=== PATIENT | female | born 1950 | race African-American/Black ===

== ENCOUNTER 2017-06-15 10:09 | Outpatient (CLI) | payer MEDICARE, OTHER ==
[2017-06-15] MEDS ORDERED: LIDOCAINE 2%/EPI 1:100,000 20 ML VIAL. (10:33)
[2017-06-15 11:15] LABS: HEMATOCRIT 38.6 % (36.0-47.0); HEMOGLOBIN 12.5 g/dL (12.0-15.5); MEAN CORPUSCULAR HEMOGLOBIN 31 pg (25-35); MEAN CORPUSCULAR HGB CONC 32 g/dL (31-37); MEAN CORPUSCULAR VOLUME 96 fL (79-100); PLATELET COUNT 261 x10^3/uL (140-400); RED BLOOD COUNT 4.01 x10^6/uL (3.50-5.40); RED CELL DISTRIBUTION WIDTH 13.7 % (11.5-14.5)
[2017-06-15 11:24] LABS: INR 1.1 (0.8-1.1); PROTHROMBIN TIME PATIENT 13.3 SEC (11.7-14.0)
[2017-06-15] MEDS ORDERED: BACITRACIN 50,000 UNIT in IV NORMAL SALINE 250ML 250 ML IRR (11:30)
[2017-06-15] MEDS ORDERED: fentaNYL PF VIAL 100 MCG/2 ML VIAL (11:35)
[2017-06-15] MEDS ORDERED: MIDAZOLAM HCL/PF 2 MG/2 ML VIAL. (11:35)
[2017-06-15 11:50] LABS: ANION GAP 12 (6-14); BLOOD UREA NITROGEN 26 mg/dL (7-20); CALCIUM 9.1 mg/dL (8.5-10.1); CARBON DIOXIDE 24 mmol/L (21-32); CHLORIDE 106 mmol/L (98-107); CREATININE 1.3 mg/dL (0.6-1.0); GFR 49.7; GLUCOSE 109 mg/dL (70-99); POTASSIUM 4.7 mmol/L (3.5-5.1); SODIUM 142 mmol/L (136-145)
[2017-06-15] MEDS: LIDOCAINE 2% 20 ML VIAL. IJ (12:35)
[2017-06-15] MEDS: MIDAZOLAM HCL/PF 2 MG/2 ML VIAL. IV (12:36)
[2017-06-15] MEDS: fentaNYL PF VIAL 100 MCG/2 ML VIAL IV (12:36)
[2017-06-15] MEDS ORDERED: DIGOXIN IV 500 MCG/2 ML AMPUL. (13:02)
[2017-06-15] MEDS ORDERED: NO ANTICOAGULANT THERAPY. MC (13:15)
[2017-06-15] MEDS: DIGOXIN IV 500 MCG/2 ML AMPUL. IV (13:17)
[2017-06-16] MEDS ORDERED: DIGOXIN 125 MCG TABLET. PO (09:00)
== END 2017-06-15 15:15 | disposition home or self-care (01) ==
LOC: CCL 10:09
DX: T82.191A Other mechanical complication of cardiac pulse generator (battery), initial encounter (principal); Y84.8 Other medical procedures as the cause of abnormal reaction of the patient, or of later complication, without mention of misadventure at the time of the procedure; Y92.89 Other specified places as the place of occurrence of the external cause; E78.00 Pure hypercholesterolemia, unspecified; I48.91 Unspecified atrial fibrillation; I11.0 Hypertensive heart disease with heart failure; I50.20 Unspecified systolic (congestive) heart failure; Z79.01 Long term (current) use of anticoagulants
CPT/HCPCS: 33264; 36415; 80048; 85027; 85610; 93005; 99151; 99153; C1721; J0690; J1160; J1644; J2250; J3010

== ENCOUNTER 2017-07-23 10:11 | Day surgery (SDC) | payer MEDICARE ==
[~2017-07-23 10:11] MED LIST: 0.9 % SODIUM CHLORIDE 10 ML DISP.SYRIN. IV; HYDROmorphone 2 MG/ML VIAL IV; LIDOCAINE 1% PF 2 ML VIAL. ID; MORPHINE SULFATE 2 MG/ML DISP.SYRIN. IV; ONDANSETRON PF 4 MG/2 ML VIAL. IV; PROCHLORPERAZINE 10 MG/2 ML VIAL. IV; fentaNYL PF VIAL 100 MCG/2 ML VIAL IV
[2017-07-23 11:26] LABS: ANION GAP 11 (6-14); BLOOD UREA NITROGEN 27 mg/dL (7-20); CALCIUM 9.8 mg/dL (8.5-10.1); CARBON DIOXIDE 25 mmol/L (21-32); CHLORIDE 102 mmol/L (98-107); CREATININE 1.9 mg/dL (0.6-1.0); GFR 32.1; GLUCOSE 108 mg/dL (70-99); POTASSIUM 4.2 mmol/L (3.5-5.1); SODIUM 138 mmol/L (136-145)
[2017-07-23] MEDS: IV RINGERS,LACTATED 1000ML 1,000 ML IV ×2 (11:47)
[2017-07-23] MEDS ORDERED: PROPOFOL 20 ML IV ×2 (11:53)
== END 2017-07-23 13:02 | disposition home or self-care (01) ==
LOC: SURG 10:11
DX: I48.91 Unspecified atrial fibrillation (principal); I48.92 Unspecified atrial flutter; E66.9 Obesity, unspecified; I13.0 Hypertensive heart and chronic kidney disease with heart failure and stage 1 through stage 4 chronic kidney disease, or unspecified chronic kidney disease; N18.9 Chronic kidney disease, unspecified; I50.9 Heart failure, unspecified
CPT/HCPCS: 36415; 80048; 83735; 92960; 93005; J2704

== ENCOUNTER → 2017-11-18 | Outpatient (CLI) | payer MEDICARE | END | disposition home or self-care (01) | LOC: ECHO 12:38 | DX: I13.0 Hypertensive heart and chronic kidney disease with heart failure and stage 1 through stage 4 chronic kidney disease, or unspecified chronic kidney disease (principal); I50.22 Chronic systolic (congestive) heart failure; N18.9 Chronic kidney disease, unspecified; I08.8 Other rheumatic multiple valve diseases; I27.20 Pulmonary hypertension, unspecified; Z95.0 Presence of cardiac pacemaker | CPT/HCPCS: 93306 ==

== ENCOUNTER → 2018-06-02 | Outpatient (CLI) | payer MEDICARE ==
[2017-07-23 12:24] VITALS: BP 107/58
[~2018-06-02] MED LIST changes: -0.9 % SODIUM CHLORIDE 10 ML DISP.SYRIN. IV; +AMIO200T4 PO; +APIX5TAB PO; +DOCU100T11 PO; +FURO40TA4 PO; -HYDROmorphone 2 MG/ML VIAL IV; -LIDOCAINE 1% PF 2 ML VIAL. ID; +LISI-130 PO; +METO50TA6 PO; -MORPHINE SULFATE 2 MG/ML DISP.SYRIN. IV; -ONDANSETRON PF 4 MG/2 ML VIAL. IV; +PRAV40TA2 PO; -PROCHLORPERAZINE 10 MG/2 ML VIAL. IV; +REGADENOSON 0.4 MG/5 ML DISP.SYRIN. IV ONE; +[UNRECOGNIZED DRUG - CODE] PO; -fentaNYL PF VIAL 100 MCG/2 ML VIAL IV; +potassium
--- NOTE | 2018-06-02 13:24 | RAD ---
MR#: [id number] Date of Study: 06/02/2018 Ordering Physician: PRINCE REYNOSO, Referring Physician: APTTI SANTACRUZ Tech: BRIAN Braga APPROVED REPORT Test Type: Pharmacological Stress Nurse/Tech: Sejal Benitez RN Test Indications: CAD Cardiac History: Hypertension, CKD, open heart surgery x 2 for valve repair, ICD, arrythmia, dyspne a Medications: See Electronic Medical Record Medical History: See Electronic Medical Record Resting ECG: SR w/ PAC, PVC; Resting Heart Rate: 74 bpm Resting Blood Pressure: 138/63mmHg Pretest Chest Pain: No chest pain Nurse/Tech Notes S1S2, Clear LS, c/o SOB prior to test Consent: The procedure was explained to the patient in lay terms. Informed consent was witnessed. Aly eout was entered into [employer]. History and Stress Test performed by Sejal Benitez RN Pharm. Details Pharmacologic stress testing was performed using 0.4mg per 5ml of regadenoson given intravenously ove r 7-10 seconds. Stress Symptoms Dyspnea (getting worse than prior to test), ZAMORA (3/10), Nausea POST EXERCISE Reason for Termination: Infusion complete Max HR: 99 bpm Max Blood Pressure: 134/61mmHg Chest Pain: No. ST Change: No. INTERPRETATION Stress EKG Conclusion: No evidence of stress induced EKG changes. Imaging Protocol IMAGE PROTOCOL: Rest Tc-99m/stress Tc-99m 1 day Rest: Stress: Viability: Radiopharm.Tc99m [id number] Sestamibi Dose12.3mCi 32mCi Duration 15min. 13min. Img Date 06/02/2018 06/02/2018 Inj-Img [id number]. 60min. Rest Admin Site:IV - Right AntecubitalAdministrator:BRIAN Braga Stress Admin Site: IV - Right AntecubitalAdministrator: PATTI BishopTCB, ARRT (R)(N) STRESS DATA End Diast. Vol.83.0mlLVEDV index BSA46.0ml End Syst. Vol.35.0mlLVESV index BSA19.0ml Myocardial Jarl418.0gEject. Cldthsyu78.0% Stress Scores Regional WT0.00Summed WT5.00 Regional WM0.00Summed WM14.00 LV Perfusion There is a small sized, severe in intensity FIXED mid to distal septal defect suggestive of prior inf arct without ischemia. Wall Motion Normal wall motion. LV Perf. Quant 17 Seg. SSS7.00 17 Seg. SRS7.00 17 Seg. SDS1.00 Stress Defect Extent (% LAD)12.50Rest Defect Extent (% LAD)22.50Rev. Defect Extent (% LAD)0.00 Stress Defect Extent (% LCX) 12.50Rest Defect Extent (% LCX)21.30Rev. Defect Extent (% LCX)0.00 Stress Defect Extent (% RCA)0.00Rest Defect Extent (% RCA)0.00Rev. Defect Extent (% RCA)0.00 Stress Defect Extent (% NEGRITO)7.80Rest Defect Extent (% NEGRITO)13.00Rev. Defect Extent (% NEGRITO)0.00 Other Information Quality:Average Risk Assessment: Low Risk Conclusion 1. No evidence of stress induced EKG changes 2. Fixed septal defect. No ischemia 3. Normal LV function. EF 58% 4. Low risk study Signed by : Delmar Zhang, Electronically Approved : 06/02/2018 13:22:28
== END | disposition home or self-care (01) ==
LOC: NM 09:07
PROVIDERS: ATTEND Internal Medicine Cardiovascular Disease
DX: I25.10 Atherosclerotic heart disease of native coronary artery without angina pectoris (principal); I13.0 Hypertensive heart and chronic kidney disease with heart failure and stage 1 through stage 4 chronic kidney disease, or unspecified chronic kidney disease; I50.20 Unspecified systolic (congestive) heart failure; N18.9 Chronic kidney disease, unspecified
CPT/HCPCS: 78452; 93017; 96374; A9500; J2785

== ENCOUNTER 2018-08-11 09:36 | Inpatient (IN) | payer MEDICARE ==
[~2018-08-11] VITALS: Ht 157.5 cm; Wt 83.1 kg
[~2018-08-11 09:36] MED LIST changes: +ASPI-630 PO; +LEVO50TA5 PO; +LOSA100T14 PO; -REGADENOSON 0.4 MG/5 ML DISP.SYRIN. IV ONE; +WARF-78 PO
[2018-08-11] MEDS ORDERED: IPRATRPIUM/ALBUTEROL 0.5/2.5MG 3 ML NEBU. NEB ONE (09:45)
--- NOTE | 2018-08-11 10:02 | RAD ---
EXAM: Chest, single view. HISTORY: Short of breath. COMPARISON: 07/01/2018 FINDINGS: A frontal view of the chest obtained. There is stable mild increased left lung central interstitial opacity. There is no consolidation, pleural effusion or pneumothorax. There is stable cardiomegaly. There is evidence of median sternotomy and cardiac valve surgery. There is a left cardiac pacemaker defibrillator unchanged in position. IMPRESSION: 1. Stable mild increased left lung central interstitial opacity possibly due to atelectasis or interstitial infiltrate. 2. Stable cardiomegaly and postoperative changes. Electronically signed by: Latoya Arteaga MD (08/11/2018 9:59 AM) [place] [id number]
--- NOTE | 2018-08-11 10:24 | EKG ---
[facility] [address] [place] [address] Test Date: 2018-08-11 Test Time: 10:12:51 Pat Name: CRISTIAN EVANS Department: Room: Gender: F Repatcher: : 1950 Requested By: MINNIE CROCKER Order Number: [id number] Reading MD: Delmar Zhang MD Measurements Intervals [place] Rate: 113 P: 137 MS: 164 QRS: 19 QRSD: 82 T: -114 QT: 348 QTc: 483 Interpretive Statements INTERMITTENT V-PACING PROBABLE SVT Electronically Signed On 08-16-2018 7:53:12 .NET DEVELOPER by Delmar Zhang MD
[2018-08-11 11:16] LABS: BASO # 0.1 x10^3/uL (0.0-0.2); BASO % 1 % (0-3); EOS # 0.4 x10^3/uL (0.0-0.7); EOS % 3 % (0-3); HEMATOCRIT 38.5 % (36.0-47.0); HEMOGLOBIN 12.9 g/dL (12.0-15.5); LYMPH # 4.2 x10^3/uL (1.0-4.8); LYMPH % 38 % (24-48); MEAN CORPUSCULAR HEMOGLOBIN 33 pg (25-35); MEAN CORPUSCULAR HGB CONC 34 g/dL (31-37); MEAN CORPUSCULAR VOLUME 97 fL (79-100); MONO # 0.8 x10^3/uL (0.0-1.1); MONO % 7 % (0-9); NEUT # 5.5 x10^3uL (1.8-7.7); NEUT % 50 % (31-73); PLATELET COUNT 351 x10^3/uL (140-400); RED BLOOD COUNT 3.98 x10^6/uL (3.50-5.40); RED CELL DISTRIBUTION WIDTH 14.2 % (11.5-14.5); WHITE BLOOD COUNT 10.9 x10^3/uL (4.0-11.0)
[2018-08-11 11:37] LABS: CALCIUM 9.9 mg/dL (8.5-10.1); CREATININE 1.9 mg/dL (0.6-1.0); POTASSIUM 3.5 mmol/L (3.5-5.1)
[2018-08-11 11:41] LABS: ALBUMIN 3.8 g/dL (3.4-5.0); DIRECT BILIRUBIN 0.3 mg/dL (0.0-0.2); TOTAL BILIRUBIN 1.1 mg/dL (0.2-1.0); TOTAL PROTEIN 8.8 g/dL (6.4-8.2)
[2018-08-11] MEDS ORDERED: IV NORMAL SALINE 500ML BAG 500 ML IV ONE ×2 (11:45→12:45)
[2018-08-11] MEDS ORDERED: cefTRIAXone IV Push 1 GM VIAL. IVP ONE (12:15)
[2018-08-11] MEDS ORDERED: ONDANSETRON PF 4 MG/2 ML VIAL. IV PRN (12:15)
[2018-08-11] MEDS ORDERED: AZITHRMYCN 500MG IVPB FOR OMNI 250 ML IV ONE (12:15)
[2018-08-11 12:42] LABS: PROTHROMBIN TIME PATIENT 18.3 SEC (11.7-14.0)
[2018-08-11] MEDS ORDERED: WARF2TAB96 PO (12:42)
[2018-08-11] MEDS ORDERED: LOSA-73 PO (12:42)
--- NOTE | 2018-08-11 12:46 | PHYS DOC ---
Past Medical History Past Medical History: A-Fib, CHF, High Cholesterol, Hypertension, Hypothyroid, Other Additional Past Medical Histor: PACE MAKER/DEFIB Past Surgical History: Pacemaker, Other Additional Past Surgical Histo: MITRAL VALVE REPAIR X2 Alcohol Use: None Drug Use: None Adult General Chief Complaint Chief Complaint: SHORTNESS OF BREATH HPI HPI 67 year old female presenting to the emergency department today with worsening cough and shortness of breath with increasing sputum production. She has had a cough since March but over the last 2 weeks it has been worse. She feels lightheaded and dizzy at home. About a month ago they changed her blood pressure medications. She denies any pain but her lightheadedness is worse when she stands up. Review of systems is negative for chest pain abdominal pain fevers chills or neck stiffness. All other review of systems is negative unless otherwise noted in history of present illness. ED course: 67 yo female presenting with a cough and shortness of breath. On arrival she is tachycardic and mildly hypotensive in the 90s. She has a history of CHF and was given 500 mL of fluid initially. Chest x-ray shows probable infiltrate. White blood cell count within normal limits. His lipase is mildly elevated likely secondary to vomiting. Posttussis vomiting most likely. ProBNP is mildly elevated. Patient does not appear volume overloaded clinically this time. Troponin is within normal limits. I spoke with Dr. Goldman who accepts the patient for admission. Antibiotics were initiated. Basic bridge orders placed. EKG reviewed by myself shows an intermittently paced rhythm with an irregular rhythm. Heart rate is about 110. ST segments show repolarization on the paced leads. Otherwise ST segments are congruent. Not suggestive of ACS. Patient does not have any chest pain and is not currently short of breath. Review of Systems Review of Systems SEE ABOVE. Current Medications Current Medications Current Medications Medications (Trade) Dose Ordered Sig/Kimber Start Time Stop Time Status Last Admin Dose Admin Albuterol/ Ipratropium (Duoneb) 3 ml 1X ONCE 08/11/18 09:45 08/11/18 09:46 DC 08/11/18 10:22 3 ML Azithromycin 250 ml @ 250 mls/hr 1X ONCE 08/11/18 12:15 08/11/18 13:14 Ceftriaxone Sodium (Rocephin) 1 gm 1X ONCE 08/11/18 12:15 08/11/18 12:16 DC Ondansetron HCl (Zofran) 4 mg PRN Q8HRS PRN 08/11/18 12:15 08/12/18 12:14 Sodium Chloride 500 ml @ 500 mls/hr 1X ONCE 08/11/18 11:45 08/11/18 12:44 08/11/18 11:44 500 MLS/HR Allergies Allergies Allergies Coded Allergies Type Severity Reaction Last Updated Verified No Known Drug Allergies 07/21/17 No Physical Exam Physical Exam SEE ABOVE Constitutional: Well developed, well nourished, no acute distress, non-toxic appearance. HENT: Normocephalic, atraumatic, bilateral external ears normal, oropharynx moist, no oral exudates, nose normal. [] Eyes: PERRLA, EOMI, conjunctiva normal, no discharge. Neck: Normal range of motion, no tenderness, supple, no stridor. [] Cardiovascular:Heart rate regular rhythm, no murmur Lungs & Thorax: Bilateral breath sounds clear to auscultation [] no wheezing or crackles. Abdomen: Bowel sounds normal, soft, no tenderness, no masses, no pulsatile masses. Skin: Warm, dry, no erythema, no rash. [] Back: No tenderness, no CVA tenderness. [] Extremities: No tenderness, no cyanosis, no clubbing, ROM intact, no edema. Neurologic: Alert and oriented X 3, normal motor function, normal sensory function, no focal deficits noted. [] Psychologic: Affect normal, judgement normal, mood normal. [] Current Patient Data Vital Signs Vital Signs Date Time Temp Pulse Resp B/P (MAP) Pulse Ox O2 Delivery O2 Flow Rate FiO2 08/11/18 10:23 96 Room Air 08/11/18 09:50 98.7 118 20 93/67 (76) 98.7 Lab Values Laboratory Tests Test 08/11/18 11:08 White Blood Count 10.9 x10^3/uL (4.0-11.0) Red Blood Count 3.98 x10^6/uL (3.50-5.40) Hemoglobin 12.9 g/dL (12.0-15.5) Hematocrit 38.5 % (36.0-47.0) Mean Corpuscular Volume 97 fL (79-100) Mean Corpuscular Hemoglobin 33 pg (25-35) Mean Corpuscular Hemoglobin Concent 34 g/dL (31-37) Red Cell Distribution Width 14.2 % (11.5-14.5) Platelet Count 351 x10^3/uL (140-400) Neutrophils (%) (Auto) 50 % (31-73) Lymphocytes (%) (Auto) 38 % (24-48) Monocytes (%) (Auto) 7 % (0-9) Eosinophils (%) (Auto) 3 % (0-3) Basophils (%) (Auto) 1 % (0-3) Neutrophils # (Auto) 5.5 x10^3uL (1.8-7.7) Lymphocytes # (Auto) 4.2 x10^3/uL (1.0-4.8) Monocytes # (Auto) 0.8 x10^3/uL (0.0-1.1) Eosinophils # (Auto) 0.4 x10^3/uL (0.0-0.7) Basophils # (Auto) 0.1 x10^3/uL (0.0-0.2) Sodium Level 143 mmol/L (136-145) Potassium Level 3.5 mmol/L (3.5-5.1) Chloride Level 101 mmol/L (98-107) Carbon Dioxide Level 30 mmol/L (21-32) Anion Gap 12 (6-14) Blood Urea Nitrogen 18 mg/dL (7-20) Creatinine 1.9 mg/dL (0.6-1.0) H Estimated GFR (Cockcroft-Gault) 32.0 Glucose Level 111 mg/dL (70-99) H Calcium Level 9.9 mg/dL (8.5-10.1) Total Bilirubin 1.1 mg/dL (0.2-1.0) H Direct Bilirubin 0.3 mg/dL (0.0-0.2) H Aspartate Amino Transferase (AST) 17 U/L (15-37) Alanine Aminotransferase (ALT) 16 U/L (14-59) Alkaline Phosphatase 108 U/L (46-116) Troponin I Quantitative < 0.017 ng/mL (0.000-0.055) GF-Qmt-V-Type Natriuretic Peptide 1418 pg/mL (0-124) H Total Protein 8.8 g/dL (6.4-8.2) H Albumin 3.8 g/dL (3.4-5.0) Lipase 1062 U/L (73-393) H Laboratory Tests 08/11/18 11:08 Laboratory Tests 08/11/18 11:08 EKG EKG [] Radiology/Procedures Radiology/Procedures [] Course & Med Decision Making Course & Med Decision Making Pertinent Labs and Imaging studies reviewed. (See chart for details) [] Dragon Disclaimer Dragon Disclaimer This electronic medical record was generated, in whole or in part, using a voice recognition dictation system. Departure Departure Impression: Primary Impression: Pneumonia Additional Impression: A-fib Disposition: ADMITTED INPATIENT Admitting Physician: Lola Goldman Condition: STABLE Referrals: LOLA GOLDMAN MD (PCP) Problem Qualifiers MINNIE CROCKER MD Aug 11, 2018 12:46
[2018-08-11 15:39] VITALS: BP 102/66
--- NOTE | 2018-08-11 15:54 | PDOC2 ---
CORTES BETANCOURT ONCOLOGY PHYSICIAN ASSISTANT 08/11/18 1554: CARDIAC CONSULT DATE OF CONSULT Date of Consult DATE: 08/11/18 TIME: 15:26 REASON FOR CONSULT Reason for Consult: Cardiac arrhythmia, possible VT REFERRING PHYSICIAN Referring Physician: Susi SOURCE Source: Chart review, Patient HISTORY OF PRESENT ILLNESS HISTORY OF PRESENT ILLNESS This is a pleasant 67 yo female admitted for complains of nausea, vomiting and MONACDA. Denies any chest pain and denies any palpitations. In the last 2 weeks she has been having coughing but only clear secretions comes out. No fever or chills. Reports that sometimes she coughs significantly that she vomits. When she eats solids she eventually start gagging and vomits. No significant abdominal pain. When she drinks fluids sometimes it goes to her trachea. Denies any heartburn. In the last week she has stopped eating solids and just clears liquids because her nausea,vomiting and coughing became worse. Also she has noted that her BP has gotten low but no frequent dizziness or passing out. She also has kept on taking lasix daily. Currently she is not in distress and no complains of pain. PAST MEDICAL HISTORY Cardiovascular: AFIB (post CVN 07/2017), CAD, HTN, Hyperlipidemia, Valve insufficiency, Other (ICM) Heme/Onc: Anemia NOS, Other (chronic anticoagulation) Musculoskeletal: Osteoarthritis Rheumatologic: Rheumatoid arthritis Endocrine: Hypothyroidism PAST SURGICAL HISTORY Past Surgical History: Pacemaker (AICD), Other (MV open repair) FAMILY HISTORY Family History: Heart Disease (mother) SOCIAL HISTORY Smoke: Quit ALCOHOL: none Drugs: None Lives: with Family CURRENT MEDICATIONS CURRENT MEDICATIONS Current Medications Medications (Trade) Dose Ordered Sig/Kimber Route PRN Reason Start Time Stop Time Status Last Admin Dose Admin Albuterol/ Ipratropium (Duoneb) 3 ml 1X ONCE NEB 08/11/18 09:45 08/11/18 09:46 DC 08/11/18 10:22 Sodium Chloride 500 ml @ 500 mls/hr 1X ONCE IV 08/11/18 11:45 08/11/18 12:44 DC 08/11/18 11:44 Azithromycin 250 ml @ 250 mls/hr 1X ONCE IV 08/11/18 12:15 08/11/18 13:14 DC 08/11/18 13:03 Ceftriaxone Sodium (Rocephin) 1 gm 1X ONCE IVP 08/11/18 12:15 08/11/18 12:16 DC 08/11/18 13:03 Sodium Chloride 500 ml @ 500 mls/hr 1X ONCE IV 08/11/18 12:45 08/11/18 13:44 DC 08/11/18 12:45 ALLERGIES ALLERGIES: Coded Allergies: No Known Drug Allergies (Unverified , 07/21/17) ROS Review of System 14 point ROS evaluated with pertinent positives noted per HPI PHYSICAL EXAM General: Alert, Oriented X3, Cooperative, No acute distress HEENT: Atraumatic, Mucous membr. moist/pink Lungs: Clear to auscultation, Normal air movement Heart: Regular rate (atrial tach), Normal S1, Normal S2, Other (2/6 systolic murmur to LLS border) Abdomen: Soft, No tenderness Extremities: No cyanosis, No edema Skin: No breakdown, No significant lesion Neuro: Normal speech, Sensation intact Psych/Mental Status: Mental status NL, Mood NL MUSCULOSKELETAL: Osteoarthritic changes both hands VITALS VITALS Vital Signs Date Time Temp Pulse Resp B/P (MAP) Pulse Ox O2 Delivery O2 Flow Rate FiO2 08/11/18 13:50 112 15 97/67 (77) 97 Room Air 08/11/18 09:50 98.7 98.7 LABS Lab: Laboratory Tests Test 08/11/18 11:08 08/11/18 13:30 White Blood Count 10.9 x10^3/uL (4.0-11.0) Red Blood Count 3.98 x10^6/uL (3.50-5.40) Hemoglobin 12.9 g/dL (12.0-15.5) Hematocrit 38.5 % (36.0-47.0) Mean Corpuscular Volume 97 fL (79-100) Mean Corpuscular Hemoglobin 33 pg (25-35) Mean Corpuscular Hemoglobin Concent 34 g/dL (31-37) Red Cell Distribution Width 14.2 % (11.5-14.5) Platelet Count 351 x10^3/uL (140-400) Neutrophils (%) (Auto) 50 % (31-73) Lymphocytes (%) (Auto) 38 % (24-48) Monocytes (%) (Auto) 7 % (0-9) Eosinophils (%) (Auto) 3 % (0-3) Basophils (%) (Auto) 1 % (0-3) Neutrophils # (Auto) 5.5 x10^3uL (1.8-7.7) Lymphocytes # (Auto) 4.2 x10^3/uL (1.0-4.8) Monocytes # (Auto) 0.8 x10^3/uL (0.0-1.1) Eosinophils # (Auto) 0.4 x10^3/uL (0.0-0.7) Basophils # (Auto) 0.1 x10^3/uL (0.0-0.2) Prothrombin Time 18.3 SEC (11.7-14.0) Prothromb Time International Ratio 1.6 (0.8-1.1) Sodium Level 143 mmol/L (136-145) Potassium Level 3.5 mmol/L (3.5-5.1) Chloride Level 101 mmol/L (98-107) Carbon Dioxide Level 30 mmol/L (21-32) Anion Gap 12 (6-14) Blood Urea Nitrogen 18 mg/dL (7-20) Creatinine 1.9 mg/dL (0.6-1.0) Estimated GFR (Cockcroft-Gault) 32.0 Glucose Level 111 mg/dL (70-99) Calcium Level 9.9 mg/dL (8.5-10.1) Total Bilirubin 1.1 mg/dL (0.2-1.0) Direct Bilirubin 0.3 mg/dL (0.0-0.2) Aspartate Amino Transf (AST/SGOT) 17 U/L (15-37) Alanine Aminotransferase (ALT/SGPT) 16 U/L (14-59) Alkaline Phosphatase 108 U/L (46-116) Troponin I Quantitative < 0.017 ng/mL (0.000-0.055) ML-Ois-R-Type Natriuretic Peptide 1418 pg/mL (0-124) Total Protein 8.8 g/dL (6.4-8.2) Albumin 3.8 g/dL (3.4-5.0) Lipase 1062 U/L (73-393) Lactic Acid Level 1.2 mmol/L (0.4-2.0) ECHOCARDIOGRAM ECHOCARDIOGRAM <Conclusion> The left ventricular systolic function is normal and the ejection fraction is low normal. EF 50% Septal motion consistent with conduction abnormality, otherwise, there is normal wall motion. There is a pacemaker/ICD lead in the right ventricle. Doppler and Color Flow revealed mild tricuspid regurgitation. There is moderate pulmonary hypertension. PASP is 54mmHg. Doppler and Color Flow revealed mild pulmonic valvular regurgitation. There is mild pulmonary artery dilatation. DATE: 11/18/17 1439 STRESS TEST STRESS TEST Conclusion 1. No evidence of stress induced EKG changes 2. Fixed septal defect. No ischemia 3. Normal LV function. EF 58% 4. Low risk study DATE: 06/02/18 1322 ASSESSMENT/PLAN ASSESSMENT/PLAN 1. Possible pneumonia and aspiration: per PCP 2. Persistent AFIB/flutter with RVR: likely induced by GI and metabolic issues. 3. AICD in situ: (Biotronik) device review noted 11.9% AFIB burden with frequent atrial tach in the last 2 weeks suggesting flutter and fib with intermittent pacing and no VT. 4. CAD: recent MPI as noted above. stable. 5. ICM: noted last EF at 50%. Impedances are within baseline not suggesting overload. 6. Hx of open MV repair 7. Hypothyroidism: recent 06/2018 TSH at 12.7, on replacement per PCP 8. HTN: marginal, received IVF in ED. 9. Elevated lipase: per PCP 10. Esophageal motility disorder/dysphagia? 11. MARILEE due to volume depletion due to vomiting, lasix use and low PO intake. Recommendations 1. Recheck TSH. TTE, Mg. May need CT abd, will defer to PCP 2. INR 1.6. Consider GI consult. May need to hold coumadin if endoscopy is a possibility otherwise restart coumadin for stroke prevention. 3. Hold BB and ARB with BP at marginal range Potentially resume tomorrow. Will consider digoxin x1 4. Will hold amiodarone for now with elevated lipase and possible esophageal motility issue. Will discuss with primary top frame maker PRINCE REYNOSO MD 08/12/18 0712: CARDIAC CONSULT ASSESSMENT/PLAN ASSESSMENT/PLAN Patient seen and examined 08/11/18. Agree with WHEEL GRINDER's assessment and plan. Consider gastroenterology team consultation for patient's abdominal pain/nausea/ vomiting CAD status clinically stable. Recent 2-D echo showed LVEF 50%, clinically well compensated. Patient continues to have arrhythmias including atrial fibrillation/atrial tachycardia in spite of being on amiodarone Agree with holding amiodarone for now and use digoxin for rate control We will consider outpatient EP referral for ablation therapy Resume Coumadin for stroke prophylaxis once GI workup is completed Thank you for your consultation CORTES BETANCOURT APRN Aug 11, 2018 15:54 PRINCE REYNOSO MD Aug 12, 2018 07:12
[2018-08-11] MEDS ORDERED: AMIODARONE HCL 200 MG TABLET. PO SCH (16:30)
[2018-08-11] MEDS ORDERED: DIGOXIN IV 500 MCG/2 ML AMPUL. IV ONE (16:45)
--- NOTE | 2018-08-11 17:03 | PDOC ---
PROGRESS NOTES Subjective Subjective Patient denies CP or palpitations. Denies SOA. Objective Objective Vital Signs Date Time Temp Pulse Resp B/P (MAP) Pulse Ox O2 Delivery O2 Flow Rate FiO2 08/11/18 15:39 98.4 116 20 102/66 (78) 98 Nasal Cannula 98.4 Physical Exam Abdomen: Normal bowel sounds, Soft, No tenderness Heart: Other (irregularly irregular, tachy) Extremities: No edema General: Alert, Oriented X3, No acute distress Lungs: Other (BS mildly decreased throughout, no wheezes or crackles, no cough during exam) Assessment Assessment Problems Medical Problems: (1) A-fib Status: Acute (2) Pneumonia Status: Acute Plan Plan of Care 1. Chronic afib with RVR - patient mildly tachy. INR low, increased Coumadin tonight. Cardiology adjusting medications. B Riccardo on hold due to hypotension. 2. cough - patient reports this has gone on for weeks and is worsening. Cough only associated with eating. Some post-tussive emesis which is also worsening. CXR shows a mild L lung opacity which was seen last month and has not really worsened. Patient has long smoking history but has not smoked for years. CT chest ordered for further evaluation. If unremarkable will need to consider GI evaluation although patient denies dysphagia. 3. hypotension - patient has hx of HTN but is too tightly controlled at present. Hold meds and resume as indicated. 4. hypothyroidism - recently diagnosed and started on replacement. 5. CKD - Creatinine staying elevated. Lasix presently on hold, follow lab. Comment Review of Relevant I have reviewed the following items cinthia (where applicable) has been applied. Labs Laboratory Tests Test 08/11/18 11:08 08/11/18 13:30 White Blood Count 10.9 x10^3/uL (4.0-11.0) Red Blood Count 3.98 x10^6/uL (3.50-5.40) Hemoglobin 12.9 g/dL (12.0-15.5) Hematocrit 38.5 % (36.0-47.0) Mean Corpuscular Volume 97 fL (79-100) Mean Corpuscular Hemoglobin 33 pg (25-35) Mean Corpuscular Hemoglobin Concent 34 g/dL (31-37) Red Cell Distribution Width 14.2 % (11.5-14.5) Platelet Count 351 x10^3/uL (140-400) Neutrophils (%) (Auto) 50 % (31-73) Lymphocytes (%) (Auto) 38 % (24-48) Monocytes (%) (Auto) 7 % (0-9) Eosinophils (%) (Auto) 3 % (0-3) Basophils (%) (Auto) 1 % (0-3) Neutrophils # (Auto) 5.5 x10^3uL (1.8-7.7) Lymphocytes # (Auto) 4.2 x10^3/uL (1.0-4.8) Monocytes # (Auto) 0.8 x10^3/uL (0.0-1.1) Eosinophils # (Auto) 0.4 x10^3/uL (0.0-0.7) Basophils # (Auto) 0.1 x10^3/uL (0.0-0.2) Prothrombin Time 18.3 SEC (11.7-14.0) Prothromb Time International Ratio 1.6 (0.8-1.1) Sodium Level 143 mmol/L (136-145) Potassium Level 3.5 mmol/L (3.5-5.1) Chloride Level 101 mmol/L (98-107) Carbon Dioxide Level 30 mmol/L (21-32) Anion Gap 12 (6-14) Blood Urea Nitrogen 18 mg/dL (7-20) Creatinine 1.9 mg/dL (0.6-1.0) Estimated GFR (Cockcroft-Gault) 32.0 Glucose Level 111 mg/dL (70-99) Calcium Level 9.9 mg/dL (8.5-10.1) Magnesium Level 2.2 mg/dL (1.8-2.4) Total Bilirubin 1.1 mg/dL (0.2-1.0) Direct Bilirubin 0.3 mg/dL (0.0-0.2) Aspartate Amino Transf (AST/SGOT) 17 U/L (15-37) Alanine Aminotransferase (ALT/SGPT) 16 U/L (14-59) Alkaline Phosphatase 108 U/L (46-116) Troponin I Quantitative < 0.017 ng/mL (0.000-0.055) XY-Lbk-N-Type Natriuretic Peptide 1418 pg/mL (0-124) Total Protein 8.8 g/dL (6.4-8.2) Albumin 3.8 g/dL (3.4-5.0) Lipase 1062 U/L (73-393) Lactic Acid Level 1.2 mmol/L (0.4-2.0) Laboratory Tests Test 08/11/18 11:08 08/11/18 13:30 White Blood Count 10.9 x10^3/uL (4.0-11.0) Red Blood Count 3.98 x10^6/uL (3.50-5.40) Hemoglobin 12.9 g/dL (12.0-15.5) Hematocrit 38.5 % (36.0-47.0) Mean Corpuscular Volume 97 fL (79-100) Mean Corpuscular Hemoglobin 33 pg (25-35) Mean Corpuscular Hemoglobin Concent 34 g/dL (31-37) Red Cell Distribution Width 14.2 % (11.5-14.5) Platelet Count 351 x10^3/uL (140-400) Neutrophils (%) (Auto) 50 % (31-73) Lymphocytes (%) (Auto) 38 % (24-48) Monocytes (%) (Auto) 7 % (0-9) Eosinophils (%) (Auto) 3 % (0-3) Basophils (%) (Auto) 1 % (0-3) Neutrophils # (Auto) 5.5 x10^3uL (1.8-7.7) Lymphocytes # (Auto) 4.2 x10^3/uL (1.0-4.8) Monocytes # (Auto) 0.8 x10^3/uL (0.0-1.1) Eosinophils # (Auto) 0.4 x10^3/uL (0.0-0.7) Basophils # (Auto) 0.1 x10^3/uL (0.0-0.2) Prothrombin Time 18.3 SEC (11.7-14.0) Prothromb Time International Ratio 1.6 (0.8-1.1) Sodium Level 143 mmol/L (136-145) Potassium Level 3.5 mmol/L (3.5-5.1) Chloride Level 101 mmol/L (98-107) Carbon Dioxide Level 30 mmol/L (21-32) Anion Gap 12 (6-14) Blood Urea Nitrogen 18 mg/dL (7-20) Creatinine 1.9 mg/dL (0.6-1.0) Estimated GFR (Cockcroft-Gault) 32.0 Glucose Level 111 mg/dL (70-99) Calcium Level 9.9 mg/dL (8.5-10.1) Magnesium Level 2.2 mg/dL (1.8-2.4) Total Bilirubin 1.1 mg/dL (0.2-1.0) Direct Bilirubin 0.3 mg/dL (0.0-0.2) Aspartate Amino Transf (AST/SGOT) 17 U/L (15-37) Alanine Aminotransferase (ALT/SGPT) 16 U/L (14-59) Alkaline Phosphatase 108 U/L (46-116) Troponin I Quantitative < 0.017 ng/mL (0.000-0.055) JE-Sko-K-Type Natriuretic Peptide 1418 pg/mL (0-124) Total Protein 8.8 g/dL (6.4-8.2) Albumin 3.8 g/dL (3.4-5.0) Lipase 1062 U/L (73-393) Lactic Acid Level 1.2 mmol/L (0.4-2.0) Medications Current Medications Albuterol/ Ipratropium (Duoneb) 3 ml 1X ONCE NEB Last administered on at 10:22; Start 08/11/18 at 09:45; Stop 08/11/18 at 09:46; Status DC Sodium Chloride 500 ml @ 500 mls/hr 1X ONCE IV Last administered on at 11:44; Start 08/11/18 at 11:45; Stop 08/11/18 at 12:44; Status DC Azithromycin 250 ml @ 250 mls/hr 1X ONCE IV Last administered on 08/11/18at 13 :03; Start 08/11/18 at 12:15; Stop 08/11/18 at 13:14; Status DC Ceftriaxone Sodium (Rocephin) 1 gm 1X ONCE IVP Last administered on 08/11/18at 13:03; Start 08/11/18 at 12:15; Stop 08/11/18 at 12:16; Status DC Ondansetron HCl (Zofran) 4 mg PRN Q8HRS PRN IV NAUSEA/VOMITING; Start 08/11/18 at 12:15; Stop 08/12/18 at 12:14 Sodium Chloride 500 ml @ 500 mls/hr 1X ONCE IV Last administered on at 12:45; Start 08/11/18 at 12:45; Stop 08/11/18 at 13:44; Status DC Amiodarone HCl (Cordarone) 200 mg DAILY PO ; Start 08/11/18 at 16:30; Stop 08/11 at 16:49; Status DC Non-Formulary Medication (Warfarin Sodium ) 2 mg DAILY PO ; Start 08/12/18 at 09: 00; Status UNV Warfarin Sodium (Coumadin) 5 mg 1X WARF ONCE PO ; Start 08/12/18 at 16:30; Stop 08/12/18 at 16:31; Status Cancel Warfarin Sodium (Coumadin Per Pharmacy) 1 each PRN DAILY PRN [facility] SEE COMMENTS; Start 08/11/18 at 16:15 Digoxin (Lanoxin) 250 mcg 1X ONCE IV ; Start 08/11/18 at 16:45; Stop 08/11/18 at 16:46; Status DC Docusate Sodium (Colace) 100 mg PRN BID PRN PO CONSTIPATION; Start 08/11/18 at 21:00 Levothyroxine Sodium (Synthroid) 50 mcg DAILY06 PO ; Start 08/12/18 at 06:00 Atorvastatin Calcium (Lipitor) 10 mg QHS PO ; Start 08/11/18 at 21:00 Active Scripts Active Amiodarone Hcl 200 Mg Tablet 200 Mg PO DAILY 30 Days Coumadin (Warfarin Sodium) 5 Mg Tablet 5 Mg PO DAILY16 30 Days Reported Warfarin Sodium 2 Mg Tablet 2 Mg PO DAILY Losartan Potassium 50 Mg Tablet 50 Mg PO DAILY Levothyroxine Sodium 50 Mcg Tablet 1 Tab PO DAILY Furosemide 40 Mg Tablet 1 Tab PO PRN DAILY PRN Pravastatin Sodium 40 Mg Tablet 1 Tab PO QHS Stool Softener (Docusate Sodium) 100 Mg Tablet 100 Mg PO PRN PRN Metoprolol Tartrate 50 Mg Tablet 50 Mg PO BID Vitals/I & O Vital Sign - Last 24 Hours 08/11/18 08/11/18 08/11/18 08/11/18 09:50 10:23 10:50 11:50 Temp 98.7 98.7 Pulse 118 110 116 Resp 20 18 17 B/P (MAP) 93/67 (76) 114/59 (77) 104/64 (77) Pulse Ox 98 96 100 96 O2 Delivery Room Air Room Air Room Air Room Air 08/11/18 08/11/18 08/11/18 12:50 13:50 15:39 Temp 98.4 98.4 Pulse 116 112 116 Resp 16 15 20 B/P (MAP) 103/67 (79) 97/67 (77) 102/66 (78) Pulse Ox 99 97 98 O2 Delivery Room Air Room Air Nasal Cannula JOSH CANAS MD Aug 11, 2018 17:03
--- NOTE | 2018-08-11 17:37 | HP ---
ADMIT DATE: 08/11/2018 CHIEF COMPLAINT: Cough. HISTORY OF PRESENT ILLNESS: The patient is a 67-year-old female who presented to the Emergency Room with the above complaint. She reports a history of a cough that has been present for several months and has gradually worsened in intensity. The cough is dry and not productive of sputum. The cough only occurs in association with eating and she has recently had the onset of posttussive emesis. She does not feel short of breath except when she is actually coughing. She came to the Emergency Room because her symptoms continued to worsen and she felt more short of breath. PAST MEDICAL HISTORY: Chronic atrial fibrillation, hyperlipidemia, coronary artery disease, hypothyroidism, hypertension. PAST SURGICAL HISTORY: Mitral valve repair, AICD placement. ALLERGIES: The patient has no known drug allergies. HOME MEDICATIONS: Pravastatin 40 mg daily, furosemide 40 mg daily p.r.n., metoprolol tartrate 50 mg b.i.d., Pepcid 20 mg b.i.d. p.r.n., losartan 100 mg daily, levothyroxine 50 mcg daily, Coumadin 2 mg daily, amiodarone 200 mg daily. FAMILY HISTORY: Noncontributory. SOCIAL HISTORY: The patient is and lives at home with her . She has a long smoking history, but quit smoking cigarettes about 9 years ago. She does not drink alcohol to excess. REVIEW OF SYSTEMS: The patient denies fever or chills. She denies feeling ill with her cough. She denies chest pain or palpitations. She does have some intermittent lightheadedness, which may have worsened recently. She denies dyspnea on exertion. She denies wheezing. She denies abdominal pain, nausea or problems with her bowels. She denies emesis other than that which is associated with her coughing. She denies lower extremity edema. The patient denies any feelings of dysphagia. PHYSICAL EXAMINATION: GENERAL: The patient is alert and oriented x 3, sitting up comfortably in bed, in no acute distress. HEENT: PERRL, EOMI, sclerae clear. Oropharynx: Mucous membranes moist. NECK: Supple, without lymphadenopathy. CHEST: Breath sounds mildly decreased throughout, but otherwise clear to auscultation. No wheezes heard. No cough during exam. CARDIOVASCULAR: Irregularly irregular, mildly tachycardic. ABDOMEN: Soft, nontender, normoactive bowel sounds are present. EXTREMITIES: Without edema. ASSESSMENT AND PLAN: 1. Chronic atrial fibrillation with rapid ventricular response. The patient was hospitalized because her heart rate was over 110 in the Emergency Room. She has been seen by Cardiology and they are adjusting her medications. Her blood pressure is somewhat low and therefore her beta sammy is on hold. INR is subtherapeutic at 1.6, so she will receive an increased dose of Coumadin tonight. 2. Cough. Chest x-ray at admission showed some mild left lung opacity, which was seen last month and has not really worsened. She has a long smoking history, but has not smoked for years. The presentation is not typical for community-acquired pneumonia. She is not hypoxic on room air. CT of the chest has been ordered for further evaluation. If this is unremarkable, we will consider a GI evaluation as the cough is clearly associated with eating, although she denies other symptoms of dysphagia. We will start with a bedside swallowing evaluation. She did receive one dose of Rocephin in the Emergency Room. 3. Hypotension. The patient's blood pressure is staying low at about 100 systolic. Therefore, her antihypertensive medications are on hold and will need to be resumed at lower doses as indicated. 4. Hypothyroidism. This was just recently diagnosed and she has been started on levothyroxine. This dose will be adjusted as an outpatient. 5. Chronic kidney disease. The patient appears to have chronic kidney disease stage 3 with a consistently elevated creatinine. Her Lasix is presently on hold. We will follow her lab. JOSH CANAS MD DR: ALFONSO/hector JOB#: [id number] / [id number] DILCIA
[2018-08-11 19:10] VITALS: BP 99/61
[2018-08-11] MEDS ORDERED: DOCUSATE SODIUM 100 MG CAPSULE. PO PRN (21:00)
[2018-08-11] MEDS: ATORVASTATIN CALCIUM 10 MG TABLET. PO SCH (21:28)
[2018-08-11 23:10] VITALS: BP 102/65
[2018-08-11] MEDS ORDERED: FAMOTIDINE 20 MG TABLET. PO PRN (23:45)
[2018-08-12 03:10] VITALS: BP 106/67
[2018-08-12 05:35] LABS: BASO # 0.1 x10^3/uL (0.0-0.2); BASO % 1 % (0-3); EOS # 0.5 x10^3/uL (0.0-0.7); EOS % 6 % (0-3); HEMATOCRIT 33.7 % (36.0-47.0); HEMOGLOBIN 11.3 g/dL (12.0-15.5); LYMPH # 2.5 x10^3/uL (1.0-4.8); LYMPH % 30 % (24-48); MEAN CORPUSCULAR HEMOGLOBIN 32 pg (25-35); MEAN CORPUSCULAR HGB CONC 34 g/dL (31-37); MEAN CORPUSCULAR VOLUME 96 fL (79-100); MONO # 0.7 x10^3/uL (0.0-1.1); MONO % 9 % (0-9); NEUT # 4.5 x10^3uL (1.8-7.7); NEUT % 55 % (31-73); PLATELET COUNT 296 x10^3/uL (140-400); RED CELL DISTRIBUTION WIDTH 14.1 % (11.5-14.5); WHITE BLOOD COUNT 8.2 x10^3/uL (4.0-11.0)
[2018-08-12 05:49] LABS: CALCIUM 8.8 mg/dL (8.5-10.1); CREATININE 1.5 mg/dL (0.6-1.0); POTASSIUM 3.3 mmol/L (3.5-5.1)
[2018-08-12 06:01] LABS: PROTHROMBIN TIME PATIENT 18.1 SEC (11.7-14.0)
[2018-08-12] MEDS: LEVOTHYROXINE 50 MCG TABLET PO SCH (06:21)
[2018-08-12 07:15] VITALS: BP 114/77
--- NOTE | 2018-08-12 08:24 | NUR ---
SW following for discharge planning. Chart reviewed. Pt is from home with spouse. No discharge needs noted at this time. SW will continue to evaluate dc needs.
[2018-08-12] MEDS ORDERED: WARFARIN SODIUM 2 MG PO SCH (09:00)
--- NOTE | 2018-08-12 09:20 | PDOC ---
PROGRESS NOTES Subjective Subjective Patient denies significant cough with breakfast today. No emesis. Denies chest pain or palpitations. Objective Objective Vital Signs Date Time Temp Pulse Resp B/P (MAP) Pulse Ox O2 Delivery O2 Flow Rate FiO2 08/12/18 07:15 98.7 118 18 114/77 (89) 99 Room Air 98.7 Intake and Output 08/12/18 06:59 Intake Total 1000 ml Balance 1000 ml Intake Oral 500 ml IV Total 500 ml # Voids 2 Physical Exam Abdomen: Normal bowel sounds, Soft, No tenderness Heart: Other (irregularly irregular, tachy) Extremities: No edema General: Alert, Oriented X3, No acute distress Lungs: Clear to auscultation Assessment Assessment Problems Medical Problems: (1) A-fib Status: Acute (2) Pneumonia Status: Acute Plan Plan of Care 1. Chronic afib with RVR - rate continues elevated. BP mildly better. INR still low. Continue Coumadin. Cardiology following. 2. Cough - patient had CT chest this AM, report pending. Bedside swallow ordered and pending. No abx presently, will start if CT shows acute infiltrate. 3. hypokalemia - replace po and follow. 4. HTN - home medications on hold due to hypotension. 5. hypothyroidism - continue replacement. Comment Review of Relevant I have reviewed the following items cinthia (where applicable) has been applied. Labs Laboratory Tests Test 08/11/18 11:08 08/11/18 13:30 08/12/18 04:55 White Blood Count 10.9 x10^3/uL (4.0-11.0) 8.2 x10^3/uL (4.0-11.0) Red Blood Count 3.98 x10^6/uL (3.50-5.40) 3.50 x10^6/uL (3.50-5.40) Hemoglobin 12.9 g/dL (12.0-15.5) 11.3 g/dL (12.0-15.5) Hematocrit 38.5 % (36.0-47.0) 33.7 % (36.0-47.0) Mean Corpuscular Volume 97 fL (79-100) 96 fL (79-100) Mean Corpuscular Hemoglobin 33 pg (25-35) 32 pg (25-35) Mean Corpuscular Hemoglobin Concent 34 g/dL (31-37) 34 g/dL (31-37) Red Cell Distribution Width 14.2 % (11.5-14.5) 14.1 % (11.5-14.5) Platelet Count 351 x10^3/uL (140-400) 296 x10^3/uL (140-400) Neutrophils (%) (Auto) 50 % (31-73) 55 % (31-73) Lymphocytes (%) (Auto) 38 % (24-48) 30 % (24-48) Monocytes (%) (Auto) 7 % (0-9) 9 % (0-9) Eosinophils (%) (Auto) 3 % (0-3) 6 % (0-3) Basophils (%) (Auto) 1 % (0-3) 1 % (0-3) Neutrophils # (Auto) 5.5 x10^3uL (1.8-7.7) 4.5 x10^3uL (1.8-7.7) Lymphocytes # (Auto) 4.2 x10^3/uL (1.0-4.8) 2.5 x10^3/uL (1.0-4.8) Monocytes # (Auto) 0.8 x10^3/uL (0.0-1.1) 0.7 x10^3/uL (0.0-1.1) Eosinophils # (Auto) 0.4 x10^3/uL (0.0-0.7) 0.5 x10^3/uL (0.0-0.7) Basophils # (Auto) 0.1 x10^3/uL (0.0-0.2) 0.1 x10^3/uL (0.0-0.2) Prothrombin Time 18.3 SEC (11.7-14.0) 18.1 SEC (11.7-14.0) Prothromb Time International Ratio 1.6 (0.8-1.1) 1.5 (0.8-1.1) Sodium Level 143 mmol/L (136-145) 141 mmol/L (136-145) Potassium Level 3.5 mmol/L (3.5-5.1) 3.3 mmol/L (3.5-5.1) Chloride Level 101 mmol/L (98-107) 103 mmol/L (98-107) Carbon Dioxide Level 30 mmol/L (21-32) 27 mmol/L (21-32) Anion Gap 12 (6-14) 11 (6-14) Blood Urea Nitrogen 18 mg/dL (7-20) 14 mg/dL (7-20) Creatinine 1.9 mg/dL (0.6-1.0) 1.5 mg/dL (0.6-1.0) Estimated GFR (Cockcroft-Gault) 32.0 42.0 Glucose Level 111 mg/dL (70-99) 110 mg/dL (70-99) Calcium Level 9.9 mg/dL (8.5-10.1) 8.8 mg/dL (8.5-10.1) Magnesium Level 2.2 mg/dL (1.8-2.4) Total Bilirubin 1.1 mg/dL (0.2-1.0) Direct Bilirubin 0.3 mg/dL (0.0-0.2) Aspartate Amino Transf (AST/SGOT) 17 U/L (15-37) Alanine Aminotransferase (ALT/SGPT) 16 U/L (14-59) Alkaline Phosphatase 108 U/L (46-116) Troponin I Quantitative < 0.017 ng/mL (0.000-0.055) AG-Ymr-[id number]-Type Natriuretic Peptide 1418 pg/mL (0-124) Total Protein 8.8 g/dL (6.4-8.2) Albumin 3.8 g/dL (3.4-5.0) Lipase 1062 U/L (73-393) Lactic Acid Level 1.2 mmol/L (0.4-2.0) Laboratory Tests Test 08/11/18 11:08 08/11/18 13:30 08/12/18 04:55 White Blood Count 10.9 x10^3/uL (4.0-11.0) 8.2 x10^3/uL (4.0-11.0) Red Blood Count 3.98 x10^6/uL (3.50-5.40) 3.50 x10^6/uL (3.50-5.40) Hemoglobin 12.9 g/dL (12.0-15.5) 11.3 g/dL (12.0-15.5) Hematocrit 38.5 % (36.0-47.0) 33.7 % (36.0-47.0) Mean Corpuscular Volume 97 fL (79-100) 96 fL (79-100) Mean Corpuscular Hemoglobin 33 pg (25-35) 32 pg (25-35) Mean Corpuscular Hemoglobin Concent 34 g/dL (31-37) 34 g/dL (31-37) Red Cell Distribution Width 14.2 % (11.5-14.5) 14.1 % (11.5-14.5) Platelet Count 351 x10^3/uL (140-400) 296 x10^3/uL (140-400) Neutrophils (%) (Auto) 50 % (31-73) 55 % (31-73) Lymphocytes (%) (Auto) 38 % (24-48) 30 % (24-48) Monocytes (%) (Auto) 7 % (0-9) 9 % (0-9) Eosinophils (%) (Auto) 3 % (0-3) 6 % (0-3) Basophils (%) (Auto) 1 % (0-3) 1 % (0-3) Neutrophils # (Auto) 5.5 x10^3uL (1.8-7.7) 4.5 x10^3uL (1.8-7.7) Lymphocytes # (Auto) 4.2 x10^3/uL (1.0-4.8) 2.5 x10^3/uL (1.0-4.8) Monocytes # (Auto) 0.8 x10^3/uL (0.0-1.1) 0.7 x10^3/uL (0.0-1.1) Eosinophils # (Auto) 0.4 x10^3/uL (0.0-0.7) 0.5 x10^3/uL (0.0-0.7) Basophils # (Auto) 0.1 x10^3/uL (0.0-0.2) 0.1 x10^3/uL (0.0-0.2) Prothrombin Time 18.3 SEC (11.7-14.0) 18.1 SEC (11.7-14.0) Prothromb Time International Ratio 1.6 (0.8-1.1) 1.5 (0.8-1.1) Sodium Level 143 mmol/L (136-145) 141 mmol/L (136-145) Potassium Level 3.5 mmol/L (3.5-5.1) 3.3 mmol/L (3.5-5.1) Chloride Level 101 mmol/L (98-107) 103 mmol/L (98-107) Carbon Dioxide Level 30 mmol/L (21-32) 27 mmol/L (21-32) Anion Gap 12 (6-14) 11 (6-14) Blood Urea Nitrogen 18 mg/dL (7-20) 14 mg/dL (7-20) Creatinine 1.9 mg/dL (0.6-1.0) 1.5 mg/dL (0.6-1.0) Estimated GFR (Cockcroft-Gault) 32.0 42.0 Glucose Level 111 mg/dL (70-99) 110 mg/dL (70-99) Calcium Level 9.9 mg/dL (8.5-10.1) 8.8 mg/dL (8.5-10.1) Magnesium Level 2.2 mg/dL (1.8-2.4) Total Bilirubin 1.1 mg/dL (0.2-1.0) Direct Bilirubin 0.3 mg/dL (0.0-0.2) Aspartate Amino Transf (AST/SGOT) 17 U/L (15-37) Alanine Aminotransferase (ALT/SGPT) 16 U/L (14-59) Alkaline Phosphatase 108 U/L (46-116) Troponin I Quantitative < 0.017 ng/mL (0.000-0.055) KY-Fvg-L-Type Natriuretic Peptide 1418 pg/mL (0-124) Total Protein 8.8 g/dL (6.4-8.2) Albumin 3.8 g/dL (3.4-5.0) Lipase 1062 U/L (73-393) Lactic Acid Level 1.2 mmol/L (0.4-2.0) Medications Current Medications Albuterol/ Ipratropium (Duoneb) 3 ml 1X ONCE NEB Last administered on at 10:22; Start 08/11/18 at 09:45; Stop 08/11/18 at 09:46; Status DC Sodium Chloride 500 ml @ 500 mls/hr 1X ONCE IV Last administered on at 11:44; Start 08/11/18 at 11:45; Stop 08/11/18 at 12:44; Status DC Azithromycin 250 ml @ 250 mls/hr 1X ONCE IV Last administered on 08/11/18at 13 :03; Start 08/11/18 at 12:15; Stop 08/11/18 at 13:14; Status DC Ceftriaxone Sodium (Rocephin) 1 gm 1X ONCE IVP Last administered on 08/11/18at 13:03; Start 08/11/18 at 12:15; Stop 08/11/18 at 12:16; Status DC Ondansetron HCl (Zofran) 4 mg PRN Q8HRS PRN IV NAUSEA/VOMITING; Start 08/11/18 at 12:15; Stop 08/12/18 at 12:14 Sodium Chloride 500 ml @ 500 mls/hr 1X ONCE IV Last administered on at 12:45; Start 08/11/18 at 12:45; Stop 08/11/18 at 13:44; Status DC Amiodarone HCl (Cordarone) 200 mg DAILY PO ; Start 08/11/18 at 16:30; Stop 08/11 at 16:49; Status DC Non-Formulary Medication (Warfarin Sodium ) 2 mg DAILY PO ; Start 08/12/18 at 09: 00; Status UNV Warfarin Sodium (Coumadin) 5 mg 1X WARF ONCE PO ; Start 08/12/18 at 16:30; Stop 08/12/18 at 16:31; Status Cancel Warfarin Sodium (Coumadin Per Pharmacy) 1 each PRN DAILY PRN [facility] SEE COMMENTS; Start 08/11/18 at 16:15 Digoxin (Lanoxin) 250 mcg 1X ONCE IV Last administered on 08/11/18at 17:56; Start 08/11/18 at 16:45; Stop 08/11/18 at 16:46; Status DC Docusate Sodium (Colace) 100 mg PRN BID PRN PO CONSTIPATION; Start 08/11/18 at 21:00 Levothyroxine Sodium (Synthroid) 50 mcg DAILY06 PO Last administered on at 06:21; Start 08/12/18 at 06:00 Atorvastatin Calcium (Lipitor) 10 mg QHS PO Last administered on 08/11/18at 21: 28; Start 08/11/18 at 21:00 Famotidine (Pepcid) 20 mg PRN DAILY PRN PO HEARTBURN / GAS; Start 08/11/18 at 23:45 Active Scripts Active Amiodarone Hcl 200 Mg Tablet 200 Mg PO DAILY 30 Days Coumadin (Warfarin Sodium) 5 Mg Tablet 5 Mg PO DAILY16 30 Days Reported Warfarin Sodium 2 Mg Tablet 2 Mg PO DAILY Losartan Potassium 50 Mg Tablet 50 Mg PO DAILY Levothyroxine Sodium 50 Mcg Tablet 1 Tab PO DAILY Furosemide 40 Mg Tablet 1 Tab PO PRN DAILY PRN Pravastatin Sodium 40 Mg Tablet 1 Tab PO QHS Stool Softener (Docusate Sodium) 100 Mg Tablet 100 Mg PO PRN PRN Metoprolol Tartrate 50 Mg Tablet 50 Mg PO BID Vitals/I & O Vital Sign - Last 24 Hours 08/11/18 08/11/18 08/11/18 08/11/18 09:50 10:23 10:50 11:50 Temp 98.7 98.7 Pulse 118 110 116 Resp 20 18 17 B/P (MAP) 93/67 (76) 114/59 (77) 104/64 (77) Pulse Ox 98 96 100 96 O2 Delivery Room Air Room Air Room Air Room Air 08/11/18 08/11/18 08/11/18 08/11/18 12:50 13:50 14:17 15:39 Temp 98.4 98.4 Pulse 116 112 116 Resp 16 15 20 B/P (MAP) 103/67 (79) 97/67 (77) 102/66 (78) Pulse Ox 99 97 98 O2 Delivery Room Air Room Air Room Air Nasal Cannula 08/11/18 08/11/18 08/11/18 08/11/18 17:56 19:10 20:11 23:10 Temp 98.7 98.6 98.7 98.6 Pulse 116 118 117 Resp 16 16 B/P (MAP) 102/66 99/61 (74) 102/65 (77) Pulse Ox 98 100 O2 Delivery Room Air Room Air Room Air 08/12/18 08/12/18 03:10 07:15 Temp 97.7 98.7 97.7 98.7 Pulse 119 118 Resp 16 18 B/P (MAP) 106/67 (80) 114/77 (89) Pulse Ox 99 99 O2 Delivery Room Air Room Air Intake and Output 08/11/18 08/11/18 08/12/18 14:59 22:59 06:59 Intake Total 500 ml 50 ml 450 ml Balance 500 ml 50 ml 450 ml JOSH CANAS MD Aug 12, 2018 09:20
--- NOTE | 2018-08-12 10:30 | NUR ---
Pt HR between 130-160 consistently. Pt was just sitting on edge of bed. Notified TUBE BUILDING MACHINE OPERATOR, Lee, and received orders transfer patient to second floor and give PRN medications. Notified Lulu, nursing supervisor winter. Notified Dr. Matias who is agreeable with this plan.
--- NOTE | 2018-08-12 10:42 | CARD ---
MR#: [id number] Date of Study: 08/12/2018 Ordering Physician: CORTES BETANCOURT, Referring Physician: JOSH CANAS Tech: Gema Foster RDCS APPROVED REPORT EXAM: Two-dimensional and M-mode echocardiogram with Doppler and color Doppler. Other Information Quality : GoodHR: 120bpm Rhythm : Tachycardia INDICATION Arrhythmia Surgery/Intervention Mitral valve repair 2009 2D DIMENSIONS RVDd2.6 (2.9-3.5cm)Left Atrium(2D)4.0 (1.6-4.0cm) IVSd1.0 (0.7-1.1cm)Aortic Root(2D)2.5 (2.0-3.7cm) LVDd4.7 (3.9-5.9cm)LVOT Diameter1.7 (1.8-2.4cm) PWd0.9 (0.7-1.1cm)LVDs4.0 (2.5-4.0cm) FS (%) 15.2 %SV32.7 ml LVEF(%)32.1 (>50%) M-Mode DIMENSIONS Left Atrium(MM)4.13 (2.5-4.0cm)Aortic Root3.16 (2.2-3.7cm) Aortic Valve AoV Peak Oliver.160.6cm/sAoV VTI18.3cm AO Peak GR.10.3mmHgLVOT Peak Oliver.107.9cm/s AO Mean GR.5mmHgAVA (VMAX)1.56cm2 KAVITA (VTI)1.60cm2 Mitral Valve MV E Khilbovf475.2cm/sMV E Peak Gr.26mmHg MV DECEL PDOO737tcZE A Qgfvyglr554.9cm/s MV E Mean Gr.15mmHgE/A Ratio1.7 MV A Pyqdjtge29ps Pulmonary Valve PV Peak Fomgtlme91.6cm/s Tricuspid Valve TR P. Odfcpfji250sj/sRAP AOZEMHND8ubUw TR Peak Gr.94fqRqEEOU09hpFj Pulmonary Vein S1 Jvgnncmi83.4cm/sD2 Hfvhmjeh31.5cm/s LEFT VENTRICLE The left ventricle is normal size. There is normal left ventricular wall thickness. The left ventricu lar systolic function is moderately impaired. The Ejection Fraction is 30% There is global hypokinesi s of the left ventricle. Abnormal septal motion probably from conduction abnormality. Tissue Doppler imaging reveals moderate left ventricular diastolic dysfunction. RIGHT VENTRICLE The right ventricle is normal size. There is normal right ventricular wall thickness. Systolic functi on is mildly reduced. Pacer lead noted in RV/RA. ATRIA The left atrium is mildly dilated. The right atrium size is normal. The interatrial septum is intact with no evidence for an atrial septal defect or patent foramen ovale as noted on 2-D or Doppler imagi ng. AORTIC VALVE The aortic valve is normal in structure and function. The aortic valve is trileaflet. Doppler and Col or Flow revealed no significant aortic regurgitation. There is no significant aortic valvular stenosi s. There is no aortic valvular vegetation. MITRAL VALVE History of MV repair. There is no evidence of mitral valve prolapse. Calculated mitral valve area is 1.0 cm2 with maximum pressure gradient of 28 mmHg and mean pressure gradient of 15 mmHg. Doppler and Color-flow revealed mild mitral regurgitation. TRICUSPID VALVE The tricuspid valve is normal in structure and function. Doppler and Color Flow revealed mild tricusp id regurgitation. There is moderate pulmonary hypertension. The PA pressure was estimated at 46 mmHg. There is no tricuspid valve prolapse or vegetation. There is no tricuspid valve stenosis. PULMONIC VALVE The pulmonary valve is normal in structure and function. Doppler and Color Flow revealed mild pulmoni c valvular regurgitation. There is no pulmonic valvular stenosis. GREAT VESSELS The aortic root is normal in size. The ascending aorta is normal in size. The IVC is normal in size a nd collapses >50% with inspiration. PERICARDIAL EFFUSION There is no evidence of significant pericardial effusion. Critical Notification Critical Value: No <Conclusion> The left ventricular systolic function is moderately impaired. The Ejection Fraction is 30% Pacer lead noted in RV/RA. The left atrium is mildly dilated. s/p mitral valve ring annuloplasty with moderate to severe mitral stenosis, calculated MVA 1.0 cm2 wi th maximum pressure gradient of 28 mmHg and mean pressure gradient of 15 mmHg. Mild mitral regurgitation. Mild tricuspid regurgitation. There is moderate pulmonary hypertension. The PA pressure was estimated at 46 mmHg. There is no evidence of significant pericardial effusion. Signed by : Guilherme Pasnoori, Electronically Approved : 08/12/2018 10:42:04
[2018-08-12] MEDS ORDERED: METOPROLOL TARTRATE 5 MG/5 ML VIAL. IVP ONE ×2 (10:45→11:00)
[2018-08-12 11:00] VITALS: BP_SYST 104; BP_SYST 146; BP_DIAS 69; BP_DIAS 77
[2018-08-12] MEDS ORDERED: DIGOXIN IV 500 MCG/2 ML AMPUL. IV ONE (11:00)
[2018-08-12] MEDS: IV NORMAL SALINE 1000ML BAG 1,000 ML IV SCH (11:00)
[2018-08-12] MEDS: POTASSIUM CHLORIDE 20 MEQ TABLET.ER. PO SCH (11:01)
--- NOTE | 2018-08-12 11:30 | RAD ---
Chest CT without contrast Clinical indications: Cough. Abnormal chest x-ray. TECHNIQUE: Noncontrast helical CT scanning of the chest was performed. Without contrast, the sensitivity to detect organ pathology is decreased. PQRS compliance Statement One or more of the following individualized dose reduction techniques were utilized for this study: 1. Automated exposure control 2. Adjustment of the mA and/or kV according to patient size 3. Use of iterative reconstruction technique COMPARISON: April 18, [address] FINDINGS: No focal aneurysmal dilatation of the thoracic aorta is seen. The heart size is at the upper limits of normal. No pericardial effusion is seen. Calcified atheromatous disease of the coronary arteries is seen. Sternotomy is evident. Small mediastinal lymph nodes are seen which are unchanged from the prior study. No enlarged axillary lymphadenopathy is evident. Evaluation for hilar mass or hilar lymphadenopathy is difficult without contrast. There is left hilar fullness measuring around 3.8 cm. This may represent a left hilar mass but difficult to determine without contrast. However, there is narrowing of the left upper lobe and left lower lobe bronchi more typical of a mass. There is additional contiguous consolidative infiltrate within the left lower lobe. There is linear atelectasis within the left upper lobe. There are small subcentimeter lung nodules within the superior segment of the lingula. There are peripheral small nodular lung infiltrates within the right lower lobe. There is a small subcentimeter subpleural lung nodule within the anterior aspect of the medial segment of the right middle lobe. No pleural effusion or pneumothorax is seen. No adrenal mass is seen. No lytic process is evident. IMPRESSION: Findings are suspicious for a left hilar mass or bronchogenic malignancy with narrowing of the left upper lobe and lower lobe bronchi. There is a consolidative infiltrate within the left lower lobe contiguous with the left hilar mass. Additional lung nodules are seen within the left upper lobe and right lower lobe and right middle lobe. Electronically signed by: Brandan Carreon MD (08/12/2018 11:27 AM) [facility]
[2018-08-12] MEDS: METOPROLOL TART IMMED RELEASE 25 MG TABLET. PO SCH ×2 (12:58→18:00)
[2018-08-12] MEDS ORDERED: HEPARIN for IV BOLUS 10,000 UNIT/10 ML VIAL. IV PRN (13:00)
--- NOTE | 2018-08-12 13:00 | NUR ---
Pt transferred to ICU room 108. Gave report to АЛЕКСАНДР Yo. Pt transported via wheelchair. All belongings with patient at time of transfer.
--- NOTE | 2018-08-12 13:03 | PDOC ---
CORTES BETANCOURT OPERATIONS SUPERINTENDENT 08/12/18 1303: CARDIO Progress Notes Date and Time Date of Service 08/12/2018 Time of Evaluation 1130 Subjective Subjective: No Chest Pain, No shortness of breath, No Palpitations Vitals Vitals Vital Signs Date Time Temp Pulse Resp B/P (MAP) Pulse Ox O2 Delivery O2 Flow Rate FiO2 08/12/18 11:03 130 113/74 08/12/18 11:00 98.1 20 100 Room Air 98.1 Weight Weight [ ] Input and Output Intake and Output Intake and Output 08/12/18 07:00 Intake Total 1000 ml Balance 1000 ml Intake Oral 500 ml IV Total 500 ml # Voids 2 Laboratory Labs Laboratory Tests Test 08/11/18 13:30 08/12/18 04:55 Lactic Acid Level 1.2 mmol/L (0.4-2.0) White Blood Count 8.2 x10^3/uL (4.0-11.0) Red Blood Count 3.50 x10^6/uL (3.50-5.40) Hemoglobin 11.3 g/dL (12.0-15.5) Hematocrit 33.7 % (36.0-47.0) Mean Corpuscular Volume 96 fL (79-100) Mean Corpuscular Hemoglobin 32 pg (25-35) Mean Corpuscular Hemoglobin Concent 34 g/dL (31-37) Red Cell Distribution Width 14.1 % (11.5-14.5) Platelet Count 296 x10^3/uL (140-400) Neutrophils (%) (Auto) 55 % (31-73) Lymphocytes (%) (Auto) 30 % (24-48) Monocytes (%) (Auto) 9 % (0-9) Eosinophils (%) (Auto) 6 % (0-3) Basophils (%) (Auto) 1 % (0-3) Neutrophils # (Auto) 4.5 x10^3uL (1.8-7.7) Lymphocytes # (Auto) 2.5 x10^3/uL (1.0-4.8) Monocytes # (Auto) 0.7 x10^3/uL (0.0-1.1) Eosinophils # (Auto) 0.5 x10^3/uL (0.0-0.7) Basophils # (Auto) 0.1 x10^3/uL (0.0-0.2) Prothrombin Time 18.1 SEC (11.7-14.0) Prothromb Time International Ratio 1.5 (0.8-1.1) Sodium Level 141 mmol/L (136-145) Potassium Level 3.3 mmol/L (3.5-5.1) Chloride Level 103 mmol/L (98-107) Carbon Dioxide Level 27 mmol/L (21-32) Anion Gap 11 (6-14) Blood Urea Nitrogen 14 mg/dL (7-20) Creatinine 1.5 mg/dL (0.6-1.0) Estimated GFR (Cockcroft-Gault) 42.0 Glucose Level 110 mg/dL (70-99) Calcium Level 8.8 mg/dL (8.5-10.1) Physical Exam HEENT: Neck Supple W Full Motion Chest: Symmetric LUNGS: Clear to Auscultation Heart: irregularly irregular (AFIB RVR) Abdomen: Soft N/T Extremities: No Edema, No Calf Tenderness Neurology: alert, oriented, follow commands Assessment Assessment 1. Possible pneumonia/aspiration: CT revealed also possible bronchogenic mass 2. Persistent AFIB/flutter with RVR: refractory induced by metabolic issues from vomiting and #1. 3. AICD in situ: (Biotronik) device review noted 11.9% AFIB burden with frequent atrial tach in the last 2 weeks suggesting flutter and fib with intermittent pacing and no VT. 4. CAD: recent MPI with fixed septal defect but no reversible ischemia 5. ICM: 58% from MPI in 05/2018 now EF at 30% via TTE. Compensated. Potentially afib/tachy induced 6. Hx of open MV repair 7. Hypothyroidism: recent 06/2018 TSH at 12.7, on replacement per PCP 8. HTN: marginal 9. Elevated lipase: per PCP 10. Esophageal motility disorder/dysphagia? 11. MARILEE due to volume depletion due to vomiting, lasix use and low PO intake. Recommendations 1. Recheck TSH. TTE, Mg. May need CT abd, will defer to PCP 2. INR 1.5. With recent CT finding, will hold coumadin for now in anticipation for any Bx or any endoscopy. Start on heparin infusion, no bolus 3. Dig x1, short term IVF, IV lopressor and start on PO BB. Will hold amiodarone for now with elevated lipase and possible esophageal motility issue. 4. Transfer to CVC. Pulmonary consult per PCP 5. May refer to EP as an outpt pending pulmonary and GI workup. PRINCE REYNOSO MD 08/12/182050: CARDIO Progress Notes Assessment Assessment Patient seen and examined. Agree with SPINDLE SETTER's assessment and plan. Agree with dig for AF rate control CAD status stable 2D echo showed EF 30% with mod to sev MS Will consider outpatient SUSI for further evaluation of MS and also consider EP referral for ablation CORTES BETANCOURT APRN Aug 12, 2018 13:03 PRINCE REYNOSO MD Aug 12, 2018 20:51
[2018-08-12] MEDS ORDERED: PIP/TAZO PER PHARMACY MC PRN (13:15)
[2018-08-12] MEDS: methylPREDNISolone SOD SUCC PF 40 MG/ML VIAL. IV SCH ×2 (14:12→21:51)
[2018-08-12] MEDS: PIPERACILLIN/TAZOBACTAM 2.25 GM in IV NORMAL SALINE 50ML 50 ML IV SCH ×2 (14:13→18:01)
--- NOTE | 2018-08-12 14:22 | PDOC ---
PULMONARY PROGRESS NOTES Vitals Vital Signs Date Time Temp Pulse Resp B/P (MAP) Pulse Ox O2 Delivery O2 Flow Rate FiO2 08/12/18 12:58 114 115/72 08/12/18 11:00 98.1 20 100 Room Air 98.1 Lungs: Clear Labs Laboratory Tests Test 08/11/18 11:08 08/11/18 13:30 08/12/18 04:55 08/12/18 13:25 White Blood Count 10.9 x10^3/uL (4.0-11.0) 8.2 x10^3/uL (4.0-11.0) Red Blood Count 3.98 x10^6/uL (3.50-5.40) 3.50 x10^6/uL (3.50-5.40) Hemoglobin 12.9 g/dL (12.0-15.5) 11.3 g/dL (12.0-15.5) Hematocrit 38.5 % (36.0-47.0) 33.7 % (36.0-47.0) Mean Corpuscular Volume 97 fL (79-100) 96 fL (79-100) Mean Corpuscular Hemoglobin 33 pg (25-35) 32 pg (25-35) Mean Corpuscular Hemoglobin Concent 34 g/dL (31-37) 34 g/dL (31-37) Red Cell Distribution Width 14.2 % (11.5-14.5) 14.1 % (11.5-14.5) Platelet Count 351 x10^3/uL (140-400) 296 x10^3/uL (140-400) Neutrophils (%) (Auto) 50 % (31-73) 55 % (31-73) Lymphocytes (%) (Auto) 38 % (24-48) 30 % (24-48) Monocytes (%) (Auto) 7 % (0-9) 9 % (0-9) Eosinophils (%) (Auto) 3 % (0-3) 6 % (0-3) Basophils (%) (Auto) 1 % (0-3) 1 % (0-3) Neutrophils # (Auto) 5.5 x10^3uL (1.8-7.7) 4.5 x10^3uL (1.8-7.7) Lymphocytes # (Auto) 4.2 x10^3/uL (1.0-4.8) 2.5 x10^3/uL (1.0-4.8) Monocytes # (Auto) 0.8 x10^3/uL (0.0-1.1) 0.7 x10^3/uL (0.0-1.1) Eosinophils # (Auto) 0.4 x10^3/uL (0.0-0.7) 0.5 x10^3/uL (0.0-0.7) Basophils # (Auto) 0.1 x10^3/uL (0.0-0.2) 0.1 x10^3/uL (0.0-0.2) Prothrombin Time 18.3 SEC (11.7-14.0) 18.1 SEC (11.7-14.0) Prothromb Time International Ratio 1.6 (0.8-1.1) 1.5 (0.8-1.1) Sodium Level 143 mmol/L (136-145) 141 mmol/L (136-145) Potassium Level 3.5 mmol/L (3.5-5.1) 3.3 mmol/L (3.5-5.1) Chloride Level 101 mmol/L (98-107) 103 mmol/L (98-107) Carbon Dioxide Level 30 mmol/L (21-32) 27 mmol/L (21-32) Anion Gap 12 (6-14) 11 (6-14) Blood Urea Nitrogen 18 mg/dL (7-20) 14 mg/dL (7-20) Creatinine 1.9 mg/dL (0.6-1.0) 1.5 mg/dL (0.6-1.0) Estimated GFR (Cockcroft-Gault) 32.0 42.0 Glucose Level 111 mg/dL (70-99) 110 mg/dL (70-99) Calcium Level 9.9 mg/dL (8.5-10.1) 8.8 mg/dL (8.5-10.1) Magnesium Level 2.2 mg/dL (1.8-2.4) Total Bilirubin 1.1 mg/dL (0.2-1.0) Direct Bilirubin 0.3 mg/dL (0.0-0.2) Aspartate Amino Transf (AST/SGOT) 17 U/L (15-37) Alanine Aminotransferase (ALT/SGPT) 16 U/L (14-59) Alkaline Phosphatase 108 U/L (46-116) Troponin I Quantitative < 0.017 ng/mL (0.000-0.055) UQ-Gdg-H-Type Natriuretic Peptide 1418 pg/mL (0-124) Total Protein 8.8 g/dL (6.4-8.2) Albumin 3.8 g/dL (3.4-5.0) Lipase 1062 U/L (73-393) 883 U/L (73-393) Lactic Acid Level 1.2 mmol/L (0.4-2.0) Thyroid Stimulating Hormone (TSH) 5.731 uIU/mL (0.358-3.74) Activated Partial Thromboplast Time 34 SEC (24-38) Laboratory Tests Test 08/12/18 04:55 08/12/18 13:25 White Blood Count 8.2 x10^3/uL (4.0-11.0) Red Blood Count 3.50 x10^6/uL (3.50-5.40) Hemoglobin 11.3 g/dL (12.0-15.5) Hematocrit 33.7 % (36.0-47.0) Mean Corpuscular Volume 96 fL (79-100) Mean Corpuscular Hemoglobin 32 pg (25-35) Mean Corpuscular Hemoglobin Concent 34 g/dL (31-37) Red Cell Distribution Width 14.1 % (11.5-14.5) Platelet Count 296 x10^3/uL (140-400) Neutrophils (%) (Auto) 55 % (31-73) Lymphocytes (%) (Auto) 30 % (24-48) Monocytes (%) (Auto) 9 % (0-9) Eosinophils (%) (Auto) 6 % (0-3) Basophils (%) (Auto) 1 % (0-3) Neutrophils # (Auto) 4.5 x10^3uL (1.8-7.7) Lymphocytes # (Auto) 2.5 x10^3/uL (1.0-4.8) Monocytes # (Auto) 0.7 x10^3/uL (0.0-1.1) Eosinophils # (Auto) 0.5 x10^3/uL (0.0-0.7) Basophils # (Auto) 0.1 x10^3/uL (0.0-0.2) Prothrombin Time 18.1 SEC (11.7-14.0) Prothromb Time International Ratio 1.5 (0.8-1.1) Sodium Level 141 mmol/L (136-145) Potassium Level 3.3 mmol/L (3.5-5.1) Chloride Level 103 mmol/L (98-107) Carbon Dioxide Level 27 mmol/L (21-32) Anion Gap 11 (6-14) Blood Urea Nitrogen 14 mg/dL (7-20) Creatinine 1.5 mg/dL (0.6-1.0) Estimated GFR (Cockcroft-Gault) 42.0 Glucose Level 110 mg/dL (70-99) Calcium Level 8.8 mg/dL (8.5-10.1) Lipase 883 U/L (73-393) Thyroid Stimulating Hormone (TSH) 5.731 uIU/mL (0.358-3.74) Activated Partial Thromboplast Time 34 SEC (24-38) Medications Active Scripts Medications Dose Route/Sig Max Daily Dose Days Date Category Warfarin Sodium 2 Mg Tablet 2 Mg PO DAILY 08/11/18 Reported Losartan Potassium 50 Mg Tablet 50 Mg PO DAILY 08/11/18 Reported Amiodarone Hcl 200 Mg Tablet 200 Mg PO DAILY 30 07/02/18 Rx Coumadin (Warfarin Sodium) 5 Mg Tablet 5 Mg PO DAILY16 30 07/02/18 Rx Levothyroxine Sodium 50 Mcg Tablet 1 Tab PO DAILY 06/30/18 Reported Furosemide 40 Mg Tablet 1 Tab PO PRN DAILY PRN 06/30/18 Reported Pravastatin Sodium 40 Mg Tablet 1 Tab PO QHS 06/30/18 Reported Stool Softener (Docusate Sodium) 100 Mg Tablet 100 Mg PO PRN PRN 07/21/17 Reported Metoprolol Tartrate 50 Mg Tablet 50 Mg PO BID 06/15/17 Reported Impression . NOTE DICTATED SUSPECT LUNG CA WITH POST OB PNEUMONIA HOLD COUMADIN FOR BRONCH SEE ORDERS THANKS SANJIV SOSA MD Aug 12, 2018 14:22
[2018-08-12] MEDS: HEPARIN 25,000UTS/500ML PREMIX 500 ML IV PRN (14:33)
[2018-08-12 15:00] VITALS: BP 113/66
[2018-08-12] MEDS: IV 1/2 NORMAL SALINE 1,000 ML IV SCH ×2 (15:01→23:15)
[2018-08-12] MEDS ORDERED: WARFARIN 5 MG TABLET. PO ONE (16:30)
[2018-08-12 19:00] VITALS: BP 113/66
[2018-08-12] MEDS: ATORVASTATIN CALCIUM 10 MG TABLET. PO SCH (21:12)
[2018-08-12 23:00] VITALS: BP 98/57
[2018-08-13] MEDS: METOPROLOL TART IMMED RELEASE 25 MG TABLET. PO SCH
[2018-08-13] MEDS: PIPERACILLIN/TAZOBACTAM 2.25 GM in IV NORMAL SALINE 50ML 50 ML IV SCH ×5 (00:12→23:34)
[2018-08-13] MEDS: IV NORMAL SALINE 1000ML BAG 1,000 ML IV SCH (00:13)
[2018-08-13 03:00] VITALS: BP 108/74
--- NOTE | 2018-08-13 03:15 | CONS ---
DATE OF CONSULTATION: 08/12/2018 ATTENDING PHYSICIAN: Dr. Lola Goldman. REASON FOR CONSULTATION: The patient seen in pulmonary consultation at the request of Dr. Goldman for increasing shortness of air, abnormal x-ray. HISTORY OF PRESENT ILLNESS: The patient is a 67-year-old that presented to the Emergency Room with increasing shortness of breath and cough. Cough mostly nonproductive. Actually, she presented with cough more than shortness of air, cough nonproductive, at times productive of white sputum. No hemoptysis. The patient has lost 20 pounds over the last several months. She has had paroxysmal coughing spells resulting in emesis. She was admitted initially and treated for acute bronchitis. She has a history of tobacco use, quit 9 years ago. Prior to that smoked for [address] chest was obtained. I reviewed the CT, which revealed several findings including the possibility of an endobronchial lesion in the left upper lobe and left lower lobe bronchi. There is also a left hilar mass consolidation. I was asked to see her in consultation. PAST MEDICAL HISTORY: Cardiomyopathy, ejection fraction 30%, status post AICD placement. She also has had some mitral valve replacement or repair, chronic AFib, hyperlipidemia, coronary artery disease, hypothyroidism, hypertension, tobacco dependence, in remission, COPD, unknown FEV1. PAST SURGICAL HISTORY: Status post mitral valve repair, AICD placement. ALLERGIES: No known drug allergies. HOME MEDICATION: List was reviewed. She was on no bronchodilators in the past. She has tried Symbicort. FAMILY HISTORY: No family history of early lung disorder. SOCIAL HISTORY: She is , lives at home with her . Quit tobacco 9 years ago. Prior to that smoked for 30 years. REVIEW OF SYSTEMS: CONSTITUTIONAL: No fever or chills. EYES: No change in visual acuity. HEENT: No nasal congestion or sore throat. PULMONARY: As indicated above. CARDIOVASCULAR: As indicated above. GASTROINTESTINAL: Some emesis related to paroxysmal coughing spells. GENITOURINARY: No dysuria or frequency. MUSCULOSKELETAL: No localized muscle aches or joint pain. She has had some generalized weakness and weight loss. NEUROLOGIC: No headaches, diplopia or blurred vision. SKIN: No new skin lesions. MEDICATIONS: List was reviewed. PHYSICAL EXAMINATION: VITAL SIGNS: Stable. She was transferred to the Intensive Care Unit for tachycardia, increasing shortness of air. She is on room air saturation 96%. HEENT: Eyes, the sclerae were nonicteric. NECK: Jugular venous distention was not elevated. No lymphadenopathy. CHEST: Full expansion. LUNGS: Adequate airway flow with coarse breath sounds bilaterally. No wheezes. CARDIOVASCULAR: Regular rate and rhythm with S1, S2, no S3. ABDOMEN: Soft, nontender, nondistended. EXTREMITIES: No clubbing, cyanosis or edema. NEUROLOGIC: The patient was awake, alert, following commands. A detailed neuro exam was not performed. LABORATORY DATA: Reviewed. White count was normal. Electrolytes were noted. BUN and creatinine was noted. INR was 1.5. CT reviewed as indicated above. IMPRESSION: 1. Abnormal CT chest revealing left hilar mass and endobronchial lesions. Suspect primary lung cancer. 2. Weight loss secondary to above. 3. Cough secondary to above and acute bronchitis with postobstructive pneumonia. 4. Hypotension related to underlying cardiomyopathy and volume depletion. 5. Hypothyroidism. 6. Chronic kidney disease. 7. Chronic atrial fibrillation with rapid ventricular response. 8. Cardiomyopathy, ejection fraction of 30%, status post AICD placement. 9. Tobacco dependence, in remission. 10. Chronic obstructive pulmonary disease, unknown FEV1. PLAN: 1. We will initiate antibiotics. 2. Hold Coumadin and initiate heparin. The patient to undergo bronchoscopy. 3. Continue home meds. 4. IV fluids. 5. Follow clinical course and make further recommendations. I discussed the above findings with the patient and the at the bedside. I did inform her that we may be dealing with primary lung cancer. With that being said, we need to arrive at a definitive diagnosis. Dr. Goldman, I do appreciate the privilege in sharing this patient's care. SANJIV SOSA MD DR: ALISA/hector JOB#: [id number] / [id number]
[2018-08-13] MEDS: LEVOTHYROXINE 50 MCG TABLET PO SCH (06:14)
[2018-08-13] MEDS: methylPREDNISolone SOD SUCC PF 40 MG/ML VIAL. IV SCH ×3 (06:16→21:21)
[2018-08-13 07:00] VITALS: BP 121/61
[2018-08-13 07:11] LABS: PROTHROMBIN TIME PATIENT 19.3 SEC (11.7-14.0)
[2018-08-13 07:20] LABS: CALCIUM 9.6 mg/dL (8.5-10.1); CREATININE 1.5 mg/dL (0.6-1.0); POTASSIUM 3.6 mmol/L (3.5-5.1)
[2018-08-13] MEDS: ANTI-COAG MONITOR BY PHARMACY. MC PRN (08:21)
--- NOTE | 2018-08-13 08:33 | PDOC ---
SUBJECTIVE Subjective Pt says that she is doing well. Still having some issues with nausea and vomiting; states that she believes it is related to phlegm and cough. Will be getting bronchoscopy on Wednesday OBJECTIVE Vital Signs Vital Signs Date Time Temp Pulse Resp B/P (MAP) Pulse Ox O2 Delivery O2 Flow Rate FiO2 08/13/18 08:00 Room Air 08/13/18 07:00 98.2 93 25 121/61 (81) 97 Room Air 98.2 08/13/18 03:00 89 16 108/74 (85) 100 Room Air 08/12/18 23:00 90 23 98/57 (71) 100 Room Air 08/12/18 20:00 Room Air 08/12/18 19:00 98.3 84 22 113/66 (82) 100 Room Air 98.3 08/12/18 15:00 98.1 80 19 113/66 (82) 99 Room Air 98.1 08/12/18 13:30 Room Air 08/12/18 12:58 114 115/72 08/12/18 11:03 130 113/74 08/12/18 11:02 125 113/74 08/12/18 11:00 98.1 125 20 104/69 (81) 100 Room Air 98.1 I & O Intake and Output 08/13/18 06:59 Intake Total 2517.99 ml Balance 2517.99 ml Intake Oral 660 ml IV Total 1857.99 ml # Voids 6 PHYSICAL EXAM Physical Exam GEN: NAD, AOx3 HEENT: MMM, EOMI, no scleral icterus/injection Cardiac: irregularly irregular, no M/R/G Lungs: CTAB, regular breathing rate and effort Ext: no erythema/edema LE bilaterally Nuero: CN2-12 GI ASSESSMENT/PLAN Assessment/Plan Pt is a 67yo AAF admitted with afib and cough 1. Chronic afib with RVR - Cardiology following. Amiodarone has been stopped, Digoxin is supposed to be started. Metoprolol resumed. Coumadin stopped and heparin gtt started. 2. Abnormal CT chest - concern for lung cancer. Pulmonary following, planning on bronchoscopy on Wednesday 3. Postobstructive Pneumonia- pt currently on Zosyn. 4. hypokalemia - resolved 5. HTN - home medications on hold due to hypotension. 6. hypothyroidism - TSH mildly elevated, continue replacement and consider increase on discharge 7. CKD- Cr stable 8. Anemia- mild 9. Pancreatitis COMMENT Lab Laboratory Tests Test 08/12/18 13:25 08/12/18 20:23 08/13/18 06:34 Activated Partial Thromboplast Time 34 SEC (24-38) Heparin Anti-Xa Act, Unfractionated 0.34 IU/mL (0.30-0.70) 0.78 IU/mL (0.30-0.70) Prothrombin Time 19.3 SEC (11.7-14.0) Prothromb Time International Ratio 1.7 (0.8-1.1) Sodium Level 140 mmol/L (136-145) Potassium Level 3.6 mmol/L (3.5-5.1) Chloride Level 104 mmol/L (98-107) Carbon Dioxide Level 24 mmol/L (21-32) Anion Gap 12 (6-14) Blood Urea Nitrogen 11 mg/dL (7-20) Creatinine 1.5 mg/dL (0.6-1.0) Estimated GFR (Cockcroft-Gault) 42.0 Glucose Level 161 mg/dL (70-99) Calcium Level 9.6 mg/dL (8.5-10.1) HERIBERTO GARCIA MD Aug 13, 2018 08:33
[2018-08-13] MEDS: METOPROLOL TART IMMED RELEASE 50 MG TABLET. PO SCH ×2 (09:00→21:20)
[2018-08-13] MEDS: POTASSIUM CHLORIDE 20 MEQ TABLET.ER. PO SCH (09:00)
[2018-08-13 11:00] VITALS: BP 136/72
--- NOTE | 2018-08-13 14:40 | PDOC ---
PULMONARY PROGRESS NOTES Subjective PT NOT MORE SOA Vitals Vital Signs Date Time Temp Pulse Resp B/P (MAP) Pulse Ox O2 Delivery O2 Flow Rate FiO2 08/13/18 11:20 Room Air 08/13/18 11:00 97.8 93 18 136/72 (93) 98 97.8 ROS: No Nausea, No Chest Pain, No Abdominal Pain, No Increase Cough General: Alert Lungs: Clear, Crackles Cardiovascular: S1 Abdomen: Soft, Non-tender Neuro Exam: Alert Extremities: No Edema Skin: Warm Labs Laboratory Tests Test 08/12/18 04:55 08/12/18 13:25 08/12/18 20:23 08/13/18 06:34 White Blood Count 8.2 x10^3/uL (4.0-11.0) Red Blood Count 3.50 x10^6/uL (3.50-5.40) Hemoglobin 11.3 g/dL (12.0-15.5) Hematocrit 33.7 % (36.0-47.0) Mean Corpuscular Volume 96 fL (79-100) Mean Corpuscular Hemoglobin 32 pg (25-35) Mean Corpuscular Hemoglobin Concent 34 g/dL (31-37) Red Cell Distribution Width 14.1 % (11.5-14.5) Platelet Count 296 x10^3/uL (140-400) Neutrophils (%) (Auto) 55 % (31-73) Lymphocytes (%) (Auto) 30 % (24-48) Monocytes (%) (Auto) 9 % (0-9) Eosinophils (%) (Auto) 6 % (0-3) Basophils (%) (Auto) 1 % (0-3) Neutrophils # (Auto) 4.5 x10^3uL (1.8-7.7) Lymphocytes # (Auto) 2.5 x10^3/uL (1.0-4.8) Monocytes # (Auto) 0.7 x10^3/uL (0.0-1.1) Eosinophils # (Auto) 0.5 x10^3/uL (0.0-0.7) Basophils # (Auto) 0.1 x10^3/uL (0.0-0.2) Prothrombin Time 18.1 SEC (11.7-14.0) 19.3 SEC (11.7-14.0) Prothromb Time International Ratio 1.5 (0.8-1.1) 1.7 (0.8-1.1) Sodium Level 141 mmol/L (136-145) 140 mmol/L (136-145) Potassium Level 3.3 mmol/L (3.5-5.1) 3.6 mmol/L (3.5-5.1) Chloride Level 103 mmol/L (98-107) 104 mmol/L (98-107) Carbon Dioxide Level 27 mmol/L (21-32) 24 mmol/L (21-32) Anion Gap 11 (6-14) 12 (6-14) Blood Urea Nitrogen 14 mg/dL (7-20) 11 mg/dL (7-20) Creatinine 1.5 mg/dL (0.6-1.0) 1.5 mg/dL (0.6-1.0) Estimated GFR (Cockcroft-Gault) 42.0 42.0 Glucose Level 110 mg/dL (70-99) 161 mg/dL (70-99) Calcium Level 8.8 mg/dL (8.5-10.1) 9.6 mg/dL (8.5-10.1) Lipase 883 U/L (73-393) Thyroid Stimulating Hormone (TSH) 5.731 uIU/mL (0.358-3.74) Activated Partial Thromboplast Time 34 SEC (24-38) Heparin Anti-Xa Act, Unfractionated 0.34 IU/mL (0.30-0.70) 0.78 IU/mL (0.30-0.70) Laboratory Tests Test 08/12/18 20:23 08/13/18 06:34 Heparin Anti-Xa Act, Unfractionated 0.34 IU/mL (0.30-0.70) 0.78 IU/mL (0.30-0.70) Prothrombin Time 19.3 SEC (11.7-14.0) Prothromb Time International Ratio 1.7 (0.8-1.1) Sodium Level 140 mmol/L (136-145) Potassium Level 3.6 mmol/L (3.5-5.1) Chloride Level 104 mmol/L (98-107) Carbon Dioxide Level 24 mmol/L (21-32) Anion Gap 12 (6-14) Blood Urea Nitrogen 11 mg/dL (7-20) Creatinine 1.5 mg/dL (0.6-1.0) Estimated GFR (Cockcroft-Gault) 42.0 Glucose Level 161 mg/dL (70-99) Calcium Level 9.6 mg/dL (8.5-10.1) Medications Active Scripts Medications Dose Route/Sig Max Daily Dose Days Date Category Warfarin Sodium 2 Mg Tablet 2 Mg PO DAILY 08/11/18 Reported Losartan Potassium 50 Mg Tablet 50 Mg PO DAILY 08/11/18 Reported Amiodarone Hcl 200 Mg Tablet 200 Mg PO DAILY 30 07/02/18 Rx Coumadin (Warfarin Sodium) 5 Mg Tablet 5 Mg PO DAILY16 30 07/02/18 Rx Levothyroxine Sodium 50 Mcg Tablet 1 Tab PO DAILY 06/30/18 Reported Furosemide 40 Mg Tablet 1 Tab PO PRN DAILY PRN 06/30/18 Reported Pravastatin Sodium 40 Mg Tablet 1 Tab PO QHS 06/30/18 Reported Stool Softener (Docusate Sodium) 100 Mg Tablet 100 Mg PO PRN PRN 07/21/17 Reported Metoprolol Tartrate 50 Mg Tablet 50 Mg PO BID 06/15/17 Reported Impression . IMPRESSION: 1. Abnormal CT chest revealing left hilar mass and endobronchial lesions. Suspect primary lung cancer. 2. Weight loss secondary to above. 3. Cough secondary to above and acute bronchitis with postobstructive pneumonia. 4. Hypotension related to underlying cardiomyopathy and volume depletion. 5. Hypothyroidism. 6. Chronic kidney disease. 7. Chronic atrial fibrillation with rapid ventricular response. 8. Cardiomyopathy, ejection fraction of 30%, status post AICD placement. 9. Tobacco dependence, in remission. 10. Chronic obstructive pulmonary disease, unknown FEV1. Plan . BRONCH ON WEDNESDAY WITH BIOPSY POSSIBLE 1. We will initiate antibiotics. 2. Hold Coumadin and initiate heparin. The patient to undergo bronchoscopy. 3. Continue home meds. 4. IV fluids. 5. Follow clinical course and make further recommendations. SANJIV SOSA MD Aug 13, 2018 14:40
[2018-08-13 15:00] VITALS: BP 156/76
[2018-08-13 19:18] VITALS: BP 150/84
[2018-08-13] MEDS: LACTOBACILLUS RHAMNOSUS GG 1 CAPSULE. PO SCH (21:20)
[2018-08-13] MEDS: ATORVASTATIN CALCIUM 10 MG TABLET. PO SCH (21:23)
[2018-08-13 23:31] VITALS: BP 153/86
[2018-08-14] MEDS: ACETAMINOPHEN 325 MG TABLET. PO PRN ×4 (00:12→23:20)
[2018-08-14 02:08] LABS: HEMOGLOBIN A1C 5.7 % (4.8-5.6)
[2018-08-14 03:33] VITALS: BP 129/71
[2018-08-14] MEDS: LEVOTHYROXINE 50 MCG TABLET PO SCH (06:13)
[2018-08-14] MEDS: methylPREDNISolone SOD SUCC PF 40 MG/ML VIAL. IV SCH ×3 (06:14→23:20)
[2018-08-14] MEDS: PIPERACILLIN/TAZOBACTAM 2.25 GM in IV NORMAL SALINE 50ML 50 ML IV SCH ×4 (06:14→23:21)
[2018-08-14 06:44] LABS: PROTHROMBIN TIME PATIENT 20.1 SEC (11.7-14.0)
[2018-08-14 06:45] LABS: UNFRACTIONATED HEPARIN TESTING 0.35 IU/mL (0.30-0.70)
[2018-08-14 07:00] VITALS: BP 142/75
[2018-08-14] MEDS: POTASSIUM CHLORIDE 20 MEQ TABLET.ER. PO SCH (08:49)
[2018-08-14] MEDS: LACTOBACILLUS RHAMNOSUS GG 1 CAPSULE. PO SCH ×2 (08:49→20:12)
[2018-08-14] MEDS: METOPROLOL TART IMMED RELEASE 50 MG TABLET. PO SCH ×2 (08:50→20:12)
[2018-08-14] MEDS: ANTI-COAG MONITOR BY PHARMACY. MC PRN (09:24)
--- NOTE | 2018-08-14 10:41 | PDOC ---
SUBJECTIVE Subjective Pt states that she is not feeling quite right; almost feels like she is kind of drugged, getting too much medicine. Had nausea last night but this has improved. Right shoulder pain that is improved with tylenol and heating pad OBJECTIVE Vital Signs Vital Signs Date Time Temp Pulse Resp B/P (MAP) Pulse Ox O2 Delivery O2 Flow Rate FiO2 08/14/18 08:50 95 08/14/18 08:05 Room Air 08/14/18 07:00 98.0 86 16 142/75 (97) 95 Room Air 98.0 08/14/18 03:33 98.5 84 16 129/71 (90) 95 Room Air 98.5 08/13/18 23:31 98.4 95 16 153/86 (108) 95 Room Air 98.4 08/13/18 21:20 102 150/84 08/13/18 19:26 Room Air 08/13/18 19:18 98.5 102 18 150/84 (106) 96 Room Air 98.5 08/13/18 15:00 97.8 93 18 156/76 (102) 99 Room Air 97.8 08/13/18 11:20 Room Air 08/13/18 11:00 97.8 93 18 136/72 (93) 98 Room Air 97.8 I & O Intake and Output 08/14/18 07:00 Intake Total 1540 ml Output Total 250 ml Balance 1290 ml Intake Oral 1190 ml IV Total 350 ml Output Urine Total 250 ml # Voids 2 PHYSICAL EXAM Physical Exam GEN: NAD, AOx3 HEENT: MMM, EOMI, no scleral icterus/injection Cardiac: regular rate and rhythm, tachycardic, no M/R/G Lungs: regular breathing rate and effort, end expiratory wheezing JUSTICE and LLL Ext: no erythema/edema LE bilaterally Nuero: CN2-12 GI ASSESSMENT/PLAN Assessment/Plan Pt is a 67yo AAF admitted with afib and cough 1. Chronic afib with RVR - Cardiology following. Amiodarone has been stopped, pt received 1x dose of Digoxin. Receiving Metoprolol. Coumadin stopped and heparin gtt started. 2. Abnormal CT chest - concern for lung cancer. Pulmonary following, planning on bronchoscopy on Wednesday 3. Postobstructive Pneumonia- pt currently on Zosyn. 4. hypokalemia - resolved 5. HTN - will resume pt's Losartan 50mg. Lasix currently being held 6. hypothyroidism - TSH mildly elevated, continue replacement and consider increase on discharge 7. CKD- Cr stable 8. Anemia- mild 9. Pancreatitis- improving, will get repeat Lipase COMMENT Lab Laboratory Tests Test 08/13/18 13:50 08/13/18 20:40 08/14/18 05:35 Heparin Anti-Xa Act, Unfractionated 0.51 IU/mL (0.30-0.70) 0.50 IU/mL (0.30-0.70) 0.35 IU/mL (0.30-0.70) Prothrombin Time 20.1 SEC (11.7-14.0) Prothromb Time International Ratio 1.8 (0.8-1.1) HERIBERTO GARCIA MD Aug 14, 2018 10:41
[2018-08-14 11:00] VITALS: BP 134/77
[2018-08-14] MEDS: LOSARTAN POTASSIUM 50 MG TABLET. PO SCH (12:37)
--- NOTE | 2018-08-14 14:50 | PDOC ---
PULMONARY PROGRESS NOTES Subjective PT NOT MORE SOA Vitals Vital Signs Date Time Temp Pulse Resp B/P (MAP) Pulse Ox O2 Delivery O2 Flow Rate FiO2 08/14/18 12:37 88 08/14/18 11:00 98.0 16 134/77 (96) 96 Room Air 98.0 ROS: No Nausea, No Chest Pain, No Abdominal Pain, No Increase Cough General: Alert Lungs: Clear, Crackles Cardiovascular: S1 Abdomen: Soft, Non-tender Neuro Exam: Alert Extremities: No Edema Skin: Warm Labs Laboratory Tests Test 08/12/18 20:23 08/13/18 04:55 08/13/18 06:34 08/13/18 07:39 Heparin Anti-Xa Act, Unfractionated 0.34 IU/mL (0.30-0.70) 0.78 IU/mL (0.30-0.70) Hemoglobin A1c 5.7 % (4.8-5.6) Prothrombin Time 19.3 SEC (11.7-14.0) Prothromb Time International Ratio 1.7 (0.8-1.1) Sodium Level 140 mmol/L (136-145) Potassium Level 3.6 mmol/L (3.5-5.1) Chloride Level 104 mmol/L (98-107) Carbon Dioxide Level 24 mmol/L (21-32) Anion Gap 12 (6-14) Blood Urea Nitrogen 11 mg/dL (7-20) Creatinine 1.5 mg/dL (0.6-1.0) Estimated GFR (Cockcroft-Gault) 42.0 Glucose Level 161 mg/dL (70-99) Calcium Level 9.6 mg/dL (8.5-10.1) Magnesium Level 2.2 mg/dL (1.8-2.4) Nasal Screen MRSA (PCR) Negative (Negative) Test 08/13/18 13:50 08/13/18 20:40 08/14/18 05:35 Heparin Anti-Xa Act, Unfractionated 0.51 IU/mL (0.30-0.70) 0.50 IU/mL (0.30-0.70) 0.35 IU/mL (0.30-0.70) Prothrombin Time 20.1 SEC (11.7-14.0) Prothromb Time International Ratio 1.8 (0.8-1.1) Lipase 344 U/L (73-393) Laboratory Tests Test 08/13/18 20:40 08/14/18 05:35 Heparin Anti-Xa Act, Unfractionated 0.50 IU/mL (0.30-0.70) 0.35 IU/mL (0.30-0.70) Prothrombin Time 20.1 SEC (11.7-14.0) Prothromb Time International Ratio 1.8 (0.8-1.1) Lipase 344 U/L (73-393) Medications Active Scripts Medications Dose Route/Sig Max Daily Dose Days Date Category Warfarin Sodium 2 Mg Tablet 2 Mg PO DAILY 08/11/18 Reported Losartan Potassium 50 Mg Tablet 50 Mg PO DAILY 08/11/18 Reported Amiodarone Hcl 200 Mg Tablet 200 Mg PO DAILY 30 07/02/18 Rx Coumadin (Warfarin Sodium) 5 Mg Tablet 5 Mg PO DAILY16 30 07/02/18 Rx Levothyroxine Sodium 50 Mcg Tablet 1 Tab PO DAILY 06/30/18 Reported Furosemide 40 Mg Tablet 1 Tab PO PRN DAILY PRN 06/30/18 Reported Pravastatin Sodium 40 Mg Tablet 1 Tab PO QHS 06/30/18 Reported Stool Softener (Docusate Sodium) 100 Mg Tablet 100 Mg PO PRN PRN 07/21/17 Reported Metoprolol Tartrate 50 Mg Tablet 50 Mg PO BID 06/15/17 Reported Impression . IMPRESSION: 1. Abnormal CT chest revealing left hilar mass and endobronchial lesions. Suspect primary lung cancer. 2. Weight loss secondary to above. 3. Cough secondary to above and acute bronchitis with postobstructive pneumonia. 4. Hypotension related to underlying cardiomyopathy and volume depletion. 5. Hypothyroidism. 6. Chronic kidney disease. 7. Chronic atrial fibrillation with rapid ventricular response. 8. Cardiomyopathy, ejection fraction of 30%, status post AICD placement. 9. Tobacco dependence, in remission. 10. Chronic obstructive pulmonary disease, unknown FEV1. Plan . BRONCH ON TOMORROW WITH BIOPSY POSSIBLE REVIEWED THE R/B/A PT ACCEPTED ANTIBX HOLD HEPARIN VIT SANJIV WILDE MD Aug 14, 2018 14:50
[2018-08-14 15:00] VITALS: BP 151/89
[2018-08-14] MEDS ORDERED: PHYTONADIONE 10 MG/ML AMPUL. SQ ONE (15:30)
[2018-08-14 19:23] VITALS: BP 142/83
[2018-08-14] MEDS: ATORVASTATIN CALCIUM 10 MG TABLET. PO SCH (20:11)
[2018-08-14 23:00] VITALS: BP 151/91
[2018-08-15] VITALS (13 sets, daily range): BP systolic 133–160; BP diastolic 84–95
[2018-08-15 04:40] LABS: PROTHROMBIN TIME PATIENT 17.2 SEC (11.7-14.0)
[2018-08-15 04:42] LABS: UNFRACTIONATED HEPARIN TESTING 0.4 IU/mL (0.30-0.70)
[2018-08-15 04:58] LABS: CALCIUM 8.8 mg/dL (8.5-10.1); CREATININE 1.6 mg/dL (0.6-1.0); POTASSIUM 3.5 mmol/L (3.5-5.1)
[2018-08-15] MEDS: PIPERACILLIN/TAZOBACTAM 2.25 GM in IV NORMAL SALINE 50ML 50 ML IV SCH ×4 (06:05→23:30)
[2018-08-15] MEDS: methylPREDNISolone SOD SUCC PF 40 MG/ML VIAL. IV SCH ×3 (06:06→22:00)
--- NOTE | 2018-08-15 07:45 | PDOC ---
PROGRESS NOTES Subjective Subjective Patient without complaint. No CP or SOA. Objective Objective Vital Signs Date Time Temp Pulse Resp B/P (MAP) Pulse Ox O2 Delivery O2 Flow Rate FiO2 08/15/18 03:30 98.8 91 16 146/92 (110) 93 Room Air 98.8 Intake and Output 08/15/18 06:59 Intake Total 600 ml Balance 600 ml Intake Oral 600 ml # Voids 1 Physical Exam Abdomen: Normal bowel sounds, Soft, No tenderness Heart: Regular rate Extremities: No edema General: Alert, Oriented X3, No acute distress Lungs: Clear to auscultation Assessment Assessment Problems Medical Problems: (1) A-fib Status: Acute (2) Pneumonia Status: Acute Plan Plan of Care 1. Lung mass with pneumonia - stable, no hypoxia. Continue Zosyn and Solumedrol. Patient to have bronchoscopy today. 2. chronic afib with RVR - HR improved on present medications. Heparin gtt on hold for bronch, will need to resume this and Coumadin afterwards. 3. HTN - controlled, continue present medications. 4. Cardiomyopathy - stable, continue tx per Cardiology. 5. pancreatitis - due to Amiodarone? Lipase back to normal now. Comment Review of Relevant I have reviewed the following items cinthia (where applicable) has been applied. Labs Laboratory Tests Test 08/13/18 13:50 08/13/18 20:40 08/14/18 05:35 08/15/18 03:20 Heparin Anti-Xa Act, Unfractionated 0.51 IU/mL (0.30-0.70) 0.50 IU/mL (0.30-0.70) 0.35 IU/mL (0.30-0.70) 0.40 IU/mL (0.30-0.70) Prothrombin Time 20.1 SEC (11.7-14.0) 17.2 SEC (11.7-14.0) Prothromb Time International Ratio 1.8 (0.8-1.1) 1.4 (0.8-1.1) Lipase 344 U/L (73-393) Sodium Level 139 mmol/L (136-145) Potassium Level 3.5 mmol/L (3.5-5.1) Chloride Level 104 mmol/L (98-107) Carbon Dioxide Level 23 mmol/L (21-32) Anion Gap 12 (6-14) Blood Urea Nitrogen 18 mg/dL (7-20) Creatinine 1.6 mg/dL (0.6-1.0) Estimated GFR (Cockcroft-Gault) 39.0 Glucose Level 140 mg/dL (70-99) Calcium Level 8.8 mg/dL (8.5-10.1) Laboratory Tests Test 08/15/18 03:20 Prothrombin Time 17.2 SEC (11.7-14.0) Prothromb Time International Ratio 1.4 (0.8-1.1) Heparin Anti-Xa Act, Unfractionated 0.40 IU/mL (0.30-0.70) Sodium Level 139 mmol/L (136-145) Potassium Level 3.5 mmol/L (3.5-5.1) Chloride Level 104 mmol/L (98-107) Carbon Dioxide Level 23 mmol/L (21-32) Anion Gap 12 (6-14) Blood Urea Nitrogen 18 mg/dL (7-20) Creatinine 1.6 mg/dL (0.6-1.0) Estimated GFR (Cockcroft-Gault) 39.0 Glucose Level 140 mg/dL (70-99) Calcium Level 8.8 mg/dL (8.5-10.1) Medications Current Medications Albuterol/ Ipratropium (Duoneb) 3 ml 1X ONCE NEB Last administered on at 10:22; Start 08/11/18 at 09:45; Stop 08/11/18 at 09:46; Status DC Sodium Chloride 500 ml @ 500 mls/hr 1X ONCE IV Last administered on at 11:44; Start 08/11/18 at 11:45; Stop 08/11/18 at 12:44; Status DC Azithromycin 250 ml @ 250 mls/hr 1X ONCE IV Last administered on 08/11/18at 13 :03; Start 08/11/18 at 12:15; Stop 08/11/18 at 13:14; Status DC Ceftriaxone Sodium (Rocephin) 1 gm 1X ONCE IVP Last administered on 08/11/18at 13:03; Start 08/11/18 at 12:15; Stop 08/11/18 at 12:16; Status DC Ondansetron HCl (Zofran) 4 mg PRN Q8HRS PRN IV NAUSEA/VOMITING; Start 08/11/18 at 12:15; Stop 08/12/18 at 12:14; Status DC Sodium Chloride 500 ml @ 500 mls/hr 1X ONCE IV Last administered on at 12:45; Start 08/11/18 at 12:45; Stop 08/11/18 at 13:44; Status DC Amiodarone HCl (Cordarone) 200 mg DAILY PO ; Start 08/11/18 at 16:30; Stop 08/11 at 16:49; Status DC Non-Formulary Medication (Warfarin Sodium ) 2 mg DAILY PO ; Start 08/12/18 at 09: 00; Status UNV Warfarin Sodium (Coumadin) 5 mg 1X WARF ONCE PO ; Start 08/12/18 at 16:30; Stop 08/12/18 at 16:31; Status Cancel Warfarin Sodium (Coumadin Per Pharmacy) 1 each PRN DAILY PRN MC SEE COMMENTS; Start 08/11/18 at 16:15; Stop 08/12/18 at 13:05; Status DC Digoxin (Lanoxin) 250 mcg 1X ONCE IV Last administered on 08/11/18at 17:56; Start 08/11/18 at 16:45; Stop 08/11/18 at 16:46; Status DC Docusate Sodium (Colace) 100 mg PRN BID PRN PO CONSTIPATION; Start 08/11/18 at 21:00 Levothyroxine Sodium (Synthroid) 50 mcg DAILY06 PO Last administered on at 06:13; Start 08/12/18 at 06:00 Atorvastatin Calcium (Lipitor) 10 mg QHS PO Last administered on 08/14/18at 20:11 ; Start 08/11/18 at 21:00 Famotidine (Pepcid) 20 mg PRN DAILY PRN PO HEARTBURN / GAS; Start 08/11/18 at 23:45 Potassium Chloride (Klor-Con) 20 meq DAILYWBKFT PO Last administered on at 08:49; Start 08/12/18 at 09:30 Digoxin (Lanoxin) 250 mcg 1X ONCE IV Last administered on 08/12/18at 11:02; Start 08/12/18 at 11:00; Stop 08/12/18 at 11:01; Status DC Metoprolol Tartrate (Lopressor Vial) 5 mg 1X ONCE IVP ; Start 08/12/18 at 10:45 ; Stop 08/12/18 at 10:56; Status DC Metoprolol Tartrate (Lopressor) 25 mg Q6HRS PO Last administered on 08/12/18at 12 :58; Start 08/12/18 at 12:00; Stop 08/13/18 at 08:26; Status DC Metoprolol Tartrate (Lopressor Vial) 2.5 mg 1X ONCE IVP Last administered on at 11:03; Start 08/12/18 at 11:00; Stop 08/12/18 at 11:01; Status DC Sodium Chloride 1,000 ml @ 75 mls/hr [id number] IV Last administered on 08/13/18at 00:13; Start 08/12/18 at 11:00; Stop 08/13/18 at 08:26; Status DC Heparin Sodium/ Dextrose 500 ml @ 0 mls/hr CONT PRN IV SEE I/O RECORD Last administered on 08/12/18at 14:33; Start 08/12/18 at 13:00 Heparin Sodium (Porcine) (Heparin Sodium) 1,950 unit PRN Q6HRS PRN IV FOR UFH LEVEL LESS THAN 0.2; Start 08/12/18 at 13:00 Piperacillin Sod/ Tazobactam Sod (Zosyn Per Pharmacy) 1 each PRN DAILY PRN MC SEE COMMENTS; Start 08/12/18 at 13:15 Methylprednisolone Sodium Succinate (SOLU-Medrol 40MG VIAL) 80 mg Q8HRS IV Last administered on 08/15/18at 06:06; Start 08/12/18 at 14:00 Sodium Chloride 1,000 ml @ 100 mls/hr Q10H IV Last administered on 08/12/18at 15 :01; Start 08/12/18 at 13:15; Stop 08/13/18 at 08:26; Status DC Piperacillin Sod/ Tazobactam Sod 2.25 gm/Sodium Chloride 50 ml @ 100 mls/hr Q6HRS IV Last administered on 08/15/18at 06:05; Start 08/12/18 at 13:30 Info (Anti-Coagulation Monitoring By Pharmacy) 1 each PRN DAILY PRN MC SEE COMMENTS Last administered on 08/14/18at 09:24; Start 08/13/18 at 08:30 Metoprolol Tartrate (Lopressor) 50 mg BID PO Last administered on 08/14/18 20: 12; Start 08/13/18 at 09:00 Lactobacillus Rhamnosus (Culturelle) 1 cap BID PO Last administered on 20:12; Start 08/13/18 at 21:00 Acetaminophen (Tylenol) 650 mg PRN Q6HRS PRN PO MILD PAIN Last administered on 08/14/18 23:20; Start 08/14/18 at 00:00 Losartan Potassium (Cozaar) 50 mg DAILY PO Last administered on 08/14/18 12:37 ; Start 08/14/18 at 11:30 Phytonadione (Vitamin K Ampule) 2 mg 1X ONCE SQ Last administered on 08/14/18 16:10; Start 08/14/18 at 15:30; Stop 08/14/18 at 15:31; Status DC Active Scripts Active Amiodarone Hcl 200 Mg Tablet 200 Mg PO DAILY 30 Days Coumadin (Warfarin Sodium) 5 Mg Tablet 5 Mg PO DAILY16 30 Days Reported Warfarin Sodium 2 Mg Tablet 2 Mg PO DAILY Losartan Potassium 50 Mg Tablet 50 Mg PO DAILY Levothyroxine Sodium 50 Mcg Tablet 1 Tab PO DAILY Furosemide 40 Mg Tablet 1 Tab PO PRN DAILY PRN Pravastatin Sodium 40 Mg Tablet 1 Tab PO QHS Stool Softener (Docusate Sodium) 100 Mg Tablet 100 Mg PO PRN PRN Metoprolol Tartrate 50 Mg Tablet 50 Mg PO BID Vitals/I & O Vital Sign - Last 24 Hours 08/14/18 08/14/18 08/14/18 08/14/18 08:05 08:50 11:00 12:37 Temp 98.0 98.0 Pulse 95 86 88 Resp 16 B/P (MAP) 134/77 (96) Pulse Ox 96 O2 Delivery Room Air Room Air 08/14/18 08/14/18 08/14/18 08/14/18 15:00 19:23 19:39 20:12 Temp 98.2 98.0 98.2 98.0 Pulse 92 89 89 Resp 16 16 B/P (MAP) 151/89 (109) 142/83 (102) 142/83 Pulse Ox 94 95 O2 Delivery Room Air Room Air Room Air 08/14/18 08/15/18 23:00 03:30 Temp 98.0 98.8 98.0 98.8 Pulse 90 91 Resp 16 16 B/P (MAP) 151/91 (111) 146/92 (110) Pulse Ox 96 93 O2 Delivery Room Air Room Air Intake and Output 08/14/18 08/14/18 08/15/18 14:59 22:59 06:59 Intake Total 0 ml 600 ml Balance 0 ml 600 ml JOSH CANAS MD Aug 15, 2018 07:45
[2018-08-15] MEDS ORDERED: ALBUTEROL SULFATE 2.5 MG/3 ML NEBU. NEB PRN (08:30)
[2018-08-15] MEDS ORDERED: LIDOCAINE 4% TOPICAL 50 ML SOLUTION. MM PRN (08:30)
[2018-08-15] MEDS ORDERED: EPINEPHrine 1 MG/ML VIAL INJ PRN (08:30)
[2018-08-15] MEDS ORDERED: LIDOCAINE 1% Multi-Dose 20 ML VIAL. INJ PRN (08:30)
[2018-08-15] MEDS ORDERED: LIDOCAINE 2% VISCOUS 100 ML BOTTLE. MM PRN (08:30)
[2018-08-15] MEDS: LOSARTAN POTASSIUM 50 MG TABLET. PO SCH (08:38)
[2018-08-15] MEDS: METOPROLOL TART IMMED RELEASE 50 MG TABLET. PO SCH ×2 (08:39→21:07)
[2018-08-15] MEDS: LEVOTHYROXINE 50 MCG TABLET PO SCH (08:39)
[2018-08-15] MEDS ORDERED: IV RINGERS,LACTATED 1000ML 1,000 ML IV SCH (08:50)
[2018-08-15] MEDS ORDERED: HYDROmorphone 2 MG/ML VIAL IV PRN (09:00)
[2018-08-15] MEDS ORDERED: ONDANSETRON PF 4 MG/2 ML VIAL. IV PRN (09:00)
[2018-08-15] MEDS ORDERED: fentaNYL PF VIAL 100 MCG/2 ML VIAL IV PRN ×4 (09:00→11:45)
[2018-08-15] MEDS ORDERED: PROCHLORPERAZINE 10 MG/2 ML VIAL. IV PRN (09:00)
[2018-08-15] MEDS ORDERED: MORPHINE SULFATE 4 MG/ML VIAL. IV PRN (09:00)
[2018-08-15] MEDS ORDERED: LIDOCAINE 1% PF 2 ML VIAL. ID PRN ×2 (09:00→11:45)
--- NOTE | 2018-08-15 09:56 | PDOC ---
PULMONARY PROGRESS NOTES Subjective PT NOT MORE SOA Vitals Vital Signs Date Time Temp Pulse Resp B/P (MAP) Pulse Ox O2 Delivery O2 Flow Rate FiO2 08/15/18 08:39 91 160/92 08/15/18 07:00 97.8 20 96 Room Air 97.8 ROS: No Nausea, No Chest Pain, No Abdominal Pain, No Increase Cough General: Alert Lungs: Clear, Crackles Cardiovascular: S1 Abdomen: Soft, Non-tender Neuro Exam: Alert Extremities: No Edema Skin: Warm Labs Laboratory Tests Test 08/13/18 13:50 08/13/18 20:40 08/14/18 05:35 08/15/18 03:20 Heparin Anti-Xa Act, Unfractionated 0.51 IU/mL (0.30-0.70) 0.50 IU/mL (0.30-0.70) 0.35 IU/mL (0.30-0.70) 0.40 IU/mL (0.30-0.70) Prothrombin Time 20.1 SEC (11.7-14.0) 17.2 SEC (11.7-14.0) Prothromb Time International Ratio 1.8 (0.8-1.1) 1.4 (0.8-1.1) Lipase 344 U/L (73-393) Sodium Level 139 mmol/L (136-145) Potassium Level 3.5 mmol/L (3.5-5.1) Chloride Level 104 mmol/L (98-107) Carbon Dioxide Level 23 mmol/L (21-32) Anion Gap 12 (6-14) Blood Urea Nitrogen 18 mg/dL (7-20) Creatinine 1.6 mg/dL (0.6-1.0) Estimated GFR (Cockcroft-Gault) 39.0 Glucose Level 140 mg/dL (70-99) Calcium Level 8.8 mg/dL (8.5-10.1) Laboratory Tests Test 08/15/18 03:20 Prothrombin Time 17.2 SEC (11.7-14.0) Prothromb Time International Ratio 1.4 (0.8-1.1) Heparin Anti-Xa Act, Unfractionated 0.40 IU/mL (0.30-0.70) Sodium Level 139 mmol/L (136-145) Potassium Level 3.5 mmol/L (3.5-5.1) Chloride Level 104 mmol/L (98-107) Carbon Dioxide Level 23 mmol/L (21-32) Anion Gap 12 (6-14) Blood Urea Nitrogen 18 mg/dL (7-20) Creatinine 1.6 mg/dL (0.6-1.0) Estimated GFR (Cockcroft-Gault) 39.0 Glucose Level 140 mg/dL (70-99) Calcium Level 8.8 mg/dL (8.5-10.1) Medications Active Scripts Medications Dose Route/Sig Max Daily Dose Days Date Category Warfarin Sodium 2 Mg Tablet 2 Mg PO DAILY 08/11/18 Reported Losartan Potassium 50 Mg Tablet 50 Mg PO DAILY 08/11/18 Reported Amiodarone Hcl 200 Mg Tablet 200 Mg PO DAILY 30 07/02/18 Rx Coumadin (Warfarin Sodium) 5 Mg Tablet 5 Mg PO DAILY16 30 07/02/18 Rx Levothyroxine Sodium 50 Mcg Tablet 1 Tab PO DAILY 06/30/18 Reported Furosemide 40 Mg Tablet 1 Tab PO PRN DAILY PRN 06/30/18 Reported Pravastatin Sodium 40 Mg Tablet 1 Tab PO QHS 06/30/18 Reported Stool Softener (Docusate Sodium) 100 Mg Tablet 100 Mg PO PRN PRN 07/21/17 Reported Metoprolol Tartrate 50 Mg Tablet 50 Mg PO BID 06/15/17 Reported Impression . IMPRESSION: 1. Abnormal CT chest revealing left hilar mass and endobronchial lesions. Suspect primary lung cancer. 2. Weight loss secondary to above. 3. Cough secondary to above and acute bronchitis with postobstructive pneumonia. 4. Hypotension related to underlying cardiomyopathy and volume depletion. 5. Hypothyroidism. 6. Chronic kidney disease. 7. Chronic atrial fibrillation with rapid ventricular response. 8. Cardiomyopathy, ejection fraction of 30%, status post AICD placement. 9. Tobacco dependence, in remission. 10. Chronic obstructive pulmonary disease, unknown FEV1. Plan . BRONCH TODAY WITH BIOPSY POSSIBLE REVIEWED THE R/B/A PT ACCEPTED ANTIBX HOLD HEPARIN VIT K INR 1.4 SANJIV SOSA MD Aug 15, 2018 09:56
[2018-08-15] MEDS ORDERED: LIDOCAINE 1% Multi-Dose 20 ML VIAL. ONE (11:04)
[2018-08-15] MEDS ORDERED: EPINEPHrine 1 MG/ML VIAL ONE (11:04)
[2018-08-15] MEDS ORDERED: LIDOCAINE 2% VISCOUS 100 ML BOTTLE. ONE (11:04)
[2018-08-15] MEDS ORDERED: LIDOCAINE 4% TOPICAL 50 ML SOLUTION. ONE (11:04)
[2018-08-15] MEDS ORDERED: IV NORMAL SALINE 1000ML BAG 1,000 ML IV SCH (11:40)
[2018-08-15] MEDS ORDERED: MIDAZOLAM HCL/PF 2 MG/2 ML VIAL. IV PRN (11:45)
--- NOTE | 2018-08-15 12:11 | NUR ---
SS following for discharge planning. SS reviewed pt chart. Pt is from home with spouse and is currently on room air. No discharge needs noted at this time. SS will continue to follow for pending discharge needs.
[2018-08-15] MEDS ORDERED: PROPOFOL 20 ML IV ONE (12:38)
--- NOTE | 2018-08-15 13:32 | PDOC4 ---
PROCEDURE Procedure MUCOSAL ABNORMALITY OF JUSTICE AND LLL CYTOLOGY BRUSHING PERFORMED WILL AWAIT RESULT D/W SANJIV GARCIA MD Aug 15, 2018 13:32
[2018-08-15] MEDS: LACTOBACILLUS RHAMNOSUS GG 1 CAPSULE. PO SCH ×2 (14:48→21:06)
[2018-08-15] MEDS: POTASSIUM CHLORIDE 20 MEQ TABLET.ER. PO SCH (14:49)
--- NOTE | 2018-08-15 14:52 | RESP ---
DATE OF SERVICE: 08/15/2018 ATTENDING PHYSICIAN: Lola Goldman MD PROCEDURE: Bronchoscopy, brush biopsy, BAL performed. INDICATIONS: The patient presented with hemoptysis along with an abnormal CT of the chest revealing left hilar mass with narrowing of the left upper lobe and left lower lobe bronchi. She is undergoing diagnostic bronchoscopy. Risks, benefits, and alternatives reviewed with the patient. The patient had been on anticoagulation, which was placed on hold. She was given some vitamin K yesterday. Her INR today was 1.4. DESCRIPTION OF PROCEDURE: A timeout was performed prior to procedure. Vital signs and O2 saturations were maintained within normal limits throughout the procedure. The bronchoscope was passed through the right naris. The vocal cords were identified moving bilaterally without any dysfunction. The vocal cords were anesthetized with a total of 5 mL of 4% lidocaine. Bronchoscope was then passed through the vocal cords into the proximal trachea, which was normal. The distal trachea was likewise normal except for some tracheomalacia. The right and left segments and subsegments were visualized. There was evidence of bronchomalacia on both sides. Upon inspecting the left side, there was mucosal abnormality leading up to the left upper lobe and left lower lobe. With scope trauma, the patient started to have a minimal amount of hemorrhage. I was unable to fully visualize everything, but I did not see an endobronchial lesion. I know what I did see was mostly extrinsic compression with abnormal mucosa that was very friable. A cytology brush was performed along with a lavage of the area. The patient tolerated the procedure well with no immediate complications. FINDINGS: 1. Normal vocal cords. 2. Tracheal bronchomalacia. 3. Mucosal abnormality leading up to the left upper lobe and left lower lobe. Cytology brushing was performed. Lavage of the area was likewise performed. 4. Slight oozing of blood secondary to scope trauma. PLAN: We will await the BAL results and cytology brushing results. SANJIV SOSA MD DR: ALISA/hector JOB#: [id number] / [id number]
[2018-08-15] MEDS: HEPARIN 25,000UTS/500ML PREMIX 500 ML IV PRN (15:11)
[2018-08-15] MEDS: ANTI-COAG MONITOR BY PHARMACY. MC PRN (15:50)
[2018-08-15] MEDS: ACETAMINOPHEN 325 MG TABLET. PO PRN (18:08)
[2018-08-15] MEDS: ATORVASTATIN CALCIUM 10 MG TABLET. PO SCH (21:06)
[2018-08-16 02:59] VITALS: BP 149/95
[2018-08-16 03:31] LABS: BASO % 0 % (0-3); EOS % 0 % (0-3); HEMATOCRIT 32.3 % (36.0-47.0); HEMOGLOBIN 10.6 g/dL (12.0-15.5); LYMPH # 1.5 x10^3/uL (1.0-4.8); LYMPH % 12 % (24-48); MEAN CORPUSCULAR HEMOGLOBIN 32 pg (25-35); MEAN CORPUSCULAR HGB CONC 33 g/dL (31-37); MEAN CORPUSCULAR VOLUME 96 fL (79-100); MONO # 0.5 x10^3/uL (0.0-1.1); MONO % 4 % (0-9); NEUT # 10.8 x10^3uL (1.8-7.7); NEUT % 84 % (31-73); PLATELET COUNT 306 x10^3/uL (140-400); RED BLOOD COUNT 3.35 x10^6/uL (3.50-5.40); WHITE BLOOD COUNT 12.8 x10^3/uL (4.0-11.0)
[2018-08-16 03:44] LABS: PROTHROMBIN TIME PATIENT 15.4 SEC (11.7-14.0)
[2018-08-16 03:45] LABS: UNFRACTIONATED HEPARIN TESTING 0.32 IU/mL (0.30-0.70)
[2018-08-16] MEDS: PIPERACILLIN/TAZOBACTAM 2.25 GM in IV NORMAL SALINE 50ML 50 ML IV SCH ×4 (05:24→23:31)
[2018-08-16] MEDS: LEVOTHYROXINE 50 MCG TABLET PO SCH (06:05)
[2018-08-16] MEDS: methylPREDNISolone SOD SUCC PF 40 MG/ML VIAL. IV SCH ×3 (06:05→21:39)
[2018-08-16 07:00] VITALS: BP 163/88
--- NOTE | 2018-08-16 08:36 | PDOC ---
PROGRESS NOTES Subjective Subjective Patient without complaint. Objective Objective Vital Signs Date Time Temp Pulse Resp B/P (MAP) Pulse Ox O2 Delivery O2 Flow Rate FiO2 08/16/18 07:00 98.0 98 18 163/88 (113) 98 Room Air 98.0 08/15/18 13:15 8 Intake and Output 08/16/18 07:00 Intake Total 1528 ml Balance 1528 ml Intake Oral 650 ml IV Total 878 ml # Voids 5 # Bowel Movements 2 Physical Exam Abdomen: Normal bowel sounds, Soft, No tenderness Heart: Other (irregularly irregular) Extremities: Other (mild non-pitting edema bilateral LE's) General: Alert, Oriented X3, No acute distress Lungs: Clear to auscultation Assessment Assessment Problems Medical Problems: (1) A-fib Status: Acute (2) Pneumonia Status: Acute Plan Plan of Care 1. Lung mass with pneumonia - bronch yesterday, await results. No hypoxia. Continue abx and Solumedrol. 2. afib with RVR - HR continues elevated with any activity. On Heparin gtt, resume Coumadin tonight. Adjusting meds per Cardiology. 3. cardiomyopathy - resume her usual Lasix as she reports starting to have LE edema. 4. HTN - controlled with present meds. Comment Review of Relevant I have reviewed the following items cinthia (where applicable) has been applied. Labs Laboratory Tests Test 08/15/18 03:20 08/15/18 20:45 08/16/18 03:00 Prothrombin Time 17.2 SEC (11.7-14.0) 15.4 SEC (11.7-14.0) Prothromb Time International Ratio 1.4 (0.8-1.1) 1.3 (0.8-1.1) Heparin Anti-Xa Act, Unfractionated 0.40 IU/mL (0.30-0.70) 0.31 IU/mL (0.30-0.70) 0.32 IU/mL (0.30-0.70) Sodium Level 139 mmol/L (136-145) Potassium Level 3.5 mmol/L (3.5-5.1) Chloride Level 104 mmol/L (98-107) Carbon Dioxide Level 23 mmol/L (21-32) Anion Gap 12 (6-14) Blood Urea Nitrogen 18 mg/dL (7-20) Creatinine 1.6 mg/dL (0.6-1.0) Estimated GFR (Cockcroft-Gault) 39.0 Glucose Level 140 mg/dL (70-99) Calcium Level 8.8 mg/dL (8.5-10.1) White Blood Count 12.8 x10^3/uL (4.0-11.0) Red Blood Count 3.35 x10^6/uL (3.50-5.40) Hemoglobin 10.6 g/dL (12.0-15.5) Hematocrit 32.3 % (36.0-47.0) Mean Corpuscular Volume 96 fL (79-100) Mean Corpuscular Hemoglobin 32 pg (25-35) Mean Corpuscular Hemoglobin Concent 33 g/dL (31-37) Red Cell Distribution Width 14.0 % (11.5-14.5) Platelet Count 306 x10^3/uL (140-400) Neutrophils (%) (Auto) 84 % (31-73) Lymphocytes (%) (Auto) 12 % (24-48) Monocytes (%) (Auto) 4 % (0-9) Eosinophils (%) (Auto) 0 % (0-3) Basophils (%) (Auto) 0 % (0-3) Neutrophils # (Auto) 10.8 x10^3uL (1.8-7.7) Lymphocytes # (Auto) 1.5 x10^3/uL (1.0-4.8) Monocytes # (Auto) 0.5 x10^3/uL (0.0-1.1) Eosinophils # (Auto) 0.0 x10^3/uL (0.0-0.7) Basophils # (Auto) 0.0 x10^3/uL (0.0-0.2) Laboratory Tests Test 08/15/18 20:45 08/16/18 03:00 Heparin Anti-Xa Act, Unfractionated 0.31 IU/mL (0.30-0.70) 0.32 IU/mL (0.30-0.70) White Blood Count 12.8 x10^3/uL (4.0-11.0) Red Blood Count 3.35 x10^6/uL (3.50-5.40) Hemoglobin 10.6 g/dL (12.0-15.5) Hematocrit 32.3 % (36.0-47.0) Mean Corpuscular Volume 96 fL (79-100) Mean Corpuscular Hemoglobin 32 pg (25-35) Mean Corpuscular Hemoglobin Concent 33 g/dL (31-37) Red Cell Distribution Width 14.0 % (11.5-14.5) Platelet Count 306 x10^3/uL (140-400) Neutrophils (%) (Auto) 84 % (31-73) Lymphocytes (%) (Auto) 12 % (24-48) Monocytes (%) (Auto) 4 % (0-9) Eosinophils (%) (Auto) 0 % (0-3) Basophils (%) (Auto) 0 % (0-3) Neutrophils # (Auto) 10.8 x10^3uL (1.8-7.7) Lymphocytes # (Auto) 1.5 x10^3/uL (1.0-4.8) Monocytes # (Auto) 0.5 x10^3/uL (0.0-1.1) Eosinophils # (Auto) 0.0 x10^3/uL (0.0-0.7) Basophils # (Auto) 0.0 x10^3/uL (0.0-0.2) Prothrombin Time 15.4 SEC (11.7-14.0) Prothromb Time International Ratio 1.3 (0.8-1.1) Microbiology 08/15/18 - Final, Complete Medications Current Medications Albuterol/ Ipratropium (Duoneb) 3 ml 1X ONCE NEB Last administered on at 10:22; Start 08/11/18 at 09:45; Stop 08/11/18 at 09:46; Status DC Sodium Chloride 500 ml @ 500 mls/hr 1X ONCE IV Last administered on at 11:44; Start 08/11/18 at 11:45; Stop 08/11/18 at 12:44; Status DC Azithromycin 250 ml @ 250 mls/hr 1X ONCE IV Last administered on 08/11/18at 13 :03; Start 08/11/18 at 12:15; Stop 08/11/18 at 13:14; Status DC Ceftriaxone Sodium (Rocephin) 1 gm 1X ONCE IVP Last administered on 08/11/18at 13:03; Start 08/11/18 at 12:15; Stop 08/11/18 at 12:16; Status DC Ondansetron HCl (Zofran) 4 mg PRN Q8HRS PRN IV NAUSEA/VOMITING; Start 08/11/18 at 12:15; Stop 08/12/18 at 12:14; Status DC Sodium Chloride 500 ml @ 500 mls/hr 1X ONCE IV Last administered on at 12:45; Start 08/11/18 at 12:45; Stop 08/11/18 at 13:44; Status DC Amiodarone HCl (Cordarone) 200 mg DAILY PO ; Start 08/11/18 at 16:30; Stop 08/11 at 16:49; Status DC Non-Formulary Medication (Warfarin Sodium ) 2 mg DAILY PO ; Start 08/12/18 at 09: 00; Status UNV Warfarin Sodium (Coumadin) 5 mg 1X WARF ONCE PO ; Start 08/12/18 at 16:30; Stop 08/12/18 at 16:31; Status Cancel Warfarin Sodium (Coumadin Per Pharmacy) 1 each PRN DAILY PRN MC SEE COMMENTS; Start 08/11/18 at 16:15; Stop 08/12/18 at 13:05; Status DC Digoxin (Lanoxin) 250 mcg 1X ONCE IV Last administered on 08/11/18at 17:56; Start 08/11/18 at 16:45; Stop 08/11/18 at 16:46; Status DC Docusate Sodium (Colace) 100 mg PRN BID PRN PO CONSTIPATION; Start 08/11/18 at 21:00 Levothyroxine Sodium (Synthroid) 50 mcg DAILY06 PO Last administered on at 06:05; Start 08/12/18 at 06:00 Atorvastatin Calcium (Lipitor) 10 mg QHS PO Last administered on 08/15/18at 21:06 ; Start 08/11/18 at 21:00 Famotidine (Pepcid) 20 mg PRN DAILY PRN PO HEARTBURN / GAS; Start 08/11/18 at 23:45 Potassium Chloride (Klor-Con) 20 meq DAILYWBKFT PO Last administered on at 14:49; Start 08/12/18 at 09:30 Digoxin (Lanoxin) 250 mcg 1X ONCE IV Last administered on 08/12/18at 11:02; Start 08/12/18 at 11:00; Stop 08/12/18 at 11:01; Status DC Metoprolol Tartrate (Lopressor Vial) 5 mg 1X ONCE IVP ; Start 08/12/18 at 10:45 ; Stop 08/12/18 at 10:56; Status DC Metoprolol Tartrate (Lopressor) 25 mg Q6HRS PO Last administered on 08/12/18at 12 :58; Start 08/12/18 at 12:00; Stop 08/13/18 at 08:26; Status DC Metoprolol Tartrate (Lopressor Vial) 2.5 mg 1X ONCE IVP Last administered on at 11:03; Start 08/12/18 at 11:00; Stop 08/12/18 at 11:01; Status DC Sodium Chloride 1,000 ml @ 75 mls/hr [id number] IV Last administered on 08/13/18at 00:13; Start 08/12/18 at 11:00; Stop 08/13/18 at 08:26; Status DC Heparin Sodium/ Dextrose 500 ml @ 0 mls/hr CONT PRN IV SEE I/O RECORD Last administered on 08/15/18at 15:11; Start 08/12/18 at 13:00 Heparin Sodium (Porcine) (Heparin Sodium) 1,950 unit PRN Q6HRS PRN IV FOR UFH LEVEL LESS THAN 0.2; Start 08/12/18 at 13:00 Piperacillin Sod/ Tazobactam Sod (Zosyn Per Pharmacy) 1 each PRN DAILY PRN MC SEE COMMENTS; Start 08/12/18 at 13:15 Methylprednisolone Sodium Succinate (SOLU-Medrol 40MG VIAL) 80 mg Q8HRS IV Last administered on 08/16/18at 06:05; Start 08/12/18 at 14:00 Sodium Chloride 1,000 ml @ 100 mls/hr Q10H IV Last administered on 08/12/18at 15 :01; Start 08/12/18 at 13:15; Stop 08/13/18 at 08:26; Status DC Piperacillin Sod/ Tazobactam Sod 2.25 gm/Sodium Chloride 50 ml @ 100 mls/hr Q6HRS IV Last administered on 08/16/18at 05:24; Start 08/12/18 at 13:30 Info (Anti-Coagulation Monitoring By Pharmacy) 1 each PRN DAILY PRN MC SEE COMMENTS Last administered on 08/15/18 15:50; Start 08/13/18 at 08:30 Metoprolol Tartrate (Lopressor) 50 mg BID PO Last administered on 08/15/18 21: 07; Start 08/13/18 at 09:00 Lactobacillus Rhamnosus (Culturelle) 1 cap BID PO Last administered on 21:06; Start 08/13/18 at 21:00 Acetaminophen (Tylenol) 650 mg PRN Q6HRS PRN PO MILD PAIN Last administered on 08/15/18 18:08; Start 08/14/18 at 00:00 Losartan Potassium (Cozaar) 50 mg DAILY PO Last administered on 08/15/18 08:38 ; Start 08/14/18 at 11:30 Phytonadione (Vitamin K Ampule) 2 mg 1X ONCE SQ Last administered on 08/14/18 16:10; Start 08/14/18 at 15:30; Stop 08/14/18 at 15:31; Status DC Albuterol Sulfate (Ventolin Neb Soln) 2.5 mg PRN 1X PRN NEB SHORTNESS OF BREATH Last administered on 08/15/18 12:30; Start 08/15/18 at 08:30; Stop at 08:29 Lidocaine HCl (Lidocaine 2% Viscous) 100 ml PRN 1X PRN MM MOUTH PAIN Last administered on 08/15/18 12:29; Start 08/15/18 at 08:30; Stop 08/16/18 at 08:29 Lidocaine HCl (Lidocaine 1% 20ml Vial) 20 ml PRN 1X PRN INJ SEE COMMENTS Last administered on 08/15/18 12:29; Start 08/15/18 at 08:30; Stop 08/16/18 at 08:29 Epinephrine HCl (Adrenalin) 1 mg PRN 1X PRN INJ SEE COMMENTS; Start 08/15/18 at 08:30; Stop 08/16/18 at 08:29 Lidocaine HCl 50 ml PRN 1X PRN MM SEE COMMENTS Last administered on 08/15/18 12 :28; Start 08/15/18 at 08:30; Stop 08/16/18 at 08:29 Ondansetron HCl (Zofran) 4 mg PRN Q6HRS PRN IV NAUSEA/VOMITING; Start 08/15/18 at 09:00; Stop 08/15/18 at 20:00; Status DC Fentanyl Citrate (Fentanyl 2ml Vial) 25 mcg PRN Q5MIN PRN IV MILD PAIN; Start 08/15/18 at 09:00; Stop 08/15/18 at 20:00; Status DC Fentanyl Citrate (Fentanyl 2ml Vial) 50 mcg PRN Q5MIN PRN IV MODERATE TO SEVERE PAIN; Start 08/15/18 at 09:00; Stop 08/15/18 at 20:00; Status DC Morphine Sulfate (Morphine Sulfate) 1 mg PRN Q10MIN PRN IV SEVERE PAIN; Start 08/15/18 at 09:00; Stop 08/15/18 at 20:00; Status DC Ringer's Solution 1,000 ml @ 30 mls/hr Q24H IV ; Start 08/15/18 at 08:50; Stop 08/15/18 at 20:49; Status DC Lidocaine HCl (Xylocaine-Mpf 1% 2ml Vial) 2 ml PRN 1X PRN ID PRIOR TO IV START ; Start 08/15/18 at 09:00; Stop 08/15/18 at 20:00; Status DC Hydromorphone HCl (Dilaudid) 0.5 mg PRN Q10MIN PRN IV SEV PAIN, Second choice; Start 08/15/18 at 09:00; Stop 08/15/18 at 20:00; Status DC Prochlorperazine Edisylate (Compazine) 5 mg PACU PRN PRN IV NAUSEA, MRX1; Start 08/15/18 at 09:00; Stop 08/15/18 at 20:00; Status DC Epinephrine HCl (Adrenalin) 1 mg STK-MED ONCE .ROUTE ; Start 08/15/18 at 11:04; Stop 08/15/18 at 11:05; Status DC Lidocaine HCl (Lidocaine 1% 20ml Vial) 20 ml STK-MED ONCE .ROUTE ; Start at 11:04; Stop 08/15/18 at 11:05; Status DC Lidocaine HCl (Lidocaine 2% Viscous) 100 ml STK-MED ONCE .ROUTE ; Start 08/15/18 at 11:04; Stop 08/15/18 at 11:05; Status DC Lidocaine HCl 50 ml STK-MED ONCE .ROUTE ; Start 08/15/18 at 11:04; Stop 08/15/18 at 11:05; Status DC Midazolam HCl (Versed) 2 mg PRN 1X PRN IV PRIOR TO PROCEDURE; Start 08/15/18 at 11:45; Stop 08/16/18 at 11:44 Fentanyl Citrate (Fentanyl 2ml Vial) 25 mcg PRN Q5MIN PRN IV X 2 DOSES FOR PAIN ; Start 08/15/18 at 11:45; Stop 08/16/18 at 11:44 Fentanyl Citrate (Fentanyl 2ml Vial) 50 mcg PRN Q5MIN PRN IV X 2 DOSES FOR PAIN ; Start 08/15/18 at 11:45; Stop 08/16/18 at 11:44 Sodium Chloride 1,000 ml @ 125 mls/hr Q8H IV Last administered on 08/15/18at 11: 52; Start 08/15/18 at 11:40; Stop 08/15/18 at 23:39; Status DC Lidocaine HCl (Xylocaine-Mpf 1% 2ml Vial) 2 ml 1X PRN PRN ID IV START; Start at 11:45; Stop 08/16/18 at 11:44 Propofol 20 ml @ As Directed STK-MED ONCE IV ; Start 08/15/18 at 12:38; Stop 08/15 at 12:39; Status DC Active Scripts Active Amiodarone Hcl 200 Mg Tablet 200 Mg PO DAILY 30 Days Coumadin (Warfarin Sodium) 5 Mg Tablet 5 Mg PO DAILY16 30 Days Reported Warfarin Sodium 2 Mg Tablet 2 Mg PO DAILY Losartan Potassium 50 Mg Tablet 50 Mg PO DAILY Levothyroxine Sodium 50 Mcg Tablet 1 Tab PO DAILY Furosemide 40 Mg Tablet 1 Tab PO PRN DAILY PRN Pravastatin Sodium 40 Mg Tablet 1 Tab PO QHS Stool Softener (Docusate Sodium) 100 Mg Tablet 100 Mg PO PRN PRN Metoprolol Tartrate 50 Mg Tablet 50 Mg PO BID Vitals/I & O Vital Sign - Last 24 Hours 08/15/18 08/15/18 08/15/18 08/15/18 08:38 08:39 11:30 11:42 Temp 97.9 97.9 Pulse 91 91 91 Resp 24 B/P (MAP) 160/92 160/92 149/90 (109) Pulse Ox 95 O2 Delivery Room Air Room Air 08/15/18 08/15/18 08/15/18 08/15/18 11:49 12:35 13:15 13:30 Temp 97.5 97.1 97.5 97.1 Pulse 94 100 105 Resp B/P (MAP) 139/82 146/85 Pulse Ox 97 95 100 98 O2 Delivery Room Air Room Air Room Air O2 Flow Rate 8 08/15/18 08/15/18 08/15/18 08/15/18 13:45 14:00 14:14 14:30 Pulse 105 101 93 101 Resp B/P (MAP) 131/90 140/83 136/74 136/92 (107) Pulse Ox 94 94 97 O2 Delivery Room Air Room Air Room Air 08/15/18 08/15/18 08/15/18 08/15/18 14:45 15:00 15:00 15:15 Temp 97.6 97.6 Pulse 102 103 91 96 Resp B/P (MAP) 145/84 (104) 136/92 (107) 133/91 (105) 150/87 (108) Pulse Ox 94 O2 Delivery Room Air 08/15/18 08/15/18 08/15/18 08/15/18 15:30 16:00 16:30 17:30 Pulse 98 90 91 105 B/P (MAP) 144/86 (105) 153/92 (112) 150/87 (108) 146/93 (110) 08/15/18 08/15/18 08/15/18 08/15/18 19:04 20:45 21:07 22:48 Temp 97.3 97.9 97.3 97.9 Pulse 108 108 91 Resp 26 22 B/P (MAP) 158/95 (116) 158/95 158/93 (114) Pulse Ox 96 98 O2 Delivery Room Air Room Air Room Air 08/16/18 08/16/18 02:59 07:00 Temp 98.2 98.0 98.2 98.0 Pulse 91 98 Resp 18 18 B/P (MAP) 149/95 (113) 163/88 (113) Pulse Ox 98 98 O2 Delivery Room Air Room Air Intake and Output 08/15/18 08/15/18 08/16/18 15:00 23:00 07:00 Intake Total 800 ml 128 ml 600 ml Balance 800 ml 128 ml 600 ml JOSH CANAS MD Aug 16, 2018 08:36
--- NOTE | 2018-08-16 09:14 | PDOC ---
PULMONARY PROGRESS NOTES Subjective Patient not more SOA, no further hemoptysis Vitals Vital Signs Date Time Temp Pulse Resp B/P (MAP) Pulse Ox O2 Delivery O2 Flow Rate FiO2 08/16/18 07:00 98.0 98 18 163/88 (113) 98 Room Air 98.0 08/15/18 13:15 8 ROS: No Nausea, No Chest Pain, No Abdominal Pain, No Increase Cough General: Alert Lungs: Clear, Crackles Cardiovascular: S1 Abdomen: Soft, Non-tender Neuro Exam: Alert Extremities: No Edema Skin: Warm Labs Laboratory Tests Test 08/15/18 03:20 08/15/18 20:45 08/16/18 03:00 Prothrombin Time 17.2 SEC (11.7-14.0) 15.4 SEC (11.7-14.0) Prothromb Time International Ratio 1.4 (0.8-1.1) 1.3 (0.8-1.1) Heparin Anti-Xa Act, Unfractionated 0.40 IU/mL (0.30-0.70) 0.31 IU/mL (0.30-0.70) 0.32 IU/mL (0.30-0.70) Sodium Level 139 mmol/L (136-145) Potassium Level 3.5 mmol/L (3.5-5.1) Chloride Level 104 mmol/L (98-107) Carbon Dioxide Level 23 mmol/L (21-32) Anion Gap 12 (6-14) Blood Urea Nitrogen 18 mg/dL (7-20) Creatinine 1.6 mg/dL (0.6-1.0) Estimated GFR (Cockcroft-Gault) 39.0 Glucose Level 140 mg/dL (70-99) Calcium Level 8.8 mg/dL (8.5-10.1) White Blood Count 12.8 x10^3/uL (4.0-11.0) Red Blood Count 3.35 x10^6/uL (3.50-5.40) Hemoglobin 10.6 g/dL (12.0-15.5) Hematocrit 32.3 % (36.0-47.0) Mean Corpuscular Volume 96 fL (79-100) Mean Corpuscular Hemoglobin 32 pg (25-35) Mean Corpuscular Hemoglobin Concent 33 g/dL (31-37) Red Cell Distribution Width 14.0 % (11.5-14.5) Platelet Count 306 x10^3/uL (140-400) Neutrophils (%) (Auto) 84 % (31-73) Lymphocytes (%) (Auto) 12 % (24-48) Monocytes (%) (Auto) 4 % (0-9) Eosinophils (%) (Auto) 0 % (0-3) Basophils (%) (Auto) 0 % (0-3) Neutrophils # (Auto) 10.8 x10^3uL (1.8-7.7) Lymphocytes # (Auto) 1.5 x10^3/uL (1.0-4.8) Monocytes # (Auto) 0.5 x10^3/uL (0.0-1.1) Eosinophils # (Auto) 0.0 x10^3/uL (0.0-0.7) Basophils # (Auto) 0.0 x10^3/uL (0.0-0.2) Laboratory Tests Test 08/15/18 20:45 08/16/18 03:00 Heparin Anti-Xa Act, Unfractionated 0.31 IU/mL (0.30-0.70) 0.32 IU/mL (0.30-0.70) White Blood Count 12.8 x10^3/uL (4.0-11.0) Red Blood Count 3.35 x10^6/uL (3.50-5.40) Hemoglobin 10.6 g/dL (12.0-15.5) Hematocrit 32.3 % (36.0-47.0) Mean Corpuscular Volume 96 fL (79-100) Mean Corpuscular Hemoglobin 32 pg (25-35) Mean Corpuscular Hemoglobin Concent 33 g/dL (31-37) Red Cell Distribution Width 14.0 % (11.5-14.5) Platelet Count 306 x10^3/uL (140-400) Neutrophils (%) (Auto) 84 % (31-73) Lymphocytes (%) (Auto) 12 % (24-48) Monocytes (%) (Auto) 4 % (0-9) Eosinophils (%) (Auto) 0 % (0-3) Basophils (%) (Auto) 0 % (0-3) Neutrophils # (Auto) 10.8 x10^3uL (1.8-7.7) Lymphocytes # (Auto) 1.5 x10^3/uL (1.0-4.8) Monocytes # (Auto) 0.5 x10^3/uL (0.0-1.1) Eosinophils # (Auto) 0.0 x10^3/uL (0.0-0.7) Basophils # (Auto) 0.0 x10^3/uL (0.0-0.2) Prothrombin Time 15.4 SEC (11.7-14.0) Prothromb Time International Ratio 1.3 (0.8-1.1) Medications Active Scripts Medications Dose Route/Sig Max Daily Dose Days Date Category Warfarin Sodium 2 Mg Tablet 2 Mg PO DAILY 08/11/18 Reported Losartan Potassium 50 Mg Tablet 50 Mg PO DAILY 08/11/18 Reported Amiodarone Hcl 200 Mg Tablet 200 Mg PO DAILY 30 07/02/18 Rx Coumadin (Warfarin Sodium) 5 Mg Tablet 5 Mg PO DAILY16 30 07/02/18 Rx Levothyroxine Sodium 50 Mcg Tablet 1 Tab PO DAILY 06/30/18 Reported Furosemide 40 Mg Tablet 1 Tab PO PRN DAILY PRN 06/30/18 Reported Pravastatin Sodium 40 Mg Tablet 1 Tab PO QHS 06/30/18 Reported Stool Softener (Docusate Sodium) 100 Mg Tablet 100 Mg PO PRN PRN 07/21/17 Reported Metoprolol Tartrate 50 Mg Tablet 50 Mg PO BID 06/15/17 Reported Impression . IMPRESSION: 1. Abnormal CT chest revealing left hilar mass and endobronchial lesions. Suspect primary lung cancer. 2. Weight loss secondary to above. 3. Cough secondary to above and acute bronchitis with postobstructive pneumonia. 4. Hypotension related to underlying cardiomyopathy and volume depletion. 5. Hypothyroidism. 6. Chronic kidney disease. 7. Chronic atrial fibrillation with rapid ventricular response. 8. Cardiomyopathy, ejection fraction of 30%, status post AICD placement. 9. Tobacco dependence, in remission. 10. Chronic obstructive pulmonary disease, unknown FEV1. Plan . Case discussed with pathologist, results pending, will continue the same for now SANJIV SOSA MD Aug 16, 2018 09:14
[2018-08-16] MEDS ORDERED: DIGOXIN IV 500 MCG/2 ML AMPUL. IV ONE (09:30)
[2018-08-16] MEDS: POTASSIUM CHLORIDE 20 MEQ TABLET.ER. PO SCH (09:31)
[2018-08-16] MEDS: LACTOBACILLUS RHAMNOSUS GG 1 CAPSULE. PO SCH ×2 (09:31→21:39)
[2018-08-16] MEDS: METOPROLOL TART IMMED RELEASE 50 MG TABLET. PO SCH (09:32)
[2018-08-16] MEDS: LOSARTAN POTASSIUM 50 MG TABLET. PO SCH (09:32)
[2018-08-16] MEDS: FUROSEMIDE 40 MG TABLET. PO SCH (09:32)
[2018-08-16 11:00] VITALS: BP 157/81
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
[2018-08-16 15:00] VITALS: BP 161/78
[2018-08-16] MEDS ORDERED: WARFARIN 2 MG TABLET. PO SCH (16:00)
--- NOTE | 2018-08-16 17:54 | NUR ---
Pt's IV zosyn at 1200 was the 1800 dose, as 1200 dose bag was absent. 1200 dose bag used at 1800. Pt is current on zosyn administration.
[2018-08-16 19:10] VITALS: BP 175/108
[2018-08-16] MEDS ORDERED: METOPROLOL TART IMMED RELEASE 25 MG TABLET. PO ONE (21:00)
[2018-08-16] MEDS: ATORVASTATIN CALCIUM 10 MG TABLET. PO SCH (21:40)
[2018-08-16 23:28] VITALS: BP 156/80
[2018-08-16] MEDS: HEPARIN 25,000UTS/500ML PREMIX 500 ML IV PRN (23:37)
[2018-08-17 03:30] VITALS: BP 162/84
[2018-08-17 05:40] LABS: PROTHROMBIN TIME PATIENT 15.3 SEC (11.7-14.0)
[2018-08-17 05:50] LABS: CALCIUM 8.7 mg/dL (8.5-10.1); CREATININE 1.6 mg/dL (0.6-1.0); POTASSIUM 3.3 mmol/L (3.5-5.1)
[2018-08-17] MEDS: PIPERACILLIN/TAZOBACTAM 2.25 GM in IV NORMAL SALINE 50ML 50 ML IV SCH ×4 (06:04→23:53)
[2018-08-17] MEDS: LEVOTHYROXINE 50 MCG TABLET PO SCH (06:06)
[2018-08-17] MEDS: methylPREDNISolone SOD SUCC PF 40 MG/ML VIAL. IV SCH ×3 (06:07→22:02)
[2018-08-17 07:00] VITALS: BP 149/79
[2018-08-17] MEDS ORDERED: POTASSIUM CHLORIDE 20 MEQ TABLET.ER. PO ONE (09:00)
[2018-08-17] MEDS: LACTOBACILLUS RHAMNOSUS GG 1 CAPSULE. PO SCH ×2 (09:51→22:02)
[2018-08-17] MEDS: LOSARTAN POTASSIUM 50 MG TABLET. PO SCH (09:52)
[2018-08-17] MEDS: FUROSEMIDE 40 MG TABLET. PO SCH (09:53)
[2018-08-17] MEDS: POTASSIUM CHLORIDE 20 MEQ TABLET.ER. PO SCH (09:53)
[2018-08-17] MEDS: METOPROLOL SUCC 24HR ER 50 MG TAB.ER.24H. PO SCH (09:54)
--- NOTE | 2018-08-17 10:05 | PDOC ---
PROGRESS NOTES Subjective Subjective Patient without complaint. Objective Objective Vital Signs Date Time Temp Pulse Resp B/P (MAP) Pulse Ox O2 Delivery O2 Flow Rate FiO2 08/17/18 07:00 97.4 89 18 149/79 (102) 97 Room Air 97.4 08/15/18 13:15 8 Intake and Output 08/17/18 07:00 Intake Total 1190 ml Output Total 1000 ml Balance 190 ml Intake Oral 1140 ml IV Total 50 ml Output Urine Total 1000 ml # Voids 10 # Bowel Movements 3 Physical Exam Abdomen: Normal bowel sounds, Soft, No tenderness Heart: Other (irregularly irregular) Extremities: No edema General: Alert, Oriented X3, No acute distress Lungs: Clear to auscultation Assessment Assessment Problems Medical Problems: (1) A-fib Status: Acute (2) Pneumonia Status: Acute Plan Plan of Care 1. Pneumonia with lung mass - stable, await Pathology report. Need to transition to po abx and steroids in preparation for discharge, defer to Dr Choi on this. 2. afib with RVR - HR improving on B sammy, Cardiology adjusting medication. Resumed Coumadin last evening, change Heparin gtt to Lovenox in preparation for discharge. 3. Cardiomyopathy - stable, back on Lasix. K+ a little low, increasing po replacement. 4. HTN - controlled, continue present medication. Comment Review of Relevant I have reviewed the following items cinthia (where applicable) has been applied. Labs Laboratory Tests Test 08/15/18 20:45 08/16/18 03:00 08/16/18 09:00 08/17/18 04:30 Heparin Anti-Xa Act, Unfractionated 0.31 IU/mL (0.30-0.70) 0.32 IU/mL (0.30-0.70) 0.41 IU/mL (0.30-0.70) 0.46 IU/mL (0.30-0.70) White Blood Count 12.8 x10^3/uL (4.0-11.0) Red Blood Count 3.35 x10^6/uL (3.50-5.40) Hemoglobin 10.6 g/dL (12.0-15.5) Hematocrit 32.3 % (36.0-47.0) Mean Corpuscular Volume 96 fL (79-100) Mean Corpuscular Hemoglobin 32 pg (25-35) Mean Corpuscular Hemoglobin Concent 33 g/dL (31-37) Red Cell Distribution Width 14.0 % (11.5-14.5) Platelet Count 306 x10^3/uL (140-400) Neutrophils (%) (Auto) 84 % (31-73) Lymphocytes (%) (Auto) 12 % (24-48) Monocytes (%) (Auto) 4 % (0-9) Eosinophils (%) (Auto) 0 % (0-3) Basophils (%) (Auto) 0 % (0-3) Neutrophils # (Auto) 10.8 x10^3uL (1.8-7.7) Lymphocytes # (Auto) 1.5 x10^3/uL (1.0-4.8) Monocytes # (Auto) 0.5 x10^3/uL (0.0-1.1) Eosinophils # (Auto) 0.0 x10^3/uL (0.0-0.7) Basophils # (Auto) 0.0 x10^3/uL (0.0-0.2) Prothrombin Time 15.4 SEC (11.7-14.0) 15.3 SEC (11.7-14.0) Prothromb Time International Ratio 1.3 (0.8-1.1) 1.2 (0.8-1.1) Sodium Level 141 mmol/L (136-145) Potassium Level 3.3 mmol/L (3.5-5.1) Chloride Level 105 mmol/L (98-107) Carbon Dioxide Level 23 mmol/L (21-32) Anion Gap 13 (6-14) Blood Urea Nitrogen 25 mg/dL (7-20) Creatinine 1.6 mg/dL (0.6-1.0) Estimated GFR (Cockcroft-Gault) 39.0 Glucose Level 152 mg/dL (70-99) Calcium Level 8.7 mg/dL (8.5-10.1) Laboratory Tests Test 08/17/18 04:30 Prothrombin Time 15.3 SEC (11.7-14.0) Prothromb Time International Ratio 1.2 (0.8-1.1) Heparin Anti-Xa Act, Unfractionated 0.46 IU/mL (0.30-0.70) Sodium Level 141 mmol/L (136-145) Potassium Level 3.3 mmol/L (3.5-5.1) Chloride Level 105 mmol/L (98-107) Carbon Dioxide Level 23 mmol/L (21-32) Anion Gap 13 (6-14) Blood Urea Nitrogen 25 mg/dL (7-20) Creatinine 1.6 mg/dL (0.6-1.0) Estimated GFR (Cockcroft-Gault) 39.0 Glucose Level 152 mg/dL (70-99) Calcium Level 8.7 mg/dL (8.5-10.1) Microbiology 08/15/18 - Final, Complete Medications Current Medications Albuterol/ Ipratropium (Duoneb) 3 ml 1X ONCE NEB Last administered on at 10:22; Start 08/11/18 at 09:45; Stop 08/11/18 at 09:46; Status DC Sodium Chloride 500 ml @ 500 mls/hr 1X ONCE IV Last administered on at 11:44; Start 08/11/18 at 11:45; Stop 08/11/18 at 12:44; Status DC Azithromycin 250 ml @ 250 mls/hr 1X ONCE IV Last administered on 08/11/18at 13 :03; Start 08/11/18 at 12:15; Stop 08/11/18 at 13:14; Status DC Ceftriaxone Sodium (Rocephin) 1 gm 1X ONCE IVP Last administered on 08/11/18at 13:03; Start 08/11/18 at 12:15; Stop 08/11/18 at 12:16; Status DC Ondansetron HCl (Zofran) 4 mg PRN Q8HRS PRN IV NAUSEA/VOMITING; Start 08/11/18 at 12:15; Stop 08/12/18 at 12:14; Status DC Sodium Chloride 500 ml @ 500 mls/hr 1X ONCE IV Last administered on at 12:45; Start 08/11/18 at 12:45; Stop 08/11/18 at 13:44; Status DC Amiodarone HCl (Cordarone) 200 mg DAILY PO ; Start 08/11/18 at 16:30; Stop 08/11 at 16:49; Status DC Non-Formulary Medication (Warfarin Sodium ) 2 mg DAILY PO ; Start 08/12/18 at 09: 00; Status UNV Warfarin Sodium (Coumadin) 5 mg 1X WARF ONCE PO ; Start 08/12/18 at 16:30; Stop 08/12/18 at 16:31; Status Cancel Warfarin Sodium (Coumadin Per Pharmacy) 1 each PRN DAILY PRN MC SEE COMMENTS; Start 08/11/18 at 16:15; Stop 08/12/18 at 13:05; Status DC Digoxin (Lanoxin) 250 mcg 1X ONCE IV Last administered on 08/11/18at 17:56; Start 08/11/18 at 16:45; Stop 08/11/18 at 16:46; Status DC Docusate Sodium (Colace) 100 mg PRN BID PRN PO CONSTIPATION; Start 08/11/18 at 21:00 Levothyroxine Sodium (Synthroid) 50 mcg DAILY06 PO Last administered on at 06:06; Start 08/12/18 at 06:00 Atorvastatin Calcium (Lipitor) 10 mg QHS PO Last administered on 08/16/18at 21:40 ; Start 08/11/18 at 21:00 Famotidine (Pepcid) 20 mg PRN DAILY PRN PO HEARTBURN / GAS; Start 08/11/18 at 23:45 Potassium Chloride (Klor-Con) 20 meq DAILYWBKFT PO Last administered on at 09:31; Start 08/12/18 at 09:30 Digoxin (Lanoxin) 250 mcg 1X ONCE IV Last administered on 08/12/18at 11:02; Start 08/12/18 at 11:00; Stop 08/12/18 at 11:01; Status DC Metoprolol Tartrate (Lopressor Vial) 5 mg 1X ONCE IVP ; Start 08/12/18 at 10:45 ; Stop 08/12/18 at 10:56; Status DC Metoprolol Tartrate (Lopressor) 25 mg Q6HRS PO Last administered on 08/12/18at 12 :58; Start 08/12/18 at 12:00; Stop 08/13/18 at 08:26; Status DC Metoprolol Tartrate (Lopressor Vial) 2.5 mg 1X ONCE IVP Last administered on at 11:03; Start 08/12/18 at 11:00; Stop 08/12/18 at 11:01; Status DC Sodium Chloride 1,000 ml @ 75 mls/hr [id number] IV Last administered on 08/13/18at 00:13; Start 08/12/18 at 11:00; Stop 08/13/18 at 08:26; Status DC Heparin Sodium/ Dextrose 500 ml @ 0 mls/hr CONT PRN IV SEE I/O RECORD Last administered on 08/16/18at 23:37; Start 08/12/18 at 13:00 Heparin Sodium (Porcine) (Heparin Sodium) 1,950 unit PRN Q6HRS PRN IV FOR UFH LEVEL LESS THAN 0.2; Start 08/12/18 at 13:00 Piperacillin Sod/ Tazobactam Sod (Zosyn Per Pharmacy) 1 each PRN DAILY PRN MC SEE COMMENTS; Start 08/12/18 at 13:15 Methylprednisolone Sodium Succinate (SOLU-Medrol 40MG VIAL) 80 mg Q8HRS IV Last administered on 08/17/18at 06:07; Start 08/12/18 at 14:00 Sodium Chloride 1,000 ml @ 100 mls/hr Q10H IV Last administered on 08/12/18at 15 :01; Start 08/12/18 at 13:15; Stop 08/13/18 at 08:26; Status DC Piperacillin Sod/ Tazobactam Sod 2.25 gm/Sodium Chloride 50 ml @ 100 mls/hr Q6HRS IV Last administered on 08/17/18at 06:04; Start 08/12/18 at 13:30 Info (Anti-Coagulation Monitoring By Pharmacy) 1 each PRN DAILY PRN MC SEE COMMENTS Last administered on 08/15/18 15:50; Start 08/13/18 at 08:30 Metoprolol Tartrate (Lopressor) 50 mg BID PO Last administered on 08/16/18 09: 32; Start 08/13/18 at 09:00; Stop 08/16/18 at 14:15; Status DC Lactobacillus Rhamnosus (Culturelle) 1 cap BID PO Last administered on 21:39; Start 08/13/18 at 21:00 Acetaminophen (Tylenol) 650 mg PRN Q6HRS PRN PO MILD PAIN Last administered on 08/15/18 18:08; Start 08/14/18 at 00:00 Losartan Potassium (Cozaar) 50 mg DAILY PO Last administered on 08/16/18at 09:32 ; Start 08/14/18 at 11:30 Phytonadione (Vitamin K Ampule) 2 mg 1X ONCE SQ Last administered on 08/14/18at 16:10; Start 08/14/18 at 15:30; Stop 08/14/18 at 15:31; Status DC Albuterol Sulfate (Ventolin Neb Soln) 2.5 mg PRN 1X PRN NEB SHORTNESS OF BREATH Last administered on 08/15/18at 12:30; Start 08/15/18 at 08:30; Stop at 08:29; Status DC Lidocaine HCl (Lidocaine 2% Viscous) 100 ml PRN 1X PRN MM MOUTH PAIN Last administered on 08/15/18at 12:29; Start 08/15/18 at 08:30; Stop 08/16/18 at 08:29; Status DC Lidocaine HCl (Lidocaine 1% 20ml Vial) 20 ml PRN 1X PRN INJ SEE COMMENTS Last administered on 08/15/18at 12:29; Start 08/15/18 at 08:30; Stop 08/16/18 at 08:29; Status DC Epinephrine HCl (Adrenalin) 1 mg PRN 1X PRN INJ SEE COMMENTS; Start 08/15/18 at 08:30; Stop 08/16/18 at 08:29; Status DC Lidocaine HCl 50 ml PRN 1X PRN MM SEE COMMENTS Last administered on 08/15/18at 12 :28; Start 08/15/18 at 08:30; Stop 08/16/18 at 08:29; Status DC Ondansetron HCl (Zofran) 4 mg PRN Q6HRS PRN IV NAUSEA/VOMITING; Start 08/15/18 at 09:00; Stop 08/15/18 at 20:00; Status DC Fentanyl Citrate (Fentanyl 2ml Vial) 25 mcg PRN Q5MIN PRN IV MILD PAIN; Start 08/15/18 at 09:00; Stop 08/15/18 at 20:00; Status DC Fentanyl Citrate (Fentanyl 2ml Vial) 50 mcg PRN Q5MIN PRN IV MODERATE TO SEVERE PAIN; Start 08/15/18 at 09:00; Stop 08/15/18 at 20:00; Status DC Morphine Sulfate (Morphine Sulfate) 1 mg PRN Q10MIN PRN IV SEVERE PAIN; Start 08/15/18 at 09:00; Stop 08/15/18 at 20:00; Status DC Ringer's Solution 1,000 ml @ 30 mls/hr Q24H IV ; Start 08/15/18 at 08:50; Stop 08/15/18 at 20:49; Status DC Lidocaine HCl (Xylocaine-Mpf 1% 2ml Vial) 2 ml PRN 1X PRN ID PRIOR TO IV START ; Start 08/15/18 at 09:00; Stop 08/15/18 at 20:00; Status DC Hydromorphone HCl (Dilaudid) 0.5 mg PRN Q10MIN PRN IV SEV PAIN, Second choice; Start 08/15/18 at 09:00; Stop 08/15/18 at 20:00; Status DC Prochlorperazine Edisylate (Compazine) 5 mg PACU PRN PRN IV NAUSEA, MRX1; Start 08/15/18 at 09:00; Stop 08/15/18 at 20:00; Status DC Epinephrine HCl (Adrenalin) 1 mg STK-MED ONCE .ROUTE ; Start 08/15/18 at 11:04; Stop 08/15/18 at 11:05; Status DC Lidocaine HCl (Lidocaine 1% 20ml Vial) 20 ml STK-MED ONCE .ROUTE ; Start at 11:04; Stop 08/15/18 at 11:05; Status DC Lidocaine HCl (Lidocaine 2% Viscous) 100 ml STK-MED ONCE .ROUTE ; Start 08/15/18 at 11:04; Stop 08/15/18 at 11:05; Status DC Lidocaine HCl 50 ml STK-MED ONCE .ROUTE ; Start 08/15/18 at 11:04; Stop 08/15/18 at 11:05; Status DC Midazolam HCl (Versed) 2 mg PRN 1X PRN IV PRIOR TO PROCEDURE; Start 08/15/18 at 11:45; Stop 08/16/18 at 11:44; Status DC Fentanyl Citrate (Fentanyl 2ml Vial) 25 mcg PRN Q5MIN PRN IV X 2 DOSES FOR PAIN ; Start 08/15/18 at 11:45; Stop 08/16/18 at 11:44; Status DC Fentanyl Citrate (Fentanyl 2ml Vial) 50 mcg PRN Q5MIN PRN IV X 2 DOSES FOR PAIN ; Start 08/15/18 at 11:45; Stop 08/16/18 at 11:44; Status DC Sodium Chloride 1,000 ml @ 125 mls/hr Q8H IV Last administered on 08/15/18at 11: 52; Start 08/15/18 at 11:40; Stop 08/15/18 at 23:39; Status DC Lidocaine HCl (Xylocaine-Mpf 1% 2ml Vial) 2 ml 1X PRN PRN ID IV START; Start at 11:45; Stop 08/16/18 at 11:44; Status DC Propofol 20 ml @ As Directed STK-MED ONCE IV ; Start 08/15/18 at 12:38; Stop 08/15 at 12:39; Status DC Warfarin Sodium (Coumadin) 2 mg DAILY16 PO Last administered on 08/16/18at 16:06 ; Start 08/16/18 at 16:00 Furosemide (Lasix) 40 mg DAILY PO Last administered on 08/16/18at 09:32; Start at 09:00 Warfarin Sodium (Coumadin Per Physician) 1 each PRN DAILY PRN MC SEE COMMENTS; Start 08/16/18 at 08:45 Digoxin (Lanoxin) 250 mcg 1X ONCE IV Last administered on 08/16/18at 09:40; Start 08/16/18 at 09:30; Stop 08/16/18 at 09:31; Status DC Metoprolol Succinate (Toprol Xl) 150 mg DAILY PO ; Start 08/17/18 at 09:00 Metoprolol Tartrate (Lopressor) 75 mg 1X ONCE PO Last administered on at 21:41; Start 08/16/18 at 21:00; Stop 08/16/18 at 21:01; Status DC Potassium Chloride (Klor-Con) 20 meq 1X ONCE PO ; Start 08/17/18 at 09:00; Stop 08/17/18 at 09:01; Status DC Active Scripts Active Amiodarone Hcl 200 Mg Tablet 200 Mg PO DAILY 30 Days Coumadin (Warfarin Sodium) 5 Mg Tablet 5 Mg PO DAILY16 30 Days Reported Warfarin Sodium 2 Mg Tablet 2 Mg PO DAILY Losartan Potassium 50 Mg Tablet 50 Mg PO DAILY Levothyroxine Sodium 50 Mcg Tablet 1 Tab PO DAILY Furosemide 40 Mg Tablet 1 Tab PO PRN DAILY PRN Pravastatin Sodium 40 Mg Tablet 1 Tab PO QHS Stool Softener (Docusate Sodium) 100 Mg Tablet 100 Mg PO PRN PRN Metoprolol Tartrate 50 Mg Tablet 50 Mg PO BID Vitals/I & O Vital Sign - Last 24 Hours 08/16/18 08/16/18 08/16/18 08/16/18 11:00 15:00 19:10 20:15 Temp 97.4 98.3 98.1 97.4 98.3 98.1 Pulse 94 87 92 Resp 17 B/P (MAP) 157/81 (106) 161/78 (105) 175/108 (130) Pulse Ox 18 96 97 O2 Delivery Room Air Room Air Room Air Room Air 08/16/18 08/16/18 08/17/18 08/17/18 21:41 23:28 03:30 07:00 Temp 98.4 98.4 97.4 98.4 98.4 97.4 Pulse 77 67 62 89 Resp 18 B/P (MAP) 173/85 156/80 (105) 162/84 (110) 149/79 (102) Pulse Ox 98 98 97 O2 Delivery Room Air Room Air Room Air Intake and Output 08/16/18 08/16/18 08/17/18 15:00 23:00 07:00 Intake Total 300 ml 240 ml 650 ml Output Total 1000 ml Balance 300 ml -760 ml 650 ml JOSH CANAS MD Aug 17, 2018 10:05
--- NOTE | 2018-08-17 10:09 | PDOC ---
PULMONARY PROGRESS NOTES Subjective patient not SOA Vitals Vital Signs Date Time Temp Pulse Resp B/P (MAP) Pulse Ox O2 Delivery O2 Flow Rate FiO2 08/17/18 09:54 97 149/79 08/17/18 07:00 97.4 18 97 Room Air 97.4 ROS: No Nausea, No Chest Pain, No Abdominal Pain, No Increase Cough General: Alert Lungs: Clear, Crackles Cardiovascular: S1 Abdomen: Soft, Non-tender Neuro Exam: Alert Extremities: No Edema Skin: Warm Labs Laboratory Tests Test 08/15/18 20:45 08/16/18 03:00 08/16/18 09:00 08/17/18 04:30 Heparin Anti-Xa Act, Unfractionated 0.31 IU/mL (0.30-0.70) 0.32 IU/mL (0.30-0.70) 0.41 IU/mL (0.30-0.70) 0.46 IU/mL (0.30-0.70) White Blood Count 12.8 x10^3/uL (4.0-11.0) Red Blood Count 3.35 x10^6/uL (3.50-5.40) Hemoglobin 10.6 g/dL (12.0-15.5) Hematocrit 32.3 % (36.0-47.0) Mean Corpuscular Volume 96 fL (79-100) Mean Corpuscular Hemoglobin 32 pg (25-35) Mean Corpuscular Hemoglobin Concent 33 g/dL (31-37) Red Cell Distribution Width 14.0 % (11.5-14.5) Platelet Count 306 x10^3/uL (140-400) Neutrophils (%) (Auto) 84 % (31-73) Lymphocytes (%) (Auto) 12 % (24-48) Monocytes (%) (Auto) 4 % (0-9) Eosinophils (%) (Auto) 0 % (0-3) Basophils (%) (Auto) 0 % (0-3) Neutrophils # (Auto) 10.8 x10^3uL (1.8-7.7) Lymphocytes # (Auto) 1.5 x10^3/uL (1.0-4.8) Monocytes # (Auto) 0.5 x10^3/uL (0.0-1.1) Eosinophils # (Auto) 0.0 x10^3/uL (0.0-0.7) Basophils # (Auto) 0.0 x10^3/uL (0.0-0.2) Prothrombin Time 15.4 SEC (11.7-14.0) 15.3 SEC (11.7-14.0) Prothromb Time International Ratio 1.3 (0.8-1.1) 1.2 (0.8-1.1) Sodium Level 141 mmol/L (136-145) Potassium Level 3.3 mmol/L (3.5-5.1) Chloride Level 105 mmol/L (98-107) Carbon Dioxide Level 23 mmol/L (21-32) Anion Gap 13 (6-14) Blood Urea Nitrogen 25 mg/dL (7-20) Creatinine 1.6 mg/dL (0.6-1.0) Estimated GFR (Cockcroft-Gault) 39.0 Glucose Level 152 mg/dL (70-99) Calcium Level 8.7 mg/dL (8.5-10.1) Laboratory Tests Test 08/17/18 04:30 Prothrombin Time 15.3 SEC (11.7-14.0) Prothromb Time International Ratio 1.2 (0.8-1.1) Heparin Anti-Xa Act, Unfractionated 0.46 IU/mL (0.30-0.70) Sodium Level 141 mmol/L (136-145) Potassium Level 3.3 mmol/L (3.5-5.1) Chloride Level 105 mmol/L (98-107) Carbon Dioxide Level 23 mmol/L (21-32) Anion Gap 13 (6-14) Blood Urea Nitrogen 25 mg/dL (7-20) Creatinine 1.6 mg/dL (0.6-1.0) Estimated GFR (Cockcroft-Gault) 39.0 Glucose Level 152 mg/dL (70-99) Calcium Level 8.7 mg/dL (8.5-10.1) Medications Active Scripts Medications Dose Route/Sig Max Daily Dose Days Date Category Warfarin Sodium 2 Mg Tablet 2 Mg PO DAILY 08/11/18 Reported Losartan Potassium 50 Mg Tablet 50 Mg PO DAILY 08/11/18 Reported Amiodarone Hcl 200 Mg Tablet 200 Mg PO DAILY 07/02/18 Rx Coumadin (Warfarin Sodium) 5 Mg Tablet 5 Mg PO DAILY16 07/02/18 Rx Levothyroxine Sodium 50 Mcg Tablet 1 Tab PO DAILY 06/30/18 Reported Furosemide 40 Mg Tablet 1 Tab PO PRN DAILY PRN 06/30/18 Reported Pravastatin Sodium 40 Mg Tablet 1 Tab PO QHS 06/30/18 Reported Stool Softener (Docusate Sodium) 100 Mg Tablet 100 Mg PO PRN PRN 07/21/17 Reported Metoprolol Tartrate 50 Mg Tablet 50 Mg PO BID 06/15/17 Reported Impression . IMPRESSION: 1. Abnormal CT chest revealing left hilar mass and endobronchial lesions. Suspect primary lung cancer. 2. Weight loss secondary to above. 3. Cough secondary to above and acute bronchitis with postobstructive pneumonia. 4. Hypotension related to underlying cardiomyopathy and volume depletion. 5. Hypothyroidism. 6. Chronic kidney disease. 7. Chronic atrial fibrillation with rapid ventricular response. 8. Cardiomyopathy, ejection fraction of 30%, status post AICD placement. 9. Tobacco dependence, in remission. 10. Chronic obstructive pulmonary disease, unknown FEV1. Plan . case discussed with Dr. Gunn, will proceed with FNA of lung mass case discussed with pathologist, there were some atypical cell, and nothing definitive on brush SANJIV SOSA MD Aug 17, 2018 10:09
[2018-08-17 11:00] VITALS: BP_SYST 109; BP_SYST 146; BP_DIAS 61; BP_DIAS 86
[2018-08-17] MEDS ORDERED: ENOXAPARIN 40 MG/0.4 ML SYRINGE. SQ SCH (11:00)
[2018-08-17 15:00] VITALS: BP 158/86
[2018-08-17] MEDS ORDERED: HEPARIN for IV BOLUS 10,000 UNIT/10 ML VIAL. IV PRN (16:30)
[2018-08-17] MEDS ORDERED: HEPARIN 25,000UTS/500ML PREMIX 500 ML IV PRN (16:30)
--- NOTE | 2018-08-17 18:06 | PATHOLOGY ---
Note [facility] Accession Number: [id number] TESTS RESULT FLAG UNITS REF RANGE LAB Clinician Provided Cytology Information No. of containers..01 Other (Miscellaneous) Source: BAL JUSTICE DIAGNOSIS: BAL JUSTICE INADEQUATE, INSUFFICIENT CELLS FOR STUDY. RARE BRONCHIAL EPITHELIAL CELLS AND FEW INFLAMMATORY CELLS PRESENT. Signed out by: Andre Leon MD, Pathologist NPI- [id number] Performed by: Max Goff, Procurement Director ([facility]) Gross description: 01 5ML, BRIGHT RED, /LCS FLAG LEGEND: L-Low Normal,H-High Normal,LL-Alert Low,HH-Alert High <-Panic Low,>-Panic High,A-Abnormal,AA-Critical Abnormal Performed at: [address] [place] [address] Jorge Betancur MD, [address] [facility] [address] [place] [address] Andre Leon MD, Specimen Comment: A courtesy copy of this report has been sent to Specimen Comment: [phone], , . Specimen Comment: Report sent to Specimen Comment: A duplicate report has been generated due to demographic updates. Performed at: [address] [place] [address] [address], [place], [place] [id number] MD Jorge Betancur MD Phone: [phone]
--- NOTE | 2018-08-17 18:06 | PATHOLOGY ---
Note [facility] Accession Number: [id number] TESTS RESULT FLAG UNITS REF RANGE LAB Clinician Provided Cytology Information No. of containers..01 Other (Miscellaneous) Source: [A] 01 BRUSH TIP JUSTICE DIAGNOSIS: [A] 02 BRUSH TIP JUSTICE INCONCLUSIVE. CLUSTERS OF HIGHLY ATYPICAL BRONCHIAL EPITHELIAL CELLS PRESENT. CANNOT RULE OUT MALIGNANCY. CASE IS ALSO EXAMINED BY DR. DILLON, CYTOPATHOLOGIST, WHO CONCURS WITH THE DIAGNOSIS. Signed out by: 02 Andre Leon MD, Pathologist NPI- [id number] Performed by: 01 Max Goff, Professor Of Apologetics ([facility]) FLAG LEGEND: L-Low Normal,H-High Normal,LL-Alert Low,HH-Alert High <-Panic Low,>-Panic High,A-Abnormal,AA-Critical Abnormal Performed at: 01 [facility] [address] [place] [address] Jorge Betancur MD, 02 [facility] [address] [place] [address] Andre eLon MD, Specimen Comment: A courtesy copy of this report has been sent to Specimen Comment: [phone], , . Specimen Comment: Report sent to Specimen Comment: A duplicate report has been generated due to demographic updates. Performed at: 01 [facility] [address], [place], [place] [id number] MD Jorge Betancur MD Phone: [phone]
--- NOTE | 2018-08-17 18:06 | PATHOLOGY ---
Note [facility] Accession Number: [id number] TESTS RESULT FLAG UNITS REF RANGE LAB Clinician Provided Cytology Information No. of containers..01 Other (Miscellaneous) Source: [A] 01 BRONCH BRUSHING JUSTICE DIAGNOSIS: [A] 02 BRONCH BRUSHING JUSTICE INCONCLUSIVE. CLUSTERS OF HIGHLY ATYPICAL BRONCHIAL EPITHELIAL CELLS PRESENT. CANNOT RULE OUT MALIGNANCY. CASE IS ALSO EXAMINED BY , CYTOPATHOLOGIST, WHO CONCURS WITH THE DIAGNOSIS Signed out by: 02 Andre Leon MD, Pathologist NPI- [id number] Performed by: 01 Max Goff, Wolf Hunter ([facility]) FLAG LEGEND: L-Low Normal,H-High Normal,LL-Alert Low,HH-Alert High <-Panic Low,>-Panic High,A-Abnormal,AA-Critical Abnormal Performed at: 01 [facility] [address] [place] [address] Jorge Betancur MD, 02 [facility] [address] [place] [address] Andre Leon MD, Specimen Comment: A courtesy copy of this report has been sent to Specimen Comment: [phone], , . Specimen Comment: Report sent to Specimen Comment: A duplicate report has been generated due to demographic updates. Performed at: 01 [facility] [place] [address], [place], [place] [id number] MD Jorge Betancur MD Phone: [phone]
[2018-08-17 19:47] VITALS: BP 151/84
[2018-08-17] MEDS: ATORVASTATIN CALCIUM 10 MG TABLET. PO SCH (22:02)
[2018-08-17 22:28] VITALS: BP 149/80
[2018-08-18] VITALS (14 sets, daily range): BP systolic 132–179; BP diastolic 65–96
[2018-08-18 04:21] LABS: PROTHROMBIN TIME PATIENT 15.7 SEC (11.7-14.0)
[2018-08-18] MEDS: methylPREDNISolone SOD SUCC PF 40 MG/ML VIAL. IV SCH ×2 (05:41→21:00)
[2018-08-18] MEDS: PIPERACILLIN/TAZOBACTAM 2.25 GM in IV NORMAL SALINE 50ML 50 ML IV SCH ×2 (05:41→15:49)
[2018-08-18] MEDS: LEVOTHYROXINE 50 MCG TABLET PO SCH (05:41)
[2018-08-18] MEDS: LOSARTAN POTASSIUM 50 MG TABLET. PO SCH (08:12)
[2018-08-18] MEDS: METOPROLOL SUCC 24HR ER 50 MG TAB.ER.24H. PO SCH (08:13)
--- NOTE | 2018-08-18 09:14 | PDOC ---
PULMONARY PROGRESS NOTES Subjective PT RETURNED FROM FNA NO INCREASE SOA Vitals Vital Signs Date Time Temp Pulse Resp B/P (MAP) Pulse Ox O2 Delivery O2 Flow Rate FiO2 08/18/18 08:13 73 170/90 08/18/18 07:00 97.9 18 96 Room Air 97.9 ROS: No Nausea, No Chest Pain, No Abdominal Pain, No Increase Cough General: Alert Lungs: Clear, Crackles Cardiovascular: S1 Abdomen: Soft, Non-tender Neuro Exam: Alert Extremities: No Edema Skin: Warm Labs Laboratory Tests Test 08/17/18 04:30 08/18/18 03:10 Prothrombin Time 15.3 SEC (11.7-14.0) 15.7 SEC (11.7-14.0) Prothromb Time International Ratio 1.2 (0.8-1.1) 1.3 (0.8-1.1) Heparin Anti-Xa Act, Unfractionated 0.46 IU/mL (0.30-0.70) Sodium Level 141 mmol/L (136-145) Potassium Level 3.3 mmol/L (3.5-5.1) Chloride Level 105 mmol/L (98-107) Carbon Dioxide Level 23 mmol/L (21-32) Anion Gap 13 (6-14) Blood Urea Nitrogen 25 mg/dL (7-20) Creatinine 1.6 mg/dL (0.6-1.0) Estimated GFR (Cockcroft-Gault) 39.0 Glucose Level 152 mg/dL (70-99) Calcium Level 8.7 mg/dL (8.5-10.1) Laboratory Tests Test 08/18/18 03:10 Prothrombin Time 15.7 SEC (11.7-14.0) Prothromb Time International Ratio 1.3 (0.8-1.1) Medications Active Scripts Medications Dose Route/Sig Max Daily Dose Days Date Category Warfarin Sodium 2 Mg Tablet 2 Mg PO DAILY 08/11/18 Reported Losartan Potassium 50 Mg Tablet 50 Mg PO DAILY 08/11/18 Reported Amiodarone Hcl 200 Mg Tablet 200 Mg PO DAILY 30 07/02/18 Rx Coumadin (Warfarin Sodium) 5 Mg Tablet 5 Mg PO DAILY16 30 07/02/18 Rx Levothyroxine Sodium 50 Mcg Tablet 1 Tab PO DAILY 06/30/18 Reported Furosemide 40 Mg Tablet 1 Tab PO PRN DAILY PRN 06/30/18 Reported Pravastatin Sodium 40 Mg Tablet 1 Tab PO QHS 06/30/18 Reported Stool Softener (Docusate Sodium) 100 Mg Tablet 100 Mg PO PRN PRN 07/21/17 Reported Metoprolol Tartrate 50 Mg Tablet 50 Mg PO BID 06/15/17 Reported Impression . IMPRESSION: 1. Abnormal CT chest revealing left hilar mass and endobronchial lesions. Suspect primary lung cancer. S/P FNA 08/18 2. Weight loss secondary to above. 3. Cough secondary to above and acute bronchitis with postobstructive pneumonia. 4. Hypotension related to underlying cardiomyopathy and volume depletion. 5. Hypothyroidism. 6. Chronic kidney disease. 7. Chronic atrial fibrillation with rapid ventricular response. 8. Cardiomyopathy, ejection fraction of 30%, status post AICD placement. 9. Tobacco dependence, in remission. 10. Chronic obstructive pulmonary disease, unknown FEV1. BAL ATYPICAL CELL Plan . home in am ok by me follow up in office for result will have my office arrange for PET scan s/p FNA case discussed with pathologist, there were some atypical cell, and nothing definitive on brush SANJIV SOSA MD Aug 18, 2018 09:14
--- NOTE | 2018-08-18 12:34 | PDOC ---
PROGRESS NOTES Subjective Subjective Patient without complaint, wants to get biopsy over with. Objective Objective Vital Signs Date Time Temp Pulse Resp B/P (MAP) Pulse Ox O2 Delivery O2 Flow Rate FiO2 08/18/18 11:00 98.3 76 18 178/95 (122) 97 Room Air 98.3 08/15/18 13:15 8 Intake and Output 08/18/18 06:59 Intake Total 300 ml Balance 300 ml Intake Oral 100 ml IV Total 200 ml # Voids 2 # Bowel Movements 1 Physical Exam Abdomen: Normal bowel sounds, Soft, No tenderness Heart: Other (irregularly irregular) Extremities: No edema General: Alert, Oriented X3, No acute distress (basically CTA) Lungs: Other Assessment Assessment Problems Medical Problems: (1) A-fib Status: Acute (2) Pneumonia Status: Acute Plan Plan of Care 1. Pneumonia - much improved, will decrease Solumedrol, continue other tx. 2. Lung mass - pathology from bronchoscopy was inconclusive, to have FNA today. 3. afib with RVR - heart rate improved, continue present medication. 4. cardiomyopathy - stable, continue Lasix and K+. 5. HTN - controlled, continue present medication. Comment Review of Relevant I have reviewed the following items cinthia (where applicable) has been applied. Labs Laboratory Tests Test 08/17/18 04:30 08/18/18 03:10 Prothrombin Time 15.3 SEC (11.7-14.0) 15.7 SEC (11.7-14.0) Prothromb Time International Ratio 1.2 (0.8-1.1) 1.3 (0.8-1.1) Heparin Anti-Xa Act, Unfractionated 0.46 IU/mL (0.30-0.70) Sodium Level 141 mmol/L (136-145) Potassium Level 3.3 mmol/L (3.5-5.1) Chloride Level 105 mmol/L (98-107) Carbon Dioxide Level 23 mmol/L (21-32) Anion Gap 13 (6-14) Blood Urea Nitrogen 25 mg/dL (7-20) Creatinine 1.6 mg/dL (0.6-1.0) Estimated GFR (Cockcroft-Gault) 39.0 Glucose Level 152 mg/dL (70-99) Calcium Level 8.7 mg/dL (8.5-10.1) Laboratory Tests Test 08/18/18 03:10 Prothrombin Time 15.7 SEC (11.7-14.0) Prothromb Time International Ratio 1.3 (0.8-1.1) Microbiology 08/15/18 Bronchial Culture - Final, Complete 08/15/18 Lower Resp Culture Result 1 (LONNIE) - Final, Complete Medications Current Medications Albuterol/ Ipratropium (Duoneb) 3 ml 1X ONCE NEB Last administered on at 10:22; Start 08/11/18 at 09:45; Stop 08/11/18 at 09:46; Status DC Sodium Chloride 500 ml @ 500 mls/hr 1X ONCE IV Last administered on at 11:44; Start 08/11/18 at 11:45; Stop 08/11/18 at 12:44; Status DC Azithromycin 250 ml @ 250 mls/hr 1X ONCE IV Last administered on 08/11/18at 13 :03; Start 08/11/18 at 12:15; Stop 08/11/18 at 13:14; Status DC Ceftriaxone Sodium (Rocephin) 1 gm 1X ONCE IVP Last administered on 08/11/18at 13:03; Start 08/11/18 at 12:15; Stop 08/11/18 at 12:16; Status DC Ondansetron HCl (Zofran) 4 mg PRN Q8HRS PRN IV NAUSEA/VOMITING; Start 08/11/18 at 12:15; Stop 08/12/18 at 12:14; Status DC Sodium Chloride 500 ml @ 500 mls/hr 1X ONCE IV Last administered on at 12:45; Start 08/11/18 at 12:45; Stop 08/11/18 at 13:44; Status DC Amiodarone HCl (Cordarone) 200 mg DAILY PO ; Start 08/11/18 at 16:30; Stop 08/11 at 16:49; Status DC Non-Formulary Medication (Warfarin Sodium ) 2 mg DAILY PO ; Start 08/12/18 at 09: 00; Status UNV Warfarin Sodium (Coumadin) 5 mg 1X WARF ONCE PO ; Start 08/12/18 at 16:30; Stop 08/12/18 at 16:31; Status Cancel Warfarin Sodium (Coumadin Per Pharmacy) 1 each PRN DAILY PRN MC SEE COMMENTS; Start 08/11/18 at 16:15; Stop 08/12/18 at 13:05; Status DC Digoxin (Lanoxin) 250 mcg 1X ONCE IV Last administered on 08/11/18at 17:56; Start 08/11/18 at 16:45; Stop 08/11/18 at 16:46; Status DC Docusate Sodium (Colace) 100 mg PRN BID PRN PO CONSTIPATION; Start 08/11/18 at 21:00 Levothyroxine Sodium (Synthroid) 50 mcg DAILY06 PO Last administered on at 05:41; Start 08/12/18 at 06:00 Atorvastatin Calcium (Lipitor) 10 mg QHS PO Last administered on 08/17/18at 22:02 ; Start 08/11/18 at 21:00 Famotidine (Pepcid) 20 mg PRN DAILY PRN PO HEARTBURN / GAS; Start 08/11/18 at 23:45 Potassium Chloride (Klor-Con) 20 meq [id number] PO Last administered on at 09:53; Start 08/12/18 at 09:30 Digoxin (Lanoxin) 250 mcg 1X ONCE IV Last administered on 08/12/18at 11:02; Start 08/12/18 at 11:00; Stop 08/12/18 at 11:01; Status DC Metoprolol Tartrate (Lopressor Vial) 5 mg 1X ONCE IVP ; Start 08/12/18 at 10:45 ; Stop 08/12/18 at 10:56; Status DC Metoprolol Tartrate (Lopressor) 25 mg Q6HRS PO Last administered on 08/12/18at 12 :58; Start 08/12/18 at 12:00; Stop 08/13/18 at 08:26; Status DC Metoprolol Tartrate (Lopressor Vial) 2.5 mg 1X ONCE IVP Last administered on at 11:03; Start 08/12/18 at 11:00; Stop 08/12/18 at 11:01; Status DC Sodium Chloride 1,000 ml @ 75 mls/hr [id number] IV Last administered on 08/13/18at 00:13; Start 08/12/18 at 11:00; Stop 08/13/18 at 08:26; Status DC Heparin Sodium/ Dextrose 500 ml @ 0 mls/hr CONT PRN IV SEE I/O RECORD Last administered on 08/16/18 23:37; Start 08/12/18 at 13:00; Stop 08/17/18 at 10:01; Status DC Heparin Sodium (Porcine) (Heparin Sodium) 1,950 unit PRN Q6HRS PRN IV FOR UFH LEVEL LESS THAN 0.2; Start 08/12/18 at 13:00; Stop 08/17/18 at 10:01; Status DC Piperacillin Sod/ Tazobactam Sod (Zosyn Per Pharmacy) 1 each PRN DAILY PRN MC SEE COMMENTS; Start 08/12/18 at 13:15 Methylprednisolone Sodium Succinate (SOLU-Medrol 40MG VIAL) 80 mg Q8HRS IV Last administered on 08/18/18 05:41; Start 08/12/18 at 14:00 Sodium Chloride 1,000 ml @ 100 mls/hr Q10H IV Last administered on 08/12/18at 15 :01; Start 08/12/18 at 13:15; Stop 08/13/18 at 08:26; Status DC Piperacillin Sod/ Tazobactam Sod 2.25 gm/Sodium Chloride 50 ml @ 100 mls/hr Q6HRS IV Last administered on 08/18/18 05:41; Start 08/12/18 at 13:30 Info (Anti-Coagulation Monitoring By Pharmacy) 1 each PRN DAILY PRN MC SEE COMMENTS Last administered on 08/15/18 15:50; Start 08/13/18 at 08:30 Metoprolol Tartrate (Lopressor) 50 mg BID PO Last administered on 08/16/18 09: 32; Start 08/13/18 at 09:00; Stop 08/16/18 at 14:15; Status DC Lactobacillus Rhamnosus (Culturelle) 1 cap BID PO Last administered on 22:02; Start 08/13/18 at 21:00 Acetaminophen (Tylenol) 650 mg PRN Q6HRS PRN PO MILD PAIN Last administered on 08/15/18 18:08; Start 08/14/18 at 00:00 Losartan Potassium (Cozaar) 50 mg DAILY PO Last administered on 08/18/18 08:12 ; Start 08/14/18 at 11:30 Phytonadione (Vitamin K Ampule) 2 mg 1X ONCE SQ Last administered on 08/14/18 16:10; Start 08/14/18 at 15:30; Stop 08/14/18 at 15:31; Status DC Albuterol Sulfate (Ventolin Neb Soln) 2.5 mg PRN 1X PRN NEB SHORTNESS OF BREATH Last administered on 08/15/18 12:30; Start 08/15/18 at 08:30; Stop at 08:29; Status DC Lidocaine HCl (Lidocaine 2% Viscous) 100 ml PRN 1X PRN MM MOUTH PAIN Last administered on 08/15/18 12:29; Start 08/15/18 at 08:30; Stop 08/16/18 at 08:29; Status DC Lidocaine HCl (Lidocaine 1% 20ml Vial) 20 ml PRN 1X PRN INJ SEE COMMENTS Last administered on 08/15/18at 12:29; Start 08/15/18 at 08:30; Stop 08/16/18 at 08:29; Status DC Epinephrine HCl (Adrenalin) 1 mg PRN 1X PRN INJ SEE COMMENTS; Start 08/15/18 at 08:30; Stop 08/16/18 at 08:29; Status DC Lidocaine HCl 50 ml PRN 1X PRN MM SEE COMMENTS Last administered on 08/15/18at 12 :28; Start 08/15/18 at 08:30; Stop 08/16/18 at 08:29; Status DC Ondansetron HCl (Zofran) 4 mg PRN Q6HRS PRN IV NAUSEA/VOMITING; Start 08/15/18 at 09:00; Stop 08/15/18 at 20:00; Status DC Fentanyl Citrate (Fentanyl 2ml Vial) 25 mcg PRN Q5MIN PRN IV MILD PAIN; Start 08/15/18 at 09:00; Stop 08/15/18 at 20:00; Status DC Fentanyl Citrate (Fentanyl 2ml Vial) 50 mcg PRN Q5MIN PRN IV MODERATE TO SEVERE PAIN; Start 08/15/18 at 09:00; Stop 08/15/18 at 20:00; Status DC Morphine Sulfate (Morphine Sulfate) 1 mg PRN Q10MIN PRN IV SEVERE PAIN; Start 08/15/18 at 09:00; Stop 08/15/18 at 20:00; Status DC Ringer's Solution 1,000 ml @ 30 mls/hr Q24H IV ; Start 08/15/18 at 08:50; Stop 08/15/18 at 20:49; Status DC Lidocaine HCl (Xylocaine-Mpf 1% 2ml Vial) 2 ml PRN 1X PRN ID PRIOR TO IV START ; Start 08/15/18 at 09:00; Stop 08/15/18 at 20:00; Status DC Hydromorphone HCl (Dilaudid) 0.5 mg PRN Q10MIN PRN IV SEV PAIN, Second choice; Start 08/15/18 at 09:00; Stop 08/15/18 at 20:00; Status DC Prochlorperazine Edisylate (Compazine) 5 mg PACU PRN PRN IV NAUSEA, MRX1; Start 08/15/18 at 09:00; Stop 08/15/18 at 20:00; Status DC Epinephrine HCl (Adrenalin) 1 mg STK-MED ONCE .ROUTE ; Start 08/15/18 at 11:04; Stop 08/15/18 at 11:05; Status DC Lidocaine HCl (Lidocaine 1% 20ml Vial) 20 ml STK-MED ONCE .ROUTE ; Start at 11:04; Stop 08/15/18 at 11:05; Status DC Lidocaine HCl (Lidocaine 2% Viscous) 100 ml STK-MED ONCE .ROUTE ; Start 08/15/18 at 11:04; Stop 08/15/18 at 11:05; Status DC Lidocaine HCl 50 ml STK-MED ONCE .ROUTE ; Start 08/15/18 at 11:04; Stop 08/15/18 at 11:05; Status DC Midazolam HCl (Versed) 2 mg PRN 1X PRN IV PRIOR TO PROCEDURE; Start 08/15/18 at 11:45; Stop 08/16/18 at 11:44; Status DC Fentanyl Citrate (Fentanyl 2ml Vial) 25 mcg PRN Q5MIN PRN IV X 2 DOSES FOR PAIN ; Start 08/15/18 at 11:45; Stop 08/16/18 at 11:44; Status DC Fentanyl Citrate (Fentanyl 2ml Vial) 50 mcg PRN Q5MIN PRN IV X 2 DOSES FOR PAIN ; Start 08/15/18 at 11:45; Stop 08/16/18 at 11:44; Status DC Sodium Chloride 1,000 ml @ 125 mls/hr Q8H IV Last administered on 08/15/18at 11: 52; Start 08/15/18 at 11:40; Stop 08/15/18 at 23:39; Status DC Lidocaine HCl (Xylocaine-Mpf 1% 2ml Vial) 2 ml 1X PRN PRN ID IV START; Start at 11:45; Stop 08/16/18 at 11:44; Status DC Propofol 20 ml @ As Directed STK-MED ONCE IV ; Start 08/15/18 at 12:38; Stop 08/15 at 12:39; Status DC Warfarin Sodium (Coumadin) 2 mg DAILY16 PO Last administered on 08/16/18at 16:06 ; Start 08/16/18 at 16:00; Stop 08/17/18 at 16:20; Status DC Furosemide (Lasix) 40 mg DAILY PO Last administered on 08/17/18at 09:53; Start at 09:00 Warfarin Sodium (Coumadin Per Physician) 1 each PRN DAILY PRN MC SEE COMMENTS Last administered on 08/18/18at 08:50; Start 08/16/18 at 08:45 Digoxin (Lanoxin) 250 mcg 1X ONCE IV Last administered on 08/16/18at 09:40; Start 08/16/18 at 09:30; Stop 08/16/18 at 09:31; Status DC Metoprolol Succinate (Toprol Xl) 150 mg DAILY PO Last administered on 08/18/18at 08:13; Start 08/17/18 at 09:00 Metoprolol Tartrate (Lopressor) 75 mg 1X ONCE PO Last administered on at 21:41; Start 08/16/18 at 21:00; Stop 08/16/18 at 21:01; Status DC Potassium Chloride (Klor-Con) 20 meq 1X ONCE PO Last administered on 08/17/18at 09:53; Start 08/17/18 at 09:00; Stop 08/17/18 at 09:01; Status DC Enoxaparin Sodium (Lovenox Per Pharmacy Prophylaxis Dosing) 1 each PRN DAILY PRN MC SEE COMMENTS; Start 08/17/18 at 10:00; Stop 08/17/18 at 16:22; Status DC Enoxaparin Sodium (Lovenox 40mg Syringe) 40 mg Q24H SQ Last administered on 08/17at 12:34; Start 08/17/18 at 11:00; Stop 08/17/18 at 16:20; Status DC Heparin Sodium/ Dextrose 500 ml @ 0 mls/hr CONT PRN IV SEE I/O RECORD; Start at 16:30 Heparin Sodium (Porcine) (Heparin Sodium) 2,000 unit PRN Q6HRS PRN IV FOR UFH LEVEL LESS THAN 0.2; Start 08/17/18 at 16:30 Active Scripts Active Amiodarone Hcl 200 Mg Tablet 200 Mg PO DAILY 30 Days Coumadin (Warfarin Sodium) 5 Mg Tablet 5 Mg PO DAILY16 30 Days Reported Warfarin Sodium 2 Mg Tablet 2 Mg PO DAILY Losartan Potassium 50 Mg Tablet 50 Mg PO DAILY Levothyroxine Sodium 50 Mcg Tablet 1 Tab PO DAILY Furosemide 40 Mg Tablet 1 Tab PO PRN DAILY PRN Pravastatin Sodium 40 Mg Tablet 1 Tab PO QHS Stool Softener (Docusate Sodium) 100 Mg Tablet 100 Mg PO PRN PRN Metoprolol Tartrate 50 Mg Tablet 50 Mg PO BID Vitals/I & O Vital Sign - Last 24 Hours 08/17/18 08/17/18 08/17/18 08/17/18 15:00 19:47 20:08 22:28 Temp 98.3 98.1 98.5 98.3 98.1 98.5 Pulse 71 78 77 Resp 18 16 16 B/P (MAP) 158/86 (110) 151/84 (106) 149/80 (103) Pulse Ox 98 98 98 O2 Delivery Room Air Room Air Room Air Room Air 08/18/18 08/18/18 08/18/18 08/18/18 03:48 07:00 07:40 08:12 Temp 98.1 97.9 98.1 97.9 Pulse 75 73 73 Resp 16 18 B/P (MAP) 163/84 (110) 170/90 (116) 170/90 Pulse Ox 95 96 O2 Delivery Room Air Room Air Room Air 08/18/18 08/18/18 08:13 11:00 Temp 98.3 98.3 Pulse 73 76 Resp 18 B/P (MAP) 170/90 178/95 (122) Pulse Ox 97 O2 Delivery Room Air Intake and Output 08/17/18 08/17/18 08/18/18 14:59 22:59 06:59 Intake Total 100 ml 200 ml Balance 100 ml 200 ml JOSH CANAS MD Aug 18, 2018 12:34
[2018-08-18] MEDS ORDERED: MIDAZOLAM HCL/PF 2 MG/2 ML VIAL. ONE (13:22)
[2018-08-18] MEDS ORDERED: NALOXONE 0.4 MG/ML VIAL. ONE (13:22)
[2018-08-18] MEDS ORDERED: FLUMAZENIL 0.5 MG/5 ML VIAL. IV ONE (13:22)
[2018-08-18] MEDS ORDERED: fentaNYL PF VIAL 100 MCG/2 ML VIAL ONE (13:22)
[2018-08-18] MEDS ORDERED: IOHEXOL 300 MG/ML 100ML VIAL. ONE (13:30)
[2018-08-18] MEDS ORDERED: LIDOCAINE WITH 8.4% SOD BICARB 3 ML DISP.SYRIN. ONE (13:30)
[2018-08-18] MEDS ORDERED: fentaNYL PF VIAL 100 MCG/2 ML VIAL IV ONE (14:15)
[2018-08-18] MEDS ORDERED: LIDOCAINE WITH 8.4% SOD BICARB 3 ML DISP.SYRIN. IJ ONE (14:15)
[2018-08-18] MEDS ORDERED: MIDAZOLAM HCL/PF 2 MG/2 ML VIAL. IV ONE (14:15)
--- NOTE | 2018-08-18 14:54 | NUR ---
SS following up with discharge planning. Pt having lung biopsy today. Pt will discharge to home with spouse when ready. No discharge needs noted at this time. SS will continue to follow for pending discharge needs.
[2018-08-18] MEDS: LACTOBACILLUS RHAMNOSUS GG 1 CAPSULE. PO SCH ×2 (15:49→21:23)
[2018-08-18] MEDS: POTASSIUM CHLORIDE 20 MEQ TABLET.ER. PO SCH (15:49)
[2018-08-18] MEDS: FUROSEMIDE 40 MG TABLET. PO SCH (15:49)
--- NOTE | 2018-08-18 15:52 | RAD ---
CT-guided biopsy, left lung mass 08/18/2018 Discussion: Cystic 67-year-old female with a left perihilar mass with extension into the left lower lobe.. A component of postobstructive atelectasis also appears to be present. Pulmonary service requests transthoracic needle biopsy. The risks and benefits of the procedure were discussed with the patient. Informed consent was obtained. A timeout procedure was performed. Contrast imaging was deferred secondary to borderline renal function. CT imaging redemonstrates a left perihilar mass extending into the lower lobe. The overlying skin was prepped and draped using sterile barrier technique. Under intermittent CT guidance a 17-gauge needle was advanced into an area of the consolidation thought to most likely represent solid tumor. 3 passes with an 18-gauge core biopsy needle were made. Needle was removed. Minimal perilesional hemorrhage is seen. No significant pneumothorax is seen. The patient tolerated the procedure without immediate complication. The procedure was performed under conscious sedation including continuous cardiopulmonary monitoring via dedicated sedation nurse. [id number] sedation time: 30 minutes Impression: CT-guided biopsy of left perihilar mass extending into the left lower lobe PQRS Compliance Statement: One or more of the following individualized dose reduction techniques were utilized for this examination: 1. Automated exposure control 2. Adjustment of the mA and/or kV according to patient size 3. Use of iterative reconstruction technique
[2018-08-18] MEDS ORDERED: hydrALAZINE 20 MG/ML VIAL. IVP PRN (16:15)
[2018-08-18] MEDS ORDERED: cloNIDine HCL 0.1 MG TABLET PO PRN (18:00)
[2018-08-18] MEDS: AMOXICILLIN/K CLAV 875/125MG TABLET. PO SCH (21:24)
[2018-08-18] MEDS: ATORVASTATIN CALCIUM 10 MG TABLET. PO SCH (21:24)
[2018-08-19 03:48] VITALS: BP 158/80
[2018-08-19 05:40] LABS: HEMATOCRIT 32.6 % (36.0-47.0); HEMOGLOBIN 10.8 g/dL (12.0-15.5); RED BLOOD COUNT 3.38 x10^6/uL (3.50-5.40); RED CELL DISTRIBUTION WIDTH 14.4 % (11.5-14.5)
[2018-08-19] MEDS: LEVOTHYROXINE 50 MCG TABLET PO SCH (05:53)
--- NOTE | 2018-08-19 05:55 | NUR ---
EMAR CLEANUP. PMRN
--- NOTE | 2018-08-19 05:58 | RAD ---
Single view chest dated 08/18/2018. Comparison made to 08/11/2018. Clinical data indication: Status post left-sided lung biopsy. Follow-up. FINDINGS: Single upright portable exam performed. Heart size mildly enlarged. Left subclavian pacer/AICD in place, unchanged. The patient is status post median sternotomy and heart valve replacement. There is some increased density at the left hilum, unchanged. Lungs are clear without focal consolidation. No pneumothorax. Minimal blunting of left costophrenic sulcus, unchanged. IMPRESSION: 1. No evidence of pneumothorax status post left lung biopsy. 2. Soft tissue fullness at the left hilum, likely related to known mass. 3. Minimal blunting of the left costophrenic sulcus suggesting small pleural effusion. Electronically signed by: Paco Bowling MD (08/19/2018 5:55 AM) [facility]
[2018-08-19 06:11] LABS: CALCIUM 8.4 mg/dL (8.5-10.1); CREATININE 1.7 mg/dL (0.6-1.0); GFR 36.4; POTASSIUM 3.4 mmol/L (3.5-5.1)
[2018-08-19 07:50] VITALS: BP 148/79
[2018-08-19] MEDS: LACTOBACILLUS RHAMNOSUS GG 1 CAPSULE. PO SCH (08:56)
[2018-08-19] MEDS: FUROSEMIDE 40 MG TABLET. PO SCH (08:56)
[2018-08-19] MEDS: AMOXICILLIN/K CLAV 875/125MG TABLET. PO SCH (08:56)
[2018-08-19] MEDS: POTASSIUM CHLORIDE 20 MEQ TABLET.ER. PO SCH (08:56)
[2018-08-19 08:57] VITALS: BP 148/79
[2018-08-19] MEDS: methylPREDNISolone SOD SUCC PF 40 MG/ML VIAL. IV SCH (08:57)
[2018-08-19] MEDS: METOPROLOL SUCC 24HR ER 50 MG TAB.ER.24H. PO SCH (08:57)
[2018-08-19] MEDS: LOSARTAN POTASSIUM 50 MG TABLET. PO SCH (08:57)
--- NOTE | 2018-08-19 09:33 | PDOC ---
PROGRESS NOTES Subjective Subjective Patient feels better, ready for discharge home today. Objective Objective Vital Signs Date Time Temp Pulse Resp B/P (MAP) Pulse Ox O2 Delivery O2 Flow Rate FiO2 08/19/18 08:57 68 148/79 08/19/18 07:50 97.9 18 97 Room Air 97.9 08/18/18 14:07 2.0 Intake and Output 08/19/18 07:00 Intake Total 315 ml Balance 315 ml Intake Oral 300 ml IV Total 15 ml # Voids 1 Physical Exam Abdomen: Normal bowel sounds, Soft, No tenderness Heart: Other (irregularly irregular) Extremities: No edema General: Alert, Oriented X3, No acute distress Lungs: Other (BS mildly decreased throughout but otherwise CTA) Assessment Assessment Problems Medical Problems: (1) A-fib Status: Acute (2) Pneumonia Status: Acute Plan Plan of Care 1. Pneumonia - much improved, home today on po abx and Prednisone taper. 2. Afib with RVR - rate controlled, home on present medication. 3. lung mass - s/p biopsy yesterday. Patient to follow up with Dr Choi for results and further tx. 4. Anticoagulation - home on Lovenox and Coumadin. 5. cardiomyopathy - stable, home on her usual Lasix, needs K+ also. 6. hypothyroidism - continue replacement, adjust dose at office visit. 7. HTN - controlled with present medication. Comment Review of Relevant I have reviewed the following items cinthia (where applicable) has been applied. Labs Laboratory Tests Test 08/18/18 03:10 08/19/18 05:08 08/19/18 05:26 Prothrombin Time 15.7 SEC (11.7-14.0) Prothromb Time International Ratio 1.3 (0.8-1.1) White Blood Count 16.0 x10^3/uL (4.0-11.0) Red Blood Count 3.38 x10^6/uL (3.50-5.40) Hemoglobin 10.8 g/dL (12.0-15.5) Hematocrit 32.6 % (36.0-47.0) Mean Corpuscular Volume 97 fL (79-100) Mean Corpuscular Hemoglobin 32 pg (25-35) Mean Corpuscular Hemoglobin Concent 33 g/dL (31-37) Red Cell Distribution Width 14.4 % (11.5-14.5) Platelet Count 296 x10^3/uL (140-400) Sodium Level 140 mmol/L (136-145) Potassium Level 3.4 mmol/L (3.5-5.1) Chloride Level 105 mmol/L (98-107) Carbon Dioxide Level 26 mmol/L (21-32) Anion Gap 9 (6-14) Blood Urea Nitrogen 32 mg/dL (7-20) Creatinine 1.7 mg/dL (0.6-1.0) Estimated GFR (Cockcroft-Gault) 36.4 Glucose Level 125 mg/dL (70-99) Calcium Level 8.4 mg/dL (8.5-10.1) Laboratory Tests Test 08/19/18 05:08 08/19/18 05:26 White Blood Count 16.0 x10^3/uL (4.0-11.0) Red Blood Count 3.38 x10^6/uL (3.50-5.40) Hemoglobin 10.8 g/dL (12.0-15.5) Hematocrit 32.6 % (36.0-47.0) Mean Corpuscular Volume 97 fL (79-100) Mean Corpuscular Hemoglobin 32 pg (25-35) Mean Corpuscular Hemoglobin Concent 33 g/dL (31-37) Red Cell Distribution Width 14.4 % (11.5-14.5) Platelet Count 296 x10^3/uL (140-400) Sodium Level 140 mmol/L (136-145) Potassium Level 3.4 mmol/L (3.5-5.1) Chloride Level 105 mmol/L (98-107) Carbon Dioxide Level 26 mmol/L (21-32) Anion Gap 9 (6-14) Blood Urea Nitrogen 32 mg/dL (7-20) Creatinine 1.7 mg/dL (0.6-1.0) Estimated GFR (Cockcroft-Gault) 36.4 Glucose Level 125 mg/dL (70-99) Calcium Level 8.4 mg/dL (8.5-10.1) Microbiology 08/15/18 Bronchial Culture - Final, Complete 08/15/18 Lower Resp Culture Result 1 (LONNIE) - Final, Complete Medications Current Medications Albuterol/ Ipratropium (Duoneb) 3 ml 1X ONCE NEB Last administered on at 10:22; Start 2/28/19 at 09:45; Stop 08/11/18 at 09:46; Status DC Sodium Chloride 500 ml @ 500 mls/hr 1X ONCE IV Last administered on at 11:44; Start 08/11/18 at 11:45; Stop 08/11/18 at 12:44; Status DC Azithromycin 250 ml @ 250 mls/hr 1X ONCE IV Last administered on 08/11/18at 13 :03; Start 08/11/18 at 12:15; Stop 08/11/18 at 13:14; Status DC Ceftriaxone Sodium (Rocephin) 1 gm 1X ONCE IVP Last administered on 08/11/18at 13:03; Start 08/11/18 at 12:15; Stop 08/11/18 at 12:16; Status DC Ondansetron HCl (Zofran) 4 mg PRN Q8HRS PRN IV NAUSEA/VOMITING; Start 08/11/18 at 12:15; Stop 08/12/18 at 12:14; Status DC Sodium Chloride 500 ml @ 500 mls/hr 1X ONCE IV Last administered on at 12:45; Start 08/11/18 at 12:45; Stop 08/11/18 at 13:44; Status DC Amiodarone HCl (Cordarone) 200 mg DAILY PO ; Start 08/11/18 at 16:30; Stop 08/11 at 16:49; Status DC Non-Formulary Medication (Warfarin Sodium ) 2 mg DAILY PO ; Start 08/12/18 at 09: 00; Status UNV Warfarin Sodium (Coumadin) 5 mg 1X WARF ONCE PO ; Start 08/12/18 at 16:30; Stop 08/12/18 at 16:31; Status Cancel Warfarin Sodium (Coumadin Per Pharmacy) 1 each PRN DAILY PRN MC SEE COMMENTS; Start 08/11/18 at 16:15; Stop 08/12/18 at 13:05; Status DC Digoxin (Lanoxin) 250 mcg 1X ONCE IV Last administered on 08/11/18at 17:56; Start 08/11/18 at 16:45; Stop 08/11/18 at 16:46; Status DC Docusate Sodium (Colace) 100 mg PRN BID PRN PO CONSTIPATION; Start 08/11/18 at 21:00 Levothyroxine Sodium (Synthroid) 50 mcg DAILY06 PO Last administered on at 05:53; Start 08/12/18 at 06:00 Atorvastatin Calcium (Lipitor) 10 mg QHS PO Last administered on 08/18/18at 21:24 ; Start 08/11/18 at 21:00 Famotidine (Pepcid) 20 mg PRN DAILY PRN PO HEARTBURN / GAS; Start 08/11/18 at 23:45 Potassium Chloride (Klor-Con) 20 meq DAILYWBKFT PO Last administered on at 08:56; Start 08/12/18 at 09:30 Digoxin (Lanoxin) 250 mcg 1X ONCE IV Last administered on 08/12/18at 11:02; Start 08/12/18 at 11:00; Stop 08/12/18 at 11:01; Status DC Metoprolol Tartrate (Lopressor Vial) 5 mg 1X ONCE IVP ; Start 08/12/18 at 10:45 ; Stop 08/12/18 at 10:56; Status DC Metoprolol Tartrate (Lopressor) 25 mg Q6HRS PO Last administered on 08/12/18at 12 :58; Start 08/12/18 at 12:00; Stop 08/13/18 at 08:26; Status DC Metoprolol Tartrate (Lopressor Vial) 2.5 mg 1X ONCE IVP Last administered on at 11:03; Start 08/12/18 at 11:00; Stop 08/12/18 at 11:01; Status DC Sodium Chloride 1,000 ml @ 75 mls/hr [id number] IV Last administered on 08/13/18at 00:13; Start 08/12/18 at 11:00; Stop 08/13/18 at 08:26; Status DC Heparin Sodium/ Dextrose 500 ml @ 0 mls/hr CONT PRN IV SEE I/O RECORD Last administered on 08/16/18at 23:37; Start 08/12/18 at 13:00; Stop 08/17/18 at 10:01; Status DC Heparin Sodium (Porcine) (Heparin Sodium) 1,950 unit PRN Q6HRS PRN IV FOR UFH LEVEL LESS THAN 0.2; Start 08/12/18 at 13:00; Stop 08/17/18 at 10:01; Status DC Piperacillin Sod/ Tazobactam Sod (Zosyn Per Pharmacy) 1 each PRN DAILY PRN MC SEE COMMENTS; Start 08/12/18 at 13:15 Methylprednisolone Sodium Succinate (SOLU-Medrol 40MG VIAL) 80 mg Q8HRS IV Last administered on 08/18/18at 05:41; Start 08/12/18 at 14:00; Stop 08/18/18 at 12: 36; Status DC Sodium Chloride 1,000 ml @ 100 mls/hr Q10H IV Last administered on 08/12/18at 15 :01; Start 08/12/18 at 13:15; Stop 08/13/18 at 08:26; Status DC Piperacillin Sod/ Tazobactam Sod 2.25 gm/Sodium Chloride 50 ml @ 100 mls/hr Q6HRS IV Last administered on 08/18/18 15:49; Start 08/12/18 at 13:30; Stop 08/18 at 17:24; Status DC Info (Anti-Coagulation Monitoring By Pharmacy) 1 each PRN DAILY PRN MC SEE COMMENTS Last administered on 08/15/18 15:50; Start 08/13/18 at 08:30 Metoprolol Tartrate (Lopressor) 50 mg BID PO Last administered on 08/16/18 09: 32; Start 08/13/18 at 09:00; Stop 08/16/18 at 14:15; Status DC Lactobacillus Rhamnosus (Culturelle) 1 cap BID PO Last administered on 08:56; Start 08/13/18 at 21:00 Acetaminophen (Tylenol) 650 mg PRN Q6HRS PRN PO MILD PAIN Last administered on 08/15/18 18:08; Start 08/14/18 at 00:00 Losartan Potassium (Cozaar) 50 mg DAILY PO Last administered on 08/19/18 08:57 ; Start 08/14/18 at 11:30 Phytonadione (Vitamin K Ampule) 2 mg 1X ONCE SQ Last administered on 08/14/18 16:10; Start 08/14/18 at 15:30; Stop 08/14/18 at 15:31; Status DC Albuterol Sulfate (Ventolin Neb Soln) 2.5 mg PRN 1X PRN NEB SHORTNESS OF BREATH Last administered on 08/15/18 12:30; Start 08/15/18 at 08:30; Stop at 08:29; Status DC Lidocaine HCl (Lidocaine 2% Viscous) 100 ml PRN 1X PRN MM MOUTH PAIN Last administered on 08/15/18 12:29; Start 08/15/18 at 08:30; Stop 08/16/18 at 08:29; Status DC Lidocaine HCl (Lidocaine 1% 20ml Vial) 20 ml PRN 1X PRN INJ SEE COMMENTS Last administered on 08/15/18at 12:29; Start 08/15/18 at 08:30; Stop 08/16/18 at 08:29; Status DC Epinephrine HCl (Adrenalin) 1 mg PRN 1X PRN INJ SEE COMMENTS; Start 08/15/18 at 08:30; Stop 08/16/18 at 08:29; Status DC Lidocaine HCl 50 ml PRN 1X PRN MM SEE COMMENTS Last administered on 08/15/18at 12 :28; Start 08/15/18 at 08:30; Stop 08/16/18 at 08:29; Status DC Ondansetron HCl (Zofran) 4 mg PRN Q6HRS PRN IV NAUSEA/VOMITING; Start 08/15/18 at 09:00; Stop 08/15/18 at 20:00; Status DC Fentanyl Citrate (Fentanyl 2ml Vial) 25 mcg PRN Q5MIN PRN IV MILD PAIN; Start 08/15/18 at 09:00; Stop 08/15/18 at 20:00; Status DC Fentanyl Citrate (Fentanyl 2ml Vial) 50 mcg PRN Q5MIN PRN IV MODERATE TO SEVERE PAIN; Start 08/15/18 at 09:00; Stop 08/15/18 at 20:00; Status DC Morphine Sulfate (Morphine Sulfate) 1 mg PRN Q10MIN PRN IV SEVERE PAIN; Start 08/15/18 at 09:00; Stop 08/15/18 at 20:00; Status DC Ringer's Solution 1,000 ml @ 30 mls/hr Q24H IV ; Start 08/15/18 at 08:50; Stop 08/15/18 at 20:49; Status DC Lidocaine HCl (Xylocaine-Mpf 1% 2ml Vial) 2 ml PRN 1X PRN ID PRIOR TO IV START ; Start 08/15/18 at 09:00; Stop 08/15/18 at 20:00; Status DC Hydromorphone HCl (Dilaudid) 0.5 mg PRN Q10MIN PRN IV SEV PAIN, Second choice; Start 08/15/18 at 09:00; Stop 08/15/18 at 20:00; Status DC Prochlorperazine Edisylate (Compazine) 5 mg PACU PRN PRN IV NAUSEA, MRX1; Start 08/15/18 at 09:00; Stop 08/15/18 at 20:00; Status DC Epinephrine HCl (Adrenalin) 1 mg STK-MED ONCE .ROUTE ; Start 08/15/18 at 11:04; Stop 08/15/18 at 11:05; Status DC Lidocaine HCl (Lidocaine 1% 20ml Vial) 20 ml STK-MED ONCE .ROUTE ; Start at 11:04; Stop 08/15/18 at 11:05; Status DC Lidocaine HCl (Lidocaine 2% Viscous) 100 ml STK-MED ONCE .ROUTE ; Start 08/15/18 at 11:04; Stop 08/15/18 at 11:05; Status DC Lidocaine HCl 50 ml STK-MED ONCE .ROUTE ; Start 08/15/18 at 11:04; Stop 08/15/18 at 11:05; Status DC Midazolam HCl (Versed) 2 mg PRN 1X PRN IV PRIOR TO PROCEDURE; Start 08/15/18 at 11:45; Stop 08/16/18 at 11:44; Status DC Fentanyl Citrate (Fentanyl 2ml Vial) 25 mcg PRN Q5MIN PRN IV X 2 DOSES FOR PAIN ; Start 08/15/18 at 11:45; Stop 08/16/18 at 11:44; Status DC Fentanyl Citrate (Fentanyl 2ml Vial) 50 mcg PRN Q5MIN PRN IV X 2 DOSES FOR PAIN ; Start 08/15/18 at 11:45; Stop 08/16/18 at 11:44; Status DC Sodium Chloride 1,000 ml @ 125 mls/hr Q8H IV Last administered on 08/15/18at 11: 52; Start 08/15/18 at 11:40; Stop 08/15/18 at 23:39; Status DC Lidocaine HCl (Xylocaine-Mpf 1% 2ml Vial) 2 ml 1X PRN PRN ID IV START; Start at 11:45; Stop 08/16/18 at 11:44; Status DC Propofol 20 ml @ As Directed STK-MED ONCE IV ; Start 08/15/18 at 12:38; Stop 08/15 at 12:39; Status DC Warfarin Sodium (Coumadin) 2 mg DAILY16 PO Last administered on 08/16/18at 16:06 ; Start 08/16/18 at 16:00; Stop 08/17/18 at 16:20; Status DC Furosemide (Lasix) 40 mg DAILY PO Last administered on 08/19/18at 08:56; Start at 09:00 Warfarin Sodium (Coumadin Per Physician) 1 each PRN DAILY PRN MC SEE COMMENTS Last administered on 08/18/18at 08:50; Start 08/16/18 at 08:45 Digoxin (Lanoxin) 250 mcg 1X ONCE IV Last administered on 08/16/18 09:40; Start 08/16/18 at 09:30; Stop 08/16/18 at 09:31; Status DC Metoprolol Succinate (Toprol Xl) 150 mg DAILY PO Last administered on 08/19/18at 08:57; Start 08/17/18 at 09:00 Metoprolol Tartrate (Lopressor) 75 mg 1X ONCE PO Last administered on at 21:41; Start 08/16/18 at 21:00; Stop 08/16/18 at 21:01; Status DC Potassium Chloride (Klor-Con) 20 meq 1X ONCE PO Last administered on 08/17/18at 09:53; Start 08/17/18 at 09:00; Stop 08/17/18 at 09:01; Status DC Enoxaparin Sodium (Lovenox Per Pharmacy Prophylaxis Dosing) 1 each PRN DAILY PRN MC SEE COMMENTS; Start 08/17/18 at 10:00; Stop 08/17/18 at 16:22; Status DC Enoxaparin Sodium (Lovenox 40mg Syringe) 40 mg Q24H SQ Last administered on 08/17at 12:34; Start 08/17/18 at 11:00; Stop 08/17/18 at 16:20; Status DC Heparin Sodium/ Dextrose 500 ml @ 0 mls/hr CONT PRN IV SEE I/O RECORD; Start at 16:30 Heparin Sodium (Porcine) (Heparin Sodium) 2,000 unit PRN Q6HRS PRN IV FOR UFH LEVEL LESS THAN 0.2; Start 08/17/18 at 16:30 Methylprednisolone Sodium Succinate (SOLU-Medrol 40MG VIAL) 40 mg BID IV ; Start 08/18/18 at 21:00 Midazolam HCl (Versed) 2 mg STK-MED ONCE .ROUTE ; Start 08/18/18 at 13:22; Stop 08/18/18 at 13:23; Status DC Fentanyl Citrate (Fentanyl 2ml Vial) 100 mcg STK-MED ONCE .ROUTE ; Start at 13:22; Stop 08/18/18 at 13:23; Status DC Flumazenil (Romazicon) 0.5 mg STK-MED ONCE IV ; Start 08/18/18 at 13:22; Stop 08/18/18 at 13:23; Status DC Naloxone HCl (Narcan) 0.4 mg STK-MED ONCE .ROUTE ; Start 08/18/18 at 13:22; Stop 08/18/18 at 13:23; Status DC Lidocaine/Sodium Bicarbonate (Buffered Lidocaine 1%) 3 ml STK-MED ONCE .ROUTE ; Start 08/18/18 at 13:30; Stop 08/18/18 at 13:31; Status DC Iohexol (Omnipaque 300 Mg/ml) 100 ml STK-MED ONCE .ROUTE ; Start 08/18/18 at 13: 30; Stop 08/18/18 at 13:31; Status DC Lidocaine/Sodium Bicarbonate (Buffered Lidocaine 1%) 4 ml 1X ONCE IJ ; Start at 14:15; Stop 08/18/18 at 14:16; Status DC Midazolam HCl (Versed) 1 mg 1X ONCE IV ; Start 08/18/18 at 14:15; Stop 08/18/18 at 14:16; Status DC Fentanyl Citrate (Fentanyl 2ml Vial) 50 mcg 1X ONCE IV ; Start 08/18/18 at 14:15 ; Stop 08/18/18 at 14:16; Status DC Hydralazine HCl (Apresoline Inj) 10 mg Q6HRS PRN IVP ELEVATED BP, SEE COMMENTS Last administered on 08/18/18at 16:33; Start 08/18/18 at 16:15 Amoxicillin/ Clavulanate Potassium (Augmentin 875/ 125mg) 1 tab BID PO Last administered on 08/19/18at 08:56; Start 08/18/18 at 21:00 Clonidine HCl (Catapres) 0.1 mg PRN Q3HRS PRN PO HYPERTENSION, SEE COMMENT; Start 08/18/18 at 18:00 Active Scripts Active Amiodarone Hcl 200 Mg Tablet 200 Mg PO DAILY 30 Days Coumadin (Warfarin Sodium) 5 Mg Tablet 5 Mg PO DAILY16 30 Days Reported Warfarin Sodium 2 Mg Tablet 2 Mg PO DAILY Losartan Potassium 50 Mg Tablet 50 Mg PO DAILY Levothyroxine Sodium 50 Mcg Tablet 1 Tab PO DAILY Furosemide 40 Mg Tablet 1 Tab PO PRN DAILY PRN Pravastatin Sodium 40 Mg Tablet 1 Tab PO QHS Stool Softener (Docusate Sodium) 100 Mg Tablet 100 Mg PO PRN PRN Metoprolol Tartrate 50 Mg Tablet 50 Mg PO BID Vitals/I & O Vital Sign - Last 24 Hours 08/18/18 08/18/18 08/18/18 08/18/18 11:00 13:51 13:57 13:57 Temp 98.3 98.3 Pulse 76 84 72 78 Resp 18 20 20 20 B/P (MAP) 178/95 (122) Pulse Ox 97 98 98 98 O2 Delivery Room Air Nasal Cannula Nasal Cannula Nasal Cannula O2 Flow Rate 2.0 2.0 2.0 08/18/18 08/18/18 08/18/18 08/18/18 14:07 14:15 14:45 15:00 Temp 98.0 98.0 Pulse 72 70 80 75 Resp 20 18 B/P (MAP) 173/96 (121) Pulse Ox 98 97 O2 Delivery Nasal Cannula Room Air O2 Flow Rate 2.0 08/18/18 08/18/18 08/18/18 08/18/18 15:00 15:15 15:30 16:00 Pulse 75 72 72 98 08/18/18 08/18/18 08/18/18 08/18/18 16:33 19:30 19:38 23:13 Temp 97.6 98.1 97.6 98.1 Pulse 75 101 87 Resp 16 16 B/P (MAP) 173/90 137/78 (97) 132/86 (101) Pulse Ox 96 96 O2 Delivery Room Air Room Air Room Air 08/19/18 08/19/18 08/19/1819 03:48 07:50 08:57 08:57 Temp 98.0 97.9 98.0 97.9 Pulse 79 68 68 68 Resp 16 18 B/P (MAP) 158/80 (106) 148/79 (102) 148/79 148/79 Pulse Ox 97 97 O2 Delivery Room Air Room Air Intake and Output 08/18/18 08/18/18 08/19/18 15:00 23:00 07:00 Intake Total 15 ml 300 ml Balance 15 ml 300 ml JOSH CANAS MD Aug 19, 2018 09:33
[2018-08-19] MEDS ORDERED: POTA20TA4 PO (09:44)
[2018-08-19] MEDS ORDERED: AMOX1TAB11 PO (09:44)
[2018-08-19] MEDS ORDERED: PRED-220 PO (09:44)
[2018-08-19] MEDS ORDERED: METO50TA4 PO (09:44)
[2018-08-19] MEDS ORDERED: ENOX40DI SQ (09:44)
--- NOTE | 2018-08-19 10:05 | PDOC ---
PULMONARY PROGRESS NOTES Subjective PT RETURNED FROM FNA NO INCREASE SOA Vitals Vital Signs Date Time Temp Pulse Resp B/P (MAP) Pulse Ox O2 Delivery O2 Flow Rate FiO2 08/19/18 08:57 68 148/79 08/19/18 08:00 Room Air 08/19/18 07:50 97.9 18 97 97.9 08/18/18 14:07 2.0 ROS: No Nausea, No Chest Pain, No Abdominal Pain, No Increase Cough General: Alert Lungs: Clear, Crackles Cardiovascular: S1 Abdomen: Soft, Non-tender Neuro Exam: Alert Extremities: No Edema Skin: Warm Labs Laboratory Tests Test 08/18/18 03:10 08/19/18 05:08 08/19/18 05:26 Prothrombin Time 15.7 SEC (11.7-14.0) Prothromb Time International Ratio 1.3 (0.8-1.1) White Blood Count 16.0 x10^3/uL (4.0-11.0) Red Blood Count 3.38 x10^6/uL (3.50-5.40) Hemoglobin 10.8 g/dL (12.0-15.5) Hematocrit 32.6 % (36.0-47.0) Mean Corpuscular Volume 97 fL (79-100) Mean Corpuscular Hemoglobin 32 pg (25-35) Mean Corpuscular Hemoglobin Concent 33 g/dL (31-37) Red Cell Distribution Width 14.4 % (11.5-14.5) Platelet Count 296 x10^3/uL (140-400) Sodium Level 140 mmol/L (136-145) Potassium Level 3.4 mmol/L (3.5-5.1) Chloride Level 105 mmol/L (98-107) Carbon Dioxide Level 26 mmol/L (21-32) Anion Gap 9 (6-14) Blood Urea Nitrogen 32 mg/dL (7-20) Creatinine 1.7 mg/dL (0.6-1.0) Estimated GFR (Cockcroft-Gault) 36.4 Glucose Level 125 mg/dL (70-99) Calcium Level 8.4 mg/dL (8.5-10.1) Laboratory Tests Test 08/19/18 05:08 08/19/18 05:26 White Blood Count 16.0 x10^3/uL (4.0-11.0) Red Blood Count 3.38 x10^6/uL (3.50-5.40) Hemoglobin 10.8 g/dL (12.0-15.5) Hematocrit 32.6 % (36.0-47.0) Mean Corpuscular Volume 97 fL (79-100) Mean Corpuscular Hemoglobin 32 pg (25-35) Mean Corpuscular Hemoglobin Concent 33 g/dL (31-37) Red Cell Distribution Width 14.4 % (11.5-14.5) Platelet Count 296 x10^3/uL (140-400) Sodium Level 140 mmol/L (136-145) Potassium Level 3.4 mmol/L (3.5-5.1) Chloride Level 105 mmol/L (98-107) Carbon Dioxide Level 26 mmol/L (21-32) Anion Gap 9 (6-14) Blood Urea Nitrogen 32 mg/dL (7-20) Creatinine 1.7 mg/dL (0.6-1.0) Estimated GFR (Cockcroft-Gault) 36.4 Glucose Level 125 mg/dL (70-99) Calcium Level 8.4 mg/dL (8.5-10.1) Medications Active Scripts Medications Dose Route/Sig Max Daily Dose Days Date Category Warfarin Sodium 2 Mg Tablet 2 Mg PO DAILY 08/11/18 Reported Losartan Potassium 50 Mg Tablet 50 Mg PO DAILY 08/11/18 Reported Amiodarone Hcl 200 Mg Tablet 200 Mg PO DAILY 30 07/02/18 Rx Coumadin (Warfarin Sodium) 5 Mg Tablet 5 Mg PO DAILY16 30 07/02/18 Rx Levothyroxine Sodium 50 Mcg Tablet 1 Tab PO DAILY 06/30/18 Reported Furosemide 40 Mg Tablet 1 Tab PO PRN DAILY PRN 06/30/18 Reported Pravastatin Sodium 40 Mg Tablet 1 Tab PO QHS 06/30/18 Reported Stool Softener (Docusate Sodium) 100 Mg Tablet 100 Mg PO PRN PRN 07/21/17 Reported Metoprolol Tartrate 50 Mg Tablet 50 Mg PO BID 06/15/17 Reported Impression . IMPRESSION: 1. Abnormal CT chest revealing left hilar mass and endobronchial lesions. Suspect primary lung cancer. S/P FNA 08/18 2. Weight loss secondary to above. 3. Cough secondary to above and acute bronchitis with postobstructive pneumonia. 4. Hypotension related to underlying cardiomyopathy and volume depletion. 5. Hypothyroidism. 6. Chronic kidney disease. 7. Chronic atrial fibrillation with rapid ventricular response. 8. Cardiomyopathy, ejection fraction of 30%, status post AICD placement. 9. Tobacco dependence, in remission. 10. Chronic obstructive pulmonary disease, unknown FEV1. BAL ATYPICAL CELL Plan . home in am ok by me follow up in office for result will have my office arrange for PET scan s/p FNA case discussed with pathologist, there were some atypical cell, and nothing definitive on brush SANJIV SOSA MD Aug 19, 2018 10:05
[2018-08-19] MEDS ORDERED: ENOXAPARIN 40 MG/0.4 ML SYRINGE. SQ ONE (10:30)
--- NOTE | 2018-08-19 11:21 | NUR ---
Discharge Note: CRISTIAN EVANS Discharge instructions and discharge home medications reviewed with Patient and a copy given. All questions have been answered and understanding verbalized.
--- NOTE | 2018-08-19 17:08 | PATHOLOGY ---
[facility] Accession Number: [id number] . 01 Material submitted: . LEFT LUNG MASS . 01 Clinical history: . Left lung mass . 02 Diagnosis: Lung tissue, left lung mass CT-guided needle biopsy: - ADENOCARCINOMA, MODERATELY-WELL DIFFERENTIATED. SEE COMMENT. (JPM:alon; 08/19/2018) QMS/08/19/2018 . 02 Comment: Sections of the left lung mass CT-guided needle biopsy show extensive replacement of lung parenchyma by a malignant epithelial neoplasm. The neoplasm is comprised of irregular glands which infiltrate a reactive desmoplastic stroma. The malignant glands are lined by a single layer or stratified layer of atypical cells which have pale eosinophilic cytoplasm and possess enlarged, rounded to ovoid nuclei containing prominent nucleoli. There are mitotic figures present. 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 The case is also examined by Dr. Horne, who concurs with the diagnosis. The results are reported to Dr. Choi on 08/19/2018 at 12:30 p.m. . (JPM:alon; 08/19/2018) . 02 Electronically signed: . Andre Leon MD, Pathologist NPI- [id number] . 01 Gross description: . Received in formalin labeled "Roselia Mcgowan, left lung mass," are 3 distinct needle cores of aragon soft tissue ranging from 0.3 to 1.0 cm in length and measuring less than 0.1 cm each in diameter. The specimen is submitted entirely in cassettes A1 through A3. (TSD; 08/18/2018) TOB/TOB . 02 Pathologist provided ICD-10: C34.92 . 02 CPT . 088659 Specimen Comment: A courtesy copy of this report has been sent to Specimen Comment: [phone], , , . Specimen Comment: Report sent to , , Specimen Comment: and Specimen Comment: A duplicate report has been generated due to demographic updates. Performed at: 01 [facility] [address] [facility] [address], [place] [id number] MD Jorge Betancur MD Phone: [phone] Performed at: 02 [facility] [address] [place], [place] [id number] MD Andre Leon MD Phone: [phone]
--- NOTE | 2018-08-21 21:38 | DS ---
DATE OF DISCHARGE: 08/19/2018 CHIEF COMPLAINT: Cough. HISTORY OF PRESENT ILLNESS: The patient is a 67-year-old female who presented to the Emergency Room with the above complaint. She reported a history of a cough that had been present for several months and had gradually worsened in intensity. The cough was dry and not productive of much sputum. The cough seemed to occur mainly in association with eating and she recently had the onset of posttussive emesis. She did not feel short of breath except when she was actually coughing. She came to the Emergency Room because her symptoms continued to worsen and she felt more short of breath. HOSPITAL COURSE: The chest x-ray at admission showed some mild left lung opacity, which had been seen the previous month and had not really worsened. The patient was admitted primarily because she was tachycardic in the Emergency Room. She has a history of chronic atrial fibrillation, but her heart rate was over 110 in the ER. She was seen in consultation by Pulmonary Medicine and Cardiology. A CAT scan of the chest was done for further evaluation of her abnormal chest x-ray. This unfortunately showed a left hilar mass and a consolidative infiltrate was also present. The patient was started on antibiotics for treatment of this postobstructive pneumonia. On 08/15/2018, Dr. Choi performed a bronchoscopy with cytology brushings. Pathology report on these was that highly atypical cells were seen, but no definitive evidence of malignancy. On 08/18/2018, the patient underwent a CT-guided biopsy of her left lung mass. Pathology report from this is moderately well differentiated adenocarcinoma. The patient's medications were adjusted per Cardiology recommendations and her heart rate did improve. She remains in chronic atrial fibrillation. Her Coumadin had to be held for her procedures and was only resumed at discharge. She will therefore need to use Lovenox daily until her INR is again therapeutic on her Coumadin. The patient had a mild elevation in her lipase, but had no complaints of pain or other symptoms of pancreatitis. It was felt that this could be due to the amiodarone as this is a known side effect of it. Cardiology discontinued her amiodarone and her lipase returned to normal levels on her lab. Lab also showed that the patient's TSH was only mildly elevated at 5.7. She had only been started on levothyroxine about one month ago, so she was continued on her starting dose of levothyroxine and her lab will be followed as an outpatient. FINAL DIAGNOSES: 1. Post-obstructive pneumonia. 2. Atrial fibrillation with rapid ventricular response. 3. Lung mass. The pathology report shows moderate well-differentiated adenocarcinoma of the lung. 4. Chronic anticoagulation. 5. Cardiomyopathy. 6. Hypothyroidism. 7. Hypertension. DISCHARGE MEDICATIONS: Augmentin 875 one p.o. b.i.d. x 5 days then discontinue, Lovenox 40 mg subcutaneous daily, Toprol-XL 150 mg daily, potassium chloride 20 mEq daily, prednisone 10 mg tablet taper, Colace p.r.n., furosemide 40 mg daily, levothyroxine 50 mcg daily, losartan 50 mg daily, pravastatin 40 mg daily, Coumadin 2 mg daily, amiodarone was discontinued and will not be resumed. FOLLOWUP: Followup is with Dr. Canas within 2 weeks. Follow up with Dr. Rivas and Dr. Choi as advised. JOSH CANAS MD DR: ALFONSO/hector JOB#: [id number] / [id number] DILCIA
[2018-09-05] MEDS ORDERED: WARF4TAB68 PO (15:30)
[2018-09-05] MEDS ORDERED: METO50TA6 PO (15:33)
[2018-10-05] MEDS ORDERED: WARF1TAB74 PO (08:46)
[2018-10-05] MEDS ORDERED: Pantoprazole PO (08:46)
[2018-10-05] MEDS ORDERED: LOSA-73 PO (08:46)
[2018-10-05] MEDS ORDERED: PRED-220 PO (08:46)
[2018-10-05] MEDS ORDERED: METO50TA4 PO (08:46)
[2018-10-05] MEDS ORDERED: FURO40TA4 PO (08:46)
[2018-11-11] MEDS ORDERED: ENOX80DI3 SQ (09:14)
[2018-11-11] MEDS ORDERED: HYDR-2765 PO (09:14)
[2018-11-11] MEDS ORDERED: ALPR0.254 PO (09:14)
[2018-11-11] MEDS ORDERED: MORP15TA PO (09:14)
[2018-11-11] MEDS ORDERED: METO25TA4 PO (09:14)
[2018-11-11] MEDS ORDERED: POTA20LI27 PEG (09:14)
[2018-11-11] MEDS ORDERED: WARF10TA45 MC (09:14)
[2018-11-11] MEDS ORDERED: LANS30TA6 FT (09:15)
[2018-11-11] MEDS ORDERED: DOCU-109 PO (09:15)
== END 2018-08-19 11:00 | disposition home or self-care (01) | DRG 871 ==
LOC: ER 09:36 → 6 SOUTH 12:00 → 1 WEST ICU 08-12 12:25 → 2 SOUTH 08-13 11:01
PROVIDERS: ADMIT Family Medicine; ATTEND Family Medicine
PROC: 0B9J8ZX Drainage of Left Lower Lung Lobe, Via Natural or Artificial Opening Endoscopic, Diagnostic (ICD-10-PCS; 2018-08-15)
PROC: 0B9G8ZX Drainage of Left Upper Lung Lobe, Via Natural or Artificial Opening Endoscopic, Diagnostic (ICD-10-PCS; 2018-08-15)
PROC: 0BDJ8ZX Extraction of Left Lower Lung Lobe, Via Natural or Artificial Opening Endoscopic, Diagnostic (ICD-10-PCS; 2018-08-15)
PROC: 0BDG8ZX Extraction of Left Upper Lung Lobe, Via Natural or Artificial Opening Endoscopic, Diagnostic (ICD-10-PCS; 2018-08-15)
PROC: 0BBJ3ZX Excision of Left Lower Lung Lobe, Percutaneous Approach, Diagnostic (ICD-10-PCS; principal; 2018-08-18)
DX: A41.9 Sepsis, unspecified organism (principal); J18.9 Pneumonia, unspecified organism; C34.90 Malignant neoplasm of unspecified part of unspecified bronchus or lung; N17.9 Acute kidney failure, unspecified; I47.1 Supraventricular tachycardia; I48.1 Persistent atrial fibrillation; I13.0 Hypertensive heart and chronic kidney disease with heart failure and stage 1 through stage 4 chronic kidney disease, or unspecified chronic kidney disease; I42.9 Cardiomyopathy, unspecified; I48.92 Unspecified atrial flutter; J44.0 Chronic obstructive pulmonary disease with (acute) lower respiratory infection; R04.89 Hemorrhage from other sites in respiratory passages; N18.3 Chronic kidney disease, stage 3 (moderate); E03.9 Hypothyroidism, unspecified; I95.9 Hypotension, unspecified; D64.9 Anemia, unspecified; E78.00 Pure hypercholesterolemia, unspecified; E78.5 Hyperlipidemia, unspecified; E86.9 Volume depletion, unspecified; E87.6 Hypokalemia; F17.201 Nicotine dependence, unspecified, in remission; I25.10 Atherosclerotic heart disease of native coronary artery without angina pectoris; M19.90 Unspecified osteoarthritis, unspecified site; I48.2 Chronic atrial fibrillation; T46.2X5A Adverse effect of other antidysrhythmic drugs, initial encounter; I50.9 Heart failure, unspecified; J20.9 Acute bronchitis, unspecified; J39.8 Other specified diseases of upper respiratory tract; M06.9 Rheumatoid arthritis, unspecified; Z79.01 Long term (current) use of anticoagulants; Z82.49 Family history of ischemic heart disease and other diseases of the circulatory system; Z95.810 Presence of automatic (implantable) cardiac defibrillator; Z95.2 Presence of prosthetic heart valve; Y93.89 Activity, other specified; Y99.8 Other external cause status; Y92.89 Other specified places as the place of occurrence of the external cause
CPT/HCPCS: 31622; 32405; 36415; 71045; 71250; 77012; 80048; 80076; 81325; 83036; 83605; 83690; 83735; 83880; 84443; 84484; 85025; 85027; 85520; 85610; 85730; 87070; 87205; 87641; 88104; 88112; 88271; 88275; 88305; 88360; 88381; 93005; 93306; 94640; 96361; 96374; 96375; 99152; J0360; J0456; J0696; J1160; J1650; J2543; J2704; J2920; J3430; J3490; J7030; J7040; J7613; J7620; 81235; 92610; 99285-25

== ENCOUNTER → 2018-08-25 | Outpatient (CLI) | payer MEDICARE ==
[2018-08-19 08:57] VITALS: BP 148/79
[~2018-08-25] MED LIST changes: +ALPR0.254 PO; +AMOX1TAB11 PO; +DEXA4TAB PO; +DOCU-109 PO; +ENOX40DI SQ; +ENOX80DI3 SQ; +HYDR-2765 PO; +LANS30TA6 FT; +LEVO75TA PO; +LOSA-73 PO; +METO-269 PO; +METO25TA4 PO; +METO50TA4 PO; +MORP15TA PO; +ONDA8TAB9 PO; +POLY17PO28 PO; +POTA20LI27 PEG; +POTA20TA4 PO; +PRED-220 PO; +PRED20TA PO; +Pantoprazole PO; +WARF10TA45 MC; +WARF1TAB69 PO; +WARF1TAB74 PO; +WARF2TAB96 PO; +WARF4TAB68 PO
--- NOTE | 2018-08-25 14:44 | RAD ---
FDG tumor localization scan, PET/CT, 08/25/2018: History: Lung cancer Following IV injection of 14.3 mCi of 18 F-FDG, imaging was performed from the skull base to the proximal thighs. The noncontrast CT component was performed for attenuation correction and anatomic localization purposes rather for primary diagnosis. The patient's blood glucose level at the time of injection was 148 MG/DL. There is a large hypermetabolic mass at the left hilum demonstrating a maximum SUV of 18.6. This process measures approximate 5.8 cm in greatest dimension. There is a small nodular lateral extension which is also hypermetabolic. There is separate hypermetabolic adenopathy along the anterior aspect of the left main bronchus and in the right paratracheal region with a maximum SUV of 9.7. No other hypermetabolic pulmonary lesion is seen. The tiny nodules described on the recent CT study are too small to evaluate with FDG/PET imaging. There is a hypermetabolic lymph node in the right axilla. It demonstrates a maximum SUV of 4.6. It measures only 1 cm. The axillary regions are otherwise unremarkable. Physiologic activity is present in the neck. There is a hypermetabolic focus in the right upper neck located along the posterior aspect of the right mandibular angle. Its maximum tissue the is 11.8. This lies along the inferior margin of the right parotid gland. It appears to correspond to a small soft tissue nodule, likely a lymph node. Normal GI tract and urinary tract activity is present in the abdomen and pelvis. The left adrenal gland is slightly nodular in character. There appears to be increased FDG uptake, although it is difficult to separate from the nearby kidney and pancreas. The maximum SUV is 6.0. The findings raise the possibility of an adrenal metastasis. Incidental CT findings include the presence of a probable small gallstone in the gallbladder. Nodularity and calcifications in the uterus are probably related to fibroids. There has been a previous median sternotomy. Scattered coronary artery calcifications are present. A left-sided transvenous pacing device is in place. IMPRESSION: 1. Large hypermetabolic neoplasm at the left hilum with associated mediastinal adenopathy. 2. Hypermetabolic right axillary and right upper neck lymph nodes may be on a metastatic basis. 3. Possible left adrenal metastasis.
== END | disposition home or self-care (01) ==
LOC: PETSC 12:11
PROVIDERS: ATTEND Internal Medicine Pulmonary Disease
DX: C34.02 Malignant neoplasm of left main bronchus (principal); I25.10 Atherosclerotic heart disease of native coronary artery without angina pectoris; R59.0 Localized enlarged lymph nodes
CPT/HCPCS: 78815; A9552

== ENCOUNTER 2018-09-12 10:52 | Inpatient (IN) | payer MEDICARE ==
[2018-09-12] VITALS (10 sets, daily range): BP systolic 102–127; BP diastolic 56–78
[~2018-09-12] VITALS: Ht 157.5 cm; Wt 65.4 kg
[~2018-09-12 10:52] MED LIST changes: -ALPR0.254 PO; -DEXA4TAB PO; -DOCU-109 PO; -ENOX80DI3 SQ; -HYDR-2765 PO; -LANS30TA6 FT; -LEVO75TA PO; -METO-269 PO; -METO25TA4 PO; -MORP15TA PO; -ONDA8TAB9 PO; -POLY17PO28 PO; -POTA20LI27 PEG; -PRED20TA PO; -Pantoprazole PO; -WARF10TA45 MC; -WARF1TAB69 PO; -WARF1TAB74 PO
[2018-09-12] MEDS ORDERED: IV NORMAL SALINE 500ML BAG 500 ML IV ONE (11:45)
[2018-09-12] MEDS ORDERED: DIGOXIN IV 500 MCG/2 ML AMPUL. IV ONE (11:45)
[2018-09-12 11:52] LABS: BASO # 0.1 x10^3/uL (0.0-0.2); BASO % 1 % (0-3); EOS # 0.1 x10^3/uL (0.0-0.7); EOS % 2 % (0-3); HEMATOCRIT 32.8 % (36.0-47.0); HEMOGLOBIN 10.8 g/dL (12.0-15.5); LYMPH % 30 % (24-48); MEAN CORPUSCULAR HEMOGLOBIN 32 pg (25-35); MEAN CORPUSCULAR HGB CONC 33 g/dL (31-37); MEAN CORPUSCULAR VOLUME 97 fL (79-100); MONO # 0.9 x10^3/uL (0.0-1.1); MONO % 13 % (0-9); NEUT # 3.5 x10^3uL (1.8-7.7); NEUT % 54 % (31-73); PLATELET COUNT 399 x10^3/uL (140-400); RED BLOOD COUNT 3.36 x10^6/uL (3.50-5.40); RED CELL DISTRIBUTION WIDTH 15.5 % (11.5-14.5); WHITE BLOOD COUNT 6.5 x10^3/uL (4.0-11.0)
--- NOTE | 2018-09-12 11:55 | PHYS DOC ---
Past Medical History Past Medical History: A-Fib, Cancer, CHF, High Cholesterol, Hypertension, Hypothyroid, Other Additional Past Medical Histor: LUNG CA Past Surgical History: Pacemaker, Other Additional Past Surgical Histo: MITRAL VALVE REPAIR X2, PACER/DEFIB Alcohol Use: None Drug Use: None Adult General Chief Complaint Chief Complaint: SHORTNESS OF BREATH HPI HPI Patient is a 67 year old female who presents with SOA. Pt states that her SOA got bad after her last radiation treatment on Wednesday. She has been undergoing radiation treatments for lung cancer. There is a plan to start chemo this week. She gets short of breath with walking and laying flat. Pt states she has a cough with clear, thick sputum. Complains of generalized weakness. She denies fever, chills, CP or leg swelling. Pt also complains of a pain in her right shoulder and numbness of her lips and right cheek. Radiates down her arm to her elbow. She tried taking Tylenol, which did not help the pain. She has a hx of CAD, CHF, and Afib/flutter. She is on Coumadin and metoprolol. Review of Systems Review of Systems Constitutional: Denies fever or chills [] Eyes: Denies change in visual acuity, redness, or eye pain [] HENT: Denies nasal congestion or sore throat [] Respiratory: Productive cough and shortness of breath [] Cardiovascular: No additional information not addressed in HPI [] GI: Denies abdominal pain, nausea, vomiting, bloody stools or diarrhea [] : Denies dysuria or hematuria [] Musculoskeletal: Complains of right shoulder pain Integument: Denies rash or skin lesions [] Neurologic: Denies headache, focal weakness, Complains of lip and cheek numbness [] Endocrine: Denies polyuria or polydipsia [] All other systems were reviewed and found to be within normal limits, except as documented in this note. Current Medications Current Medications Current Medications Medications (Trade) Dose Ordered Sig/Kimber Start Time Stop Time Status Last Admin Dose Admin Cyclobenzaprine HCl (Flexeril) 10 mg 1X ONCE 09/12/18 12:30 09/12/18 12:31 DC 09/12/18 12:55 10 MG Digoxin (Lanoxin) 250 mcg 1X ONCE 09/12/18 11:45 09/12/18 11:46 DC 09/12/18 11:53 250 MCG Sodium Chloride 500 ml @ 500 mls/hr 1X ONCE 09/12/18 11:45 09/12/18 12:44 DC 09/12/18 11:52 500 MLS/HR Allergies Allergies Allergies Coded Allergies Type Severity Reaction Last Updated Verified No Known Drug Allergies 08/15/18 No Physical Exam Physical Exam Constitutional: Well developed, well nourished,MILD RESPIRATORY distress, non- toxic appearance. [] HENT: Normocephalic, atraumatic, bilateral external ears normal, oropharynx moist, no oral exudates, nose normal. [] Eyes: PERRLA, EOMI, conjunctiva normal, no discharge. [] Neck: Normal range of motion, no tenderness, supple, no stridor. [] Cardiovascular tachycardic and irregular possible murmur difficult exam overall] Lungs & Thorax: Decreased breath sounds in the left midlung field Abdomen: Bowel sounds normal, soft, no tenderness, no masses, no pulsatile masses. [] Skin: Warm, dry, no erythema, no rash. [] Back: No tenderness, no CVA tenderness. [] Extremities: No tenderness, no cyanosis, no clubbing, ROM intact, trace bilateral edema Neurologic: Alert and oriented X 3, normal motor function, normal sensory function, no focal deficits noted. [] Psychologic: Affect normal, judgement normal, mood normal. [] Current Patient Data Vital Signs Vital Signs Date Time Temp Pulse Resp B/P (MAP) Pulse Ox O2 Delivery O2 Flow Rate FiO2 09/12/18 12:34 124 115/76 (89) 97 Room Air 09/12/18 11:05 98.5 24 98.5 Lab Values Laboratory Tests Test 09/12/18 11:37 White Blood Count 6.5 x10^3/uL (4.0-11.0) Red Blood Count 3.36 x10^6/uL (3.50-5.40) L Hemoglobin 10.8 g/dL (12.0-15.5) L Hematocrit 32.8 % (36.0-47.0) L Mean Corpuscular Volume 97 fL (79-100) Mean Corpuscular Hemoglobin 32 pg (25-35) Mean Corpuscular Hemoglobin Concent 33 g/dL (31-37) Red Cell Distribution Width 15.5 % (11.5-14.5) H Platelet Count 399 x10^3/uL (140-400) Neutrophils (%) (Auto) 54 % (31-73) Lymphocytes (%) (Auto) 30 % (24-48) Monocytes (%) (Auto) 13 % (0-9) H Eosinophils (%) (Auto) 2 % (0-3) Basophils (%) (Auto) 1 % (0-3) Neutrophils # (Auto) 3.5 x10^3uL (1.8-7.7) Lymphocytes # (Auto) 2.0 x10^3/uL (1.0-4.8) Monocytes # (Auto) 0.9 x10^3/uL (0.0-1.1) Eosinophils # (Auto) 0.1 x10^3/uL (0.0-0.7) Basophils # (Auto) 0.1 x10^3/uL (0.0-0.2) Prothrombin Time 25.9 SEC (11.7-14.0) H Prothrombin Time INR 2.4 (0.8-1.1) H Sodium Level 140 mmol/L (136-145) Potassium Level 3.8 mmol/L (3.5-5.1) Chloride Level 105 mmol/L (98-107) Carbon Dioxide Level 24 mmol/L (21-32) Anion Gap 11 (6-14) Blood Urea Nitrogen 16 mg/dL (7-20) Creatinine 1.2 mg/dL (0.6-1.0) H Estimated GFR (Cockcroft-Gault) 54.4 BUN/Creatinine Ratio 13 (6-20) Glucose Level 134 mg/dL (70-99) H Lactic Acid Level 1.4 mmol/L (0.4-2.0) Calcium Level 9.0 mg/dL (8.5-10.1) Total Bilirubin 0.9 mg/dL (0.2-1.0) Aspartate Amino Transferase (AST) 21 U/L (15-37) Alanine Aminotransferase (ALT) 22 U/L (14-59) Alkaline Phosphatase 94 U/L (46-116) Troponin I Quantitative < 0.017 ng/mL (0.000-0.055) WC-Bib-H-Type Natriuretic Peptide 3520 pg/mL (0-124) H Total Protein 6.9 g/dL (6.4-8.2) Albumin 2.8 g/dL (3.4-5.0) L Albumin/Globulin Ratio 0.7 (1.0-1.7) L Laboratory Tests 09/12/18 11:37 Laboratory Tests 09/12/18 11:37 EKG EKG []EKG shows probable atrial flutter poor baseline rate of 129 no obvious ischemia was identified Radiology/Procedures Radiology/Procedures Chest X-Ray [] Impressions: 1. Left hilar fullness likely known mass similar to prior exam. 2. Layering of left pleural effusion. 3. Mild prominent appearing bilateral interstitial lung markings likely congestive changes. Course & Med Decision Making Course & Med Decision Making Pertinent Labs and Imaging studies reviewed. (See chart for details) []67-year-old female history of a flutter on Coumadin INR 2.4 also prior history of lung cancer on radiation treatment who is presenting with worsening shortness of breath found to have a layering pleural effusion likely etiology of her symptoms she may need drainage I spoke with Dr. Becerra who will see the patient as well. Of note the defibrillator technologist was evaluating the patient the emergency room as well as apparently the cardiology office called him because the defibrillator went to some sort of a backup mode, he tells me he thinks it was shortly after radiation therapy or possibly due to radiation therapy. I did later discussed with Dr. WELLS the patient's radiation oncologist Bhavna came to the emergency room and he says that that is highly unlikely situation. At any rate the tech did fix the defibrillator and put it back in active mode at the moment the patient is stable. The tech told me he would speak with the cardiology office as well for further instructions. I did speak with Dr. GOLDMAN for admission for primary consultation and monitoring. Patient did have mild to moderate atrial flutter with RVR I gave a dose of IV digoxin which she has had before in the emergency room her heart rate was gradually improving her blood pressure initially was in the mid to high 90s but it did come up on my reevaluation into the 107 systolic range. Patient be admitted for further evaluation and treatment Lasix was also given for the pleural effusion. PARAPNEUMONIC effusion is possible but there is no white count no fever think at this point we can defer any further antibiotics at this time. Dragon Disclaimer Dragon Disclaimer This electronic medical record was generated, in whole or in part, using a voice recognition dictation system. Departure Departure Impression: Primary Impression: Atrial flutter Additional Impression: Pleural effusion Admitting Physician: Lola Goldman Condition: STABLE Referrals: LOLA GOLDMAN MD (PCP) Problem Qualifiers KAJAL QUEZADA MD Sep 12, 2018 11:55
--- NOTE | 2018-09-12 12:05 | RAD ---
EXAM: CHEST 1 VIEW History: Shortness of breath COMPARISON: 08/18/2018 TECHNIQUE: Single portable radiograph of the chest FINDINGS: Mild cardiomegaly. Left hilar fullness likely known mass is identified. There is layering of pleural effusion on the left. Left-sided cardiac pacer AICD is identified. There is mild prominent appearing bilateral interstitial lung markings. IMPRESSION: 1. Left hilar fullness likely known mass similar to prior exam. 2. Layering of left pleural effusion. 3. Mild prominent appearing bilateral interstitial lung markings likely congestive changes. Electronically signed by: Jesu Avitia MD (09/12/2018 12:02 PM) [id number]
[2018-09-12 12:07] LABS: PROTHROMBIN TIME PATIENT 25.9 SEC (11.7-14.0)
--- NOTE | 2018-09-12 12:07 | EKG ---
[facility] [address] [place] [address] Test Date: 2018-09-12 Test Time: 11:12:42 Pat Name: CRISTIAN EVANS Department: Room: Gender: F [employer] Developer: : [id number] Requested By: KAJAL QUEZADA Order Number: [id number] Reading MD: Delmar Zhang MD Measurements Intervals Luther Rate: 129 P: 0 MA: 100 QRS: 29 QRSD: 76 T: 142 QT: 332 QTc: 488 Interpretive Statements SVT BASELINE ARTIFACT NON-SPECIFIC ST/T CHANGES Electronically Signed On 09-12-2018 15:11:41 CDT by Delmar Zhang MD
[2018-09-12 12:20] LABS: CREATININE 1.2 mg/dL (0.6-1.0); GFR 54.4
[2018-09-12 12:22] LABS: ALBUMIN 2.8 g/dL (3.4-5.0); ALBUMIN/GLOBULIN RATIO 0.7 (1.0-1.7); TOTAL BILIRUBIN 0.9 mg/dL (0.2-1.0); TOTAL PROTEIN 6.9 g/dL (6.4-8.2)
[2018-09-12 12:25] LABS: POTASSIUM 3.8 mmol/L (3.5-5.1)
[2018-09-12] MEDS ORDERED: CYCLOBENZAPRINE 10 MG TABLET. PO ONE (12:30)
[2018-09-12] MEDS ORDERED: FUROSEMIDE 20 MG/2 ML VIAL. IVP ONE (12:45)
[2018-09-12] MEDS ORDERED: MORPHINE SULFATE 4 MG/ML VIAL. IV PRN (13:00)
[2018-09-12] MEDS ORDERED: dilTIAZem INJ 125 MG in IV DEXTROSE 5% 100ML 100 ML IV PRN (15:00)
--- NOTE | 2018-09-12 15:03 | PDOC2 ---
ALFRED NICE LUMBER BUYER 09/12/18 1503: CARDIAC CONSULT DATE OF CONSULT Date of Consult DATE: 09/12/18 TIME: 14:46 REASON FOR CONSULT Reason for Consult: AFIB REFERRING PHYSICIAN Referring Physician: Dr. Vitale SOURCE Source: Chart review, Patient HISTORY OF PRESENT ILLNESS HISTORY OF PRESENT ILLNESS This is a 67 yo female, with a history of AFIB on warfarin therapy, CMP s/p ICD , CAD, valvular insufficiency s/p mitral and tricuspid valve repair, who presented shortness of breath. Patient has a more recent diagnosis of stage IV adenocarcinoma. Radiation therapy began last week. Reports chronic shortness of breath. Worse more recently. Significantly more short of breath the last couple of days. Denies any chest pain, palpitations, dizziness, diaphoresis, or nausea/ vomiting. Coumadin of hold for planned biopsy on . I was contacted by our device clinic RN due to red alert on patient's device. [employer] interrogated device, which was noted in backup mode. Unknown as whether radiation therapy could have caused device to convert to backup mode. PAST MEDICAL HISTORY Past Medical History Cardiovascular: AFIB (post CVN 07/2017), CAD, CHF, HTN, Hyperlipidemia, Valve insufficiency, Other (ICM) Pulmonary: stage IV adenocarcinoma Heme/Onc: Anemia NOS, Other (chronic anticoagulation) Musculoskeletal: Osteoarthritis Rheumatologic: Rheumatoid arthritis Endocrine: Hypothyroidism PAST SURGICAL HISTORY Past Surgical History Pacemaker (AICD- Biotronik), Other (Mitral and tricuspid valve repair) FAMILY HISTORY Family History Heart Disease (mother) SOCIAL HISTORY Social History Smoke: Quit ALCOHOL: none Drugs: None Lives: with Family CURRENT MEDICATIONS CURRENT MEDICATIONS Current Medications Medications (Trade) Dose Ordered Sig/Kimber Route PRN Reason Start Time Stop Time Status Last Admin Dose Admin Digoxin (Lanoxin) 250 mcg 1X ONCE IV 09/12/18 11:45 09/12/18 11:46 DC 09/12/18 11:53 Sodium Chloride 500 ml @ 500 mls/hr 1X ONCE IV 09/12/18 11:45 09/12/18 12:44 DC 09/12/18 11:52 Cyclobenzaprine HCl (Flexeril) 10 mg 1X ONCE PO 09/12/18 12:30 09/12/18 12:31 DC 09/12/18 12:55 Furosemide (Lasix) 20 mg 1X ONCE IVP 09/12/18 12:45 09/12/18 12:46 DC 09/12/18 12:55 Morphine Sulfate (Morphine Sulfate) 4 mg PRN Q2HR PRN IV PAIN 09/12/18 13:00 09/13/18 12:59 09/12/18 13:04 ALLERGIES ALLERGIES: Coded Allergies: No Known Drug Allergies (Unverified , 08/15/18) ROS Review of System 14 point ROS conducted with pertinent positives noted above in HPI. PHYSICAL EXAM PHYSICAL EXAM General: Alert, Oriented X3, Cooperative, No acute distress HEENT: Atraumatic, Mucous membr. moist/pink Lungs: crackles, Normal air movement Heart: AFIB- rate 125-130, Normal S1, Normal S2, Other (2/6 systolic murmur to LLS border) Abdomen: Soft, No tenderness Extremities: No cyanosis, No edema Skin: No breakdown, No significant lesion Neuro: Normal speech, Sensation intact Psych/Mental Status: Mental status NL, Mood NL MUSCULOSKELETAL: Osteoarthritic changes both hands VITALS VITALS Vital Signs Date Time Temp Pulse Resp B/P (MAP) Pulse Ox O2 Delivery O2 Flow Rate FiO2 09/12/18 14:09 97.6 122 18 125/78 (94) 95 Room Air 97.6 LABS Lab: Laboratory Tests Test 09/12/18 11:37 White Blood Count 6.5 x10^3/uL (4.0-11.0) Red Blood Count 3.36 x10^6/uL (3.50-5.40) Hemoglobin 10.8 g/dL (12.0-15.5) Hematocrit 32.8 % (36.0-47.0) Mean Corpuscular Volume 97 fL (79-100) Mean Corpuscular Hemoglobin 32 pg (25-35) Mean Corpuscular Hemoglobin Concent 33 g/dL (31-37) Red Cell Distribution Width 15.5 % (11.5-14.5) Platelet Count 399 x10^3/uL (140-400) Neutrophils (%) (Auto) 54 % (31-73) Lymphocytes (%) (Auto) 30 % (24-48) Monocytes (%) (Auto) 13 % (0-9) Eosinophils (%) (Auto) 2 % (0-3) Basophils (%) (Auto) 1 % (0-3) Neutrophils # (Auto) 3.5 x10^3uL (1.8-7.7) Lymphocytes # (Auto) 2.0 x10^3/uL (1.0-4.8) Monocytes # (Auto) 0.9 x10^3/uL (0.0-1.1) Eosinophils # (Auto) 0.1 x10^3/uL (0.0-0.7) Basophils # (Auto) 0.1 x10^3/uL (0.0-0.2) Prothrombin Time 25.9 SEC (11.7-14.0) Prothromb Time International Ratio 2.4 (0.8-1.1) Sodium Level 140 mmol/L (136-145) Potassium Level 3.8 mmol/L (3.5-5.1) Chloride Level 105 mmol/L (98-107) Carbon Dioxide Level 24 mmol/L (21-32) Anion Gap 11 (6-14) Blood Urea Nitrogen 16 mg/dL (7-20) Creatinine 1.2 mg/dL (0.6-1.0) Estimated GFR (Cockcroft-Gault) 54.4 BUN/Creatinine Ratio 13 (6-20) Glucose Level 134 mg/dL (70-99) Lactic Acid Level 1.4 mmol/L (0.4-2.0) Calcium Level 9.0 mg/dL (8.5-10.1) Total Bilirubin 0.9 mg/dL (0.2-1.0) Aspartate Amino Transf (AST/SGOT) 21 U/L (15-37) Alanine Aminotransferase (ALT/SGPT) 22 U/L (14-59) Alkaline Phosphatase 94 U/L (46-116) Troponin I Quantitative < 0.017 ng/mL (0.000-0.055) YD-Owo-C-Type Natriuretic Peptide 3520 pg/mL (0-124) Total Protein 6.9 g/dL (6.4-8.2) Albumin 2.8 g/dL (3.4-5.0) Albumin/Globulin Ratio 0.7 (1.0-1.7) ASSESSMENT/PLAN ASSESSMENT/PLAN 1. Stage IV adenocarcinoma; radiation therapy recently initiated 2. Acute respiratory failure 3. Acute on chronic diastolic HF 4. Persistent AFIB/flutter with intermittent RVR; warfarin on hold for lung biopsy. INR 2.4 5. AICD in situ: (Biotronik); device with red alert today. Device interrogation revealed backup mode 6. CAD: recent MPI as noted above. stable. 7. ICM: noted last EF at 50%. 8. Hx of mitral and tricuspid valve repair 9. Hypothyroidism:on replacement per PCP 10. HTN: low-normotensive Recommendation Start IV Cardizem for rate control as BP allows. INR therapeutic Mild diuresis with monitoring of renal function Follow pulmonary/oncology recs Consider outpatient EP referral PRINCE REYNOSO MD 09/12/187: CARDIAC CONSULT ASSESSMENT/PLAN ASSESSMENT/PLAN Patient seen and examined. Agree with CORPORATE LEGAL MANAGER's assessment and plan. Agree with cardizem infusion for rate control Continue diuresis for mild ac on chr diastolic HF AICD interrogated - went into back up mode for uncertain reasons ? secondary to radiation CAD stable Plan was for outpatient referral to EP for AF ablation Thank you for your consultation ALFRED NICE APRN Sep 12, 2018 15:03 PRINCE REYNOSO MD Sep 12, 2018 19:17
--- NOTE | 2018-09-12 16:04 | PDOC ---
PULMONARY PROGRESS NOTES Vitals Vital Signs Date Time Temp Pulse Resp B/P (MAP) Pulse Ox O2 Delivery O2 Flow Rate FiO2 09/12/18 14:09 97.6 122 18 125/78 (94) 95 Room Air 97.6 General: Alert Lungs: Clear, Crackles Cardiovascular: S1 Abdomen: Soft, Non-tender Extremities: No Edema Labs Laboratory Tests Test 09/12/18 11:37 White Blood Count 6.5 x10^3/uL (4.0-11.0) Red Blood Count 3.36 x10^6/uL (3.50-5.40) Hemoglobin 10.8 g/dL (12.0-15.5) Hematocrit 32.8 % (36.0-47.0) Mean Corpuscular Volume 97 fL (79-100) Mean Corpuscular Hemoglobin 32 pg (25-35) Mean Corpuscular Hemoglobin Concent 33 g/dL (31-37) Red Cell Distribution Width 15.5 % (11.5-14.5) Platelet Count 399 x10^3/uL (140-400) Neutrophils (%) (Auto) 54 % (31-73) Lymphocytes (%) (Auto) 30 % (24-48) Monocytes (%) (Auto) 13 % (0-9) Eosinophils (%) (Auto) 2 % (0-3) Basophils (%) (Auto) 1 % (0-3) Neutrophils # (Auto) 3.5 x10^3uL (1.8-7.7) Lymphocytes # (Auto) 2.0 x10^3/uL (1.0-4.8) Monocytes # (Auto) 0.9 x10^3/uL (0.0-1.1) Eosinophils # (Auto) 0.1 x10^3/uL (0.0-0.7) Basophils # (Auto) 0.1 x10^3/uL (0.0-0.2) Prothrombin Time 25.9 SEC (11.7-14.0) Prothromb Time International Ratio 2.4 (0.8-1.1) Sodium Level 140 mmol/L (136-145) Potassium Level 3.8 mmol/L (3.5-5.1) Chloride Level 105 mmol/L (98-107) Carbon Dioxide Level 24 mmol/L (21-32) Anion Gap 11 (6-14) Blood Urea Nitrogen 16 mg/dL (7-20) Creatinine 1.2 mg/dL (0.6-1.0) Estimated GFR (Cockcroft-Gault) 54.4 BUN/Creatinine Ratio 13 (6-20) Glucose Level 134 mg/dL (70-99) Lactic Acid Level 1.4 mmol/L (0.4-2.0) Calcium Level 9.0 mg/dL (8.5-10.1) Total Bilirubin 0.9 mg/dL (0.2-1.0) Aspartate Amino Transf (AST/SGOT) 21 U/L (15-37) Alanine Aminotransferase (ALT/SGPT) 22 U/L (14-59) Alkaline Phosphatase 94 U/L (46-116) Troponin I Quantitative < 0.017 ng/mL (0.000-0.055) US-Adt-X-Type Natriuretic Peptide 3520 pg/mL (0-124) Total Protein 6.9 g/dL (6.4-8.2) Albumin 2.8 g/dL (3.4-5.0) Albumin/Globulin Ratio 0.7 (1.0-1.7) Laboratory Tests Test 09/12/18 11:37 White Blood Count 6.5 x10^3/uL (4.0-11.0) Red Blood Count 3.36 x10^6/uL (3.50-5.40) Hemoglobin 10.8 g/dL (12.0-15.5) Hematocrit 32.8 % (36.0-47.0) Mean Corpuscular Volume 97 fL (79-100) Mean Corpuscular Hemoglobin 32 pg (25-35) Mean Corpuscular Hemoglobin Concent 33 g/dL (31-37) Red Cell Distribution Width 15.5 % (11.5-14.5) Platelet Count 399 x10^3/uL (140-400) Neutrophils (%) (Auto) 54 % (31-73) Lymphocytes (%) (Auto) 30 % (24-48) Monocytes (%) (Auto) 13 % (0-9) Eosinophils (%) (Auto) 2 % (0-3) Basophils (%) (Auto) 1 % (0-3) Neutrophils # (Auto) 3.5 x10^3uL (1.8-7.7) Lymphocytes # (Auto) 2.0 x10^3/uL (1.0-4.8) Monocytes # (Auto) 0.9 x10^3/uL (0.0-1.1) Eosinophils # (Auto) 0.1 x10^3/uL (0.0-0.7) Basophils # (Auto) 0.1 x10^3/uL (0.0-0.2) Prothrombin Time 25.9 SEC (11.7-14.0) Prothromb Time International Ratio 2.4 (0.8-1.1) Sodium Level 140 mmol/L (136-145) Potassium Level 3.8 mmol/L (3.5-5.1) Chloride Level 105 mmol/L (98-107) Carbon Dioxide Level 24 mmol/L (21-32) Anion Gap 11 (6-14) Blood Urea Nitrogen 16 mg/dL (7-20) Creatinine 1.2 mg/dL (0.6-1.0) Estimated GFR (Cockcroft-Gault) 54.4 BUN/Creatinine Ratio 13 (6-20) Glucose Level 134 mg/dL (70-99) Lactic Acid Level 1.4 mmol/L (0.4-2.0) Calcium Level 9.0 mg/dL (8.5-10.1) Total Bilirubin 0.9 mg/dL (0.2-1.0) Aspartate Amino Transf (AST/SGOT) 21 U/L (15-37) Alanine Aminotransferase (ALT/SGPT) 22 U/L (14-59) Alkaline Phosphatase 94 U/L (46-116) Troponin I Quantitative < 0.017 ng/mL (0.000-0.055) MV-Mwh-L-Type Natriuretic Peptide 3520 pg/mL (0-124) Total Protein 6.9 g/dL (6.4-8.2) Albumin 2.8 g/dL (3.4-5.0) Albumin/Globulin Ratio 0.7 (1.0-1.7) Medications Active Scripts Medications Dose Route/Sig Max Daily Dose Days Date Category Metoprolol Tartrate 50 Mg Tablet 50 Mg PO BID 09/05/18 Reported Coumadin (Warfarin Sodium) 4 Mg Tablet 4 Mg PO DAILY 09/05/18 Reported Klor-Con M20 (Potassium Chloride) 20 Meq Tab.er.prt 20 Meq PO DAILYWBKFT 30 08/19/18 Rx Losartan Potassium 50 Mg Tablet 50 Mg PO DAILY 08/11/18 Reported Levothyroxine Sodium 50 Mcg Tablet 1 Tab PO DAILY 06/30/18 Reported Furosemide 40 Mg Tablet 1 Tab PO PRN DAILY PRN 06/30/18 Reported Pravastatin Sodium 40 Mg Tablet 1 Tab PO QHS 06/30/18 Reported Stool Softener (Docusate Sodium) 100 Mg Tablet 100 Mg PO PRN PRN 07/21/17 Reported Impression . note dictated will check ct to rule out effusion, PE and lymphangitic spread may need video supect vocal cord paralysis SANJIV SOSA MD Sep 12, 2018 16:04
--- NOTE | 2018-09-12 16:21 | PDOC ---
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 She was undergoing palliative radiation urgently beginning on 09/05/2018. SHe has had 5 of 10 planned treatments thus far. she also has a history of significant CVD with history of AF/AFlutter with RVR with AICD in place. Admitted for increasing SOB which may be a combination of airway compromise and CHF. CXR shows some layering of effusion in left lung but no opacification from effusion and otherwise stable. Plan: CT angio to eval chest for PE and assess level of effusion. Resume radiation with tech help to put pacer on standby during treatment and reactivate after treatment. (She is apparently not pacer dependent and has never had the defib component discharge in the past) Plan on bx of right cervical LN as previously scheduled to confirm met disease as seen on PET/CT. Discussed with patient, nursing staff and Dr. Choi. PIA WELLS MD Sep 12, 2018 16:21
[2018-09-12] MEDS ORDERED: IOHEXOL 350 MG/ML 100 ML VIAL. IV ONE (16:30)
[2018-09-12] MEDS ORDERED: IV NORMAL SALINE 1000ML BAG 1,000 ML IV SCH (16:30)
[2018-09-12] MEDS ORDERED: CONTRAST GIVEN. MC PRN (16:45)
--- NOTE | 2018-09-12 16:46 | NUR ---
Dr. hernandez called no returned called. Dr. pathak placed orders.
--- NOTE | 2018-09-12 16:50 | RAD ---
Examination: CT angiography chest HISTORY: History of shortness of breath, pulmonary embolism. COMPARISON: CT chest from 08/12/2018 TECHNIQUE: Axial CT angiographic images of chest were performed with IV contrast. Coronal and sagittal 3-D MIP reformats are performed Exposure: One or more of the following individualized dose reduction techniques were utilized for this examination: 1. Automated exposure control 2. Adjustment of the mA and/or kV according to patient size 3. Use of iterative reconstruction technique FINDINGS: Moderate cardiomegaly. The caliber of the aorta grossly appears unremarkable. Mitral valve prosthesis is identified. Left-sided cardiac pacer is identified. There is no evidence of filling defect identified in the main pulmonary arterial trunk and the right main pulmonary arteries and the lobar, segmental branches of the pulmonary arteries. There is a large mass identified in the left hilar region extending posteriorly causing significant narrowing of the left main pulmonary artery and its distal branches. Obvious filling defect within the pulmonary arterial branches of the left is not clearly evident however evaluation is very limited. The mass also causes narrowing of the left lower lobe bronchus and complete obscuration of the left upper lobe and left lingular bronchial branches. There is postobstructive atelectasis of the left upper lobe of the lung with consolidation changes and volume loss probably due to large hilar central mass.. Moderate left pleural effusion is identified. Patchy bibasilar lung airspace opacities The visualized liver, spleen, adrenals grossly appears unremarkable There is reflux of contrast into the hepatic veins probably due to elevated right heart pressures. Mild degenerative changes thoracic spine. IMPRESSION: 1. Large left hilar mass extending posteriorly causing significant narrowing of the left main pulmonary artery and branches and narrowing of the left upper lobe and left lingular bronchial branches. There is volume loss of the left upper lobe of the lung due to central hilar mass with postobstructive atelectasis and consolidation changes. 2. No obvious central pulmonary embolism. However evaluation is limited as there is narrowing of the left main pulmonary artery and its distal branches. 3. Moderate left pleural effusion. 4. Congestive changes identified in the lungs with elevated right heart pressures. Electronically signed by: Jesu Avitia MD (09/12/2018 4:48 PM) [id number]
[2018-09-12] MEDS: methylPREDNISolone SOD SUCC PF 125 MG/2 ML VIAL. IV SCH ×2 (22:04→22:39)
[2018-09-13] VITALS (9 sets, daily range): BP systolic 107–127; BP diastolic 55–71
[2018-09-13 03:52] LABS: HEMATOCRIT 32.3 % (36.0-47.0); HEMOGLOBIN 10.6 g/dL (12.0-15.5); RED BLOOD COUNT 3.31 x10^6/uL (3.50-5.40); RED CELL DISTRIBUTION WIDTH 15.2 % (11.5-14.5); WHITE BLOOD COUNT 7.1 x10^3/uL (4.0-11.0)
[2018-09-13 04:07] LABS: CALCIUM 9.2 mg/dL (8.5-10.1); CREATININE 1.3 mg/dL (0.6-1.0); GFR 49.6; POTASSIUM 3.7 mmol/L (3.5-5.1)
[2018-09-13] MEDS: methylPREDNISolone SOD SUCC PF 125 MG/2 ML VIAL. IV SCH ×4 (06:00→21:31)
--- NOTE | 2018-09-13 07:45 | CONS ---
DATE OF CONSULTATION: 09/12/2018 ATTENDING PHYSICIAN: Lola Goldman MD. REASON FOR CONSULTATION: The patient seen in pulmonary consultation at the request of Dr. Goldman for increasing shortness of air. HISTORY OF PRESENT ILLNESS: The patient is a 67-year-old who is well known to me from previous hospitalization. She was hospitalized back in early part of August with abnormal CT chest. She ultimately underwent CT-guided biopsy revealing evidence of moderately well differentiated adenocarcinoma. The patient has been undergoing palliative radiation under the direction of Dr. Job Miramontes for metastatic disease. She presented because she became acutely short of breath yesterday with no fever, chills. No productive cough. She noticed also some wheezing. She has been having some difficulty with cough after drinking water, but not solid foods. I was asked to see her in consultation for further evaluation and management. She had a chest x-ray, which I reviewed. There is a left-sided effusion. There is a left hilar fullness that is known to be malignant and mild interstitial lung markings compatible with possibility of CHF or lymphangitic spread. PAST MEDICAL HISTORY: Chronic atrial fibrillation, on Coumadin; recent diagnosis of cancer as described above; hyperlipidemia; hypertension; hypothyroidism; mitral valve repair; she has had previous pacemaker and defibrillator in place. REVIEW OF SYSTEMS: CONSTITUTIONAL: No fever or chills. EYES: No change in visual acuity. HENT: No nasal congestion or sore throat. She has noted some wheezing upper airway noise. RESPIRATORY: As indicated above. CARDIOVASCULAR: No chest pain. No pressure. GASTROINTESTINAL: No nausea, vomiting, diarrhea. GENITOURINARY: No dysuria or frequency. MUSCULOSKELETAL: No localized muscle aches or joint pains. SKIN: No new skin rashes. NEUROLOGIC: No headaches, diplopia or blurred vision. CURRENT MEDICATIONS: List was reviewed. ALLERGIES: No known drug allergies. SOCIAL HISTORY: She quit tobacco 9 years ago, smoked for approximately 30 years, 1 pack of cigarettes a day. PHYSICAL EXAMINATION: GENERAL: The patient was in no respiratory distress. VITAL SIGNS: Currently on room air saturation 94%. HEENT: Eyes: The sclerae were nonicteric. NECK: Jugular venous distention was not elevated. She did have some upper airway noise. CHEST: Full expansion. LUNGS: Adequate airway flow with diminished breath sounds in the left base. CARDIOVASCULAR: Regular rate and rhythm with S1, S2, no S3. ABDOMEN: Soft, nontender, nondistended. EXTREMITIES: No clubbing, cyanosis or edema. NEUROLOGIC: The patient was awake, alert, following commands. A detailed neuro exam was not performed. LABORATORY DATA: Reviewed. Albumin was low. Sodium was normal, potassium was normal. INR was 2.4. White count normal. Hemoglobin and hematocrit were noted. Chest x-ray as indicated above. IMPRESSION: 1. Progressive dyspnea, multifactorial, underlying chronic obstructive pulmonary disease, lung cancer, possible effusion, possible lymphangitic spread. 2. 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 3. Dysphagia. 4. Chronic atrial fibrillation, on Coumadin. 5. Cardiomyopathy, ejection fraction 30%, status post automatic implantable cardioverter defibrillator placement. PLAN: 1. We will proceed with CT angiogram to rule out both PE effusion and lymphangitic spread. I am well aware that the patient is on Coumadin. I doubt that this is related to PE. 2. Discussed the case with Dr. Miramontes. The patient will undergo treatment tomorrow. 3. Consult speech, may require video dysphagia study. 4. We will initiate IV fluids for hydration. Her creatinine is 1.2. 5. No need for antibiotics at this time. 6. We will initiate steroids. I do appreciate the privilege in sharing in the patient's care. SANJIV SOSA MD DR: ALISA/hector JOB#: [id number] / [id number]
[2018-09-13] MEDS ORDERED: METO-269 PO (08:18)
[2018-09-13] MEDS ORDERED: WARF1TAB69 PO (08:18)
[2018-09-13] MEDS ORDERED: FUROSEMIDE 40 MG TABLET. PO PRN (08:30)
--- NOTE | 2018-09-13 08:34 | PDOC ---
PROGRESS NOTES Subjective Subjective Patient reports some SOA persists, especially with any activity. Not worsening. Objective Objective Vital Signs Date Time Temp Pulse Resp B/P (MAP) Pulse Ox O2 Delivery O2 Flow Rate FiO2 09/13/18 07:00 98.2 110 17 111/67 (82) 97 Room Air 98.2 Intake and Output 09/13/18 07:00 Intake Total 1431.29 ml Output Total 900 ml Balance 531.29 ml Intake Oral 860 ml IV Total 571.29 ml Output Urine Total 900 ml Physical Exam Abdomen: Normal bowel sounds, Soft, No tenderness Heart: Regular rate (tachycardic) Extremities: No edema General: Alert, Oriented X3, No acute distress Lungs: Other (inspiratory wheezes and faint expiratory wheezes present, BS mildly decreased throughout) Assessment Assessment Problems Medical Problems: (1) Atrial flutter Status: Acute (2) Pleural effusion Status: Acute Plan Plan of Care 1. Metastatic adenoca of lung - mass compressing airway and left pulmonary artery. Patient had already been started on XRT last week to treat this, continue per Dr Miramontes. Also on high dose Solumedrol per Pulmonary. Not hypoxic on RA, at least at rest. 2. Chronic afib with tachycardia - patient's HR 110's to 120's since admission. Patient had been taking the Toprol XL at home since last discharge, reports that her heart rate was usually over 100 when she checked it. Not really having symptoms of chest pain or palpitations with this. Started on Cardizem gtt yesterday, still tachycardic. Will try resuming her home dose of Toprol XL. Cardiology following. 3. AE diastolic CHF - patient has preserved EF on last Echo. Received extra Lasix in ER. Will resume her usual 40mg po daily and follow. 4. HTN - BP mildly low, hold Losartan for now. 5. R neck pain - patient feels it is muscle strain, requests Tylenol and muscle relaxer prn. 6. hypothyroidism - check lab, continue replacement. Comment Review of Relevant I have reviewed the following items cinthia (where applicable) has been applied. Labs Laboratory Tests Test 09/12/18 11:37 09/13/18 02:40 White Blood Count 6.5 x10^3/uL (4.0-11.0) 7.1 x10^3/uL (4.0-11.0) Red Blood Count 3.36 x10^6/uL (3.50-5.40) 3.31 x10^6/uL (3.50-5.40) Hemoglobin 10.8 g/dL (12.0-15.5) 10.6 g/dL (12.0-15.5) Hematocrit 32.8 % (36.0-47.0) 32.3 % (36.0-47.0) Mean Corpuscular Volume 97 fL (79-100) 98 fL (79-100) Mean Corpuscular Hemoglobin 32 pg (25-35) 32 pg (25-35) Mean Corpuscular Hemoglobin Concent 33 g/dL (31-37) 33 g/dL (31-37) Red Cell Distribution Width 15.5 % (11.5-14.5) 15.2 % (11.5-14.5) Platelet Count 399 x10^3/uL (140-400) 376 x10^3/uL (140-400) Neutrophils (%) (Auto) 54 % (31-73) Lymphocytes (%) (Auto) 30 % (24-48) Monocytes (%) (Auto) 13 % (0-9) Eosinophils (%) (Auto) 2 % (0-3) Basophils (%) (Auto) 1 % (0-3) Neutrophils # (Auto) 3.5 x10^3uL (1.8-7.7) Lymphocytes # (Auto) 2.0 x10^3/uL (1.0-4.8) Monocytes # (Auto) 0.9 x10^3/uL (0.0-1.1) Eosinophils # (Auto) 0.1 x10^3/uL (0.0-0.7) Basophils # (Auto) 0.1 x10^3/uL (0.0-0.2) Prothrombin Time 25.9 SEC (11.7-14.0) Prothromb Time International Ratio 2.4 (0.8-1.1) Sodium Level 140 mmol/L (136-145) 140 mmol/L (136-145) Potassium Level 3.8 mmol/L (3.5-5.1) 3.7 mmol/L (3.5-5.1) Chloride Level 105 mmol/L (98-107) 103 mmol/L (98-107) Carbon Dioxide Level 24 mmol/L (21-32) 24 mmol/L (21-32) Anion Gap 11 (6-14) 13 (6-14) Blood Urea Nitrogen 16 mg/dL (7-20) 13 mg/dL (7-20) Creatinine 1.2 mg/dL (0.6-1.0) 1.3 mg/dL (0.6-1.0) Estimated GFR (Cockcroft-Gault) 54.4 49.6 BUN/Creatinine Ratio 13 (6-20) Glucose Level 134 mg/dL (70-99) 156 mg/dL (70-99) Lactic Acid Level 1.4 mmol/L (0.4-2.0) Calcium Level 9.0 mg/dL (8.5-10.1) 9.2 mg/dL (8.5-10.1) Total Bilirubin 0.9 mg/dL (0.2-1.0) Aspartate Amino Transf (AST/SGOT) 21 U/L (15-37) Alanine Aminotransferase (ALT/SGPT) 22 U/L (14-59) Alkaline Phosphatase 94 U/L (46-116) Troponin I Quantitative < 0.017 ng/mL (0.000-0.055) BB-Vni-M-Type Natriuretic Peptide 3520 pg/mL (0-124) Total Protein 6.9 g/dL (6.4-8.2) Albumin 2.8 g/dL (3.4-5.0) Albumin/Globulin Ratio 0.7 (1.0-1.7) Laboratory Tests Test 09/12/18 11:37 09/13/18 02:40 White Blood Count 6.5 x10^3/uL (4.0-11.0) 7.1 x10^3/uL (4.0-11.0) Red Blood Count 3.36 x10^6/uL (3.50-5.40) 3.31 x10^6/uL (3.50-5.40) Hemoglobin 10.8 g/dL (12.0-15.5) 10.6 g/dL (12.0-15.5) Hematocrit 32.8 % (36.0-47.0) 32.3 % (36.0-47.0) Mean Corpuscular Volume 97 fL (79-100) 98 fL (79-100) Mean Corpuscular Hemoglobin 32 pg (25-35) 32 pg (25-35) Mean Corpuscular Hemoglobin Concent 33 g/dL (31-37) 33 g/dL (31-37) Red Cell Distribution Width 15.5 % (11.5-14.5) 15.2 % (11.5-14.5) Platelet Count 399 x10^3/uL (140-400) 376 x10^3/uL (140-400) Neutrophils (%) (Auto) 54 % (31-73) Lymphocytes (%) (Auto) 30 % (24-48) Monocytes (%) (Auto) 13 % (0-9) Eosinophils (%) (Auto) 2 % (0-3) Basophils (%) (Auto) 1 % (0-3) Neutrophils # (Auto) 3.5 x10^3uL (1.8-7.7) Lymphocytes # (Auto) 2.0 x10^3/uL (1.0-4.8) Monocytes # (Auto) 0.9 x10^3/uL (0.0-1.1) Eosinophils # (Auto) 0.1 x10^3/uL (0.0-0.7) Basophils # (Auto) 0.1 x10^3/uL (0.0-0.2) Prothrombin Time 25.9 SEC (11.7-14.0) Prothromb Time International Ratio 2.4 (0.8-1.1) Sodium Level 140 mmol/L (136-145) 140 mmol/L (136-145) Potassium Level 3.8 mmol/L (3.5-5.1) 3.7 mmol/L (3.5-5.1) Chloride Level 105 mmol/L (98-107) 103 mmol/L (98-107) Carbon Dioxide Level 24 mmol/L (21-32) 24 mmol/L (21-32) Anion Gap 11 (6-14) 13 (6-14) Blood Urea Nitrogen 16 mg/dL (7-20) 13 mg/dL (7-20) Creatinine 1.2 mg/dL (0.6-1.0) 1.3 mg/dL (0.6-1.0) Estimated GFR (Cockcroft-Gault) 54.4 49.6 BUN/Creatinine Ratio 13 (6-20) Glucose Level 134 mg/dL (70-99) 156 mg/dL (70-99) Lactic Acid Level 1.4 mmol/L (0.4-2.0) Calcium Level 9.0 mg/dL (8.5-10.1) 9.2 mg/dL (8.5-10.1) Total Bilirubin 0.9 mg/dL (0.2-1.0) Aspartate Amino Transf (AST/SGOT) 21 U/L (15-37) Alanine Aminotransferase (ALT/SGPT) 22 U/L (14-59) Alkaline Phosphatase 94 U/L (46-116) Troponin I Quantitative < 0.017 ng/mL (0.000-0.055) IM-Qyo-D-Type Natriuretic Peptide 3520 pg/mL (0-124) Total Protein 6.9 g/dL (6.4-8.2) Albumin 2.8 g/dL (3.4-5.0) Albumin/Globulin Ratio 0.7 (1.0-1.7) Medications Current Medications Digoxin (Lanoxin) 250 mcg 1X ONCE IV Last administered on 09/12/18at 11:53; Start 09/12/18 at 11:45; Stop 09/12/18 at 11:46; Status DC Sodium Chloride 500 ml @ 500 mls/hr 1X ONCE IV Last administered on 09/12/18at 11:52; Start 09/12/18 at 11:45; Stop 09/12/18 at 12:44; Status DC Cyclobenzaprine HCl (Flexeril) 10 mg 1X ONCE PO Last administered on 09/12/18at 12:55; Start 09/12/18 at 12:30; Stop 09/12/18 at 12:31; Status DC Furosemide (Lasix) 20 mg 1X ONCE IVP Last administered on 09/12/18at 12:55; Start 09/12/18 at 12:45; Stop 09/12/18 at 12:46; Status DC Morphine Sulfate (Morphine Sulfate) 4 mg PRN Q2HR PRN IV PAIN Last administered on 09/12/18at 13:04; Start 09/12/18 at 13:00; Stop 09/13/18 at 12:59 Diltiazem HCl 125 mg/Dextrose 125 ml @ 5 mls/hr CONT PRN IV SEE I/O RECORD Last administered on 09/12/18at 15:34; Start 09/12/18 at 15:00 Sodium Chloride 1,000 ml @ 75 mls/hr [id number] IV ; Start 09/12/18 at 16:30 Methylprednisolone Sodium Succinate (SOLU-Medrol 125MG VIAL) 125 mg Q8HRS IV Last administered on 09/13/18at 06:00; Start 09/12/18 at 16:30 Iohexol (Omnipaque 350 Mg/ml) 80 ml 1X ONCE IV Last administered on 09/12/18at 16:30; Start 09/12/18 at 16:30; Stop 09/12/18 at 16:32; Status DC Info (CONTRAST GIVEN -- Rx MONITORING) 1 each PRN DAILY PRN MC SEE COMMENTS; Start 09/12/18 at 16:45; Stop 09/14/18 at 16:44 Furosemide (Lasix) 40 mg 1X ONCE IVP ; Start 09/13/18 at 09:00; Stop 09/13/18 at 09:01 Active Scripts Active Toprol Xl (Metoprolol Succinate) 50 Mg Tab.er.24h 150 Mg PO DAILY Warfarin Sodium 1 Mg Tablet 1 Mg PO DAILY 30 Days Klor-Con M20 (Potassium Chloride) 20 Meq Tab.er.prt 20 Meq PO DAILYWBKFT 30 Days Reported Losartan Potassium 50 Mg Tablet 50 Mg PO DAILY Levothyroxine Sodium 50 Mcg Tablet 1 Tab PO DAILY Furosemide 40 Mg Tablet 1 Tab PO PRN DAILY PRN Pravastatin Sodium 40 Mg Tablet 1 Tab PO QHS Stool Softener (Docusate Sodium) 100 Mg Tablet 100 Mg PO PRN PRN Vitals/I & O Vital Sign - Last 24 Hours 09/12/18 09/12/18 09/12/18 09/12/18 11:05 11:33 11:53 12:04 Temp 98.5 98.5 Pulse 128 132 125 122 Resp 24 B/P (MAP) 91/77 (82) 96/74 (81) 96/74 107/78 (88) Pulse Ox 96 96 98 O2 Delivery Room Air Room Air Room Air 09/12/18 09/12/18 09/12/18 09/12/18 12:34 13:04 13:04 14:09 Temp 97.6 97.6 Pulse 124 124 122 Resp 24 18 B/P (MAP) 115/76 (89) 112/79 (90) 125/78 (94) Pulse Ox 97 96 94 95 O2 Delivery Room Air Room Air Room Air Room Air 09/12/18 09/12/18 09/12/18 09/12/18 14:30 15:45 16:00 16:30 Pulse 126 120 122 B/P (MAP) 104/67 (79) 105/70 (82) 108/68 (81) O2 Delivery Room Air 09/12/18 09/12/18 09/12/18 09/12/18 17:00 18:00 19:01 19:30 Temp 97.9 97.9 Pulse 117 120 102 Resp 20 B/P (MAP) 111/56 (74) 102/72 (82) 112/66 (81) Pulse Ox 96 O2 Delivery Room Air Room Air 09/12/18 09/12/18 09/12/18 09/13/18 21:06 22:06 23:05 00:29 Temp 97.8 97.8 Pulse 106 107 111 111 Resp 17 B/P (MAP) 107/68 (81) 110/68 (82) 127/70 (89) 114/70 (85) Pulse Ox 95 O2 Delivery Room Air Room Air Room Air Room Air 09/13/18 09/13/18 09/13/18 09/13/18 01:00 02:00 03:00 04:00 Temp 97.7 97.7 Pulse 114 107 114 114 Resp 17 B/P (MAP) 109/59 (76) 122/68 (86) 108/66 (80) 107/71 (83) Pulse Ox 96 O2 Delivery Room Air Room Air Room Air Room Air 09/13/18 07:00 Temp 98.2 98.2 Pulse 110 Resp 17 B/P (MAP) 111/67 (82) Pulse Ox 97 O2 Delivery Room Air Intake and Output 09/12/18 09/12/18 09/13/18 15:00 23:00 07:00 Intake Total 500 ml 160 ml 771.29 ml Output Total 500 ml 400 ml Balance 500 ml -340 ml 371.29 ml JOSH CANAS MD Sep 13, 2018 08:34
[2018-09-13] MEDS ORDERED: ACETAMINOPHEN 500 MG TABLET PO PRN (08:45)
[2018-09-13] MEDS ORDERED: FUROSEMIDE 40 MG/4 ML VIAL. IVP ONE (09:00)
[2018-09-13] MEDS ORDERED: DOCUSATE SODIUM 100 MG CAPSULE. PO PRN (09:00)
[2018-09-13 09:07] LABS: FREE T4 1.38 ng/dL (0.76-1.46); THYROID STIM HORMONE (TSH) 6.558 uIU/mL (0.358-3.74)
--- NOTE | 2018-09-13 09:13 | HP ---
ADMIT DATE: 09/12/2018 CHIEF COMPLAINT: Shortness of breath. HISTORY OF PRESENT ILLNESS: The patient is a 67-year-old female, who was recently diagnosed with metastatic adenocarcinoma of the lung. She also has chronic atrial fibrillation. She presented to the Emergency Room with the above complaint. She reported some increasing shortness of breath for the last several days. This was accompanied by a cough, productive of thick white sputum. The patient had been started on radiation therapy last week for treatment of the large mass in her left hilum. She had gone to her treatments, all last week, but her shortness of breath was worsening, so she came to the Emergency Room. Evaluation there showed her to be tachycardic but not hypoxic at rest. Treatment was started and she was admitted for further care. PAST MEDICAL HISTORY: Metastatic adenocarcinoma of the lung diagnosed in 08/30, chronic atrial fibrillation, hyperlipidemia, coronary artery disease, hypothyroidism, hypertension, glucose intolerance, COPD. PAST SURGICAL HISTORY: Mitral valve repair, AICD placement. ALLERGIES: The patient has no known drug allergies. HOME MEDICATIONS: Coumadin 1 mg daily, this dose was recently decreased from 2 mg daily; furosemide 40 mg daily; levothyroxine 50 mcg daily; losartan 50 mg daily; Toprol-XL 50 mg 3 tablets once daily; potassium chloride 20 mEq daily; pravastatin 40 mg daily. FAMILY HISTORY: Noncontributory. SOCIAL HISTORY: The patient is and lives at home with her . She has a long smoking history, but quit smoking cigarettes 9 years ago. She does not drink alcohol to excess. REVIEW OF SYSTEMS: The patient denies fever or chills. She denies chest pain or palpitations. She has been taking her Toprol daily, but noticed that her heart rate remained in the 110s when she checked it at home. She denies abdominal pain, nausea or vomiting. She denies lower extremity edema. She has some pain on the right side of her neck, which just started yesterday. PHYSICAL EXAMINATION: GENERAL: The patient is alert and oriented x 3, resting comfortably in bed, in no acute distress. HEENT: PERRL, EOMI, sclerae clear. Oropharynx: Mucous membranes moist. NECK: Supple. There was a small firm nodule located under the right jaw, which is not tender to palpation. There is some mild diffuse tenderness to palpation on the right cervical paraspinal muscles and the right trapezius. CHEST: Moderate inspiratory and faint expiratory wheezes are present. Breath sounds are mildly decreased throughout. CARDIOVASCULAR: Tachycardic, fairly regular rhythm. ABDOMEN: Soft, nontender, normoactive bowel sounds are present. EXTREMITIES: Bilateral lower extremities are without edema. ASSESSMENT AND PLAN: 1. Metastatic adenocarcinoma of the lung. The mass in the left hilum appears to be compressing the airway and the left pulmonary artery. We will continue radiation treatment per Dr. Miramontes. She has also been started on high dose Solu-Medrol by Dr. Choi. The patient continues without hypoxia on room air, at least at rest. 2. Chronic atrial fibrillation with tachycardia. The patient's heart rate has been in the 110s-120s since admission despite being on a Cardizem drip overnight. She does not appear too symptomatic with this tachycardia. We will try resuming her home dose of Toprol and adjusting the Cardizem as tolerated. Cardiology has already seen the patient. She was anticoagulated with Coumadin, this is on hold as a biopsy of the mass in her right neck was planned as an outpatient. 3. Acute exacerbation of diastolic congestive heart failure. There was some fluid overload seen on the chest x-ray at admission. The patient had a preserved ejection fraction on her last echocardiogram. She did receive some extra Lasix in the Emergency Room. We will resume her usual oral dose daily and follow her response to this. 4. Hypertension. The patient's blood pressure is mildly low at times. We will hold her losartan for now. 5. Right neck pain. The patient feels that this is due to muscle strain. She requests Tylenol and a muscle relaxer p.r.n. and these have been ordered. 6. Hypothyroidism. We will check the patient's lab and adjust her dose of levothyroxine as indicated. JOSH CANAS MD DR: ALFONSO/hector JOB#: [id number] / [id number] DILCIA
[2018-09-13] MEDS: METOPROLOL SUCC 24HR ER 50 MG TAB.ER.24H. PO SCH (09:18)
[2018-09-13] MEDS: POTASSIUM CHLORIDE 20 MEQ TABLET.ER. PO SCH (09:19)
[2018-09-13] MEDS ORDERED: DIGOXIN IV 500 MCG/2 ML AMPUL. IV ONE (09:30)
--- NOTE | 2018-09-13 09:32 | PDOC ---
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 She was undergoing palliative radiation urgently beginning on 09/05/2018. She has had 5 of 10 planned treatments thus far. she also has a history of significant CVD with history of AF/AFlutter with RVR with AICD in place. Admitted for increasing SOB which may be a combination of airway compromise and CHF. Stable overnight. CT angio: compared to 08/30 CT: central left hilar mass compression of PA. No obvious PE. Increased surrounding lung collapse and outer ring of effusion. 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 Will resume chest radiation today. AICD tech will be here for treatment to assist in management of unit while on treatment. Right cervical LN bx scheduled before admit for 09/15/2018 (to confirm that she has metastatic disease). We will plan to still do this while here. Discussed with patient. PIA WELLS MD Sep 13, 2018 09:32
--- NOTE | 2018-09-13 09:32 | PDOC ---
[employer] PROJECT MANAGER 09/13/18 0932: CARDIO Progress Notes Date and Time Date of Service 09/13/2018 Time of Evaluation 0920 Subjective Subjective: No Chest Pain, No shortness of breath, No Palpitations Vitals Vitals Vital Signs Date Time Temp Pulse Resp B/P (MAP) Pulse Ox O2 Delivery O2 Flow Rate FiO2 09/13/18 09:18 113 116/69 09/13/18 07:00 98.2 17 97 Room Air 98.2 Weight Weight [ ] Input and Output Intake and Output Intake and Output 09/13/18 07:00 Intake Total 1431.29 ml Output Total 900 ml Balance 531.29 ml Intake Oral 860 ml IV Total 571.29 ml Output Urine Total 900 ml Laboratory Labs Laboratory Tests Test 09/12/18 11:37 09/13/18 02:40 White Blood Count 6.5 x10^3/uL (4.0-11.0) 7.1 x10^3/uL (4.0-11.0) Red Blood Count 3.36 x10^6/uL (3.50-5.40) 3.31 x10^6/uL (3.50-5.40) Hemoglobin 10.8 g/dL (12.0-15.5) 10.6 g/dL (12.0-15.5) Hematocrit 32.8 % (36.0-47.0) 32.3 % (36.0-47.0) Mean Corpuscular Volume 97 fL (79-100) 98 fL (79-100) Mean Corpuscular Hemoglobin 32 pg (25-35) 32 pg (25-35) Mean Corpuscular Hemoglobin Concent 33 g/dL (31-37) 33 g/dL (31-37) Red Cell Distribution Width 15.5 % (11.5-14.5) 15.2 % (11.5-14.5) Platelet Count 399 x10^3/uL (140-400) 376 x10^3/uL (140-400) Neutrophils (%) (Auto) 54 % (31-73) Lymphocytes (%) (Auto) 30 % (24-48) Monocytes (%) (Auto) 13 % (0-9) Eosinophils (%) (Auto) 2 % (0-3) Basophils (%) (Auto) 1 % (0-3) Neutrophils # (Auto) 3.5 x10^3uL (1.8-7.7) Lymphocytes # (Auto) 2.0 x10^3/uL (1.0-4.8) Monocytes # (Auto) 0.9 x10^3/uL (0.0-1.1) Eosinophils # (Auto) 0.1 x10^3/uL (0.0-0.7) Basophils # (Auto) 0.1 x10^3/uL (0.0-0.2) Prothrombin Time 25.9 SEC (11.7-14.0) Prothromb Time International Ratio 2.4 (0.8-1.1) Sodium Level 140 mmol/L (136-145) 140 mmol/L (136-145) Potassium Level 3.8 mmol/L (3.5-5.1) 3.7 mmol/L (3.5-5.1) Chloride Level 105 mmol/L (98-107) 103 mmol/L (98-107) Carbon Dioxide Level 24 mmol/L (21-32) 24 mmol/L (21-32) Anion Gap 11 (6-14) 13 (6-14) Blood Urea Nitrogen 16 mg/dL (7-20) 13 mg/dL (7-20) Creatinine 1.2 mg/dL (0.6-1.0) 1.3 mg/dL (0.6-1.0) Estimated GFR (Cockcroft-Gault) 54.4 49.6 BUN/Creatinine Ratio 13 (6-20) Glucose Level 134 mg/dL (70-99) 156 mg/dL (70-99) Lactic Acid Level 1.4 mmol/L (0.4-2.0) Calcium Level 9.0 mg/dL (8.5-10.1) 9.2 mg/dL (8.5-10.1) Total Bilirubin 0.9 mg/dL (0.2-1.0) Aspartate Amino Transf (AST/SGOT) 21 U/L (15-37) Alanine Aminotransferase (ALT/SGPT) 22 U/L (14-59) Alkaline Phosphatase 94 U/L (46-116) Troponin I Quantitative < 0.017 ng/mL (0.000-0.055) AO-Yqo-O-Type Natriuretic Peptide 3520 pg/mL (0-124) Total Protein 6.9 g/dL (6.4-8.2) Albumin 2.8 g/dL (3.4-5.0) Albumin/Globulin Ratio 0.7 (1.0-1.7) Thyroid Stimulating Hormone (TSH) 6.558 uIU/mL (0.358-3.74) Free Thyroxine 1.38 ng/dL (0.76-1.46) Physical Exam HEENT: Neck Supple W Full Motion Chest: Symmetric LUNGS: Clear to Auscultation Heart: irregularly irregular (AFIB) Abdomen: Soft N/T Extremities: No Calf Tenderness Neurology: alert, oriented, follow commands Assessment Assessment 1. Stage IV adenocarcinoma; radiation therapy recently initiated 2. Acute respiratory failure: better 3. Acute on chronic systolic/diastolic HF: compensated 4. Persistent AFIB/flutter with RVR 5. AICD in situ: (Biotronik); device with red alert today. Device interrogation revealed backup mode 6. CAD: recent MPI as noted above. stable. 7. ICM: noted last EF at 30%. 8. Hx of mitral and tricuspid valve repair 9. Hypothyroidism:on replacement per PCP 10. HTN: controlled 11. Subclinical hypothyroidism Recommendation DC cardizem drip dig IV x1 resume home toprol INR 2.4, coumadin on hold for pending biopsy on Lasix PRN Follow pulmonary/oncology recs Await CA workup then further cardiac recommendation to follow. PRINCE REYNOSO MD 09/13/18 1509: CARDIO Progress Notes Assessment Assessment Patient seen and examined. Agree with HR ADVISOR's assessment and plan. Persistent atrial fibrillation rate better controlled. Agree with stopping Cardizem and resuming Toprol. Continue diuresis for mild ac on chr diastolic HF CAD stable Anticoagulation on hold for lymph node biopsy. [employer] PRO[employer] MANAGER Sep 13, 2018 09:32 PRINCE REYNOSO MD Sep 13, 2018 15:09
[2018-09-13 10:28] LABS: PROTHROMBIN TIME PATIENT 26.6 SEC (11.7-14.0)
[2018-09-13] MEDS: LEVOTHYROXINE 50 MCG TABLET PO SCH (10:38)
--- NOTE | 2018-09-13 12:33 | PDOC ---
PULMONARY PROGRESS NOTES Subjective LESS SOA A-Fib with controlled rate Vitals Vital Signs Date Time Temp Pulse Resp B/P (MAP) Pulse Ox O2 Delivery O2 Flow Rate FiO2 09/13/18 09:30 127 116/69 09/13/18 08:00 Room Air 09/13/18 07:00 98.2 17 97 98.2 General: Alert Lungs: Other (ins wheeze) Cardiovascular: S1 Abdomen: Soft, Non-tender Extremities: No Edema Labs Laboratory Tests Test 09/12/18 11:37 09/13/18 02:40 09/13/18 10:00 White Blood Count 6.5 x10^3/uL (4.0-11.0) 7.1 x10^3/uL (4.0-11.0) Red Blood Count 3.36 x10^6/uL (3.50-5.40) 3.31 x10^6/uL (3.50-5.40) Hemoglobin 10.8 g/dL (12.0-15.5) 10.6 g/dL (12.0-15.5) Hematocrit 32.8 % (36.0-47.0) 32.3 % (36.0-47.0) Mean Corpuscular Volume 97 fL (79-100) 98 fL (79-100) Mean Corpuscular Hemoglobin 32 pg (25-35) 32 pg (25-35) Mean Corpuscular Hemoglobin Concent 33 g/dL (31-37) 33 g/dL (31-37) Red Cell Distribution Width 15.5 % (11.5-14.5) 15.2 % (11.5-14.5) Platelet Count 399 x10^3/uL (140-400) 376 x10^3/uL (140-400) Neutrophils (%) (Auto) 54 % (31-73) Lymphocytes (%) (Auto) 30 % (24-48) Monocytes (%) (Auto) 13 % (0-9) Eosinophils (%) (Auto) 2 % (0-3) Basophils (%) (Auto) 1 % (0-3) Neutrophils # (Auto) 3.5 x10^3uL (1.8-7.7) Lymphocytes # (Auto) 2.0 x10^3/uL (1.0-4.8) Monocytes # (Auto) 0.9 x10^3/uL (0.0-1.1) Eosinophils # (Auto) 0.1 x10^3/uL (0.0-0.7) Basophils # (Auto) 0.1 x10^3/uL (0.0-0.2) Prothrombin Time 25.9 SEC (11.7-14.0) 26.6 SEC (11.7-14.0) Prothromb Time International Ratio 2.4 (0.8-1.1) 2.5 (0.8-1.1) Sodium Level 140 mmol/L (136-145) 140 mmol/L (136-145) Potassium Level 3.8 mmol/L (3.5-5.1) 3.7 mmol/L (3.5-5.1) Chloride Level 105 mmol/L (98-107) 103 mmol/L (98-107) Carbon Dioxide Level 24 mmol/L (21-32) 24 mmol/L (21-32) Anion Gap 11 (6-14) 13 (6-14) Blood Urea Nitrogen 16 mg/dL (7-20) 13 mg/dL (7-20) Creatinine 1.2 mg/dL (0.6-1.0) 1.3 mg/dL (0.6-1.0) Estimated GFR (Cockcroft-Gault) 54.4 49.6 BUN/Creatinine Ratio 13 (6-20) Glucose Level 134 mg/dL (70-99) 156 mg/dL (70-99) Lactic Acid Level 1.4 mmol/L (0.4-2.0) Calcium Level 9.0 mg/dL (8.5-10.1) 9.2 mg/dL (8.5-10.1) Total Bilirubin 0.9 mg/dL (0.2-1.0) Aspartate Amino Transf (AST/SGOT) 21 U/L (15-37) Alanine Aminotransferase (ALT/SGPT) 22 U/L (14-59) Alkaline Phosphatase 94 U/L (46-116) Troponin I Quantitative < 0.017 ng/mL (0.000-0.055) DO-Ocg-B-Type Natriuretic Peptide 3520 pg/mL (0-124) Total Protein 6.9 g/dL (6.4-8.2) Albumin 2.8 g/dL (3.4-5.0) Albumin/Globulin Ratio 0.7 (1.0-1.7) Thyroid Stimulating Hormone (TSH) 6.558 uIU/mL (0.358-3.74) Free Thyroxine 1.38 ng/dL (0.76-1.46) Laboratory Tests Test 09/13/18 02:40 09/13/18 10:00 White Blood Count 7.1 x10^3/uL (4.0-11.0) Red Blood Count 3.31 x10^6/uL (3.50-5.40) Hemoglobin 10.6 g/dL (12.0-15.5) Hematocrit 32.3 % (36.0-47.0) Mean Corpuscular Volume 98 fL (79-100) Mean Corpuscular Hemoglobin 32 pg (25-35) Mean Corpuscular Hemoglobin Concent 33 g/dL (31-37) Red Cell Distribution Width 15.2 % (11.5-14.5) Platelet Count 376 x10^3/uL (140-400) Sodium Level 140 mmol/L (136-145) Potassium Level 3.7 mmol/L (3.5-5.1) Chloride Level 103 mmol/L (98-107) Carbon Dioxide Level 24 mmol/L (21-32) Anion Gap 13 (6-14) Blood Urea Nitrogen 13 mg/dL (7-20) Creatinine 1.3 mg/dL (0.6-1.0) Estimated GFR (Cockcroft-Gault) 49.6 Glucose Level 156 mg/dL (70-99) Calcium Level 9.2 mg/dL (8.5-10.1) Thyroid Stimulating Hormone (TSH) 6.558 uIU/mL (0.358-3.74) Free Thyroxine 1.38 ng/dL (0.76-1.46) Prothrombin Time 26.6 SEC (11.7-14.0) Prothromb Time International Ratio 2.5 (0.8-1.1) Medications Active Scripts Medications Dose Route/Sig Max Daily Dose Days Date Category Metoprolol Tartrate 50 Mg Tablet 50 Mg PO BID 09/05/18 Reported Coumadin (Warfarin Sodium) 4 Mg Tablet 4 Mg PO DAILY 09/05/18 Reported Klor-Con M20 (Potassium Chloride) 20 Meq Tab.er.prt 20 Meq PO DAILYWBKFT 30 08/19/18 Rx Losartan Potassium 50 Mg Tablet 50 Mg PO DAILY 08/11/18 Reported Levothyroxine Sodium 50 Mcg Tablet 1 Tab PO DAILY 06/30/18 Reported Furosemide 40 Mg Tablet 1 Tab PO PRN DAILY PRN 06/30/18 Reported Pravastatin Sodium 40 Mg Tablet 1 Tab PO QHS 06/30/18 Reported Stool Softener (Docusate Sodium) 100 Mg Tablet 100 Mg PO PRN PRN 07/21/17 Reported Impression . 1. Progressive dyspnea, multifactorial, underlying chronic obstructive pulmonary disease, progressive lung cancer with obstructive collapse of JUSTICE/ collapse of pulmonary artery and small left effusion, 2. 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 Insp. wheeze due to left main stem compression 3. Dysphagia. 4. Chronic atrial fibrillation, on Coumadin. 5. Cardiomyopathy, ejection fraction 30%, status post automatic implantable cardioverter defibrillator placement. Plan . 1. CT chest reviewed. 2. Continue XRT. consult oncology 3. Left effusion is small. would not benefit from tap at present 4. s/p IV fluids for hydration. 5. No need for antibiotics at this time. 6. steroids. 7. Prognosis is guarded d/w RN/ and patient about advance directives. she does not want intubation but prefer to have CPR DILLON ETIENNE MD Sep 13, 2018 12:33
[2018-09-13] MEDS ORDERED: methylPREDNISolone SOD SUCC PF 125 MG/2 ML VIAL. IV SCH (14:00)
[2018-09-13] MEDS: ATORVASTATIN CALCIUM 10 MG TABLET. PO SCH (21:30)
[2018-09-13] MEDS: METHOCARBAMOL 750 MG TABLET PO PRN (21:31)
--- NOTE | 2018-09-14 02:43 | CONS ---
DATE OF CONSULTATION: 09/13/2018 MEDICAL ONCOLOGY CONSULTATION REQUESTING PHYSICIAN: Dr. Renaldo Padilla. REASON FOR CONSULTATION: Adenocarcinoma of the hilum on the left side with metastatic disease to the mediastinum bilaterally, the right axilla, right cervical lymph node and left adrenal lymph node, stage IV. HISTORY OF PRESENT ILLNESS: The patient is a 67-year-old female who reports having had a cough that started in March 2018. She then noted progressive hoarseness and wheezing and rapid heart rate. She underwent a CT scan of the chest on 08/12/2018, which revealed a left hilar mass with narrowing of the left upper lobe and left lower lobe. This was concerning for malignancy. There was evidence of consolidative infiltrate within the left lower lobe, which was contiguous from the left hilar mass. She underwent a CT-guided biopsy of the left lung mass on 08/18/2018, which revealed adenocarcinoma, moderately well differentiated. She had a bronchoscopy on 08/15/2018, which revealed mucosal abnormalities leading up to the left upper and left lower lobes. No endobronchial lesions. Cytology and lavage were nondiagnostic. She underwent a PET scan on 08/25/2018, which revealed large hypermetabolic neoplasm of the left hilum with associated mediastinal lymphadenopathy. SUV of the left hilum was 18.6 and the process measured 5.8 cm. There was evidence of mediastinal lymphadenopathy with an SUV of 9.7. Right axillary lymph node is 1 cm with an SUV of 4.6. Hypermetabolic focus in the right upper neck has an SUV of 11.8. Left adrenal gland is abnormal with an SUV of 6.0. She was readmitted to [facility] on 09/12/2018. She has been undergoing palliative radiation to the left hilar mass since 09/05/2018. CT angiogram of the chest on 09/12/2018 was negative for pulmonary embolism. Moderate left pleural effusion was noted. There is volume loss in the left upper lobe of the lung due to central hilar mass with postobstructive atelectasis and consolidation changes. PAST MEDICAL HISTORY: Hypertension, hyperlipidemia, coronary artery disease with congestive heart failure, arrhythmia, cardiomyopathy, status post implantable cardiac defibrillator placement, atrial fibrillation with a history of cardioversion. FAMILY HISTORY: Sister had breast cancer. SOCIAL HISTORY: She has smoked 1/2 a pack of cigarettes per day for 30 years, she quit in 2009. REVIEW OF SYSTEMS: A 12-point review of system was performed. Pertinent positives are mentioned in the history of present illness. Rest of the system review is negative. PHYSICAL EXAMINATION: GENERAL APPEARANCE: The patient is a 67-year-old female who is in no acute cardiorespiratory distress. VITAL SIGNS: Blood pressure 116/69, temperature 98.2. HEENT: Head: Atraumatic, normocephalic. Eyes: No icterus. NECK: Supple. CHEST: Bilaterally symmetrical, decreased air entry on the left side. There is evidence of wheezing bilaterally. HEART: S1, S2 normal. ABDOMEN: Soft, nontender. CENTRAL NERVOUS SYSTEM: No focal deficits. LYMPHATICS: Right submandibular lymph node is palpable, hard in consistency measuring 1.5 cm. No other lymph nodes are palpable. MUSCULOSKELETAL: No joint effusions. PSYCHOLOGIC: Mood and affect are appropriate. LABORATORY DATA: WBC 7.1, hemoglobin 10.6, platelet count 376. Creatinine 1.3. TSH 6.558 and free T4 of 1.38. BNP 3520. Echocardiogram performed on 08/12/2018 revealed an ejection fraction of 30% and there was global hypokinesis of the left ventricle. IMPRESSION AND PLAN: 1. 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 There is evidence of bilateral mediastinal lymphadenopathy, right axillary, right cervical and left adrenal gland metastatic disease consistent with stage IV malignancy. Discussed in detail at multidisciplinary tumor conference on 09/13/2018. Clinically, this is consistent with stage IV malignancy, and Dr. Miramontes has planned for a right cervical needle biopsy to confirm stage IV malignancy. She has been getting palliative radiation therapy because of obstructive symptoms. She will complete radiation therapy on 09/16/2018. I will consult pathology for biomarker testing and then plan to start her on biomarker-directed therapy if any of the markers are positive and if they are negative, then plan to start her on carboplatin, Alimta and Keytruda. I explained in detail to the patient and her and they understand and agree with the plan. I also reviewed the diagnosis, prognosis of stage IV malignancies. I discussed the case with Dr. Renaldo Padilla. 2. Left-sided pleural effusion is too small to do thoracentesis. I discussed with Dr. Padilla. We will continue to monitor. 3. Cardiomyopathy with an ejection fraction of 30% per echocardiogram on 08/12/2018. She has implantable cardioverter defibrillator placed. I have advised her to follow up with Cardiology. SADIE ZHAO MD DR: RUDDY/hector JOB#: [id number] / [id number]
[2018-09-14 03:29] VITALS: BP 127/65
[2018-09-14 03:52] LABS: PROTHROMBIN TIME PATIENT 27.4 SEC (11.7-14.0)
[2018-09-14 04:01] LABS: CALCIUM 9.2 mg/dL (8.5-10.1); CREATININE 1.7 mg/dL (0.6-1.0); GFR 36.4; POTASSIUM 3.9 mmol/L (3.5-5.1)
[2018-09-14] MEDS: methylPREDNISolone SOD SUCC PF 125 MG/2 ML VIAL. IV SCH ×3 (06:07→22:21)
[2018-09-14] MEDS: LEVOTHYROXINE 50 MCG TABLET PO SCH (06:07)
[2018-09-14 07:00] VITALS: BP 136/69
--- NOTE | 2018-09-14 08:43 | PDOC ---
PROGRESS NOTES Subjective Subjective Patient feels breathing is about the same. No chest pain or palpitations. R neck pain improved with Methocarbamol. Objective Objective Vital Signs Date Time Temp Pulse Resp B/P (MAP) Pulse Ox O2 Delivery O2 Flow Rate FiO2 09/14/18 07:00 98.3 77 16 136/69 (91) 97 Room Air 98.3 Intake and Output 09/14/18 07:00 Intake Total 1630 ml Output Total 650 ml Balance 980 ml Intake Oral 1630 ml Output Urine Total 650 ml # Voids 1 Physical Exam Abdomen: Normal bowel sounds, Soft, No tenderness Heart: Other (irregularly irregular) Extremities: No edema General: Alert, Oriented X3, No acute distress Lungs: Other (mild inspiratory and expiratory wheezes throughout, decreased breath sounds diffusely) Assessment Assessment Problems Medical Problems: (1) Atrial flutter Status: Acute (2) Pleural effusion Status: Acute Plan Plan of Care 1. 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 Continue XRT through Wednesday. On high-dose Solumedrol. To have bx of right neck mass/lymph node tomorrow. Dr Durham plans to start chemotx after biopsy results available. Patient aware of her poor prognosis. Discussed. 2. chronic afib with RVR - heart rate much improved overall since yesterday afternoon. Off the Cardizem gtt. Continue Toprol XL. Cardiology following. Coumadin still on hold for biopsy tomorrow. INR still elevated today at 2.6 Recheck lab in AM and give FFP if INR still elevated. 3. dysphagia - some concern for aspiration with thin liquids on bedside swallow yesterday. To have video swallow today per ST recommendation. 4. hypothyroidism - started on replacement about two months ago. TSH still mildly elevated although T4 now well within the normal range. Will increase Levothyroxine to 75mcg daily and follow as outpatient. 5. diastolic CHF - stable, has not received further Lasix since admission. 6. HTN - controlled with present medication. Comment Review of Relevant I have reviewed the following items cinthia (where applicable) has been applied. Labs Laboratory Tests Test 09/12/18 11:37 09/13/18 02:40 09/13/18 10:00 09/14/18 03:15 White Blood Count 6.5 x10^3/uL (4.0-11.0) 7.1 x10^3/uL (4.0-11.0) Red Blood Count 3.36 x10^6/uL (3.50-5.40) 3.31 x10^6/uL (3.50-5.40) Hemoglobin 10.8 g/dL (12.0-15.5) 10.6 g/dL (12.0-15.5) Hematocrit 32.8 % (36.0-47.0) 32.3 % (36.0-47.0) Mean Corpuscular Volume 97 fL (79-100) 98 fL (79-100) Mean Corpuscular Hemoglobin 32 pg (25-35) 32 pg (25-35) Mean Corpuscular Hemoglobin Concent 33 g/dL (31-37) 33 g/dL (31-37) Red Cell Distribution Width 15.5 % (11.5-14.5) 15.2 % (11.5-14.5) Platelet Count 399 x10^3/uL (140-400) 376 x10^3/uL (140-400) Neutrophils (%) (Auto) 54 % (31-73) Lymphocytes (%) (Auto) 30 % (24-48) Monocytes (%) (Auto) 13 % (0-9) Eosinophils (%) (Auto) 2 % (0-3) Basophils (%) (Auto) 1 % (0-3) Neutrophils # (Auto) 3.5 x10^3uL (1.8-7.7) Lymphocytes # (Auto) 2.0 x10^3/uL (1.0-4.8) Monocytes # (Auto) 0.9 x10^3/uL (0.0-1.1) Eosinophils # (Auto) 0.1 x10^3/uL (0.0-0.7) Basophils # (Auto) 0.1 x10^3/uL (0.0-0.2) Prothrombin Time 25.9 SEC (11.7-14.0) 26.6 SEC (11.7-14.0) 27.4 SEC (11.7-14.0) Prothromb Time International Ratio 2.4 (0.8-1.1) 2.5 (0.8-1.1) 2.6 (0.8-1.1) Sodium Level 140 mmol/L (136-145) 140 mmol/L (136-145) 141 mmol/L (136-145) Potassium Level 3.8 mmol/L (3.5-5.1) 3.7 mmol/L (3.5-5.1) 3.9 mmol/L (3.5-5.1) Chloride Level 105 mmol/L (98-107) 103 mmol/L (98-107) 103 mmol/L (98-107) Carbon Dioxide Level 24 mmol/L (21-32) 24 mmol/L (21-32) 24 mmol/L (21-32) Anion Gap 11 (6-14) 13 (6-14) 14 (6-14) Blood Urea Nitrogen 16 mg/dL (7-20) 13 mg/dL (7-20) 22 mg/dL (7-20) Creatinine 1.2 mg/dL (0.6-1.0) 1.3 mg/dL (0.6-1.0) 1.7 mg/dL (0.6-1.0) Estimated GFR (Cockcroft-Gault) 54.4 49.6 36.4 BUN/Creatinine Ratio 13 (6-20) Glucose Level 134 mg/dL (70-99) 156 mg/dL (70-99) 171 mg/dL (70-99) Lactic Acid Level 1.4 mmol/L (0.4-2.0) Calcium Level 9.0 mg/dL (8.5-10.1) 9.2 mg/dL (8.5-10.1) 9.2 mg/dL (8.5-10.1) Total Bilirubin 0.9 mg/dL (0.2-1.0) Aspartate Amino Transf (AST/SGOT) 21 U/L (15-37) Alanine Aminotransferase (ALT/SGPT) 22 U/L (14-59) Alkaline Phosphatase 94 U/L (46-116) Troponin I Quantitative < 0.017 ng/mL (0.000-0.055) EN-Yrm-[id number]-Type Natriuretic Peptide 3520 pg/mL (0-124) Total Protein 6.9 g/dL (6.4-8.2) Albumin 2.8 g/dL (3.4-5.0) Albumin/Globulin Ratio 0.7 (1.0-1.7) Thyroid Stimulating Hormone (TSH) 6.558 uIU/mL (0.358-3.74) Free Thyroxine 1.38 ng/dL (0.76-1.46) Laboratory Tests Test 09/13/18 10:00 09/14/18 03:15 Prothrombin Time 26.6 SEC (11.7-14.0) 27.4 SEC (11.7-14.0) Prothromb Time International Ratio 2.5 (0.8-1.1) 2.6 (0.8-1.1) Sodium Level 141 mmol/L (136-145) Potassium Level 3.9 mmol/L (3.5-5.1) Chloride Level 103 mmol/L (98-107) Carbon Dioxide Level 24 mmol/L (21-32) Anion Gap 14 (6-14) Blood Urea Nitrogen 22 mg/dL (7-20) Creatinine 1.7 mg/dL (0.6-1.0) Estimated GFR (Cockcroft-Gault) 36.4 Glucose Level 171 mg/dL (70-99) Calcium Level 9.2 mg/dL (8.5-10.1) Microbiology 09/12/18 Blood Culture - Preliminary, Resulted NO GROWTH AFTER 1 DAY Medications Current Medications Digoxin (Lanoxin) 250 mcg 1X ONCE IV Last administered on 09/12/18 11:53; Start 09/12/18 at 11:45; Stop 09/12/18 at 11:46; Status DC Sodium Chloride 500 ml @ 500 mls/hr 1X ONCE IV Last administered on 09/12/18 11:52; Start 09/12/18 at 11:45; Stop 09/12/18 at 12:44; Status DC Cyclobenzaprine HCl (Flexeril) 10 mg 1X ONCE PO Last administered on 09/12/18 12:55; Start 09/12/18 at 12:30; Stop 09/12/18 at 12:31; Status DC Furosemide (Lasix) 20 mg 1X ONCE IVP Last administered on 09/12/18at 12:55; Start 09/12/18 at 12:45; Stop 09/12/18 at 12:46; Status DC Morphine Sulfate (Morphine Sulfate) 4 mg PRN Q2HR PRN IV PAIN Last administered on 09/12/18at 13:04; Start 09/12/18 at 13:00; Stop 09/13/18 at 12:59; Status DC Diltiazem HCl 125 mg/Dextrose 125 ml @ 5 mls/hr CONT PRN IV SEE I/O RECORD Last administered on 09/12/18at 15:34; Start 09/12/18 at 15:00; Stop 09/13/18 at 09: 24; Status DC Sodium Chloride 1,000 ml @ 75 mls/hr [id number] IV ; Start 09/12/18 at 16:30; Stop 09/13/18 at 08:21; Status DC Methylprednisolone Sodium Succinate (SOLU-Medrol 125MG VIAL) 125 mg Q8HRS IV Last administered on 09/13/18at 06:00; Start 09/12/18 at 16:30; Stop 09/13/18 at 08: 21; Status DC Iohexol (Omnipaque 350 Mg/ml) 80 ml 1X ONCE IV Last administered on 09/12/18at 16:30; Start 09/12/18 at 16:30; Stop 09/12/18 at 16:32; Status DC Info (CONTRAST GIVEN -- Rx MONITORING) 1 each PRN DAILY PRN MC SEE COMMENTS; Start 09/12/18 at 16:45; Stop 09/14/18 at 16:44 Furosemide (Lasix) 40 mg 1X ONCE IVP Last administered on 09/13/18at 09:19; Start 09/13/18 at 09:00; Stop 09/13/18 at 09:01; Status DC Methylprednisolone Sodium Succinate (SOLU-Medrol 125MG VIAL) 60 mg Q8HRS IV ; Start 09/13/18 at 14:00; Stop 09/13/18 at 14:00; Status DC Furosemide (Lasix) 40 mg PRN DAILY PRN PO diuretic; Start 09/13/18 at 08:30 Potassium Chloride (Klor-Con) 20 meq DAILYWBKFT PO Last administered on at 09:19; Start 09/13/18 at 09:00 Docusate Sodium (Colace) 100 mg PRN BID PRN PO CONSTIPATION Last administered on 09/13/18at 09:19; Start 09/13/18 at 09:00 Levothyroxine Sodium (Synthroid) 50 mcg DAILY06 PO Last administered on 06:07; Start 09/13/18 at 10:30 Metoprolol Succinate (Toprol Xl) 150 mg DAILY PO Last administered on 09/13/18 09:18; Start 09/13/18 at 09:00 Atorvastatin Calcium (Lipitor) 10 mg QHS PO Last administered on 09/13/18 21:30 ; Start 09/13/18 at 21:00 Methylprednisolone Sodium Succinate (SOLU-Medrol 125MG VIAL) 125 mg Q8HRS IV Last administered on 09/14/18 06:07; Start 09/13/18 at 09:00 Acetaminophen (Tylenol) 1,000 mg PRN Q6HRS PRN PO MILD PAIN; Start 09/13/18 at 08:45 Methocarbamol (Robaxin) 1,500 mg PRN Q8HRS PRN PO MUSCLE SPASMS Last administered on 09/13/18 21:31; Start 09/13/18 at 08:45 Digoxin (Lanoxin) 500 mcg 1X ONCE IV Last administered on 09/13/18 09:30; Start 09/13/18 at 09:30; Stop 09/13/18 at 09:31; Status DC Active Scripts Active Toprol Xl (Metoprolol Succinate) 50 Mg Tab.er.24h 150 Mg PO DAILY Warfarin Sodium 1 Mg Tablet 1 Mg PO DAILY 30 Days Klor-Con M20 (Potassium Chloride) 20 Meq Tab.er.prt 20 Meq PO DAILYWBKFT 30 Days Reported Losartan Potassium 50 Mg Tablet 50 Mg PO DAILY Levothyroxine Sodium 50 Mcg Tablet 1 Tab PO DAILY Furosemide 40 Mg Tablet 1 Tab PO PRN DAILY PRN Pravastatin Sodium 40 Mg Tablet 1 Tab PO QHS Stool Softener (Docusate Sodium) 100 Mg Tablet 100 Mg PO PRN PRN Vitals/I & O Vital Sign - Last 24 Hours 09/13/18 09/13/18 09/13/18 09/13/18 09:18 09:30 15:21 19:13 Temp 98.2 98.0 98.2 98.0 Pulse 113 127 89 79 Resp 18 16 B/P (MAP) 116/69 116/69 116/55 (75) 127/61 (83) Pulse Ox 94 96 O2 Delivery Room Air Room Air 09/13/18 09/13/18 09/14/18 09/14/18 19:50 22:43 03:29 07:00 Temp 98.0 97.9 98.3 98.0 97.9 98.3 Pulse 80 85 77 Resp 16 16 16 B/P (MAP) 124/57 (79) 127/65 (85) 136/69 (91) Pulse Ox 96 96 97 O2 Delivery Room Air Room Air Room Air Room Air Intake and Output 09/13/18 09/13/18 09/14/18 15:00 23:00 07:00 Intake Total 480 ml 650 ml 500 ml Output Total 250 ml 400 ml Balance 230 ml 250 ml 500 ml JOSH CANAS MD Sep 14, 2018 08:43
[2018-09-14] MEDS: METOPROLOL SUCC 24HR ER 50 MG TAB.ER.24H. PO SCH (09:12)
[2018-09-14] MEDS: POTASSIUM CHLORIDE 20 MEQ TABLET.ER. PO SCH (09:13)
[2018-09-14] MEDS ORDERED: BISACODYL 10 MG SUPP.RECT. PR PRN (10:30)
--- NOTE | 2018-09-14 10:45 | NUR ---
PATIENT LEFT FOR RADIATION TX AT APPROX 1040.
[2018-09-14] MEDS ORDERED: PANTOPRAZOLE 40 MG TABLET.DR. PO ONE (11:00)
[2018-09-14 11:04] VITALS: BP 170/77
--- NOTE | 2018-09-14 11:13 | PDOC ---
PULMONARY PROGRESS NOTES Subjective LESS SOA A-Fib with controlled rate Vitals Vital Signs Date Time Temp Pulse Resp B/P (MAP) Pulse Ox O2 Delivery O2 Flow Rate FiO2 09/14/18 11:04 98.2 80 16 170/77 (108) 97 Room Air 98.2 General: Alert Lungs: Other (ins wheeze) Cardiovascular: S1 Abdomen: Soft, Non-tender Extremities: No Edema Labs Laboratory Tests Test 09/12/18 11:37 09/13/18 02:40 09/13/18 10:00 09/14/18 03:15 White Blood Count 6.5 x10^3/uL (4.0-11.0) 7.1 x10^3/uL (4.0-11.0) Red Blood Count 3.36 x10^6/uL (3.50-5.40) 3.31 x10^6/uL (3.50-5.40) Hemoglobin 10.8 g/dL (12.0-15.5) 10.6 g/dL (12.0-15.5) Hematocrit 32.8 % (36.0-47.0) 32.3 % (36.0-47.0) Mean Corpuscular Volume 97 fL (79-100) 98 fL (79-100) Mean Corpuscular Hemoglobin 32 pg (25-35) 32 pg (25-35) Mean Corpuscular Hemoglobin Concent 33 g/dL (31-37) 33 g/dL (31-37) Red Cell Distribution Width 15.5 % (11.5-14.5) 15.2 % (11.5-14.5) Platelet Count 399 x10^3/uL (140-400) 376 x10^3/uL (140-400) Neutrophils (%) (Auto) 54 % (31-73) Lymphocytes (%) (Auto) 30 % (24-48) Monocytes (%) (Auto) 13 % (0-9) Eosinophils (%) (Auto) 2 % (0-3) Basophils (%) (Auto) 1 % (0-3) Neutrophils # (Auto) 3.5 x10^3uL (1.8-7.7) Lymphocytes # (Auto) 2.0 x10^3/uL (1.0-4.8) Monocytes # (Auto) 0.9 x10^3/uL (0.0-1.1) Eosinophils # (Auto) 0.1 x10^3/uL (0.0-0.7) Basophils # (Auto) 0.1 x10^3/uL (0.0-0.2) Prothrombin Time 25.9 SEC (11.7-14.0) 26.6 SEC (11.7-14.0) 27.4 SEC (11.7-14.0) Prothromb Time International Ratio 2.4 (0.8-1.1) 2.5 (0.8-1.1) 2.6 (0.8-1.1) Sodium Level 140 mmol/L (136-145) 140 mmol/L (136-145) 141 mmol/L (136-145) Potassium Level 3.8 mmol/L (3.5-5.1) 3.7 mmol/L (3.5-5.1) 3.9 mmol/L (3.5-5.1) Chloride Level 105 mmol/L (98-107) 103 mmol/L (98-107) 103 mmol/L (98-107) Carbon Dioxide Level 24 mmol/L (21-32) 24 mmol/L (21-32) 24 mmol/L (21-32) Anion Gap 11 (6-14) 13 (6-14) 14 (6-14) Blood Urea Nitrogen 16 mg/dL (7-20) 13 mg/dL (7-20) 22 mg/dL (7-20) Creatinine 1.2 mg/dL (0.6-1.0) 1.3 mg/dL (0.6-1.0) 1.7 mg/dL (0.6-1.0) Estimated GFR (Cockcroft-Gault) 54.4 49.6 36.4 BUN/Creatinine Ratio 13 (6-20) Glucose Level 134 mg/dL (70-99) 156 mg/dL (70-99) 171 mg/dL (70-99) Lactic Acid Level 1.4 mmol/L (0.4-2.0) Calcium Level 9.0 mg/dL (8.5-10.1) 9.2 mg/dL (8.5-10.1) 9.2 mg/dL (8.5-10.1) Total Bilirubin 0.9 mg/dL (0.2-1.0) Aspartate Amino Transf (AST/SGOT) 21 U/L (15-37) Alanine Aminotransferase (ALT/SGPT) 22 U/L (14-59) Alkaline Phosphatase 94 U/L (46-116) Troponin I Quantitative < 0.017 ng/mL (0.000-0.055) XV-Syu-[id number]-Type Natriuretic Peptide 3520 pg/mL (0-124) Total Protein 6.9 g/dL (6.4-8.2) Albumin 2.8 g/dL (3.4-5.0) Albumin/Globulin Ratio 0.7 (1.0-1.7) Thyroid Stimulating Hormone (TSH) 6.558 uIU/mL (0.358-3.74) Free Thyroxine 1.38 ng/dL (0.76-1.46) Laboratory Tests Test 09/14/18 03:15 Prothrombin Time 27.4 SEC (11.7-14.0) Prothromb Time International Ratio 2.6 (0.8-1.1) Sodium Level 141 mmol/L (136-145) Potassium Level 3.9 mmol/L (3.5-5.1) Chloride Level 103 mmol/L (98-107) Carbon Dioxide Level 24 mmol/L (21-32) Anion Gap 14 (6-14) Blood Urea Nitrogen 22 mg/dL (7-20) Creatinine 1.7 mg/dL (0.6-1.0) Estimated GFR (Cockcroft-Gault) 36.4 Glucose Level 171 mg/dL (70-99) Calcium Level 9.2 mg/dL (8.5-10.1) Medications Active Scripts Medications Dose Route/Sig Max Daily Dose Days Date Category Metoprolol Tartrate 50 Mg Tablet 50 Mg PO BID 09/05/18 Reported Coumadin (Warfarin Sodium) 4 Mg Tablet 4 Mg PO DAILY 09/05/18 Reported Klor-Con M20 (Potassium Chloride) 20 Meq Tab.er.prt 20 Meq PO DAILYWBKFT 30 08/19/18 Rx Losartan Potassium 50 Mg Tablet 50 Mg PO DAILY 08/11/18 Reported Levothyroxine Sodium 50 Mcg Tablet 1 Tab PO DAILY 06/30/18 Reported Furosemide 40 Mg Tablet 1 Tab PO PRN DAILY PRN 1/17/19 Reported Pravastatin Sodium 40 Mg Tablet 1 Tab PO QHS 06/30/18 Reported Stool Softener (Docusate Sodium) 100 Mg Tablet 100 Mg PO PRN PRN 07/21/17 Reported Impression . 1. Progressive dyspnea, multifactorial, underlying chronic obstructive pulmonary disease, progressive lung cancer with obstructive collapse of JUSTICE/ collapse of pulmonary artery and small left effusion, 2. 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 Insp. wheeze due to left main stem compression 3. Dysphagia. 4. Chronic atrial fibrillation, on Coumadin. 5. Cardiomyopathy, ejection fraction 30%, status post automatic implantable cardioverter defibrillator placement. Plan . 1. CT chest reviewed. 2. Continue XRT. consulted oncology 3. Left effusion is small. would not benefit from tap at present 4. s/p IV fluids for hydration. 5. No need for antibiotics at this time. 6. steroids. 7. Prognosis is guarded 8. Increase creatine, monitor closely d/w RN/ and patient about advance directives. she does not want intubation but prefer to have CPR DILLON ETIENNE MD Sep 14, 2018 11:13
[2018-09-14] MEDS: FAMOTIDINE 20 MG TABLET. PO SCH (11:29)
[2018-09-14] MEDS ORDERED: BARIUM SULFATE 40% (APPLE) 148 GM PWD. PO ONE (11:30)
[2018-09-14] MEDS: METHOCARBAMOL 750 MG TABLET PO PRN ×2 (11:34→22:19)
--- NOTE | 2018-09-14 11:36 | PDOC ---
CARDIO Progress Notes Date and Time Date of Service 09/14/18 Time of Evaluation 1030 Subjective Subjective: No Chest Pain, No shortness of breath, No Palpitations Vitals Vitals Vital Signs Date Time Temp Pulse Resp B/P (MAP) Pulse Ox O2 Delivery O2 Flow Rate FiO2 09/14/18 11:04 98.2 80 16 170/77 (108) 97 Room Air 98.2 Weight Weight [ ] Input and Output Intake and Output Intake and Output 09/14/18 07:00 Intake Total 1630 ml Output Total 650 ml Balance 980 ml Intake Oral 1630 ml Output Urine Total 650 ml # Voids 1 Laboratory Labs Laboratory Tests Test 09/14/18 03:15 Prothrombin Time 27.4 SEC (11.7-14.0) Prothromb Time International Ratio 2.6 (0.8-1.1) Sodium Level 141 mmol/L (136-145) Potassium Level 3.9 mmol/L (3.5-5.1) Chloride Level 103 mmol/L (98-107) Carbon Dioxide Level 24 mmol/L (21-32) Anion Gap 14 (6-14) Blood Urea Nitrogen 22 mg/dL (7-20) Creatinine 1.7 mg/dL (0.6-1.0) Estimated GFR (Cockcroft-Gault) 36.4 Glucose Level 171 mg/dL (70-99) Calcium Level 9.2 mg/dL (8.5-10.1) Microbiology Micro Microbiology 09/12/18 Blood Culture - Preliminary, Resulted NO GROWTH AFTER 1 DAY Physical Exam HEENT: Neck Supple W Full Motion Chest: Symmetric LUNGS: Other (inspiratory wheezes) Heart: irregularly irregular (AFIB) Abdomen: Soft N/T Extremities: No Calf Tenderness Neurology: alert, oriented, follow commands Assessment Assessment 1. Stage IV adenocarcinoma; radiation therapy recently initiated 2. Acute respiratory failure: multifactorial. improved 3. Acute on chronic systolic/diastolic HF: better compensated 4. Persistent AFIB/flutter with RVR 5. AICD in situ: (Biotronik); Radiation therapy interfering with device software cause it to go into backup mode. 6. CAD: recent MPI as noted above. stable. 7. ICM: noted last EF at 30%. 8. Hx of mitral and tricuspid valve repair 9. Hypothyroidism:on replacement per PCP 10. HTN: controlled Recommendation Continue BB for rate control Anticoagulation therapy on hold for pending biopsy Oniel PRN Follow pulmonary/oncology recs ALFRED NICE APRN Sep 14, 2018 11:36
[2018-09-14] MEDS: POLYETHYLENE GLYCOL 3350 17 GM PACKET. PO SCH (11:38)
--- NOTE | 2018-09-14 14:36 | PDOC ---
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 She was undergoing palliative radiation urgently beginning on 09/05/2018. She has had 7 of 10 planned treatments thus far. she also has a history of significant CVD with history of AF/AFlutter with RVR with AICD in place. Admitted for increasing SOB which may be a combination of airway compromise and CHF. Now having some acid reflux and constipation. SOB better overall. PE audible stridor absent now Lungs faint wheezes left more than right CT angio: compared to 08/30 CT: central left hilar mass compression of PA. No obvious PE. Increased surrounding lung collapse and outer ring of effusion. 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 Doing better oveall HR better controlled and SOB improved. AICD tech will be here for treatment to assist in management of unit while on treatment. Previous treatments put unit into standby mode. Right cervical LN bx scheduled before admit for 09/15/2018 (to confirm that she has metastatic disease). We will plan to still do this while here. Will continue treatment as planned with last treatment on 09/19/2018 PIA WELLS MD Sep 14, 2018 14:36
[2018-09-14 14:50] VITALS: BP 137/76
[2018-09-14 19:21] VITALS: BP 122/65
[2018-09-14] MEDS: ATORVASTATIN CALCIUM 10 MG TABLET. PO SCH (22:19)
[2018-09-14 22:52] VITALS: BP 141/76
[2018-09-15 03:33] VITALS: BP 118/72
[2018-09-15 05:15] LABS: PROTHROMBIN TIME PATIENT 27.4 SEC (11.7-14.0)
[2018-09-15] MEDS: methylPREDNISolone SOD SUCC PF 125 MG/2 ML VIAL. IV SCH ×3 (06:04→21:33)
[2018-09-15] MEDS: LEVOTHYROXINE 75 MCG TABLET PO SCH (06:04)
[2018-09-15 07:00] VITALS: BP 140/77
--- NOTE | 2018-09-15 08:38 | PDOC ---
PROGRESS NOTES Subjective Subjective Patient feels her breathing is better than at admission, notices less [place]. Objective Objective Vital Signs Date Time Temp Pulse Resp B/P (MAP) Pulse Ox O2 Delivery O2 Flow Rate FiO2 09/15/18 07:00 97.9 85 18 140/77 (98) 98 Room Air 97.9 Intake and Output 09/15/18 07:00 Intake Total 840 ml Balance 840 ml Intake Oral 840 ml # Voids 4 Physical Exam Abdomen: Normal bowel sounds, Soft, No tenderness Heart: Other (irregularly irregular) Extremities: No edema General: Alert, Oriented X3, No acute distress Lungs: Other (mild inspiratory and expiratory wheezes present, otherwise CTA) Assessment Assessment Problems Medical Problems: (1) Atrial flutter Status: Acute (2) Pleural effusion Status: Acute Plan Plan of Care 1. 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 Continue XRT. Will decrease Solumedrol. INR still high off Coumadin. Still needs biopsy of R neck mass. Will give Vitamin K today and recheck in AM, FFP ordered for AM to be used if needed. IR aware of plans. 2. afib with RVR - improved, now appears controlled on her usual Toprol XL, continue. 3. dysphagia - patient did not do video swallow yesterday as she did not feel well. Rescheduled for today. 4. CHF - stable, no Lasix given since admission. 5. HTN - controlled with present medications. 6. hypothyroidism - now on increased dose of Levothyroxine. 7. constipation - continue Miralax daily and Dulcolax as needed. Comment Review of Relevant I have reviewed the following items cinthia (where applicable) has been applied. Labs Laboratory Tests Test 09/13/18 10:00 09/14/18 03:15 09/15/18 04:20 Prothrombin Time 26.6 SEC (11.7-14.0) 27.4 SEC (11.7-14.0) 27.4 SEC (11.7-14.0) Prothromb Time International Ratio 2.5 (0.8-1.1) 2.6 (0.8-1.1) 2.6 (0.8-1.1) Sodium Level 141 mmol/L (136-145) Potassium Level 3.9 mmol/L (3.5-5.1) Chloride Level 103 mmol/L (98-107) Carbon Dioxide Level 24 mmol/L (21-32) Anion Gap 14 (6-14) Blood Urea Nitrogen 22 mg/dL (7-20) Creatinine 1.7 mg/dL (0.6-1.0) Estimated GFR (Cockcroft-Gault) 36.4 Glucose Level 171 mg/dL (70-99) Calcium Level 9.2 mg/dL (8.5-10.1) Laboratory Tests Test 09/15/18 04:20 Prothrombin Time 27.4 SEC (11.7-14.0) Prothromb Time International Ratio 2.6 (0.8-1.1) Microbiology 09/12/18 Blood Culture - Preliminary, Resulted NO GROWTH AFTER 2 DAYS Medications Current Medications Digoxin (Lanoxin) 250 mcg 1X ONCE IV Last administered on 09/12/18at 11:53; Start 09/12/18 at 11:45; Stop 09/12/18 at 11:46; Status DC Sodium Chloride 500 ml @ 500 mls/hr 1X ONCE IV Last administered on 09/12/18at 11:52; Start 09/12/18 at 11:45; Stop 09/12/18 at 12:44; Status DC Cyclobenzaprine HCl (Flexeril) 10 mg 1X ONCE PO Last administered on 09/12/18at 12:55; Start 09/12/18 at 12:30; Stop 09/12/18 at 12:31; Status DC Furosemide (Lasix) 20 mg 1X ONCE IVP Last administered on 09/12/18at 12:55; Start 09/12/18 at 12:45; Stop 09/12/18 at 12:46; Status DC Morphine Sulfate (Morphine Sulfate) 4 mg PRN Q2HR PRN IV PAIN Last administered on 09/12/18at 13:04; Start 09/12/18 at 13:00; Stop 09/13/18 at 12:59; Status DC Diltiazem HCl 125 mg/Dextrose 125 ml @ 5 mls/hr CONT PRN IV SEE I/O RECORD Last administered on 09/12/18at 15:34; Start 09/12/18 at 15:00; Stop 09/13/18 at 09: 24; Status DC Sodium Chloride 1,000 ml @ 75 mls/hr [id number] IV ; Start 09/12/18 at 16:30; Stop 09/13/18 at 08:21; Status DC Methylprednisolone Sodium Succinate (SOLU-Medrol 125MG VIAL) 125 mg Q8HRS IV Last administered on 09/13/18at 06:00; Start 09/12/18 at 16:30; Stop 09/13/18 at 08: 21; Status DC Iohexol (Omnipaque 350 Mg/ml) 80 ml 1X ONCE IV Last administered on 09/12/18at 16:30; Start 09/12/18 at 16:30; Stop 09/12/18 at 16:32; Status DC Info (CONTRAST GIVEN -- Rx MONITORING) 1 each PRN DAILY PRN MC SEE COMMENTS; Start 09/12/18 at 16:45; Stop 09/14/18 at 16:44; Status DC Furosemide (Lasix) 40 mg 1X ONCE IVP Last administered on 09/13/18at 09:19; Start 09/13/18 at 09:00; Stop 09/13/18 at 09:01; Status DC Methylprednisolone Sodium Succinate (SOLU-Medrol 125MG VIAL) 60 mg Q8HRS IV ; Start 09/13/18 at 14:00; Stop 09/13/18 at 14:00; Status DC Furosemide (Lasix) 40 mg PRN DAILY PRN PO diuretic; Start 09/13/18 at 08:30 Potassium Chloride (Klor-Con) 20 meq DAILYWBKFT PO Last administered on at 09:13; Start 09/13/18 at 09:00 Docusate Sodium (Colace) 100 mg PRN BID PRN PO CONSTIPATION Last administered on 09/13/18at 09:19; Start 09/13/18 at 09:00 Levothyroxine Sodium (Synthroid) 50 mcg DAILY06 PO Last administered on at 06:07; Start 09/13/18 at 10:30; Stop 09/14/18 at 08:35; Status DC Metoprolol Succinate (Toprol Xl) 150 mg DAILY PO Last administered on 09/14/18at 09:12; Start 09/13/18 at 09:00 Atorvastatin Calcium (Lipitor) 10 mg QHS PO Last administered on 09/14/18at 22:19 ; Start 09/13/18 at 21:00 Methylprednisolone Sodium Succinate (SOLU-Medrol 125MG VIAL) 125 mg Q8HRS IV Last administered on 09/15/18 06:04; Start 09/13/18 at 09:00 Acetaminophen (Tylenol) 1,000 mg PRN Q6HRS PRN PO MILD PAIN; Start 09/13/18 at 08:45 Methocarbamol (Robaxin) 1,500 mg PRN Q8HRS PRN PO MUSCLE SPASMS Last administered on 09/14/18 22:19; Start 09/13/18 at 08:45 Digoxin (Lanoxin) 500 mcg 1X ONCE IV Last administered on 09/13/18 09:30; Start 09/13/18 at 09:30; Stop 09/13/18 at 09:31; Status DC Levothyroxine Sodium (Synthroid) 75 mcg DAILY06 PO Last administered on 06:04; Start 09/15/18 at 06:00 Pantoprazole Sodium (Protonix) 40 mg 1X ONCE PO Last administered on 09/14/18 11:29; Start 09/14/18 at 11:00; Stop 09/14/18 at 11:01; Status DC Bisacodyl (Dulcolax Supp) 10 mg PRN DAILY PRN [place] CONSTIPATION Last administered on 09/14/18 11:34; Start 09/14/18 at 10:30 Polyethylene Glycol (miraLAX PACKET) 17 gm DAILY PO Last administered on at 11:38; Start 09/14/18 at 11:30 Famotidine (Pepcid) 20 mg DAILY PO Last administered on 09/14/18at 11:29; Start 09/14/18 at 11:30 Barium Sulfate (Varibar Thin Liquid Apple) 148 gm 1X ONCE PO ; Start 09/14/18 at 11:30; Stop 09/14/18 at 11:31; Status DC Active Scripts Active Toprol Xl (Metoprolol Succinate) 50 Mg Tab.er.24h 150 Mg PO DAILY Warfarin Sodium 1 Mg Tablet 1 Mg PO DAILY 30 Days Klor-Con M20 (Potassium Chloride) 20 Meq Tab.er.prt 20 Meq PO DAILYWBKFT 30 Days Reported Losartan Potassium 50 Mg Tablet 50 Mg PO DAILY Levothyroxine Sodium 50 Mcg Tablet 1 Tab PO DAILY Furosemide 40 Mg Tablet 1 Tab PO PRN DAILY PRN Pravastatin Sodium 40 Mg Tablet 1 Tab PO QHS Stool Softener (Docusate Sodium) 100 Mg Tablet 100 Mg PO PRN PRN Vitals/I & O Vital Sign - Last 24 Hours 09/14/18 09/14/18 09/14/18 09/14/18 09:12 11:04 14:50 19:21 Temp 98.2 98.0 98.0 98.2 98.0 98.0 Pulse 77 80 88 82 Resp 16 16 16 B/P (MAP) 136/69 170/77 (108) 137/76 (96) 122/65 (84) Pulse Ox 97 95 94 O2 Delivery Room Air Room Air Room Air 09/14/18 09/14/18 09/15/18 09/15/18 19:45 22:52 03:33 07:00 Temp 97.9 98.0 97.9 97.9 98.0 97.9 Pulse 82 84 85 Resp 16 18 18 B/P (MAP) 141/76 (97) 118/72 (87) 140/77 (98) Pulse Ox 96 98 98 O2 Delivery Room Air Room Air Room Air Room Air Intake and Output 09/14/18 09/14/18 09/15/18 15:00 23:00 07:00 Intake Total 240 ml 600 ml Balance 240 ml 600 ml Nutrition Consultation Dietary Evaluation: Recommendations by RD: Increase Calorie Intake, Protein supplementation Comments: REC liberalize diet to regular to allow more food choices REC Ensure TID - will add to diet order Expected Outcomes/Goals: PO intake to meet >75% est needs Interpretation of weight loss: >7.5% in 3 months Malnutrition Findings: Food and Nutrition Intake (Mod: <75% est energy req 7days Weight Status: Overweight JOSH CANAS MD Sep 15, 2018 08:38
[2018-09-15] MEDS ORDERED: PHYTONADIONE 10 MG/ML AMPUL. SQ ONE (09:00)
[2018-09-15] MEDS: POLYETHYLENE GLYCOL 3350 17 GM PACKET. PO SCH (09:07)
[2018-09-15] MEDS: FAMOTIDINE 20 MG TABLET. PO SCH (09:07)
[2018-09-15] MEDS: POTASSIUM CHLORIDE 20 MEQ TABLET.ER. PO SCH (09:08)
[2018-09-15] MEDS: METOPROLOL SUCC 24HR ER 50 MG TAB.ER.24H. PO SCH (09:09)
[2018-09-15] MEDS ORDERED: BARIUM SULFATE 40% (APPLE) 148 GM PWD. PO ONE (10:00)
--- NOTE | 2018-09-15 10:32 | NUR ---
Pt leaving unit for Radiation tx at approx 1030.
[2018-09-15 11:00] VITALS: BP 144/75
[2018-09-15] MEDS ORDERED: IPRATRPIUM/ALBUTEROL 0.5/2.5MG 3 ML NEBU. NEB PRN (11:15)
--- NOTE | 2018-09-15 11:59 | PDOC ---
PULMONARY PROGRESS NOTES Subjective LESS SOA Vitals Vital Signs Date Time Temp Pulse Resp B/P (MAP) Pulse Ox O2 Delivery O2 Flow Rate FiO2 09/15/18 11:00 98.2 98 18 144/75 (98) 97 Room Air 98.2 General: Alert, No acute distress Lungs: Other (ins wheeze) Cardiovascular: S1 Abdomen: Soft, Non-tender Extremities: No Edema Labs Laboratory Tests Test 09/14/18 03:15 09/15/18 04:20 Prothrombin Time 27.4 SEC (11.7-14.0) 27.4 SEC (11.7-14.0) Prothromb Time International Ratio 2.6 (0.8-1.1) 2.6 (0.8-1.1) Sodium Level 141 mmol/L (136-145) Potassium Level 3.9 mmol/L (3.5-5.1) Chloride Level 103 mmol/L (98-107) Carbon Dioxide Level 24 mmol/L (21-32) Anion Gap 14 (6-14) Blood Urea Nitrogen 22 mg/dL (7-20) Creatinine 1.7 mg/dL (0.6-1.0) Estimated GFR (Cockcroft-Gault) 36.4 Glucose Level 171 mg/dL (70-99) Calcium Level 9.2 mg/dL (8.5-10.1) Laboratory Tests Test 09/15/18 04:20 Prothrombin Time 27.4 SEC (11.7-14.0) Prothromb Time International Ratio 2.6 (0.8-1.1) Medications Active Scripts Medications Dose Route/Sig Max Daily Dose Days Date Category Metoprolol Tartrate 50 Mg Tablet 50 Mg PO BID 09/05/18 Reported Coumadin (Warfarin Sodium) 4 Mg Tablet 4 Mg PO DAILY 09/05/18 Reported Klor-Con M20 (Potassium Chloride) 20 Meq Tab.er.prt 20 Meq PO DAILYWBKFT 30 08/19/18 Rx Losartan Potassium 50 Mg Tablet 50 Mg PO DAILY 08/11/18 Reported Levothyroxine Sodium 50 Mcg Tablet 1 Tab PO DAILY 06/30/18 Reported Furosemide 40 Mg Tablet 1 Tab PO PRN DAILY PRN 06/30/18 Reported Pravastatin Sodium 40 Mg Tablet 1 Tab PO QHS 06/30/18 Reported Stool Softener (Docusate Sodium) 100 Mg Tablet 100 Mg PO PRN PRN 07/21/17 Reported Impression . 1. Progressive dyspnea, multifactorial, underlying chronic obstructive pulmonary disease, progressive lung cancer with obstructive collapse of JUSTICE/ collapse of pulmonary artery and small left effusion, 2. 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 Insp. wheeze due to distal left main stem compression 3. Dysphagia. 4. Chronic atrial fibrillation, on Coumadin. 5. Cardiomyopathy, ejection fraction 30%, status post automatic implantable cardioverter defibrillator placement. Plan . 1. CT chest reviewed. 2. Continue XRT. oncology rec/ waiting for bx of neck lesion per radiation oncology. INR still high 3. Left effusion is small. would not benefit from tap at present 4. Monitor effusion for now 5. No need for antibiotics at this time. 6. steroids./ Nebs 7. Prognosis is guarded 8. Increase creatine, monitor closely d/w RN/ and patient about advance directives. she does not want intubation but prefer to have CPR/ DNI DILLON ETIENNE MD Sep 15, 2018 11:59
--- NOTE | 2018-09-15 13:02 | PDOC ---
PROGRESS NOTES Subjective Subjective HPI - f/u of Adenocarcinoma of the left hilar region and with evidence of left upper lobe consolidation, this is likely a left upper lobe predominant mass, measures 5.8 cm per PET scan ROS - no CP Objective Objective Vital Signs Date Time Temp Pulse Resp B/P (MAP) Pulse Ox O2 Delivery O2 Flow Rate FiO2 09/15/18 11:00 98.2 98 18 144/75 (98) 97 Room Air 98.2 Intake and Output 09/15/18 06:59 Intake Total 840 ml Balance 840 ml Intake Oral 840 ml # Voids 4 Physical Exam Heart: Normal S1, Normal S2 General: Alert, Oriented X3 Lungs: Clear to auscultation Neuro: Normal speech Psych/Mental Status: Mental status NL Assessment Assessment Problems Medical Problems: (1) Atrial flutter Status: Acute (2) Pleural effusion Status: Acute IMPRESSION AND PLAN: 1. 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 There is evidence of bilateral mediastinal lymphadenopathy, right axillary, right cervical and left adrenal gland metastatic disease consistent with stage IV malignancy. Discussed in detail at multidisciplinary tumor conference on 09/13/2018. Clinically, this is consistent with stage IV malignancy, and Dr. Miramontes has planned for a right cervical needle biopsy to confirm stage IV malignancy. She has been getting palliative radiation therapy because of obstructive symptoms. She will complete radiation therapy on 09/16/2018. I will consult pathology for biomarker testing and then plan to start her on biomarker-directed therapy if any of the markers are positive and if they are negative, then plan to start her on carboplatin, Alimta and Keytruda. I explained in detail to the patient and her and they understand and agree with the plan. I also reviewed the diagnosis, prognosis of stage IV malignancies. I discussed the case with Dr. Renaldo Padilla. 2. Left-sided pleural effusion is too small to do thoracentesis. I discussed with Dr. Padilla. We will continue to monitor. 3. Cardiomyopathy with an ejection fraction of 30% per echocardiogram on 08/12/2018. She has implantable cardioverter defibrillator placed. I have advised her to follow up with Cardiology. 4. Coagulopathy due to warfarin. I have recommended to cancel LN bx as her INR is still high. PET scan is convincing for mets and the risks of bx outweigh benefits considering her high INR and underlying cardiac history, poor EF and a-fib. Hence I will cancel bx. I d/w Dr Miramontes and he agrees and i d/w pt and family and they agree. Comment Review of Relevant I have reviewed the following items cinthia (where applicable) has been applied. Labs Laboratory Tests Test 09/14/18 03:15 09/15/18 04:20 Prothrombin Time 27.4 SEC (11.7-14.0) 27.4 SEC (11.7-14.0) Prothromb Time International Ratio 2.6 (0.8-1.1) 2.6 (0.8-1.1) Sodium Level 141 mmol/L (136-145) Potassium Level 3.9 mmol/L (3.5-5.1) Chloride Level 103 mmol/L (98-107) Carbon Dioxide Level 24 mmol/L (21-32) Anion Gap 14 (6-14) Blood Urea Nitrogen 22 mg/dL (7-20) Creatinine 1.7 mg/dL (0.6-1.0) Estimated GFR (Cockcroft-Gault) 36.4 Glucose Level 171 mg/dL (70-99) Calcium Level 9.2 mg/dL (8.5-10.1) Laboratory Tests Test 09/15/18 04:20 Prothrombin Time 27.4 SEC (11.7-14.0) Prothromb Time International Ratio 2.6 (0.8-1.1) Microbiology 09/12/18 Blood Culture - Preliminary, Resulted NO GROWTH AFTER 3 DAYS Medications Current Medications Digoxin (Lanoxin) 250 mcg 1X ONCE IV Last administered on 09/12/18at 11:53; Start 09/12/18 at 11:45; Stop 09/12/18 at 11:46; Status DC Sodium Chloride 500 ml @ 500 mls/hr 1X ONCE IV Last administered on 09/12/18at 11:52; Start 09/12/18 at 11:45; Stop 09/12/18 at 12:44; Status DC Cyclobenzaprine HCl (Flexeril) 10 mg 1X ONCE PO Last administered on 09/12/18at 12:55; Start 09/12/18 at 12:30; Stop 09/12/18 at 12:31; Status DC Furosemide (Lasix) 20 mg 1X ONCE IVP Last administered on 09/12/18at 12:55; Start 09/12/18 at 12:45; Stop 09/12/18 at 12:46; Status DC Morphine Sulfate (Morphine Sulfate) 4 mg PRN Q2HR PRN IV PAIN Last administered on 09/12/18at 13:04; Start 09/12/18 at 13:00; Stop 09/13/18 at 12:59; Status DC Diltiazem HCl 125 mg/Dextrose 125 ml @ 5 mls/hr CONT PRN IV SEE I/O RECORD Last administered on 09/12/18at 15:34; Start 09/12/18 at 15:00; Stop 09/13/18 at 09: 24; Status DC Sodium Chloride 1,000 ml @ 75 mls/hr [id number] IV ; Start 09/12/18 at 16:30; Stop 09/13/18 at 08:21; Status DC Methylprednisolone Sodium Succinate (SOLU-Medrol 125MG VIAL) 125 mg Q8HRS IV Last administered on 09/13/18at 06:00; Start 09/12/18 at 16:30; Stop 09/13/18 at 08: 21; Status DC Iohexol (Omnipaque 350 Mg/ml) 80 ml 1X ONCE IV Last administered on 09/12/18at 16:30; Start 09/12/18 at 16:30; Stop 09/12/18 at 16:32; Status DC Info (CONTRAST GIVEN -- Rx MONITORING) 1 each PRN DAILY PRN MC SEE COMMENTS; Start 09/12/18 at 16:45; Stop 09/14/18 at 16:44; Status DC Furosemide (Lasix) 40 mg 1X ONCE IVP Last administered on 09/13/18at 09:19; Start 09/13/18 at 09:00; Stop 09/13/18 at 09:01; Status DC Methylprednisolone Sodium Succinate (SOLU-Medrol 125MG VIAL) 60 mg Q8HRS IV ; Start 09/13/18 at 14:00; Stop 09/13/18 at 14:00; Status DC Furosemide (Lasix) 40 mg PRN DAILY PRN PO diuretic; Start 09/13/18 at 08:30 Potassium Chloride (Klor-Con) 20 meq DAILYWBKFT PO Last administered on 4/4/ 19at 09:08; Start 09/13/18 at 09:00 Docusate Sodium (Colace) 100 mg PRN BID PRN PO CONSTIPATION Last administered on 09/13/18 09:19; Start 09/13/18 at 09:00 Levothyroxine Sodium (Synthroid) 50 mcg DAILY06 PO Last administered on 06:07; Start 09/13/18 at 10:30; Stop 09/14/18 at 08:35; Status DC Metoprolol Succinate (Toprol Xl) 150 mg DAILY PO Last administered on 09/15/18 09:09; Start 09/13/18 at 09:00 Atorvastatin Calcium (Lipitor) 10 mg QHS PO Last administered on 09/14/18 22:19 ; Start 09/13/18 at 21:00 Methylprednisolone Sodium Succinate (SOLU-Medrol 125MG VIAL) 125 mg Q8HRS IV Last administered on 09/15/18 06:04; Start 09/13/18 at 09:00; Stop 09/15/18 at 08: 32; Status DC Acetaminophen (Tylenol) 1,000 mg PRN Q6HRS PRN PO MILD PAIN; Start 09/13/18 at 08:45 Methocarbamol (Robaxin) 1,500 mg PRN Q8HRS PRN PO MUSCLE SPASMS Last administered on 09/14/18 22:19; Start 09/13/18 at 08:45 Digoxin (Lanoxin) 500 mcg 1X ONCE IV Last administered on 09/13/18 09:30; Start 09/13/18 at 09:30; Stop 09/13/18 at 09:31; Status DC Levothyroxine Sodium (Synthroid) 75 mcg DAILY06 PO Last administered on 06:04; Start 09/15/18 at 06:00 Pantoprazole Sodium (Protonix) 40 mg 1X ONCE PO Last administered on 09/14/18 11:29; Start 09/14/18 at 11:00; Stop 09/14/18 at 11:01; Status DC Bisacodyl (Dulcolax Supp) 10 mg PRN DAILY PRN [place] CONSTIPATION Last administered on 09/14/18 11:34; Start 09/14/18 at 10:30 Polyethylene Glycol (miraLAX PACKET) 17 gm DAILY PO Last administered on at 09:07; Start 09/14/18 at 11:30 Famotidine (Pepcid) 20 mg DAILY PO Last administered on 09/15/18at 09:07; Start 09/14/18 at 11:30 Barium Sulfate (Varibar Thin Liquid Apple) 148 gm 1X ONCE PO ; Start 09/14/18 at 11:30; Stop 09/14/18 at 11:31; Status DC Phytonadione (Vitamin K Ampule) 5 mg 1X ONCE SQ Last administered on 09/15/18at 09:17; Start 09/15/18 at 09:00; Stop 09/15/18 at 09:01; Status DC Methylprednisolone Sodium Succinate (SOLU-Medrol 125MG VIAL) 60 mg Q8HRS IV ; Start 09/15/18 at 14:00 Barium Sulfate (Varibar Thin Liquid Apple) 148 gm 1X ONCE PO ; Start 09/15/18 at 10:00; Stop 09/15/18 at 10:01; Status DC Albuterol/ Ipratropium (Duoneb) 3 ml PRN QID PRN NEB SHORTNESS OF BREATH; Start 09/15/18 at 11:15 Active Scripts Active Toprol Xl (Metoprolol Succinate) 50 Mg Tab.er.24h 150 Mg PO DAILY Warfarin Sodium 1 Mg Tablet 1 Mg PO DAILY 30 Days Klor-Con M20 (Potassium Chloride) 20 Meq Tab.er.prt 20 Meq PO DAILYWBKFT 30 Days Reported Losartan Potassium 50 Mg Tablet 50 Mg PO DAILY Levothyroxine Sodium 50 Mcg Tablet 1 Tab PO DAILY Furosemide 40 Mg Tablet 1 Tab PO PRN DAILY PRN Pravastatin Sodium 40 Mg Tablet 1 Tab PO QHS Stool Softener (Docusate Sodium) 100 Mg Tablet 100 Mg PO PRN PRN Vitals/I & O Vital Sign - Last 24 Hours 09/14/18 09/14/18 09/14/18 09/14/18 14:50 19:21 19:45 22:52 Temp 98.0 98.0 97.9 98.0 98.0 97.9 Pulse 88 82 82 Resp 16 16 16 B/P (MAP) 137/76 (96) 122/65 (84) 141/76 (97) Pulse Ox 95 94 96 O2 Delivery Room Air Room Air Room Air Room Air 4/4/09/15/18 09/15/18 09/15/18 03:33 07:00 09:09 11:00 Temp 98.0 97.9 98.2 98.0 97.9 98.2 Pulse 84 85 85 98 Resp 18 18 18 B/P (MAP) 118/72 (87) 140/77 (98) 140/77 144/75 (98) Pulse Ox 98 98 97 O2 Delivery Room Air Room Air Room Air Intake and Output 09/14/18 09/14/18 09/15/18 14:59 22:59 06:59 Intake Total 240 ml 600 ml Balance 240 ml 600 ml Nutrition Consultation Dietary Evaluation: Recommendations by RD: Increase Calorie Intake, Protein supplementation Comments: REC liberalize diet to regular to allow more food choices REC Ensure TID - will add to diet order Expected Outcomes/Goals: PO intake to meet >75% est needs Interpretation of weight loss: >7.5% in 3 months Malnutrition Findings: Food and Nutrition Intake (Mod: <75% est energy req 7days Weight Status: Overweight SADIE ZHAO MD Sep 15, 2018 13:01
--- NOTE | 2018-09-15 13:48 | NUR ---
SS following up with discharge planning. Current disposition for discharge is home at this time. Pt is currently on room air. No discharge needs noted at this time. SS will continue to follow for discharge planning.
--- NOTE | 2018-09-15 14:03 | RAD ---
Video dysphasia study, 09/15/2018: History: Dysphasia The swallowing mechanism was examined fluoroscopically in the lateral projection while the patient ingested a variety of food materials mixed with barium. 1.7 minutes of fluoroscopy time was utilized. One video fluoroscopic loop was recorded by a member of the speech Department. The patient demonstrated good oral control of the barium materials. There tended to be a moderate delay in initiation of pharyngeal peristalsis. With the thin liquids there was mild laryngeal penetration without nancy aspiration. This occurred primarily with consecutive swallows and a larger bolus. This laryngeal penetration resolved with the thicker materials. No significant laryngeal penetration was observed with the honey thickened material or pudding consistency material. At the end of the exam when ingesting a combination of solids and thin liquid there was one episode of deep laryngeal penetration and nancy aspiration. IMPRESSION: Mildly disordered swallowing mechanism is instructed above.
[2018-09-15 15:00] VITALS: BP 148/86
--- NOTE | 2018-09-15 16:17 | PDOC ---
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 She was undergoing palliative radiation urgently beginning on 09/05/2018. She has had 8 of 10 planned treatments thus far. she also has a history of significant CVD with history of AF/AFlutter with RVR with AICD in place. Admitted for increasing SOB which may be a combination of airway compromise and CHF. SOB better overall. PE audible stridor absent now Lungs faint wheezes left more than right, more obvious today CT angio: compared to 08/30 CT: central left hilar mass compression of PA. No obvious PE. Increased surrounding lung collapse and outer ring of effusion. 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 Doing better oveall HR better controlled and SOB improved. AICD tech will be here for treatment to assist in management of unit while on treatment. Previous treatments put unit into standby mode. Right cervical LN bx will be cancelled as INR remains elevated at 2.6. Discussed with Dr. Durham who will proceed with systemic treatment for st IV disease based on PET/CT alone without biopsy. Will continue treatment as planned with last treatment on 09/19/2018 PIA WELLS MD Sep 15, 2018 16:17
[2018-09-15 19:49] VITALS: BP 134/75
--- NOTE | 2018-09-15 19:49 | NUR ---
CALL PLACED TO DR CANAS REGARDING PT NOT HAVING BIOPSY IN THE MORNING PER DR ZHAO. IR NOTIFIED [facility].
[2018-09-15] MEDS: ATORVASTATIN CALCIUM 10 MG TABLET. PO SCH (20:49)
[2018-09-15 22:48] VITALS: BP 115/61
--- NOTE | 2018-09-15 22:49 | CONS ---
DATE OF CONSULTATION: 09/12/2018 REFERRING PHYSICIAN: Dr. Lola Goldman. 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 She underwent confirmatory biopsy on 08/11/2018. She then initiated palliative left hilar radiation therapy beginning on 09/05/2018. She had ongoing persistent shortness of breath, fatigue. She was seen here in the Emergency Room and admitted on that date. At that time, she had had 5 of 10 planned treatments to her left proximal hilar region. ICD 10 c34.32 C77.1 C77.0 C79.72 While at home over the weekend prior to admission, she had had progressive shortness of breath and fatigue as noted. Her pulse oximetry at home; however, did not show significant desaturation with pulse oximetry ranging in the 90s. On admission, she was found to have atrial flutter, atrial fibrillation with rapid ventricular response. It was also noted that her pacemaker was in standby mode likely due to scattered radiation effect. This was corrected with the help of the [email or web address] technologist. Following admission, she was seen by Cardiology and her tachycardia was improved with Cardizem drip and resumption of Toprol. Since then, her tachycardia has improved, shortness of breath has improved. Radiation treatment was resumed here on 09/13/2018. PAST MEDICAL HISTORY: Remarkable for hypertension, hyperlipidemia, coronary artery disease, congestive heart failure, atrial flutter, atrial fibrillation as noted above, implanted AICD. MEDICATIONS: See hospital list. ALLERGIES: No known allergies. SOCIAL HISTORY: for 52 years, 4 children, 3 living here. 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 Significant history of smoking, quit in 2009. Smoked for 30 years, less than half pack a day. No alcohol use. PHYSICAL EXAMINATION: GENERAL: Revealed a pleasant woman in no acute distress. Previous audible wheezing was less on admission than in the past. LYMPH NODES: She had palpable right jugulodigastric adenopathy, firm, nontender measuring approximately 2 cm in size. No inferior, cervical or supraclavicular adenopathy. LUNGS: Diffuse faint wheezes bilaterally, worse on the left. HEART: Initially tachycardic, no murmur. ABDOMEN: Unremarkable. EXTREMITIES: Reveal no clubbing, cyanosis or edema. RADIOLOGIC STUDIES: CT angiogram following admission revealed large left hilar mass extending posteriorly causing significant narrowing of the left main pulmonary artery branches and narrowing of the left upper lobe and left lingular bronchial branches. There was volume loss, progressive atelectasis and lung collapse compared to the 08/2018 imaging. There was a nodularity in the left adrenal gland. No evidence for pulmonary emboli. Moderate left pleural effusion not seen in 08/2018. Previous PET/CT scan 08/25/2018 did reveal hypermetabolic mass in the left hilar region, mediastinal, right cervical and axillary adenopathy with uptake, left adrenal nodule with uptake all compatible with likely metastatic disease. LABORATORY STUDIES: On admission, hemoglobin 10.8, white count 6500, platelet count 399,000. Chemistry panel revealed sodium 140, potassium 3.8, creatinine 1.2, glucose 134. Natriuretic peptide 3520. Troponin less than 0.017. ASSESSMENT AND PLAN: In summary, my impression is that of stage 4 adenocarcinoma of the left hilar region with a PET CT imaging compatible with metastatic disease in the right axilla, right cervical lymph node regions and left adrenal gland. It showed significant proximal airway compromise at diagnosis causing significant shortness of breath. She also has ongoing atrial fibrillation and atrial flutter causing tachycardia and congestive heart failure, also contributing to her shortness of breath. At this time, following stabilization from Cardiology, we will resume radiation treatment beginning 09/13/2018. [employer] technologist will assist us in monitoring her pacemaker during treatment. Cardiology will continue to manage her tachycardia, which now has been improved along with her shortness of breath since admission. To confirm presence of metastatic disease, we will consider biopsy of the cervical adenopathy. Following the 10-day course of palliative radiation, she will return to Dr. Durham to address palliative systemic chemotherapy. Thank you for allowing us to participate in her evaluation. PIA WELLS MD DR: MERCEDES/hector JOB#: [id number] / [id number] SADIE Flood MD, SABATO MD MTDD
[2018-09-16 03:00] VITALS: BP 138/73
[2018-09-16 05:20] LABS: PROTHROMBIN TIME PATIENT 21.2 SEC (11.7-14.0)
[2018-09-16] MEDS: methylPREDNISolone SOD SUCC PF 125 MG/2 ML VIAL. IV SCH (06:15)
[2018-09-16] MEDS: LEVOTHYROXINE 75 MCG TABLET PO SCH (06:15)
[2018-09-16 07:30] VITALS: BP 129/74
[2018-09-16] MEDS: FAMOTIDINE 20 MG TABLET. PO SCH (08:31)
[2018-09-16] MEDS: POTASSIUM CHLORIDE 20 MEQ TABLET.ER. PO SCH (08:31)
[2018-09-16] MEDS: METOPROLOL SUCC 24HR ER 50 MG TAB.ER.24H. PO SCH (08:32)
--- NOTE | 2018-09-16 08:33 | PDOC ---
PROGRESS NOTES Subjective Subjective Patient feels breathing is better, ready to go home today. Objective Objective Vital Signs Date Time Temp Pulse Resp B/P (MAP) Pulse Ox O2 Delivery O2 Flow Rate FiO2 09/16/18 07:30 98.0 88 18 129/74 (92) 96 Room Air 98.0 Intake and Output 09/16/18 07:00 Intake Total 120 ml Balance 120 ml Intake Oral 120 ml # Voids 3 Physical Exam Abdomen: Normal bowel sounds, Soft, No tenderness Heart: Other (irregularly irregular) Extremities: No edema General: Alert, Oriented X3, No acute distress Lungs: Other (BS mildly decreased throughout, no wheezes heard) Assessment Assessment Problems Medical Problems: (1) Atrial flutter Status: Acute (2) Pleural effusion Status: Acute Plan Plan of Care 1. Metastatic adenocarcinoma of lung with airway compression - breathing improved. Home today on Prednisone taper, will complete 2 weeks of XRT on Wednesday. Follow up with Dr Durham for initiation of chemotx. 2. chronic afib - rate well controlled with her usual Toprol XL, continue. INR only mildly low at 1.9, resume Coumadin at home this evening but at lower dose of 1mg three times weekly. 3. CHF - stable, continue lasix as needed. 4. HTN - controlled with Toprol XL only, no need to resume Losartan at this time. 5. Hypothyroidism - home on increased dose of 75mcg daily. 6. dysphagia - video swallow yesterday showed some aspiration under certain circumstances. Speech Therapy has instructed patient on strategies for safe swallow. 7. neck strain - pain has improved, patient treating with heating pad as needed. Comment Review of Relevant I have reviewed the following items cinthia (where applicable) has been applied. Labs Laboratory Tests Test 09/15/18 04:20 09/16/18 04:30 Prothrombin Time 27.4 SEC (11.7-14.0) 21.2 SEC (11.7-14.0) Prothromb Time International Ratio 2.6 (0.8-1.1) 1.9 (0.8-1.1) Laboratory Tests Test 09/16/18 04:30 Prothrombin Time 21.2 SEC (11.7-14.0) Prothromb Time International Ratio 1.9 (0.8-1.1) Microbiology 09/12/18 Blood Culture - Preliminary, Resulted NO GROWTH AFTER 3 DAYS Medications Current Medications Digoxin (Lanoxin) 250 mcg 1X ONCE IV Last administered on 09/12/18at 11:53; Start 09/12/18 at 11:45; Stop 09/12/18 at 11:46; Status DC Sodium Chloride 500 ml @ 500 mls/hr 1X ONCE IV Last administered on 09/12/18at 11:52; Start 09/12/18 at 11:45; Stop 09/12/18 at 12:44; Status DC Cyclobenzaprine HCl (Flexeril) 10 mg 1X ONCE PO Last administered on 09/12/18at 12:55; Start 09/12/18 at 12:30; Stop 09/12/18 at 12:31; Status DC Furosemide (Lasix) 20 mg 1X ONCE IVP Last administered on 09/12/18at 12:55; Start 09/12/18 at 12:45; Stop 09/12/18 at 12:46; Status DC Morphine Sulfate (Morphine Sulfate) 4 mg PRN Q2HR PRN IV PAIN Last administered on 09/12/18at 13:04; Start 09/12/18 at 13:00; Stop 09/13/18 at 12:59; Status DC Diltiazem HCl 125 mg/Dextrose 125 ml @ 5 mls/hr CONT PRN IV SEE I/O RECORD Last administered on 09/12/18at 15:34; Start 09/12/18 at 15:00; Stop 09/13/18 at 09: 24; Status DC Sodium Chloride 1,000 ml @ 75 mls/hr [id number] IV ; Start 09/12/18 at 16:30; Stop 09/13/18 at 08:21; Status DC Methylprednisolone Sodium Succinate (SOLU-Medrol 125MG VIAL) 125 mg Q8HRS IV Last administered on 09/13/18at 06:00; Start 09/12/18 at 16:30; Stop 09/13/18 at 08: 21; Status DC Iohexol (Omnipaque 350 Mg/ml) 80 ml 1X ONCE IV Last administered on 09/12/18at 16:30; Start 09/12/18 at 16:30; Stop 09/12/18 at 16:32; Status DC Info (CONTRAST GIVEN -- Rx MONITORING) 1 each PRN DAILY PRN MC SEE COMMENTS; Start 09/12/18 at 16:45; Stop 09/14/18 at 16:44; Status DC Furosemide (Lasix) 40 mg 1X ONCE IVP Last administered on 09/13/18 09:19; Start 09/13/18 at 09:00; Stop 09/13/18 at 09:01; Status DC Methylprednisolone Sodium Succinate (SOLU-Medrol 125MG VIAL) 60 mg Q8HRS IV ; Start 09/13/18 at 14:00; Stop 09/13/18 at 14:00; Status DC Furosemide (Lasix) 40 mg PRN DAILY PRN PO diuretic; Start 09/13/18 at 08:30 Potassium Chloride (Klor-Con) 20 meq DAILYWBKFT PO Last administered on 09:08; Start 09/13/18 at 09:00 Docusate Sodium (Colace) 100 mg PRN BID PRN PO CONSTIPATION Last administered on 09/13/18 09:19; Start 09/13/18 at 09:00 Levothyroxine Sodium (Synthroid) 50 mcg DAILY06 PO Last administered on 06:07; Start 09/13/18 at 10:30; Stop 09/14/18 at 08:35; Status DC Metoprolol Succinate (Toprol Xl) 150 mg DAILY PO Last administered on 09/15/18 09:09; Start 09/13/18 at 09:00 Atorvastatin Calcium (Lipitor) 10 mg QHS PO Last administered on 09/15/18at 20:49 ; Start 09/13/18 at 21:00 Methylprednisolone Sodium Succinate (SOLU-Medrol 125MG VIAL) 125 mg Q8HRS IV Last administered on 09/15/18 06:04; Start 09/13/18 at 09:00; Stop 09/15/18 at 08: 32; Status DC Acetaminophen (Tylenol) 1,000 mg PRN Q6HRS PRN PO MILD PAIN; Start 09/13/18 at 08:45 Methocarbamol (Robaxin) 1,500 mg PRN Q8HRS PRN PO MUSCLE SPASMS Last administered on 09/14/18 22:19; Start 09/13/18 at 08:45 Digoxin (Lanoxin) 500 mcg 1X ONCE IV Last administered on 09/13/18at 09:30; Start 09/13/18 at 09:30; Stop 09/13/18 at 09:31; Status DC Levothyroxine Sodium (Synthroid) 75 mcg DAILY06 PO Last administered on 06:15; Start 09/15/18 at 06:00 Pantoprazole Sodium (Protonix) 40 mg 1X ONCE PO Last administered on 09/14/18 11:29; Start 09/14/18 at 11:00; Stop 09/14/18 at 11:01; Status DC Bisacodyl (Dulcolax Supp) 10 mg PRN DAILY PRN [place] CONSTIPATION Last administered on 09/14/18 11:34; Start 09/14/18 at 10:30 Polyethylene Glycol (miraLAX PACKET) 17 gm DAILY PO Last administered on 09:07; Start 09/14/18 at 11:30 Famotidine (Pepcid) 20 mg DAILY PO Last administered on 09/15/18 09:07; Start 09/14/18 at 11:30 Barium Sulfate (Varibar Thin Liquid Apple) 148 gm 1X ONCE PO ; Start 09/14/18 at 11:30; Stop 09/14/18 at 11:31; Status DC Phytonadione (Vitamin K Ampule) 5 mg 1X ONCE SQ Last administered on 09/15/18 09:17; Start 09/15/18 at 09:00; Stop 09/15/18 at 09:01; Status DC Methylprednisolone Sodium Succinate (SOLU-Medrol 125MG VIAL) 60 mg Q8HRS IV Last administered on 09/16/18 06:15; Start 09/15/18 at 14:00 Barium Sulfate (Varibar Thin Liquid Apple) 148 gm 1X ONCE PO Last administered on 09/15/18 13:56; Start 09/15/18 at 10:00; Stop 09/15/18 at 10:01; Status DC Albuterol/ Ipratropium (Duoneb) 3 ml PRN QID PRN NEB SHORTNESS OF BREATH Last administered on 09/15/18 19:58; Start 09/15/18 at 11:15 Active Scripts Active Toprol Xl (Metoprolol Succinate) 50 Mg Tab.er.24h 150 Mg PO DAILY Warfarin Sodium 1 Mg Tablet 1 Mg PO DAILY 30 Days Klor-Con M20 (Potassium Chloride) 20 Meq Tab.er.prt 20 Meq PO DAILYWBKFT 30 Days Reported Losartan Potassium 50 Mg Tablet 50 Mg PO DAILY Levothyroxine Sodium 50 Mcg Tablet 1 Tab PO DAILY Furosemide 40 Mg Tablet 1 Tab PO PRN DAILY PRN Pravastatin Sodium 40 Mg Tablet 1 Tab PO QHS Stool Softener (Docusate Sodium) 100 Mg Tablet 100 Mg PO PRN PRN Vitals/I & O Vital Sign - Last 24 Hours 09/15/18 09/15/18 09/15/18 09/15/18 09:09 11:00 15:00 19:30 Temp 98.2 98.0 98.2 98.0 Pulse 85 98 84 Resp 18 18 B/P (MAP) 140/77 144/75 (98) 148/86 (106) Pulse Ox 97 99 O2 Delivery Room Air Room Air Room Air 09/15/18 09/15/18 09/15/18 09/16/18 19:49 19:55 22:48 03:00 Temp 97.9 97.8 98.1 97.9 97.8 98.1 Pulse 84 84 86 Resp 18 18 18 B/P (MAP) 134/75 (94) 115/61 (79) 138/73 (94) Pulse Ox 97 98 96 96 O2 Delivery Room Air Room Air Room Air Room Air 09/16/18 07:30 Temp 98.0 98.0 Pulse 88 Resp 18 B/P (MAP) 129/74 (92) Pulse Ox 96 O2 Delivery Room Air Intake and Output 09/15/18 09/15/18 09/16/18 15:00 23:00 07:00 Intake Total 120 ml 0 ml Balance 120 ml 0 ml Nutrition Consultation Dietary Evaluation: Recommendations by RD: Increase Calorie Intake, Protein supplementation Comments: REC liberalize diet to regular to allow more food choices REC Ensure TID - will add to diet order Expected Outcomes/Goals: PO intake to meet >75% est needs Interpretation of weight loss: >7.5% in 3 months Malnutrition Findings: Food and Nutrition Intake (Mod: <75% est energy req 7days Weight Status: Overweight JOSH CANAS MD Sep 16, 2018 08:33
[2018-09-16] MEDS: POLYETHYLENE GLYCOL 3350 17 GM PACKET. PO SCH (08:34)
[2018-09-16] MEDS ORDERED: PRED20TA PO (08:40)
[2018-09-16] MEDS ORDERED: POLY17PO28 PO (08:40)
[2018-09-16] MEDS ORDERED: WARF1TAB69 PO (08:40)
[2018-09-16] MEDS ORDERED: LEVO75TA PO (08:40)
--- NOTE | 2018-09-16 09:19 | PDOC ---
PROGRESS NOTES Subjective Subjective HPI - f/u of Adenocarcinoma of the left hilar region and with evidence of left upper lobe consolidation ROS - no CP Objective Objective Vital Signs Date Time Temp Pulse Resp B/P (MAP) Pulse Ox O2 Delivery O2 Flow Rate FiO2 09/16/18 08:32 88 129/74 09/16/18 07:30 98.0 18 96 Room Air 98.0 Intake and Output 09/16/18 07:00 Intake Total 120 ml Balance 120 ml Intake Oral 120 ml # Voids 3 Physical Exam Heart: Normal S1, Normal S2 General: Alert, Oriented X3 Lungs: Clear to auscultation Neuro: Normal speech Psych/Mental Status: Mental status NL Assessment Assessment Problems Medical Problems: (1) Atrial flutter Status: Acute (2) Pleural effusion Status: Acute IMPRESSION AND PLAN: 1. 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 There is evidence of bilateral mediastinal lymphadenopathy, right axillary, right cervical and left adrenal gland metastatic disease consistent with stage IV malignancy. Discussed in detail at multidisciplinary tumor conference on 09/13/2018. Clinically, this is consistent with stage IV malignancy. She has been getting palliative radiation therapy because of obstructive symptoms. She will complete radiation therapy on 09/19/2018. I will consult pathology for biomarker testing and then plan to start her on biomarker-directed therapy if any of the markers are positive and if they are negative, then plan to start her on carboplatin, Alimta and Keytruda. I explained in detail to the patient and her and they understand and agree with the plan. I also reviewed the diagnosis, prognosis of stage IV malignancies. I discussed the case with Dr. Goldman. 2. Left-sided pleural effusion is too small to do thoracentesis. I discussed with Dr. Padilla. We will continue to monitor. 3. Cardiomyopathy with an ejection fraction of 30% per echocardiogram on 08/12/2018. She has implantable cardioverter defibrillator placed. I have advised her to follow up with Cardiology. 4. Coagulopathy due to warfarin. I have recommended to cancel LN bx as her INR is still high. PET scan is convincing for mets and the risks of bx outweigh benefits considering her high INR and underlying cardiac history, poor EF and a-fib. Hence I canceled bx. I d/w Dr Miramontes and he agrees and i d/w pt and family and they agree. Comment Review of Relevant I have reviewed the following items cinthia (where applicable) has been applied. Labs Laboratory Tests Test 09/15/18 04:20 09/16/18 04:30 Prothrombin Time 27.4 SEC (11.7-14.0) 21.2 SEC (11.7-14.0) Prothromb Time International Ratio 2.6 (0.8-1.1) 1.9 (0.8-1.1) Laboratory Tests Test 09/16/18 04:30 Prothrombin Time 21.2 SEC (11.7-14.0) Prothromb Time International Ratio 1.9 (0.8-1.1) Microbiology 09/12/18 Blood Culture - Preliminary, Resulted NO GROWTH AFTER 3 DAYS Medications Current Medications Digoxin (Lanoxin) 250 mcg 1X ONCE IV Last administered on 09/12/18at 11:53; Start 09/12/18 at 11:45; Stop 09/12/18 at 11:46; Status DC Sodium Chloride 500 ml @ 500 mls/hr 1X ONCE IV Last administered on 09/12/18at 11:52; Start 09/12/18 at 11:45; Stop 09/12/18 at 12:44; Status DC Cyclobenzaprine HCl (Flexeril) 10 mg 1X ONCE PO Last administered on 09/12/18at 12:55; Start 09/12/18 at 12:30; Stop 09/12/18 at 12:31; Status DC Furosemide (Lasix) 20 mg 1X ONCE IVP Last administered on 09/12/18at 12:55; Start 09/12/18 at 12:45; Stop 09/12/18 at 12:46; Status DC Morphine Sulfate (Morphine Sulfate) 4 mg PRN Q2HR PRN IV PAIN Last administered on 09/12/18at 13:04; Start 09/12/18 at 13:00; Stop 09/13/18 at 12:59; Status DC Diltiazem HCl 125 mg/Dextrose 125 ml @ 5 mls/hr CONT PRN IV SEE I/O RECORD Last administered on 09/12/18at 15:34; Start 09/12/18 at 15:00; Stop 09/13/18 at 09: 24; Status DC Sodium Chloride 1,000 ml @ 75 mls/hr [id number] IV ; Start 09/12/18 at 16:30; Stop 09/13/18 at 08:21; Status DC Methylprednisolone Sodium Succinate (SOLU-Medrol 125MG VIAL) 125 mg Q8HRS IV Last administered on 09/13/18at 06:00; Start 09/12/18 at 16:30; Stop 09/13/18 at 08: 21; Status DC Iohexol (Omnipaque 350 Mg/ml) 80 ml 1X ONCE IV Last administered on 09/12/18at 16:30; Start 09/12/18 at 16:30; Stop 09/12/18 at 16:32; Status DC Info (CONTRAST GIVEN -- Rx MONITORING) 1 each PRN DAILY PRN MC SEE COMMENTS; Start 09/12/18 at 16:45; Stop 09/14/18 at 16:44; Status DC Furosemide (Lasix) 40 mg 1X ONCE IVP Last administered on 09/13/18at 09:19; Start 09/13/18 at 09:00; Stop 09/13/18 at 09:01; Status DC Methylprednisolone Sodium Succinate (SOLU-Medrol 125MG VIAL) 60 mg Q8HRS IV ; Start 09/13/18 at 14:00; Stop 09/13/18 at 14:00; Status DC Furosemide (Lasix) 40 mg PRN DAILY PRN PO diuretic; Start 09/13/18 at 08:30 Potassium Chloride (Klor-Con) 20 meq DAILYWBKFT PO Last administered on at 08:31; Start 09/13/18 at 09:00 Docusate Sodium (Colace) 100 mg PRN BID PRN PO CONSTIPATION Last administered on 09/13/18at 09:19; Start 09/13/18 at 09:00 Levothyroxine Sodium (Synthroid) 50 mcg DAILY06 PO Last administered on at 06:07; Start 09/13/18 at 10:30; Stop 09/14/18 at 08:35; Status DC Metoprolol Succinate (Toprol Xl) 150 mg DAILY PO Last administered on 09/16/18at 08:32; Start 09/13/18 at 09:00 Atorvastatin Calcium (Lipitor) 10 mg QHS PO Last administered on 09/15/18at 20:49 ; Start 09/13/18 at 21:00 Methylprednisolone Sodium Succinate (SOLU-Medrol 125MG VIAL) 125 mg Q8HRS IV Last administered on 09/15/18 06:04; Start 09/13/18 at 09:00; Stop 09/15/18 at 08: 32; Status DC Acetaminophen (Tylenol) 1,000 mg PRN Q6HRS PRN PO MILD PAIN; Start 09/13/18 at 08:45 Methocarbamol (Robaxin) 1,500 mg PRN Q8HRS PRN PO MUSCLE SPASMS Last administered on 09/14/18 22:19; Start 09/13/18 at 08:45 Digoxin (Lanoxin) 500 mcg 1X ONCE IV Last administered on 09/13/18 09:30; Start 09/13/18 at 09:30; Stop 09/13/18 at 09:31; Status DC Levothyroxine Sodium (Synthroid) 75 mcg DAILY06 PO Last administered on 06:15; Start 09/15/18 at 06:00 Pantoprazole Sodium (Protonix) 40 mg 1X ONCE PO Last administered on 09/14/18 11:29; Start 09/14/18 at 11:00; Stop 09/14/18 at 11:01; Status DC Bisacodyl (Dulcolax Supp) 10 mg PRN DAILY PRN [place] CONSTIPATION Last administered on 09/14/18 11:34; Start 09/14/18 at 10:30 Polyethylene Glycol (miraLAX PACKET) 17 gm DAILY PO Last administered on 09:07; Start 09/14/18 at 11:30 Famotidine (Pepcid) 20 mg DAILY PO Last administered on 09/16/18 08:31; Start 09/14/18 at 11:30 Barium Sulfate (Varibar Thin Liquid Apple) 148 gm 1X ONCE PO ; Start 09/14/18 at 11:30; Stop 09/14/18 at 11:31; Status DC Phytonadione (Vitamin K Ampule) 5 mg 1X ONCE SQ Last administered on 09/15/18 09:17; Start 09/15/18 at 09:00; Stop 09/15/18 at 09:01; Status DC Methylprednisolone Sodium Succinate (SOLU-Medrol 125MG VIAL) 60 mg Q8HRS IV Last administered on 09/16/18at 06:15; Start 09/15/18 at 14:00 Barium Sulfate (Varibar Thin Liquid Apple) 148 gm 1X ONCE PO Last administered on 09/15/18at 13:56; Start 09/15/18 at 10:00; Stop 09/15/18 at 10:01; Status DC Albuterol/ Ipratropium (Duoneb) 3 ml PRN QID PRN NEB SHORTNESS OF BREATH Last administered on 09/15/18at 19:58; Start 09/15/18 at 11:15 Active Scripts Active Toprol Xl (Metoprolol Succinate) 50 Mg Tab.er.24h 150 Mg PO DAILY Warfarin Sodium 1 Mg Tablet 1 Mg PO DAILY 30 Days Klor-Con M20 (Potassium Chloride) 20 Meq Tab.er.prt 20 Meq PO DAILYWBKFT 30 Days Reported Losartan Potassium 50 Mg Tablet 50 Mg PO DAILY Levothyroxine Sodium 50 Mcg Tablet 1 Tab PO DAILY Furosemide 40 Mg Tablet 1 Tab PO PRN DAILY PRN Pravastatin Sodium 40 Mg Tablet 1 Tab PO QHS Stool Softener (Docusate Sodium) 100 Mg Tablet 100 Mg PO PRN PRN Vitals/I & O Vital Sign - Last 24 Hours 09/15/18 09/15/18 09/15/18 09/15/18 11:00 15:00 19:30 19:49 Temp 98.2 98.0 97.9 98.2 98.0 97.9 Pulse 98 84 84 Resp 18 18 18 B/P (MAP) 144/75 (98) 148/86 (106) 134/75 (94) Pulse Ox 97 99 97 O2 Delivery Room Air Room Air Room Air Room Air 09/15/18 09/15/18 09/16/18 09/16/18 19:55 22:48 03:00 07:30 Temp 97.8 98.1 98.0 97.8 98.1 98.0 Pulse 84 86 88 Resp 18 18 18 B/P (MAP) 115/61 (79) 138/73 (94) 129/74 (92) Pulse Ox 98 96 96 96 O2 Delivery Room Air Room Air Room Air Room Air 09/16/18 08:32 Pulse 88 B/P (MAP) 129/74 Intake and Output 4/4/19 4/4/19 4/5/19 15:00 23:00 07:00 Intake Total 120 ml 0 ml Balance 120 ml 0 ml Nutrition Consultation Dietary Evaluation: Recommendations by RD: Increase Calorie Intake, Protein supplementation Comments: REC liberalize diet to regular to allow more food choices REC Ensure TID - will add to diet order Expected Outcomes/Goals: PO intake to meet >75% est needs Interpretation of weight loss: >7.5% in 3 months Malnutrition Findings: Food and Nutrition Intake (Mod: <75% est energy req 7days Weight Status: Overweight SADIE ZHAO MD Sep 16, 2018 09:19
[2018-09-16 10:40] VITALS: BP 134/76
--- NOTE | 2018-09-16 11:42 | PDOC ---
PULMONARY PROGRESS NOTES Subjective LESS SOA Vitals Vital Signs Date Time Temp Pulse Resp B/P (MAP) Pulse Ox O2 Delivery O2 Flow Rate FiO2 09/16/18 10:40 98.2 88 18 134/76 (95) 96 Room Air 98.2 General: Alert, No acute distress Lungs: Other (ins wheeze) Cardiovascular: S1 Abdomen: Soft, Non-tender Extremities: No Edema Labs Laboratory Tests Test 09/15/18 04:20 09/16/18 04:30 Prothrombin Time 27.4 SEC (11.7-14.0) 21.2 SEC (11.7-14.0) Prothromb Time International Ratio 2.6 (0.8-1.1) 1.9 (0.8-1.1) Laboratory Tests Test 09/16/18 04:30 Prothrombin Time 21.2 SEC (11.7-14.0) Prothromb Time International Ratio 1.9 (0.8-1.1) Medications Active Scripts Medications Dose Route/Sig Max Daily Dose Days Date Category Metoprolol Tartrate 50 Mg Tablet 50 Mg PO BID 09/05/18 Reported Coumadin (Warfarin Sodium) 4 Mg Tablet 4 Mg PO DAILY 09/05/18 Reported Klor-Con M20 (Potassium Chloride) 20 Meq Tab.er.prt 20 Meq PO DAILYWBKFT 30 08/19/18 Rx Losartan Potassium 50 Mg Tablet 50 Mg PO DAILY 08/11/18 Reported Levothyroxine Sodium 50 Mcg Tablet 1 Tab PO DAILY 06/30/18 Reported Furosemide 40 Mg Tablet 1 Tab PO PRN DAILY PRN 06/30/18 Reported Pravastatin Sodium 40 Mg Tablet 1 Tab PO QHS 06/30/18 Reported Stool Softener (Docusate Sodium) 100 Mg Tablet 100 Mg PO PRN PRN 07/21/17 Reported Impression . 1. Progressive dyspnea, multifactorial, underlying chronic obstructive pulmonary disease, progressive lung cancer with obstructive collapse of JUSTICE/ collapse of pulmonary artery and small left effusion, 2. 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 Insp. wheeze due to distal left main stem compression 3. Dysphagia. 4. Chronic atrial fibrillation, on Coumadin. 5. Cardiomyopathy, ejection fraction 30%, status post automatic implantable cardioverter defibrillator placement. Plan . 1. CT chest reviewed. 2. Continue XRT. oncology rec/ bx of neck lesion per radiation oncology. 3. Left effusion is small. would not benefit from tap at present 4. Monitor effusion for now 5. No need for antibiotics at this time. 6. steroids./ Nebs 7. Prognosis is guarded 8. Increase creatine, monitor closely d/w RN/ and patient about advance directives. she does not want intubation but prefer to have CPR/ DNI ok with dc plans per PCP DILLON ETIENNE MD Sep 16, 2018 11:42
--- NOTE | 2018-09-16 13:32 | NUR ---
Discharge Note: [facility] Discharge instructions and discharge home medications reviewed with Patient and a copy given. All questions have been answered and understanding verbalized. The following instructions and handouts were given: radiation treatments, SOA, follow up appointments, and medications. Discontinued lines and drains: IV removed. No lines present. Patient discharged to home. left via wheelchair with by their vehicle.
--- NOTE | 2018-09-16 15:46 | DS ---
DATE OF DISCHARGE: 09/16/2018 CHIEF COMPLAINT: Shortness of breath. HISTORY OF PRESENT ILLNESS: The patient is a 67-year-old female, who was recently diagnosed with metastatic adenocarcinoma of the lung. She also has chronic atrial fibrillation. She presented to the Emergency Room with the above complaint. She reported increasing shortness of breath for the past several days. This was accompanied by a cough, which was productive of thick white sputum. The patient had been started on radiation therapy the week prior to admission for treatment of the large mass in her left hilum, which is compressing her airway. She had gone to her treatments daily, but her shortness of breath was worsening, so she came to the Emergency Room. Evaluation there showed her to be tachycardic, but not hypoxic at rest. Treatment was started and she was admitted for further care. HOSPITAL COURSE: The patient was seen in consultation by Dr. Durham, Dr. Miramontes, Dr. Choi and Cardiology. Her radiation treatments were continued daily. She was also given high dose Solu-Medrol. She had significant inspiratory wheezes on admission and these are much improved. She remains without hypoxia on room air. Her breathing seems easier to her. The patient has chronic atrial fibrillation. She was initially tachycardic. This was treated with a Cardizem drip and resumption of her usual 150 mg of Toprol XL. Within about 1 day, the tachycardia resolved and her heart rate is now well controlled with the metoprolol. Her losartan was held and will not be resumed at discharge as her hypertension has been controlled with the Toprol only. The patient is chronically anticoagulated with Coumadin. Her INR was therapeutic at admission at 2.4. Her Coumadin was held for several days in anticipation of a biopsy of a nodule in her right neck felt to be metastatic cancer. However, her INR remained elevated and was 2.6 on 09/15/2018. She did receive one dose of vitamin K on that day in anticipation of a possible biopsy today; however, Dr. Durham and Dr. Miramontes felt that the biopsy was not necessary at this time as there was clear evidence of metastatic disease on the patient's CAT scan and PET scan and Dr. Durham will plan her chemotherapy accordingly. Her INR is 1.9 this morning. She will be discharged on a lower dose of Coumadin 1 mg on Wednesday, Wednesday and Wednesday only and this will be followed in our office. The patient has been on levothyroxine for several months for a new diagnosis of hypothyroidism. Lab here showed a TSH mildly elevated at 6.5 and a free T4 at the upper limits of a normal range at 1.38. Her levothyroxine has been increased to 75 mcg daily and this will be followed as an outpatient. The patient has a history of systolic and diastolic congestive heart failure. Her last ejection fraction was noted to be 30%. She takes Lasix as needed, but not on a daily basis at home. It was felt that she had an exacerbation of her congestive heart failure at admission and thus, she was given an extra dose of Lasix. This seems to have improved and she has not received any more Lasix during her hospital stay. A bedside swallow exam was done, which showed possible evidence of aspiration. The patient then had a video swallow, which did show aspiration under certain circumstances. Speech therapy has instructed the patient on swallowing techniques including avoiding the use of straws, only taking one medication at a time and taking only small sips of thin liquids and the patient will follow these recommendations at home. Mrs Mcgowan feels better and will be discharged to home today after her radiation treatment. FINAL DIAGNOSES: 1. Adenocarcinoma of the lung, stage IV with airway compression. 2. Chronic atrial fibrillation. 3. Systolic and diastolic congestive heart failure. 4. Hypertension. 5. Hypothyroidism. 6. Dysphagia. DISCHARGE MEDICATIONS: Levothyroxine 75 mcg daily; MiraLax 17 grams daily as needed; prednisone 20 mg tablet 3 tablets daily for 3 days, then 2 tablets daily for 3 days, then 1 tablet daily for 3 days, then discontinue, start on 09/17/2018; Colace 100 mg daily p.r.n.; furosemide 40 mg daily p.r.n.; Toprol-XL 50 mg 3 tablets daily; potassium chloride 20 mEq daily; pravastatin 40 mg daily; Coumadin 1 mg Wednesday, Wednesday, and Wednesday only. FOLLOWUP: Followup is with Dr. Miramontes and Dr. Durham as advised. The patient is to follow up in our office in 2 weeks for a recheck of her INR. JOSH CANAS MD DR: ALFONSO/hector JOB#: [id number] / [id number] DILCIA
[2018-10-05] MEDS ORDERED: FURO40TA4 PO (08:46)
[2018-10-05] MEDS ORDERED: METO50TA4 PO (08:46)
[2018-10-05] MEDS ORDERED: LOSA-73 PO (08:46)
[2018-10-05] MEDS ORDERED: Pantoprazole PO (08:46)
[2018-10-05] MEDS ORDERED: WARF1TAB74 PO (08:46)
[2018-10-05] MEDS ORDERED: PRED-220 PO (08:46)
[2018-11-11] MEDS ORDERED: HYDR-2765 PO (09:14)
[2018-11-11] MEDS ORDERED: WARF10TA45 MC (09:14)
[2018-11-11] MEDS ORDERED: ALPR0.254 PO (09:14)
[2018-11-11] MEDS ORDERED: POTA20LI27 PEG (09:14)
[2018-11-11] MEDS ORDERED: MORP15TA PO (09:14)
[2018-11-11] MEDS ORDERED: ENOX80DI3 SQ (09:14)
[2018-11-11] MEDS ORDERED: METO25TA4 PO (09:14)
[2018-11-11] MEDS ORDERED: LANS30TA6 FT (09:15)
[2018-11-11] MEDS ORDERED: DOCU-109 PO (09:15)
== END 2018-09-16 12:25 | disposition home or self-care (01) | DRG 291 ==
LOC: ER 10:52 → 2 SOUTH 12:40
PROVIDERS: ADMIT Family Medicine; ATTEND Family Medicine
PROC: 4B02XTZ Measurement of Cardiac Defibrillator, External Approach (ICD-10-PCS; principal; 2018-09-12)
DX: I11.0 Hypertensive heart disease with heart failure (principal); J96.00 Acute respiratory failure, unspecified whether with hypoxia or hypercapnia; C34.90 Malignant neoplasm of unspecified part of unspecified bronchus or lung; I48.92 Unspecified atrial flutter; I48.1 Persistent atrial fibrillation; C79.72 Secondary malignant neoplasm of left adrenal gland; C77.0 Secondary and unspecified malignant neoplasm of lymph nodes of head, face and neck; J98.11 Atelectasis; D68.9 Coagulation defect, unspecified; I50.43 Acute on chronic combined systolic (congestive) and diastolic (congestive) heart failure; I25.10 Atherosclerotic heart disease of native coronary artery without angina pectoris; E03.9 Hypothyroidism, unspecified; E78.00 Pure hypercholesterolemia, unspecified; I48.2 Chronic atrial fibrillation; E78.5 Hyperlipidemia, unspecified; J44.9 Chronic obstructive pulmonary disease, unspecified; M19.90 Unspecified osteoarthritis, unspecified site; M06.9 Rheumatoid arthritis, unspecified; I25.5 Ischemic cardiomyopathy; R13.10 Dysphagia, unspecified; T45.515A Adverse effect of anticoagulants, initial encounter; Y92.89 Other specified places as the place of occurrence of the external cause; Z95.810 Presence of automatic (implantable) cardiac defibrillator; Z79.01 Long term (current) use of anticoagulants; Z79.899 Other long term (current) drug therapy; Z87.891 Personal history of nicotine dependence; Z82.49 Family history of ischemic heart disease and other diseases of the circulatory system; Z80.3 Family history of malignant neoplasm of breast
CPT/HCPCS: 36415; 71045; 71275; 74230; 77412; 80048; 80053; 83605; 83880; 84439; 84443; 84484; 85025; 85027; 85610; 86850; 86900; 86901; 87040; 93005; 94640; 96361; 96374; 96375; J1160; J1940; J2270; J2930; J3430; J3490; J7040; J7620; Q9967; 92526; 92610; 92611; 99285-25

== ENCOUNTER 2018-09-30 16:05 | Inpatient (IN) | payer MEDICARE ==
[~2018-09-30] VITALS: Ht 190.5 cm; Wt 74.2 kg
[~2018-09-30 16:05] MED LIST changes: +LEVO75TA PO; +METO-269 PO; +POLY17PO28 PO; +PRED20TA PO; +WARF1TAB69 PO
[2018-09-30] MEDS ORDERED: dilTIAZem IV PUSH 25 MG/5 ML VIAL ONE (16:19)
[2018-09-30] MEDS ORDERED: dilTIAZem IV PUSH 25 MG/5 ML VIAL IVP ONE (16:30)
[2018-09-30] MEDS ORDERED: dilTIAZem INJ 125 MG in IV DEXTROSE 5% 100ML 100 ML IV ONE (16:30)
[2018-09-30] MEDS ORDERED: ALBUTEROL SULFATE 2.5 MG/3 ML NEBU. NEB ONE (16:30)
--- NOTE | 2018-09-30 16:32 | PHYS DOC ---
Past Medical History Past Medical History: A-Fib, Cancer, CHF, High Cholesterol, Hypertension, Hypothyroid, Other Additional Past Medical Histor: LUNG CA Past Surgical History: Pacemaker, Other Additional Past Surgical Histo: MITRAL VALVE REPAIR X2, PACER/DEFIB Alcohol Use: None Drug Use: None Adult General Chief Complaint Chief Complaint: RAPID HEART RATE HPI HPI 67-year-old female presenting to the emergency department today with shortness of breath and palpitations. She recently was diagnosed with stage IV lung cancer and was seen in Dr. cueva office this afternoon for evaluation for possible beginning chemotherapy treatment. She has had increasing shortness of breath and palpitations over the past few days. Onset 1-2 days. Location lungs/ heart. Duration intermittent. Review of systems is negative for chest pain abdominal pain nausea vomiting diaphoresis fevers or chills. All other review of systems is negative unless otherwise noted in history of present illness. ED course: 67-year-old female presenting the emergency department today with palpitations and shortness of breath. The patient was found to be in A. fib with RVR with his daily elevated heart rate. IV diltiazem bolus and drip ordered. Patient has wheezing here in the emergency department. We will give the patient IV Solu-Medrol. She does not have a history of COPD. CT angiogram ordered to rule out pulmonary embolism. Negative for pulmonary embolism. Possible infiltrate present. On reexamination the patient is breathing more comfortably. Heart rate is down to 133. Blood pressure initially dipped to 90 systolic which improved with a 250 mL bolus. I spoke with Dr. Manzano who accepts the patient for admission. Review of Systems Review of Systems SEE ABOVE. Current Medications Current Medications Current Medications Medications (Trade) Dose Ordered Sig/Kimber Start Time Stop Time Status Last Admin Dose Admin Albuterol Sulfate (Ventolin Neb Soln) 2.5 mg 1X ONCE 09/30/18 16:30 09/30/18 16:31 DC 09/30/18 16:23 2.5 MG Azithromycin 250 ml @ 250 mls/hr 1X ONCE 09/30/18 18:15 09/30/18 19:14 Ceftriaxone Sodium (Rocephin) 1 gm 1X ONCE 09/30/18 18:15 09/30/18 18:16 DC Diltiazem HCl (Cardizem Iv Push) 25 mg STK-MED ONCE 09/30/18 16:19 09/30/18 16:20 DC Diltiazem HCl 125 mg/Dextrose 125 ml @ 5 mls/hr 1X ONCE 09/30/18 16:30 10/01/18 17:29 09/30/18 16:36 5 MLS/HR Info (CONTRAST GIVEN -- Rx MONITORING) 1 each PRN DAILY PRN 09/30/18 17:00 10/02/18 16:59 Iohexol (Omnipaque 350 Mg/ml) 75 ml 1X ONCE 09/30/18 17:00 09/30/18 17:01 DC 09/30/18 17:12 75 ML Methylprednisolone Sodium Succinate (SOLU-Medrol 125MG VIAL) 125 mg 1X ONCE 09/30/18 18:00 09/30/18 18:01 DC Sodium Chloride 1,000 ml @ 1,000 mls/hr 1X ONCE 09/30/18 17:00 09/30/18 17:00 DC 09/30/18 16:55 1,000 MLS/HR Allergies Allergies Allergies Coded Allergies Type Severity Reaction Last Updated Verified No Known Drug Allergies 08/15/18 No Physical Exam Physical Exam SEE ABOVE Constitutional: Well developed, well nourished, no acute distress, non-toxic appearance. [] HENT: Normocephalic, atraumatic, bilateral external ears normal, oropharynx moist, no oral exudates, nose normal. [] Eyes: PERRLA, EOMI, conjunctiva normal, no discharge. [] Neck: Normal range of motion, no tenderness, supple, no stridor. [] Cardiovascular:Heart rate regular rhythm, no murmur [] Lungs & Thorax: Wheezing bilaterally with prolonged after a phase. Crackles present. Abdomen: Bowel sounds normal, soft, no tenderness, no masses, no pulsatile masses. [] Skin: Warm, dry, no erythema, no rash. [] Back: No tenderness, no CVA tenderness. [] Extremities: No tenderness, no cyanosis, no clubbing, ROM intact, no edema. [] Neurologic: Alert and oriented X 3, normal motor function, normal sensory function, no focal deficits noted. [] Psychologic: Affect normal, judgement normal, mood normal. [] Current Patient Data Vital Signs Vital Signs Date Time Temp Pulse Resp B/P (MAP) Pulse Ox O2 Delivery O2 Flow Rate FiO2 09/30/18 16:23 98 Room Air 09/30/18 16:22 166 119/85 09/30/18 16:05 98.1 37 98.1 Lab Values Laboratory Tests Test 09/30/18 16:20 White Blood Count 11.1 x10^3/uL (4.0-11.0) H Red Blood Count 3.61 x10^6/uL (3.50-5.40) Hemoglobin 11.7 g/dL (12.0-15.5) L Hematocrit 35.6 % (36.0-47.0) L Mean Corpuscular Volume 99 fL (79-100) Mean Corpuscular Hemoglobin 33 pg (25-35) Mean Corpuscular Hemoglobin Concent 33 g/dL (31-37) Red Cell Distribution Width 16.9 % (11.5-14.5) H Platelet Count 178 x10^3/uL (140-400) Neutrophils (%) (Auto) 80 % (31-73) H Lymphocytes (%) (Auto) 10 % (24-48) L Monocytes (%) (Auto) 9 % (0-9) Eosinophils (%) (Auto) 0 % (0-3) Basophils (%) (Auto) 1 % (0-3) Neutrophils # (Auto) 8.9 x10^3uL (1.8-7.7) H Lymphocytes # (Auto) 1.1 x10^3/uL (1.0-4.8) Monocytes # (Auto) 1.0 x10^3/uL (0.0-1.1) Eosinophils # (Auto) 0.0 x10^3/uL (0.0-0.7) Basophils # (Auto) 0.1 x10^3/uL (0.0-0.2) Prothrombin Time 14.5 SEC (11.7-14.0) H Prothrombin Time INR 1.2 (0.8-1.1) H PTT 29 SEC (24-38) Sodium Level 140 mmol/L (136-145) Potassium Level 3.0 mmol/L (3.5-5.1) L Chloride Level 100 mmol/L (98-107) Carbon Dioxide Level 28 mmol/L (21-32) Anion Gap 12 (6-14) Blood Urea Nitrogen 15 mg/dL (7-20) Creatinine 1.4 mg/dL (0.6-1.0) H Estimated GFR (Cockcroft-Gault) 45.5 Glucose Level 132 mg/dL (70-99) H Calcium Level 9.3 mg/dL (8.5-10.1) Total Bilirubin 1.5 mg/dL (0.2-1.0) H Direct Bilirubin 0.3 mg/dL (0.0-0.2) H Aspartate Amino Transferase (AST) 15 U/L (15-37) Alanine Aminotransferase (ALT) 24 U/L (14-59) Alkaline Phosphatase 76 U/L (46-116) Troponin I Quantitative < 0.017 ng/mL (0.000-0.055) NW-Xkt-D-Type Natriuretic Peptide 1857 pg/mL (0-124) H Total Protein 7.2 g/dL (6.4-8.2) Albumin 3.5 g/dL (3.4-5.0) Lipase 500 U/L (73-393) H Laboratory Tests 09/30/18 16:20 Laboratory Tests 09/30/18 16:20 EKG EKG [] Radiology/Procedures Radiology/Procedures [] Course & Med Decision Making Course & Med Decision Making Pertinent Labs and Imaging studies reviewed. (See chart for details) [] Dragon Disclaimer Dragon Disclaimer This electronic medical record was generated, in whole or in part, using a voice recognition dictation system. Departure Departure Impression: Primary Impression: Adenocarcinoma of lung, stage 4 Additional Impressions: Atrial fibrillation with RVR Dyspnea Pneumonia Disposition: ADMITTED INPATIENT Admitting Physician: Neptali Manzano Condition: IMPROVED Referrals: JOSH CANAS MD (PCP) Critical Care Time Critical care time spent was 45 minutes exclusive of procedures. Time was spent evaluating the patient, ordering the administration of medications, reevaluating the patient, discussing with the admitting provider and documenting. Problem Qualifiers MINNIE CROCKER MD Sep 30, 2018 16:32
[2018-09-30 16:34] LABS: BASO # 0.1 x10^3/uL (0.0-0.2); BASO % 1 % (0-3); EOS % 0 % (0-3); HEMATOCRIT 35.6 % (36.0-47.0); HEMOGLOBIN 11.7 g/dL (12.0-15.5); LYMPH # 1.1 x10^3/uL (1.0-4.8); LYMPH % 10 % (24-48); MEAN CORPUSCULAR HEMOGLOBIN 33 pg (25-35); MEAN CORPUSCULAR HGB CONC 33 g/dL (31-37); MEAN CORPUSCULAR VOLUME 99 fL (79-100); MONO % 9 % (0-9); NEUT # 8.9 x10^3uL (1.8-7.7); NEUT % 80 % (31-73); PLATELET COUNT 178 x10^3/uL (140-400); RED BLOOD COUNT 3.61 x10^6/uL (3.50-5.40); RED CELL DISTRIBUTION WIDTH 16.9 % (11.5-14.5); WHITE BLOOD COUNT 11.1 x10^3/uL (4.0-11.0)
[2018-09-30 16:43] LABS: PROTHROMBIN TIME PATIENT 14.5 SEC (11.7-14.0)
[2018-09-30 16:48] LABS: ALBUMIN 3.5 g/dL (3.4-5.0); CALCIUM 9.3 mg/dL (8.5-10.1); CREATININE 1.4 mg/dL (0.6-1.0); DIRECT BILIRUBIN 0.3 mg/dL (0.0-0.2); GFR 45.5; TOTAL BILIRUBIN 1.5 mg/dL (0.2-1.0); TOTAL PROTEIN 7.2 g/dL (6.4-8.2)
[2018-09-30] MEDS ORDERED: IV NORMAL SALINE 1000ML BAG 1,000 ML IV ONE (17:00)
[2018-09-30] MEDS ORDERED: IOHEXOL 350 MG/ML 100 ML VIAL. IV ONE (17:00)
[2018-09-30] MEDS ORDERED: CONTRAST GIVEN. MC PRN (17:00)
--- NOTE | 2018-09-30 17:01 | RAD ---
CHEST AP ONLY Clinical Indication: CHEST PAIN, PRODUCTIVE COUGH Comparison: CTA of the chest 09/12/2018. Findings: Dual lead left-sided ICD is present. Prosthetic cardiac valve implant is present. Heart size is borderline. Subtle opacification the left lung base which may correspond to small pleural effusion noted.. There is no pneumothorax. No pleural effusion is appreciated. No acute bone abnormality. IMPRESSION: Small left pleural effusion is suspected. Electronically signed by: Brayan Harry MD (09/30/2018 4:58 PM) [id number]
--- NOTE | 2018-09-30 17:58 | RAD ---
Chest CTA History: Worsening shortness of air, rapid heart rate Technique: After bolus of intravenous contrast, CT imaging was performed of the chest. Multiplanar reconstruction images to include MIP reconstruction images are submitted. Exposure: One or more of the following individualized dose reduction techniques were utilized for this examination: 1. Automated exposure control 2. Adjustment of the mA and/or kV according to patient size 3. Use of iterative reconstruction technique. Comparison: September 12, 2018 Findings: [ ] There is some motion degradation. No focal intraluminal filling defect is identified of the pulmonary arteries. There is again a large left hilar mass with resultant extrinsic narrowing of the left pulmonary arteries as well as the bronchi in this region. Overall size of mass is about 6.7 cm AP by 5.8 cm transverse by about 4.7 cm CC. There is again some thickening along the left major fissure more laterally. There is extensive soft tissue mass into the left hilar region and left mediastinum including along the left mainstem bronchus as seen previously. There is no significant pleural fluid. There is improved aeration of the superior left lower lobe. There is some residual mild right lower lobe infiltrate and atelectasis and possible nodules. There is a 1 cm right lower nodule axial image 107, possible right lower lobe nodule about 1.1 cm axial image 100. There is centrilobular emphysema with upper zone predominance. There again has been a median sternotomy. Heart is enlarged. There is mitral valvular prosthesis. There is again some reflux of contrast into the hepatic veins Impression: 1. No discrete pulmonary embolism is identified. There is again large left hilar mass with extent to the left mediastinum with narrowing of the adjacent bronchi and pulmonary arteries. Previously seen left pleural effusion has resolved and improved aeration of the left lower lobe. There is some persistent atelectasis/infiltrate of the right lower lobe and possible nodules. 2. Heart is enlarged. There is again some reflux of contrast into hepatic veins which can be associated with heart failure. 3. There is emphysema. Electronically signed by: Norm Ramos MD (09/30/2018 5:55 PM) [id number]
[2018-09-30] MEDS ORDERED: methylPREDNISolone SOD SUCC PF 125 MG/2 ML VIAL. IV ONE (18:00)
[2018-09-30] MEDS ORDERED: cefTRIAXone IV Push 1 GM VIAL. IVP ONE (18:15)
[2018-09-30] MEDS ORDERED: AZITHRMYCN 500MG IVPB FOR OMNI 250 ML IV ONE (18:15)
--- NOTE | 2018-09-30 20:30 | NUR ---
A 67YO AA FEMALE ADMITTED TO 109-ICU WITH AFIB RVR AND CHF, ACCOMPANIED BY . PT ALERT AND ORIENTED X4, DENIES PAIN AT THIS TIME. PT ASSISTED TO BED WITH MINIMAL ASSISTANCE. PT SOB WITH EXERTION. PT ON CARDIZEM GTT PER ORDER. PT ORIENTED TO UNIT, STAFF AND EXPLAINED POC. PT VERBALIZED UNDERSTANDING. CALL LIGHT IN PLACE, WILL CONT TO MONITOR FOR CHANGES. PMRN
[2018-09-30] MEDS: POTASSIUM CHLORIDE 10MEQ 100 ML IV SCH ×3 (20:32→23:50)
[2018-09-30] MEDS ORDERED: ALBUTEROL SULFATE 2.5 MG/3 ML NEBU. NEB PRN (21:00)
[2018-09-30] MEDS: ATORVASTATIN CALCIUM 10 MG TABLET. PO SCH (21:17)
[2018-09-30] MEDS: ONDANSETRON PF 4 MG/2 ML VIAL. IV PRN (22:23)
[2018-09-30 22:25] VITALS: BP 101/57
[2018-09-30 23:00] VITALS: BP 92/49
[2018-10-01] VITALS (13 sets, daily range): BP systolic 96–124; BP diastolic 47–80
[2018-10-01] MEDS: POTASSIUM CHLORIDE 10MEQ 100 ML IV SCH (01:27)
[2018-10-01] MEDS: dilTIAZem INJ 125 MG in IV DEXTROSE 5% 100ML 100 ML IV PRN ×2 (01:56→11:54)
[2018-10-01 04:41] LABS: BASO % 0 % (0-3); EOS % 0 % (0-3); HEMATOCRIT 31.8 % (36.0-47.0); HEMOGLOBIN 10.3 g/dL (12.0-15.5); LYMPH # 0.6 x10^3/uL (1.0-4.8); LYMPH % 7 % (24-48); MEAN CORPUSCULAR HEMOGLOBIN 32 pg (25-35); MEAN CORPUSCULAR HGB CONC 32 g/dL (31-37); MEAN CORPUSCULAR VOLUME 100 fL (79-100); MONO # 0.1 x10^3/uL (0.0-1.1); MONO % 1 % (0-9); NEUT # 7.9 x10^3uL (1.8-7.7); NEUT % 92 % (31-73); PLATELET COUNT 157 x10^3/uL (140-400); RED BLOOD COUNT 3.18 x10^6/uL (3.50-5.40); RED CELL DISTRIBUTION WIDTH 17.2 % (11.5-14.5); WHITE BLOOD COUNT 8.6 x10^3/uL (4.0-11.0)
[2018-10-01 05:30] LABS: CREATININE 1.2 mg/dL (0.6-1.0); GFR 54.4; POTASSIUM 3.6 mmol/L (3.5-5.1)
[2018-10-01 05:37] LABS: CHOLESTEROL/HDL RATIO 3.2
--- NOTE | 2018-10-01 07:20 | PDOC ---
Provider Note Provider Note [id number] acute resp fail afib w rvr ae of copd acute bronchitis see order OSCAR GRANDE MD Oct 01, 2018 07:20
[2018-10-01] MEDS ORDERED: PANTOPRAZOLE 40 MG TABLET.DR. PO SCH (07:30)
--- NOTE | 2018-10-01 07:38 | PDOC1 ---
History and Physical Date of Admission Date of Admission 09/30/18 Identification/Chief Complaint Chief Complaint "High Heart rate" History of Present Illness History of Present Illness Pt was recently diagnosed with lung cancer 2 weeks ago. She has undergone radiation and was about to start chemotherapy when she was told that her heart rate was too fast and would need to go to the ER. Pt states that she has not been feeling well for several weeks, but has continually gotten worse over time. She has noticed her weakness increasing and having more difficulty with her breathing. She has had a cough with clear sputum for the past 2 days. She has noticed more wheezing and shortness of breath. She denies any increased swelling. She has not noticed anything that makes it better, but breathing treatments seem to make it worse. She also complains of epigastric pain that started after she got radiation. Constant burning in her stomach after eating foods. Past Medical History Cardiovascular: AFIB, CAD, CHF, HTN, Hyperlipidemia, Valve insufficiency, Other Pulmonary: COPD, Other (Lung Cancer) GI: GERD Heme/Onc: Anemia NOS, Cancer, Other Hepatobiliary: No pertinent hx Psych: No pertinent hx Rheumatologic: Rheumatoid arthritis Infectious disease: No pertinent hx ENT: No pertinent hx Renal/: No pertinent hx Endocrine: Hypothyroidism Dermatology: No pertinent hx Past Surgical History Past Surgical History: Pacemaker, Other Family History Family History: Cancer, Heart Disease Social History Smoke: Quit ALCOHOL: none Drugs: None Current Problem List Problem List Problems Medical Problems: (1) Atrial fibrillation with RVR Status: Acute (2) Dyspnea Status: Acute (3) Pneumonia Status: Acute Current Medications Current Medications Current Medications Medications (Trade) Dose Ordered Sig/Kimber Start Time Stop Time Status Last Admin Dose Admin Albuterol Sulfate (Ventolin Neb Soln) 2.5 mg PRN Q4HRS PRN 09/30/18 21:00 09/30/18 20:59 2.5 MG Atorvastatin Calcium (Lipitor) 10 mg QHS 09/30/18 21:00 09/30/18 21:17 10 MG Azithromycin 250 ml @ 250 mls/hr 1X ONCE 09/30/18 18:15 09/30/18 19:14 DC 09/30/18 18:44 250 MLS/HR Ceftriaxone Sodium (Rocephin) 1 gm 1X ONCE 09/30/18 18:15 09/30/18 18:16 DC 09/30/18 18:39 1 GM Diltiazem HCl (Cardizem Iv Push) 25 mg STK-MED ONCE 09/30/18 16:19 09/30/18 16:20 DC Diltiazem HCl 125 mg/Dextrose 125 ml @ 5 mls/hr CONT PRN 10/01/18 01:45 10/01/18 01:56 5 MLS/HR Info (CONTRAST GIVEN -- Rx MONITORING) 1 each PRN DAILY PRN 09/30/18 17:00 10/02/18 16:59 Iohexol (Omnipaque 350 Mg/ml) 75 ml 1X ONCE 09/30/18 17:00 09/30/18 17:01 DC 09/30/18 17:12 75 ML Methylprednisolone Sodium Succinate (SOLU-Medrol 125MG VIAL) 125 mg 1X ONCE 09/30/18 18:00 09/30/18 18:01 DC 09/30/18 18:41 125 MG Ondansetron HCl (Zofran) 4 mg PRN Q6HRS PRN 09/30/18 22:15 09/30/18 22:23 4 MG Potassium Chloride/Water 100 ml @ 100 mls/hr Q1H 09/30/18 19:30 09/30/18 23:29 DC 10/01/18 01:27 100 MLS/HR Sodium Chloride 1,000 ml @ 1,000 mls/hr 1X ONCE 09/30/18 17:00 09/30/18 17:00 DC 09/30/18 16:55 1,000 MLS/HR Allergies Allergies Allergies Coded Allergies Type Severity Reaction Last Updated Verified No Known Drug Allergies 08/15/18 No ROS Review of System CONSTITUTIONAL: No fever or chills EYES: No recent changes SKIN: No rash or itching CARDIOVASCULAR: No chest pain, syncope, palpitations, or edema RESPIRATORY: + SOB or cough GASTROINTESTINAL: + nausea, vomiting from coughing, + epigastric pain NEUROLOGICAL: No headaches or weakness ENDOCRINE: No cold or heat intolerance GENITOURINARY: No urgency or frequency of urination MUSCULOSKELETAL: No back pain or joint pain LYMPHATICS: No enlarged lymph nodes PSYCHIATRIC: No anxiety or depression Physical Exam Physical Exam GEN.: No apparent distress. Alert and oriented. Upper airway noise appreciated HEENT: Head is normocephalic, atraumatic NECK: Supple. LUNGS: Upper airway noise present, diminished breath sounds in right lung base HEART: tachycardic, no M/R/G ABDOMEN: Soft, nontender. Positive bowel sounds. EXTREMITIES: Without any cyanosis. NEUROLOGIC: Normal speech, normal tone PSYCHIATRIC: Normal affect, normal mood. SKIN: No ulcerations Vitals Vitals Vital Signs Date Time Temp Pulse Resp B/P (MAP) Pulse Ox O2 Delivery O2 Flow Rate FiO2 10/01/18 05:31 106 22 110/58 (75) 100 Nasal Cannula 2.0 10/01/18 04:10 99.0 99.0 Labs Labs Laboratory Tests Test 09/30/18 16:20 10/01/18 00:20 10/01/18 04:00 White Blood Count 11.1 x10^3/uL (4.0-11.0) 8.6 x10^3/uL (4.0-11.0) Red Blood Count 3.61 x10^6/uL (3.50-5.40) 3.18 x10^6/uL (3.50-5.40) Hemoglobin 11.7 g/dL (12.0-15.5) 10.3 g/dL (12.0-15.5) Hematocrit 35.6 % (36.0-47.0) 31.8 % (36.0-47.0) Mean Corpuscular Volume 99 fL (79-100) 100 fL (79-100) Mean Corpuscular Hemoglobin 33 pg (25-35) 32 pg (25-35) Mean Corpuscular Hemoglobin Concent 33 g/dL (31-37) 32 g/dL (31-37) Red Cell Distribution Width 16.9 % (11.5-14.5) 17.2 % (11.5-14.5) Platelet Count 178 x10^3/uL (140-400) 157 x10^3/uL (140-400) Neutrophils (%) (Auto) 80 % (31-73) 92 % (31-73) Lymphocytes (%) (Auto) 10 % (24-48) 7 % (24-48) Monocytes (%) (Auto) 9 % (0-9) 1 % (0-9) Eosinophils (%) (Auto) 0 % (0-3) 0 % (0-3) Basophils (%) (Auto) 1 % (0-3) 0 % (0-3) Neutrophils # (Auto) 8.9 x10^3uL (1.8-7.7) 7.9 x10^3uL (1.8-7.7) Lymphocytes # (Auto) 1.1 x10^3/uL (1.0-4.8) 0.6 x10^3/uL (1.0-4.8) Monocytes # (Auto) 1.0 x10^3/uL (0.0-1.1) 0.1 x10^3/uL (0.0-1.1) Eosinophils # (Auto) 0.0 x10^3/uL (0.0-0.7) 0.0 x10^3/uL (0.0-0.7) Basophils # (Auto) 0.1 x10^3/uL (0.0-0.2) 0.0 x10^3/uL (0.0-0.2) Prothrombin Time 14.5 SEC (11.7-14.0) Prothromb Time International Ratio 1.2 (0.8-1.1) Activated Partial Thromboplast Time 29 SEC (24-38) Sodium Level 140 mmol/L (136-145) 137 mmol/L (136-145) Potassium Level 3.0 mmol/L (3.5-5.1) 3.6 mmol/L (3.5-5.1) Chloride Level 100 mmol/L (98-107) 103 mmol/L (98-107) Carbon Dioxide Level 28 mmol/L (21-32) 23 mmol/L (21-32) Anion Gap 12 (6-14) 11 (6-14) Blood Urea Nitrogen 15 mg/dL (7-20) 15 mg/dL (7-20) Creatinine 1.4 mg/dL (0.6-1.0) 1.2 mg/dL (0.6-1.0) Estimated GFR (Cockcroft-Gault) 45.5 54.4 Glucose Level 132 mg/dL (70-99) 183 mg/dL (70-99) Lactic Acid Level 1.8 mmol/L (0.4-2.0) Calcium Level 9.3 mg/dL (8.5-10.1) 9.0 mg/dL (8.5-10.1) Total Bilirubin 1.5 mg/dL (0.2-1.0) Direct Bilirubin 0.3 mg/dL (0.0-0.2) Aspartate Amino Transf (AST/SGOT) 15 U/L (15-37) Alanine Aminotransferase (ALT/SGPT) 24 U/L (14-59) Alkaline Phosphatase 76 U/L (46-116) Troponin I Quantitative < 0.017 ng/mL (0.000-0.055) < 0.017 ng/mL (0.000-0.055) [id number]-Type Natriuretic Peptide 1857 pg/mL (0-124) Total Protein 7.2 g/dL (6.4-8.2) Albumin 3.5 g/dL (3.4-5.0) Lipase 500 U/L (73-393) Triglycerides Level 78 mg/dL (0-150) Cholesterol Level 150 mg/dL (0-200) LDL Cholesterol, Calculated 87 mg/dL (0-100) VLDL Cholesterol, Calculated 16 mg/dL (0-40) Non-HDL Cholesterol Calculated 103 mg/dL (0-129) HDL Cholesterol 47 mg/dL (40-60) Cholesterol/HDL Ratio 3.2 Laboratory Tests Test 09/30/18 16:20 10/01/18 00:20 10/01/18 04:00 White Blood Count 11.1 x10^3/uL (4.0-11.0) 8.6 x10^3/uL (4.0-11.0) Red Blood Count 3.61 x10^6/uL (3.50-5.40) 3.18 x10^6/uL (3.50-5.40) Hemoglobin 11.7 g/dL (12.0-15.5) 10.3 g/dL (12.0-15.5) Hematocrit 35.6 % (36.0-47.0) 31.8 % (36.0-47.0) Mean Corpuscular Volume 99 fL (79-100) 100 fL (79-100) Mean Corpuscular Hemoglobin 33 pg (25-35) 32 pg (25-35) Mean Corpuscular Hemoglobin Concent 33 g/dL (31-37) 32 g/dL (31-37) Red Cell Distribution Width 16.9 % (11.5-14.5) 17.2 % (11.5-14.5) Platelet Count 178 x10^3/uL (140-400) 157 x10^3/uL (140-400) Neutrophils (%) (Auto) 80 % (31-73) 92 % (31-73) Lymphocytes (%) (Auto) 10 % (24-48) 7 % (24-48) Monocytes (%) (Auto) 9 % (0-9) 1 % (0-9) Eosinophils (%) (Auto) 0 % (0-3) 0 % (0-3) Basophils (%) (Auto) 1 % (0-3) 0 % (0-3) Neutrophils # (Auto) 8.9 x10^3uL (1.8-7.7) 7.9 x10^3uL (1.8-7.7) Lymphocytes # (Auto) 1.1 x10^3/uL (1.0-4.8) 0.6 x10^3/uL (1.0-4.8) Monocytes # (Auto) 1.0 x10^3/uL (0.0-1.1) 0.1 x10^3/uL (0.0-1.1) Eosinophils # (Auto) 0.0 x10^3/uL (0.0-0.7) 0.0 x10^3/uL (0.0-0.7) Basophils # (Auto) 0.1 x10^3/uL (0.0-0.2) 0.0 x10^3/uL (0.0-0.2) Prothrombin Time 14.5 SEC (11.7-14.0) Prothromb Time International Ratio 1.2 (0.8-1.1) Activated Partial Thromboplast Time 29 SEC (24-38) Sodium Level 140 mmol/L (136-145) 137 mmol/L (136-145) Potassium Level 3.0 mmol/L (3.5-5.1) 3.6 mmol/L (3.5-5.1) Chloride Level 100 mmol/L (98-107) 103 mmol/L (98-107) Carbon Dioxide Level 28 mmol/L (21-32) 23 mmol/L (21-32) Anion Gap 12 (6-14) 11 (6-14) Blood Urea Nitrogen 15 mg/dL (7-20) 15 mg/dL (7-20) Creatinine 1.4 mg/dL (0.6-1.0) 1.2 mg/dL (0.6-1.0) Estimated GFR (Cockcroft-Gault) 45.5 54.4 Glucose Level 132 mg/dL (70-99) 183 mg/dL (70-99) Lactic Acid Level 1.8 mmol/L (0.4-2.0) Calcium Level 9.3 mg/dL (8.5-10.1) 9.0 mg/dL (8.5-10.1) Total Bilirubin 1.5 mg/dL (0.2-1.0) Direct Bilirubin 0.3 mg/dL (0.0-0.2) Aspartate Amino Transf (AST/SGOT) 15 U/L (15-37) Alanine Aminotransferase (ALT/SGPT) 24 U/L (14-59) Alkaline Phosphatase 76 U/L (46-116) Troponin I Quantitative < 0.017 ng/mL (0.000-0.055) < 0.017 ng/mL (0.000-0.055) EM-Gfz-[id number]-Type Natriuretic Peptide 1857 pg/mL (0-124) Total Protein 7.2 g/dL (6.4-8.2) Albumin 3.5 g/dL (3.4-5.0) Lipase 500 U/L (73-393) Triglycerides Level 78 mg/dL (0-150) Cholesterol Level 150 mg/dL (0-200) LDL Cholesterol, Calculated 87 mg/dL (0-100) VLDL Cholesterol, Calculated 16 mg/dL (0-40) Non-HDL Cholesterol Calculated 103 mg/dL (0-129) HDL Cholesterol 47 mg/dL (40-60) Cholesterol/HDL Ratio 3.2 VTE Prophylaxis Ordered VTE Prophylaxis Devices: No VTE Pharmacological Prophylaxi: Yes Assessment/Plan Assessment/Plan Pt is a 67yo AAF admitted for afib with RVR 1)Afib with RVR- better controlled with Diltiazem gtt. Pt normally on Metoprolol 50mg BID and Warfarin 1mg every other day. Cardiology has been consulted. 2)Lung Cancer- recent diagnosis. S/p radiation treatment. Was supposed to start chemo yesterday. Heme/Onc has been consulted, as has pulmonology. 3)CHF- acute on chronic combined systolic and diastolic. Will give pt 40mg IV Lasix 4)HTN- BP at goal with current medications, had issues with hypotension overnight. Will hold pt's Losartan for now 5)Hypothyroidism- recent TSH elevated. Pt continued on 50mg of Levothyroxine 6)Pancreatitis- will keep pt NPO for now 7)Leukocytosis- resolved 8)Anemia- acute on chronic. No active bleeding. CTM 9)Hypokalemia- resolved with replacement 10)CKD- Cr is actually improved currently from where it has been in the past. CTM 11)Prediabetes- with acute hyperglycemia from steroid administration. SSI available if needed. 12)Hyperbilirubinemia 13)HLD- well controlled. Normally on Pravastatin 40mg, will be getting Atorvastatin 10mg while in the hospital HERIBERTO GARCIA MD Oct 01, 2018 07:38
[2018-10-01] MEDS ORDERED: DEXTROSE 50% 25 GM / 50ML DISP.SYRIN. IV PRN (07:45)
--- NOTE | 2018-10-01 07:51 | CONS ---
DATE OF CONSULTATION: 10/01/2018 REASON FOR CONSULTATION: I was asked to see this 67-year-old lady for acute respiratory failure, acute exacerbation of COPD. HISTORY OF PRESENT ILLNESS: She has history of [id number] smoking, stopped smoking about 9 years ago. She was diagnosed with stage 4 lung cancer a few weeks ago. She did receive radiation treatment and is going to receive chemotherapy. She has history of cardiomyopathy. She has had increased shortness of breath, wheezing, cough with sputum production for the past 3 days. She denies fever or chills. She has occasional runny nose, but denies gastroesophageal reflux symptoms. PAST MEDICAL HISTORY: Atrial fibrillation, stage IV lung cancer, cardiomyopathy, CHF, hypertension, hypothyroidism, mitral valve repair, status post AICD. She presented in the Emergency Room and was found to be in AFib with rapid ventricular response. She is on Cardizem drip. ALLERGIES: No known drug allergies. MEDICATIONS: Cardizem drip, albuterol p.r.n. She received Rocephin, azithromycin and Solu-Medrol in the Emergency Room. SOCIAL HISTORY: History of [id number] smoking, stopped smoking 9 years ago. FAMILY HISTORY: There is no history of lung disease. REVIEW OF SYSTEMS: As mentioned as above, other systems otherwise negative. PHYSICAL EXAMINATION: GENERAL: This is a well-developed lady. VITAL SIGNS: Her O2 saturation on 2 liters of oxygen is 98%, respiratory rate 22, heart rate 100, blood pressure 110/58, temperature 99. HEENT: Normocephalic, atraumatic. Pupils equal, round, reactive to light. Throat is clear. Nose is clear. NECK: Positive JVD. No lymphadenopathy. CARDIOVASCULAR: Regular rate and rhythm. PMI is nondisplaced. CHEST: Inspection is normal. LUNGS: There is expiratory wheezing, dullness at the dullness at the left base. ABDOMEN: Soft. Bowel sounds are good. There is no mass. EXTREMITIES: There is no edema. LYMPHATICS: There is no lymphadenopathy. SKIN: Chronic changes. NEUROLOGIC: Alert and oriented. LABORATORY DATA: I reviewed the following lab data: CT of the chest did not show pulmonary embolism. Large left hilar mass with extension to left mediastinum, narrowing of the adjacent bronchi and pulmonary artery noted, previous pleural effusion resolved and there is some atelectasis/infiltrate in right lower lobe area and possible nodules. Cardiomyopathy and emphysema noted. WBC 11.1, hemoglobin 11.7, platelets 178. Sodium 137, potassium 3.6, chloride 103, CO2 23, glucose 183, BUN 15, creatinine 1.2. Troponin less than 0.01. BNP 1875. Lactic acid 1.8. IMPRESSION: 1. Acute hypoxemic respiratory failure secondary to acute exacerbation of chronic obstructive pulmonary disease, acute bronchitis versus pneumonia, cannot rule out acute systolic congestive heart failure, atrial fibrillation with rapid ventricular response versus others. 2. Abnormal CT of the chest. 3. Stage IV non-small cell lung cancer. 4. Acute exacerbation of chronic obstructive pulmonary disease. 5. Acute bronchitis. 6. Ex-smoker. 7. Acute kidney injury. 8. Anemia. 9. Atrial fibrillation with rapid ventricular response. 10. Hypothyroidism. 11. Status post automatic implantable cardioverter defibrillator. PLAN: 1. Titrate FIO2 to keep O2 saturation 94%. 2. Bronchodilator Atrovent only, avoid albuterol. The patient has atrial fibrillation with rapid ventricular response. 3. Start Solu-Medrol 40 mg IV every 8 hours. 4. Protonix for stress ulcer prophylaxis. 5. Lovenox for DVT prophylaxis. 6. Continue antibiotic. 7. b lat LE venous doppler Monitor respiratory status in ICU. Thank you very much for allowing me to participate in care of this very nice lady. The findings and recommendations were discussed with the patient and RN. I have answered all of the patient's questions. She understood and agreed to proceed with the plan. OSCAR GRANDE M.D. : DANUTA/hector JOB#: [id number] / [id number] DILCIA
--- NOTE | 2018-10-01 07:57 | PDOC2 ---
CONSULT Date of Consult Date of Consult DATE: 10/01/18 TIME: 07:50 Reason for Consult Reason for Consult: Lung cancer Identification/Chief Complaint Chief Complaint Afib rvr Source Source: Chart review, Patient History of Present Illness Reason for Visit: Recent dx stage IV nsclca - left hilar mass with metastatic deepa disease and adrenal involvement. had 10 fractions of palliative radiation completed from 09/05 to 09/19. Was in Dr Durham office 09/30 and noted to have fast HR so sent to er Currently in ICU and iv cardizem CT angio done per ER did not show clot and some improved aeration after radiation Past Medical History Cardiovascular: AFIB, CAD, CHF, HTN, Hyperlipidemia, Valve insufficiency, Other Pulmonary: COPD, Other (Lung Cancer) GI: GERD Heme/Onc: Anemia NOS, Cancer, Other Hepatobiliary: No pertinent hx Psych: No pertinent hx Musculoskeletal: Osteoarthritis Rheumatologic: Rheumatoid arthritis Infectious disease: No pertinent hx ENT: No pertinent hx Renal/: No pertinent hx Endocrine: Hypothyroidism Dermatology: No pertinent hx Past Surgical History Past Surgical History: Pacemaker, Other Family History Family History: Cancer, Heart Disease Social History Quit ALCOHOL: none Drugs: None Lives: with Family Current Problem List Problem List Problems Medical Problems: (1) Atrial fibrillation with RVR Status: Acute (2) Dyspnea Status: Acute (3) Pneumonia Status: Acute Current Medications Current Medications Current Medications Diltiazem HCl (Cardizem Iv Push) 10 mg 1X ONCE IVP Last administered on at 16:22; Start 09/30/18 at 16:30; Stop 09/30/18 at 16:31; Status DC Diltiazem HCl 125 mg/Dextrose 125 ml @ 5 mls/hr 1X ONCE IV Last administered on 09/30/18at 16:36; Start 09/30/18 at 16:30; Stop 10/01/18 at 17:29 Albuterol Sulfate (Ventolin Neb Soln) 2.5 mg 1X ONCE NEB Last administered on 09/30/18at 16:23; Start 09/30/18 at 16:30; Stop 09/30/18 at 16:31; Status DC Diltiazem HCl (Cardizem Iv Push) 25 mg STK-MED ONCE .ROUTE ; Start 09/30/18 at 16:19; Stop 09/30/18 at 16:20; Status DC Sodium Chloride 1,000 ml @ 1,000 mls/hr 1X ONCE IV Last administered on at 16:55; Start 09/30/18 at 17:00; Stop 09/30/18 at 17:00; Status DC Iohexol (Omnipaque 350 Mg/ml) 75 ml 1X ONCE IV Last administered on 09/30/18at 17:12; Start 09/30/18 at 17:00; Stop 09/30/18 at 17:01; Status DC Info (CONTRAST GIVEN -- Rx MONITORING) 1 each PRN DAILY PRN MC SEE COMMENTS; Start 09/30/18 at 17:00; Stop 10/02/18 at 16:59 Methylprednisolone Sodium Succinate (SOLU-Medrol 125MG VIAL) 125 mg 1X ONCE IV Last administered on 09/30/18at 18:41; Start 09/30/18 at 18:00; Stop 09/30/18 at 18:01; Status DC Azithromycin 250 ml @ 250 mls/hr 1X ONCE IV Last administered on 09/30/18at 18 :44; Start 09/30/18 at 18:15; Stop 09/30/18 at 19:14; Status DC Ceftriaxone Sodium (Rocephin) 1 gm 1X ONCE IVP Last administered on 09/30/18at 18:39; Start 09/30/18 at 18:15; Stop 09/30/18 at 18:16; Status DC Potassium Chloride/Water 100 ml @ 100 mls/hr Q1H IV Last administered on at 01:27; Start 09/30/18 at 19:30; Stop 09/30/18 at 23:29; Status DC Albuterol Sulfate (Ventolin Neb Soln) 2.5 mg PRN Q4HRS PRN NEB SHORTNESS OF BREATH Last administered on 09/30/18at 20:59; Start 09/30/18 at 21:00 Atorvastatin Calcium (Lipitor) 10 mg QHS PO Last administered on 09/30/18at 21: 17; Start 09/30/18 at 21:00 Ondansetron HCl (Zofran) 4 mg PRN Q6HRS PRN IV NAUSEA/VOMITING Last administered on 09/30/18at 22:23; Start 09/30/18 at 22:15 Diltiazem HCl 125 mg/Dextrose 125 ml @ 5 mls/hr CONT PRN IV SEE I/O RECORD Last administered on 10/01/18at 01:56; Start 10/01/18 at 01:45 Methylprednisolone Sodium Succinate (SOLU-Medrol 40MG VIAL) 40 mg Q8HRS IV ; Start 10/01/18 at 08:00 Pantoprazole Sodium (Protonix) 40 mg DAILYAC PO ; Start 10/01/18 at 07:30; Stop 10/01/18 at 07:30; Status DC Enoxaparin Sodium (Lovenox 40mg Syringe) 40 mg Q24H SQ ; Start 10/01/18 at 08:00 Ipratropium [place] (Atrovent) 0.5 mg RTQID NEB ; Start 10/01/18 at 08:00 Pantoprazole Sodium (PROTONIX VIAL for IV PUSH) 40 mg DAILYAC IVP ; Start at 07:30 Metoprolol Tartrate (Lopressor) 50 mg BID PO ; Start 10/01/18 at 09:00 Levothyroxine Sodium (Synthroid) 50 mcg DAILY06 PO ; Start 10/01/18 at 08:00 Warfarin Sodium (Coumadin) 1 mg Q48H PO ; Start 10/01/18 at 16:00 Warfarin Sodium (Coumadin Per Physician) 1 each PRN DAILY PRN MC SEE COMMENTS; Start 10/01/18 at 07:45 Insulin Human Lispro (HumaLOG) 0-5 UNITS TIDWMEALS SQ ; Start 10/01/18 at 08:00 Dextrose (Dextrose 50%-Water Syringe) 12.5 gm PRN Q15MIN PRN IV SEE COMMENTS; Start 10/01/18 at 07:45 Active Scripts Active Prednisone 20 Mg Tablet 1 Tab PO DAILY 3 tabs daily for 3 days then 2 tabs daily for 3 days then 1 tab daily for 3 days. Start on 09/17/18. Synthroid (Levothyroxine Sodium) 75 Mcg Tablet 75 Mcg PO DAILY06 30 Days Polyethylene Glycol 3350 17 Gm Powd.pack 17 Gm PO DAILY 30 Days Warfarin Sodium 1 Mg Tablet 1 Mg PO MON, WEDS, FRI ONLY 30 Days Toprol Xl (Metoprolol Succinate) 50 Mg Tab.er.24h 150 Mg PO DAILY Klor-Con M20 (Potassium Chloride) 20 Meq Tab.er.prt 20 Meq PO DAILYWBKFT 30 Days Reported Furosemide 40 Mg Tablet 1 Tab PO PRN DAILY PRN Pravastatin Sodium 40 Mg Tablet 1 Tab PO QHS Stool Softener (Docusate Sodium) 100 Mg Tablet 100 Mg PO PRN PRN Allergies Allergies: Coded Allergies: No Known Drug Allergies (Unverified , 08/15/18) ROS Review of System had been SOB increasing several days. Cough with clear phlegm. Rarely streaks of blood Physical Exam General: Alert, Oriented X3, Cooperative, No acute distress HEENT: Atraumatic, Mucous membr. moist/pink Lungs: Other (some wheezing - moreso on left but overall fair air movement) Heart: Other (irreg) Abdomen: Normal bowel sounds, Soft, No hepatosplenomegaly Extremities: No clubbing, No edema Skin: No rashes Neuro: Normal speech, Normal tone Psych/Mental Status: Mental status NL MUSCULOSKELETAL: No swelling Vitals VITALS Vital Signs Date Time Temp Pulse Resp B/P (MAP) Pulse Ox O2 Delivery O2 Flow Rate FiO2 10/01/18 05:31 106 22 110/58 (75) 100 Nasal Cannula 2.0 10/01/18 04:10 99.0 99.0 Labs Labs Laboratory Tests Test 09/30/18 16:20 10/01/18 00:20 10/01/18 04:00 White Blood Count 11.1 x10^3/uL (4.0-11.0) 8.6 x10^3/uL (4.0-11.0) Red Blood Count 3.61 x10^6/uL (3.50-5.40) 3.18 x10^6/uL (3.50-5.40) Hemoglobin 11.7 g/dL (12.0-15.5) 10.3 g/dL (12.0-15.5) Hematocrit 35.6 % (36.0-47.0) 31.8 % (36.0-47.0) Mean Corpuscular Volume 99 fL (79-100) 100 fL (79-100) Mean Corpuscular Hemoglobin 33 pg (25-35) 32 pg (25-35) Mean Corpuscular Hemoglobin Concent 33 g/dL (31-37) 32 g/dL (31-37) Red Cell Distribution Width 16.9 % (11.5-14.5) 17.2 % (11.5-14.5) Platelet Count 178 x10^3/uL (140-400) 157 x10^3/uL (140-400) Neutrophils (%) (Auto) 80 % (31-73) 92 % (31-73) Lymphocytes (%) (Auto) 10 % (24-48) 7 % (24-48) Monocytes (%) (Auto) 9 % (0-9) 1 % (0-9) Eosinophils (%) (Auto) 0 % (0-3) 0 % (0-3) Basophils (%) (Auto) 1 % (0-3) 0 % (0-3) Neutrophils # (Auto) 8.9 x10^3uL (1.8-7.7) 7.9 x10^3uL (1.8-7.7) Lymphocytes # (Auto) 1.1 x10^3/uL (1.0-4.8) 0.6 x10^3/uL (1.0-4.8) Monocytes # (Auto) 1.0 x10^3/uL (0.0-1.1) 0.1 x10^3/uL (0.0-1.1) Eosinophils # (Auto) 0.0 x10^3/uL (0.0-0.7) 0.0 x10^3/uL (0.0-0.7) Basophils # (Auto) 0.1 x10^3/uL (0.0-0.2) 0.0 x10^3/uL (0.0-0.2) Prothrombin Time 14.5 SEC (11.7-14.0) Prothromb Time International Ratio 1.2 (0.8-1.1) Activated Partial Thromboplast Time 29 SEC (24-38) Sodium Level 140 mmol/L (136-145) 137 mmol/L (136-145) Potassium Level 3.0 mmol/L (3.5-5.1) 3.6 mmol/L (3.5-5.1) Chloride Level 100 mmol/L (98-107) 103 mmol/L (98-107) Carbon Dioxide Level 28 mmol/L (21-32) 23 mmol/L (21-32) Anion Gap 12 (6-14) 11 (6-14) Blood Urea Nitrogen 15 mg/dL (7-20) 15 mg/dL (7-20) Creatinine 1.4 mg/dL (0.6-1.0) 1.2 mg/dL (0.6-1.0) Estimated GFR (Cockcroft-Gault) 45.5 54.4 Glucose Level 132 mg/dL (70-99) 183 mg/dL (70-99) Lactic Acid Level 1.8 mmol/L (0.4-2.0) Calcium Level 9.3 mg/dL (8.5-10.1) 9.0 mg/dL (8.5-10.1) Total Bilirubin 1.5 mg/dL (0.2-1.0) Direct Bilirubin 0.3 mg/dL (0.0-0.2) Aspartate Amino Transf (AST/SGOT) 15 U/L (15-37) Alanine Aminotransferase (ALT/SGPT) 24 U/L (14-59) Alkaline Phosphatase 76 U/L (46-116) Troponin I Quantitative < 0.017 ng/mL (0.000-0.055) < 0.017 ng/mL (0.000-0.055) DZ-Qwy-F-Type Natriuretic Peptide 1857 pg/mL (0-124) Total Protein 7.2 g/dL (6.4-8.2) Albumin 3.5 g/dL (3.4-5.0) Lipase 500 U/L (73-393) Triglycerides Level 78 mg/dL (0-150) Cholesterol Level 150 mg/dL (0-200) LDL Cholesterol, Calculated 87 mg/dL (0-100) VLDL Cholesterol, Calculated 16 mg/dL (0-40) Non-HDL Cholesterol Calculated 103 mg/dL (0-129) HDL Cholesterol 47 mg/dL (40-60) Cholesterol/HDL Ratio 3.2 Laboratory Tests Test 09/30/18 16:20 10/01/18 00:20 10/01/18 04:00 White Blood Count 11.1 x10^3/uL (4.0-11.0) 8.6 x10^3/uL (4.0-11.0) Red Blood Count 3.61 x10^6/uL (3.50-5.40) 3.18 x10^6/uL (3.50-5.40) Hemoglobin 11.7 g/dL (12.0-15.5) 10.3 g/dL (12.0-15.5) Hematocrit 35.6 % (36.0-47.0) 31.8 % (36.0-47.0) Mean Corpuscular Volume 99 fL (79-100) 100 fL (79-100) Mean Corpuscular Hemoglobin 33 pg (25-35) 32 pg (25-35) Mean Corpuscular Hemoglobin Concent 33 g/dL (31-37) 32 g/dL (31-37) Red Cell Distribution Width 16.9 % (11.5-14.5) 17.2 % (11.5-14.5) Platelet Count 178 x10^3/uL (140-400) 157 x10^3/uL (140-400) Neutrophils (%) (Auto) 80 % (31-73) 92 % (31-73) Lymphocytes (%) (Auto) 10 % (24-48) 7 % (24-48) Monocytes (%) (Auto) 9 % (0-9) 1 % (0-9) Eosinophils (%) (Auto) 0 % (0-3) 0 % (0-3) Basophils (%) (Auto) 1 % (0-3) 0 % (0-3) Neutrophils # (Auto) 8.9 x10^3uL (1.8-7.7) 7.9 x10^3uL (1.8-7.7) Lymphocytes # (Auto) 1.1 x10^3/uL (1.0-4.8) 0.6 x10^3/uL (1.0-4.8) Monocytes # (Auto) 1.0 x10^3/uL (0.0-1.1) 0.1 x10^3/uL (0.0-1.1) Eosinophils # (Auto) 0.0 x10^3/uL (0.0-0.7) 0.0 x10^3/uL (0.0-0.7) Basophils # (Auto) 0.1 x10^3/uL (0.0-0.2) 0.0 x10^3/uL (0.0-0.2) Prothrombin Time 14.5 SEC (11.7-14.0) Prothromb Time International Ratio 1.2 (0.8-1.1) Activated Partial Thromboplast Time 29 SEC (24-38) Sodium Level 140 mmol/L (136-145) 137 mmol/L (136-145) Potassium Level 3.0 mmol/L (3.5-5.1) 3.6 mmol/L (3.5-5.1) Chloride Level 100 mmol/L (98-107) 103 mmol/L (98-107) Carbon Dioxide Level 28 mmol/L (21-32) 23 mmol/L (21-32) Anion Gap 12 (6-14) 11 (6-14) Blood Urea Nitrogen 15 mg/dL (7-20) 15 mg/dL (7-20) Creatinine 1.4 mg/dL (0.6-1.0) 1.2 mg/dL (0.6-1.0) Estimated GFR (Cockcroft-Gault) 45.5 54.4 Glucose Level 132 mg/dL (70-99) 183 mg/dL (70-99) Lactic Acid Level 1.8 mmol/L (0.4-2.0) Calcium Level 9.3 mg/dL (8.5-10.1) 9.0 mg/dL (8.5-10.1) Total Bilirubin 1.5 mg/dL (0.2-1.0) Direct Bilirubin 0.3 mg/dL (0.0-0.2) Aspartate Amino Transf (AST/SGOT) 15 U/L (15-37) Alanine Aminotransferase (ALT/SGPT) 24 U/L (14-59) Alkaline Phosphatase 76 U/L (46-116) Troponin I Quantitative < 0.017 ng/mL (0.000-0.055) < 0.017 ng/mL (0.000-0.055) KF-Uxf-Y-Type Natriuretic Peptide 1857 pg/mL (0-124) Total Protein 7.2 g/dL (6.4-8.2) Albumin 3.5 g/dL (3.4-5.0) Lipase 500 U/L (73-393) Triglycerides Level 78 mg/dL (0-150) Cholesterol Level 150 mg/dL (0-200) LDL Cholesterol, Calculated 87 mg/dL (0-100) VLDL Cholesterol, Calculated 16 mg/dL (0-40) Non-HDL Cholesterol Calculated 103 mg/dL (0-129) HDL Cholesterol 47 mg/dL (40-60) Cholesterol/HDL Ratio 3.2 Assessment/Plan Assessment/Plan Recently diagnosed stage IV non small cell lung cancer - s/p palliative radiation to left hilar area completed September 19. Unsure of what rx is planned, but she indicated Dr Durham will contact next week to arrange. Rx will be done as outpt after cardiac issues stabilize. Acutely no different recs but will let Dr Durham know of events Afib RVR - per icu and cardiology. Please call if there are other onc issues. KIMANI DOMINGUEZ MD Oct 01, 2018 07:57
[2018-10-01] MEDS: IPRATROPIUM BROMIDE 0.5 MG/2.5 ML NEBU. NEB SCH ×4 (08:00→20:00)
[2018-10-01] MEDS: INSULIN LISPRO 300 UNITS/3 ML INSULN.PEN. SQ SCH ×3 (08:00→17:00)
[2018-10-01] MEDS: PANTOPRAZOLE IV PUSH 40 MG VIAL. IVP SCH (08:31)
[2018-10-01] MEDS: LEVOTHYROXINE 50 MCG TABLET PO SCH (08:31)
[2018-10-01] MEDS: methylPREDNISolone SOD SUCC PF 40 MG/ML VIAL. IV SCH ×3 (08:32→21:18)
[2018-10-01] MEDS: ENOXAPARIN 40 MG/0.4 ML SYRINGE. SQ SCH (08:32)
[2018-10-01] MEDS ORDERED: METOPROLOL TART IMMED RELEASE 50 MG TABLET. PO SCH (09:00)
--- NOTE | 2018-10-01 09:51 | PDOC2 ---
CARDIOLOGY CONSULT NOTE CHEIF COMPLAINT: Shortness of air HPI: Pleasant 67 y.o woman with significant past cardiac history presenting with dyspnea. She has known afib with RVR and was recently discharge in September 2018. She returns with two days of worsening dyspnea. CT scan in the ER revealed persistent hilar mass but improved aeration, but there is still significant compression. Currently she is on diltiazem and HR is better controlled and she feels better. Denies any syncope, palpitations, orthopnea or PND. PMHX: 1. Mitral ring annuloplasty in 2009 2. Tricuspid ring 3. Chronic PAF - 4. S/p dual chamber ICD for non-ischemic CMP 5. NICM with EF of 35% 6. Severe Mitral stenosis of prior ring. 7. HTN 8. Stage IV lung CA SOCHX: She is . No alcohol, tob or illicit drug use. She is unaware of the prognosis of her cancer FAMHX: NC CURRENT MEDS: Warfarin Metoprolol 50mg bid Diltiazem 10mg/hr gtt Atorvastatin ALLERGIES: Allergies Coded Allergies Type Severity Reaction Last Updated Verified No Known Drug Allergies 08/15/18 No ROS: Negative for 03/27 systems unless otherwise noted above in HPI PHYSICAL EXAM: Vital Signs: Vital Signs Date Time Temp Pulse Resp B/P (MAP) Pulse Ox O2 Delivery O2 Flow Rate FiO2 10/01/18 09:34 79 26 117/61 (79) 100 Nasal Cannula 2.0 10/01/18 07:10 99.0 99.0 I & O Intake and Output 10/01/18 07:00 Intake Total 1230 ml Balance 1230 ml Intake Oral 180 ml IV Total 1050 ml # Voids 1 Physical Exam: GEN.: No apparent distress. Alert and oriented. HEENT: Head is normocephalic, atraumatic NECK: Supple. LUNGS: Bilateral significant obstruction noted on breath sounds. HEART: RRR, S1, S2 present. Peripheral pulses intact. +3/4 diastolic murmur. ABDOMEN: Soft, nontender. Positive bowel sounds. EXTREMITIES: Without any cyanosis. NEUROLOGIC: Normal speech, normal tone PSYCHIATRIC: Normal affect, normal mood. SKIN: No ulcerations DIAGNOSTIC TESTING: Chest CTA reviewed. Tele with afib with controlled response Labs noted. Hgb 10.3, Cr 1.2 BNP mildly elevated. ASSESSMENT: 1. Afib with RVR 2. Mild chronic systolic/diastolic HF 3. Stage IV lung CA. 4. Severe mitral stenosis. PLAN: 1. Her arrhythmia is a sequelae of her lung issues and her cardiac issues ( cardiomyopathy, mitral valve disease). -Options include continued conservative therapy with b-sammy and consider addition of other agents -Aggressive options include AV node or afib ablation. ? prognosis from CA and utility. 2. Increase Metoprolol to 50mg TID, wean diltiazem gtt. 3. She does not acute seem to be volume overloaded. Gentle diuresis with goal of net negative 500 mL only. 4. Will discuss skilled nursing plans with Dr. Rivas her primary women's studies lecturer regarding her mitral stenosis. Consider palliative care/hospice discussion depending on onc prognosis. MARCELA DURAN MD Oct 01, 2018 09:51
[2018-10-01 10:07] LABS: PROTHROMBIN TIME PATIENT 15.1 SEC (11.7-14.0)
[2018-10-01 10:50] LABS: % BANDS 2 % (0-9); % LYMPHS 3 % (24-48); % SEGS 95 % (35-66); PLT ESTIMATE ADEQUATE (ADEQUATE)
--- NOTE | 2018-10-01 11:22 | RAD ---
Bilateral Leg Venous Doppler Ultrasound, 10/01/2018 Indication: Shortness of air Comparison: None available Procedure: Real-time grayscale, color flow color duplex Doppler and spectral analysis are obtained with and without compression in the area of the common femoral vein, superficial femoral vein - femoral vein junction, main femoral vein (superficial femoral vein) and popliteal vein. Veins of the proximal calf are also imaged. Findings: There is normal duplex flow, color flow and compressibility of all visualized vein segments. No evidence of deep venous thrombus is present. Impression: Negative venous Doppler of bilateral lower extremity Electronically signed by: Myra Ta MD (10/01/2018 11:19 AM) [facility]
--- NOTE | 2018-10-01 11:29 | NUR ---
PATIENT REFUSING BREATHING TREATMENTS. STATING THEY ARE MAKING HER THROW UP.
[2018-10-01] MEDS: METOPROLOL TART IMMED RELEASE 50 MG TABLET. PO SCH ×2 (14:13→21:18)
--- NOTE | 2018-10-01 14:59 | EKG ---
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
[2018-10-01] MEDS ORDERED: WARFARIN 1 MG TABLET. PO SCH (16:00)
[2018-10-01] MEDS: cefTRIAXone IV Push 1 GM VIAL. IVP SCH (17:21)
[2018-10-01] MEDS: AZITHROMYCIN 250 MG TABLET. PO SCH (17:21)
[2018-10-01] MEDS: ATORVASTATIN CALCIUM 10 MG TABLET. PO SCH (21:17)
[2018-10-02 04:20] VITALS: BP 107/72
[2018-10-02 05:33] LABS: PROTHROMBIN TIME PATIENT 15.6 SEC (11.7-14.0)
[2018-10-02 05:39] LABS: ALBUMIN 3.1 g/dL (3.4-5.0); CALCIUM 9.1 mg/dL (8.5-10.1); CREATININE 1.3 mg/dL (0.6-1.0); GFR 49.6; POTASSIUM 3.7 mmol/L (3.5-5.1); TOTAL BILIRUBIN 0.8 mg/dL (0.2-1.0); TOTAL PROTEIN 6.1 g/dL (6.4-8.2)
[2018-10-02] MEDS: methylPREDNISolone SOD SUCC PF 40 MG/ML VIAL. IV SCH ×3 (06:38→21:53)
[2018-10-02] MEDS: PANTOPRAZOLE IV PUSH 40 MG VIAL. IVP SCH (06:39)
[2018-10-02] MEDS: LEVOTHYROXINE 50 MCG TABLET PO SCH (06:39)
[2018-10-02] MEDS: METOPROLOL TART IMMED RELEASE 50 MG TABLET. PO SCH ×4 (06:50→23:46)
[2018-10-02 07:00] VITALS: BP 113/80
--- NOTE | 2018-10-02 07:43 | PDOC ---
PULMONARY PROGRESS NOTES Subjective has sob, palpitation, hr in 160s, after metoprolol in 120s. has occ cough, Vitals Vital Signs Date Time Temp Pulse Resp B/P (MAP) Pulse Ox O2 Delivery O2 Flow Rate FiO2 10/02/18 07:00 165 30 113/80 (91) Room Air 10/02/18 04:20 98.5 94 98.5 10/01/18 11:17 2.0 ROS: No Nausea General: Alert HEENT: Other (nc at perrl) Lungs: Wheezing Cardiovascular: Other (irreg irreg tachy) Abdomen: Soft, Non-tender Neuro Exam: Alert, Oriented Extremities: No Edema Skin: Warm Labs Laboratory Tests Test 09/30/18 16:20 09/30/18 20:15 10/01/18 00:20 10/01/18 04:00 White Blood Count 11.1 x10^3/uL (4.0-11.0) 8.6 x10^3/uL (4.0-11.0) Red Blood Count 3.61 x10^6/uL (3.50-5.40) 3.18 x10^6/uL (3.50-5.40) Hemoglobin 11.7 g/dL (12.0-15.5) 10.3 g/dL (12.0-15.5) Hematocrit 35.6 % (36.0-47.0) 31.8 % (36.0-47.0) Mean Corpuscular Volume 99 fL (79-100) 100 fL (79-100) Mean Corpuscular Hemoglobin 33 pg (25-35) 32 pg (25-35) Mean Corpuscular Hemoglobin Concent 33 g/dL (31-37) 32 g/dL (31-37) Red Cell Distribution Width 16.9 % (11.5-14.5) 17.2 % (11.5-14.5) Platelet Count 178 x10^3/uL (140-400) 157 x10^3/uL (140-400) Neutrophils (%) (Auto) 80 % (31-73) 92 % (31-73) Lymphocytes (%) (Auto) 10 % (24-48) 7 % (24-48) Monocytes (%) (Auto) 9 % (0-9) 1 % (0-9) Eosinophils (%) (Auto) 0 % (0-3) 0 % (0-3) Basophils (%) (Auto) 1 % (0-3) 0 % (0-3) Neutrophils # (Auto) 8.9 x10^3uL (1.8-7.7) 7.9 x10^3uL (1.8-7.7) Lymphocytes # (Auto) 1.1 x10^3/uL (1.0-4.8) 0.6 x10^3/uL (1.0-4.8) Monocytes # (Auto) 1.0 x10^3/uL (0.0-1.1) 0.1 x10^3/uL (0.0-1.1) Eosinophils # (Auto) 0.0 x10^3/uL (0.0-0.7) 0.0 x10^3/uL (0.0-0.7) Basophils # (Auto) 0.1 x10^3/uL (0.0-0.2) 0.0 x10^3/uL (0.0-0.2) Prothrombin Time 14.5 SEC (11.7-14.0) Prothromb Time International Ratio 1.2 (0.8-1.1) Activated Partial Thromboplast Time 29 SEC (24-38) Sodium Level 140 mmol/L (136-145) 137 mmol/L (136-145) Potassium Level 3.0 mmol/L (3.5-5.1) 3.6 mmol/L (3.5-5.1) Chloride Level 100 mmol/L (98-107) 103 mmol/L (98-107) Carbon Dioxide Level 28 mmol/L (21-32) 23 mmol/L (21-32) Anion Gap 12 (6-14) 11 (6-14) Blood Urea Nitrogen 15 mg/dL (7-20) 15 mg/dL (7-20) Creatinine 1.4 mg/dL (0.6-1.0) 1.2 mg/dL (0.6-1.0) Estimated GFR (Cockcroft-Gault) 45.5 54.4 Glucose Level 132 mg/dL (70-99) 183 mg/dL (70-99) Lactic Acid Level 1.8 mmol/L (0.4-2.0) Calcium Level 9.3 mg/dL (8.5-10.1) 9.0 mg/dL (8.5-10.1) Total Bilirubin 1.5 mg/dL (0.2-1.0) Direct Bilirubin 0.3 mg/dL (0.0-0.2) Aspartate Amino Transf (AST/SGOT) 15 U/L (15-37) Alanine Aminotransferase (ALT/SGPT) 24 U/L (14-59) Alkaline Phosphatase 76 U/L (46-116) Troponin I Quantitative < 0.017 ng/mL (0.000-0.055) < 0.017 ng/mL (0.000-0.055) ES-Sbn-V-Type Natriuretic Peptide 1857 pg/mL (0-124) Total Protein 7.2 g/dL (6.4-8.2) Albumin 3.5 g/dL (3.4-5.0) Lipase 500 U/L (73-393) Nasal Screen MRSA (PCR) Negative (Negative) Segmented Neutrophils % 95 % (35-66) Band Neutrophils % 2 % (0-9) Lymphocytes % 3 % (24-48) Platelet Estimate Adequate (ADEQUATE) Triglycerides Level 78 mg/dL (0-150) Cholesterol Level 150 mg/dL (0-200) LDL Cholesterol, Calculated 87 mg/dL (0-100) VLDL Cholesterol, Calculated 16 mg/dL (0-40) Non-HDL Cholesterol Calculated 103 mg/dL (0-129) HDL Cholesterol 47 mg/dL (40-60) Cholesterol/HDL Ratio 3.2 Test 10/01/18 07:55 10/01/18 09:25 10/01/18 11:27 10/01/18 16:51 Glucose (Fingerstick) 148 mg/dL (70-99) 137 mg/dL (70-99) 144 mg/dL (70-99) Prothrombin Time 15.1 SEC (11.7-14.0) Prothromb Time International Ratio 1.2 (0.8-1.1) Iron Level 19 ug/dL (50-170) Total Iron Binding Capacity 180 ug/dL (250-450) Iron Saturation 11 % (15-34) Test 10/01/18 21:26 10/02/18 03:45 Glucose (Fingerstick) 139 mg/dL (70-99) Prothrombin Time 15.6 SEC (11.7-14.0) Prothromb Time International Ratio 1.3 (0.8-1.1) Sodium Level 141 mmol/L (136-145) Potassium Level 3.7 mmol/L (3.5-5.1) Chloride Level 104 mmol/L (98-107) Carbon Dioxide Level 23 mmol/L (21-32) Anion Gap 14 (6-14) Blood Urea Nitrogen 19 mg/dL (7-20) Creatinine 1.3 mg/dL (0.6-1.0) Estimated GFR (Cockcroft-Gault) 49.6 BUN/Creatinine Ratio 15 (6-20) Glucose Level 154 mg/dL (70-99) Calcium Level 9.1 mg/dL (8.5-10.1) Total Bilirubin 0.8 mg/dL (0.2-1.0) Aspartate Amino Transf (AST/SGOT) 20 U/L (15-37) Alanine Aminotransferase (ALT/SGPT) 24 U/L (14-59) Alkaline Phosphatase 75 U/L (46-116) Total Protein 6.1 g/dL (6.4-8.2) Albumin 3.1 g/dL (3.4-5.0) Albumin/Globulin Ratio 1.0 (1.0-1.7) Lipase 121 U/L (73-393) Laboratory Tests Test 10/01/18 07:55 10/01/18 09:25 10/01/18 11:27 10/01/18 16:51 Glucose (Fingerstick) 148 mg/dL (70-99) 137 mg/dL (70-99) 144 mg/dL (70-99) Prothrombin Time 15.1 SEC (11.7-14.0) Prothromb Time International Ratio 1.2 (0.8-1.1) Iron Level 19 ug/dL (50-170) Total Iron Binding Capacity 180 ug/dL (250-450) Iron Saturation 11 % (15-34) Test 10/01/18 21:26 10/02/18 03:45 Glucose (Fingerstick) 139 mg/dL (70-99) Prothrombin Time 15.6 SEC (11.7-14.0) Prothromb Time International Ratio 1.3 (0.8-1.1) Sodium Level 141 mmol/L (136-145) Potassium Level 3.7 mmol/L (3.5-5.1) Chloride Level 104 mmol/L (98-107) Carbon Dioxide Level 23 mmol/L (21-32) Anion Gap 14 (6-14) Blood Urea Nitrogen 19 mg/dL (7-20) Creatinine 1.3 mg/dL (0.6-1.0) Estimated GFR (Cockcroft-Gault) 49.6 BUN/Creatinine Ratio 15 (6-20) Glucose Level 154 mg/dL (70-99) Calcium Level 9.1 mg/dL (8.5-10.1) Total Bilirubin 0.8 mg/dL (0.2-1.0) Aspartate Amino Transf (AST/SGOT) 20 U/L (15-37) Alanine Aminotransferase (ALT/SGPT) 24 U/L (14-59) Alkaline Phosphatase 75 U/L (46-116) Total Protein 6.1 g/dL (6.4-8.2) Albumin 3.1 g/dL (3.4-5.0) Albumin/Globulin Ratio 1.0 (1.0-1.7) Lipase 121 U/L (73-393) Medications Active Scripts Medications Dose Route/Sig Max Daily Dose Days Date Category Dose Instructions Prednisone 20 Mg Tablet 1 Tab PO DAILY 09/16/18 Rx 3 tabs daily for 3 days then 2 tabs daily for 3 days then 1 tab daily for 3 days. Start on 09/17/18. Synthroid (Levothyroxine Sodium) 75 Mcg Tablet 75 Mcg PO DAILY06 09/16/18 Rx Polyethylene Glycol 3350 17 Gm Powd.pack 17 Gm PO DAILY 09/16/18 Rx Warfarin Sodium 1 Mg Tablet 1 Mg PO MON, WEDS, FRI ONLY 30 09/16/18 Rx Toprol Xl (Metoprolol Succinate) 50 Mg Tab.er.24h 150 Mg PO DAILY 09/13/18 Rx Klor-Con M20 (Potassium Chloride) 20 Meq Tab.er.prt 20 Meq PO DAILYWBKFT 30 08/19/18 Rx Furosemide 40 Mg Tablet 1 Tab PO PRN DAILY PRN 06/30/18 Reported Pravastatin Sodium 40 Mg Tablet 1 Tab PO QHS 06/30/18 Reported Stool Softener (Docusate Sodium) 100 Mg Tablet 100 Mg PO PRN PRN 07/21/17 Reported Impression . IMPRESSION: 1. Acute hypoxemic respiratory failure secondary to acute exacerbation of chronic obstructive pulmonary disease, acute bronchitis versus pneumonia, atrial fibrillation with rapid ventricular response versus others. 2. Abnormal CT of the chest. 3. Stage IV non-small cell lung cancer. 4. Acute exacerbation of chronic obstructive pulmonary disease. 5. Acute bronchitis. 6. Ex-smoker. 7. Acute kidney injury. 8. Anemia. 9. Atrial fibrillation with rapid ventricular response. 10. Hypothyroidism. 11. Status post automatic implantable cardioverter defibrillator. 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 PLAN: 1. Titrate FIO2 to keep O2 saturation 92%. 2. Bronchodilator Atrovent only, avoid albuterol. The patient has atrial fibrillation with rapid ventricular response. 3. change Solu-Medrol to 40 mg IV every 12 hours. 4. Protonix for stress ulcer prophylaxis. 5. Lovenox for DVT prophylaxis. 6. Continue antibiotic. 7. b lat LE venous doppler, neg 8. advised to take slow deep breaths, which helped stridor due to vc paralysis 9. metoprolol dose increased by cardiology, on hep gtt now, may need jadiel cardioversion, last echo, severe ms, defer to cardiology discussed w rn, pt, OSCAR GRANDE MD Oct 02, 2018 07:43
[2018-10-02] MEDS: INSULIN LISPRO 300 UNITS/3 ML INSULN.PEN. SQ SCH ×3 (08:00→17:00)
[2018-10-02] MEDS: IPRATROPIUM BROMIDE 0.5 MG/2.5 ML NEBU. NEB SCH ×3 (08:00→16:00)
--- NOTE | 2018-10-02 08:24 | PDOC ---
SUBJECTIVE Subjective Pt appears much more comfortable this morning. States that she had a rough evening with heart rate in the 160s. Did not get final dose of Metoprolol last night; improved with Metoprolol this morning. Denies chest pain or abdominal pain. Denies nausea or vomiting. OBJECTIVE Vital Signs Vital Signs Date Time Temp Pulse Resp B/P (MAP) Pulse Ox O2 Delivery O2 Flow Rate FiO2 10/02/18 07:00 165 30 113/80 (91) Room Air 10/02/18 06:50 165 132/115 10/02/18 04:20 98.5 124 19 107/72 (84) 94 Room Air 98.5 10/02/18 03:59 Room Air 10/01/18 22:48 98.5 105 18 121/75 (90) 96 Room Air 98.5 10/01/18 21:18 106 119/67 10/01/18 20:20 98.4 106 17 119/67 (84) 96 Room Air 98.4 10/01/18 19:59 Room Air 10/01/18 19:25 Room Air 10/01/18 15:38 98.1 78 18 120/74 (89) Room Air 98.1 10/01/18 14:13 78 135/69 10/01/18 11:17 Nasal Cannula 2.0 10/01/18 10:10 97.5 80 20 108/72 (84) 100 Nasal Cannula 2.0 97.5 10/01/18 09:34 79 26 117/61 (79) 100 Nasal Cannula 2.0 10/01/18 08:31 106 110/58 I & O Intake and Output 10/02/18 07:00 Intake Total 60 ml Balance 60 ml Intake Oral 60 ml # Voids 2 PHYSICAL EXAM Physical Exam GEN.: No apparent distress. Alert and oriented. Upper airway noise appreciated only on auscultation HEENT: Head is normocephalic, atraumatic NECK: Supple. LUNGS: Upper airway noise present, CTAB HEART: tachycardic, no M/R/G ABDOMEN: Soft, nontender. Positive bowel sounds. EXTREMITIES: Without any cyanosis. NEUROLOGIC: Normal speech, normal tone PSYCHIATRIC: Normal affect, normal mood. SKIN: No ulcerations ASSESSMENT/PLAN Assessment/Plan Pt is a 67yo AAF admitted for afib with RVR 1)Afib with RVR- Pt no longer on Ditliazem gtt, receiving Metoprolol 50mg TID. Had heart rate in the 160s overnight. Pt receives Warfarin 1mg every other day , INR not at goal, will increase to daily. Cardiology following 2)Lung Cancer- recent diagnosis. S/p radiation treatment. Was supposed to start chemo Wednesday but unable due to current hospitalization. Heme/Onc has seen and has no further recommendations. Pulmonary following and being treated for COPD exacerbation/pneumonia with Rocephin, Azithromycin and Solumedrol 3)CHF- acute on chronic combined systolic and diastolic, currently compensated. Will continue home dose of Lasix 40mg 4)HTN- BP at goal with current medications. Losartan currently being held 5)Hypothyroidism- recent TSH elevated. Pt continued on 50mg of Levothyroxine 6)Pancreatitis- resolved, will start regular diet today 7)Leukocytosis- resolved 8)Anemia- acute on chronic. No active bleeding. CTM 9)Hypokalemia- resolved with replacement 10)CKD- Cr is actually improved currently from where it has been in the past. CTM 11)Prediabetes- with acute hyperglycemia from steroid administration. SSI available if needed. 12)Hyperbilirubinemia- resolved 13)HLD- well controlled. Normally on Pravastatin 40mg, will be getting Atorvastatin 10mg while in the hospital COMMENT Lab Laboratory Tests Test 10/01/18 09:25 10/01/18 11:27 10/01/18 16:51 10/01/18 21:26 Prothrombin Time 15.1 SEC (11.7-14.0) Prothromb Time International Ratio 1.2 (0.8-1.1) Iron Level 19 ug/dL (50-170) Total Iron Binding Capacity 180 ug/dL (250-450) Iron Saturation 11 % (15-34) Glucose (Fingerstick) 137 mg/dL (70-99) 144 mg/dL (70-99) 139 mg/dL (70-99) Test 10/02/18 03:45 Prothrombin Time 15.6 SEC (11.7-14.0) Prothromb Time International Ratio 1.3 (0.8-1.1) Sodium Level 141 mmol/L (136-145) Potassium Level 3.7 mmol/L (3.5-5.1) Chloride Level 104 mmol/L (98-107) Carbon Dioxide Level 23 mmol/L (21-32) Anion Gap 14 (6-14) Blood Urea Nitrogen 19 mg/dL (7-20) Creatinine 1.3 mg/dL (0.6-1.0) Estimated GFR (Cockcroft-Gault) 49.6 BUN/Creatinine Ratio 15 (6-20) Glucose Level 154 mg/dL (70-99) Calcium Level 9.1 mg/dL (8.5-10.1) Total Bilirubin 0.8 mg/dL (0.2-1.0) Aspartate Amino Transf (AST/SGOT) 20 U/L (15-37) Alanine Aminotransferase (ALT/SGPT) 24 U/L (14-59) Alkaline Phosphatase 75 U/L (46-116) Total Protein 6.1 g/dL (6.4-8.2) Albumin 3.1 g/dL (3.4-5.0) Albumin/Globulin Ratio 1.0 (1.0-1.7) Lipase 121 U/L (73-393) HERIBERTO GARCIA MD Oct 02, 2018 08:24
[2018-10-02] MEDS ORDERED: METOPROLOL TARTRATE 5 MG/5 ML VIAL. IVP ONE (08:45)
[2018-10-02] MEDS: AZITHROMYCIN 250 MG TABLET. PO SCH (08:48)
[2018-10-02] MEDS: FUROSEMIDE 40 MG TABLET. PO SCH (08:49)
[2018-10-02] MEDS: ENOXAPARIN 40 MG/0.4 ML SYRINGE. SQ SCH (08:51)
--- NOTE | 2018-10-02 10:21 | PDOC ---
CARDIOLOGY PROGRESS NOTE SUBJECTIVE: Continues to have tachyarrhythmia for the last 12 hours or so. Reports feeling slightly better. No syncope. No chest pain. OBJECTIVE: Vital SIgns: Blood pressure 120s over 80s, heart rate 120s. Objective: On exam she is tachycardic Lung sounds are improved and there is less obstruction to air flow No significant edema is appreciated CURRENT MEDICATIONS: Warfarin, metoprolol and Lasix as well as atorvastatin DIAGNOSTIC TESTING: Venous Dopplers negative Creatinine stable at 1.3 Echo in August 2018 revealed severe mitral stenosis ASSESSMENT: 1. Atrial fibrillation with a rapid ventricular response in the setting of known lung mass and pulmonary issues 2. 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 3. Stage IV lung cancer with prognosis approximately one to 2 years 4. Severe mitral stenosis of prior mitral valve ring from 2009 and secondary pulmonary hypertension PLAN: 1. We will increase her metoprolol to 50 mg by mouth every 6 hours and if her heart rate is better controlled then plan for discharge on long-acting Toprol- XL 200 mg daily 2. If her heart rate is not well controlled then we will consider a SUSI guided cardioversion tomorrow to help reverse her back to sinus rhythm as well as evaluate her mitral valve due to previous echocardiogram last month showing severe mitral stenosis 3. Keep NPO at midnight except meds. 4. Will start Lovenox for anticoagulation given she is at high risk for stroke with mitral disease and subtherapeutic INR. Thanks. Will follow along. MARCELA DURAN MD Oct 02, 2018 10:21
[2018-10-02 10:59] VITALS: BP 125/76
--- NOTE | 2018-10-02 14:38 | NUR ---
INCREASE FREQUENCY OF PO METOPROLOL TO HELP WITH RAPID HEART RATE. PT WILL BE NPO AFTER MIDNIGHT FOR SUSI CARDIOVERSION IN THE AM. WILL CONTINUE TO ASSESS.
[2018-10-02 14:57] VITALS: BP 110/64
[2018-10-02] MEDS: WARFARIN 1 MG TABLET. PO SCH (17:33)
[2018-10-02] MEDS: cefTRIAXone IV Push 1 GM VIAL. IVP SCH (17:37)
--- NOTE | 2018-10-02 18:20 | NUR ---
PT REPORTED REFUSING ALL BREATHING TREATMENTS SINCE SHE HAS BEEN HERE THEY MAKE HER SICK. NON ADMINISTERED BR TX
[2018-10-02 19:00] VITALS: BP 118/69
[2018-10-02] MEDS: ATORVASTATIN CALCIUM 10 MG TABLET. PO SCH (20:42)
[2018-10-02 22:47] VITALS: BP 122/85
[2018-10-02] MEDS ORDERED: METHOCARBAMOL 750 MG TABLET PO PRN (23:30)
[2018-10-03 02:55] VITALS: BP 121/84
[2018-10-03] MEDS: METOPROLOL TART IMMED RELEASE 50 MG TABLET. PO SCH ×4 (05:26→23:58)
[2018-10-03] MEDS: PANTOPRAZOLE IV PUSH 40 MG VIAL. IVP SCH (05:27)
[2018-10-03] MEDS: methylPREDNISolone SOD SUCC PF 40 MG/ML VIAL. IV SCH ×3 (05:28→22:04)
[2018-10-03 07:00] VITALS: BP 115/70
[2018-10-03] MEDS: INSULIN LISPRO 300 UNITS/3 ML INSULN.PEN. SQ SCH ×3 (08:00→17:00)
[2018-10-03] MEDS: IPRATROPIUM BROMIDE 0.5 MG/2.5 ML NEBU. NEB SCH ×4 (08:48→19:32)
--- NOTE | 2018-10-03 08:57 | PDOC ---
PROGRESS NOTES Subjective Subjective Patient reports breathing is a little better than at admission. Objective Objective Vital Signs Date Time Temp Pulse Resp B/P (MAP) Pulse Ox O2 Delivery O2 Flow Rate FiO2 10/03/18 07:00 98.5 118 15 115/70 (85) 98 Room Air 98.5 10/01/18 11:17 2.0 Intake and Output 10/03/18 07:00 Intake Total 450 ml Balance 450 ml Intake Oral 450 ml Physical Exam Abdomen: Normal bowel sounds, Soft, No tenderness Heart: Other (tachycardic, irregular) Extremities: No edema General: Alert, Oriented X3, No acute distress Lungs: Other (BS mildly decreased throughout, mild inspiratory and expiratory wheezes) Assessment Assessment Problems Medical Problems: (1) Atrial fibrillation with RVR Status: Acute (2) Dyspnea Status: Acute (3) Pneumonia Status: Acute Plan Plan of Care 1. Afib with RVR - patient continues tachycardic on increased dose of Metoprolol. Echo with further tx per Cardiology. Patient on Lovenox as INR was subtherapeutic at admission. Continue Coumadin at increased dose of 1mg daily. 2. Stage IV NSC lung cancer - has completed XRT to large hilar mass, was to start outpatient chemotx when she was sent to ER due to tachycardia. 3. COPD exacerbation with possible pneumonia - on Solumedrol and abx per Pulmonary. 4. HTN - controlled, continue Metoprolol. 5. hypothyroidism - dose was increased to 75mcg at last discharge, continue this. 6. CHF with systolic and diastolic dysfunction, mitral stenosis and pulmonary HTN - continue Lasix daily. 7. glucose intolerance - blood sugars mildly elevated, continue SS insulin as needed. 8. iron-deficiency anemia - start po Fe. Comment Review of Relevant I have reviewed the following items cinthia (where applicable) has been applied. Labs Laboratory Tests Test 10/01/18 09:25 10/01/18 11:27 10/01/18 16:51 10/01/18 21:26 Prothrombin Time 15.1 SEC (11.7-14.0) Prothromb Time International Ratio 1.2 (0.8-1.1) Iron Level 19 ug/dL (50-170) Total Iron Binding Capacity 180 ug/dL (250-450) Iron Saturation 11 % (15-34) Glucose (Fingerstick) 137 mg/dL (70-99) 144 mg/dL (70-99) 139 mg/dL (70-99) Test 10/02/18 03:45 10/02/18 08:04 10/02/18 12:02 10/02/18 17:05 Prothrombin Time 15.6 SEC (11.7-14.0) Prothromb Time International Ratio 1.3 (0.8-1.1) Sodium Level 141 mmol/L (136-145) Potassium Level 3.7 mmol/L (3.5-5.1) Chloride Level 104 mmol/L (98-107) Carbon Dioxide Level 23 mmol/L (21-32) Anion Gap 14 (6-14) Blood Urea Nitrogen 19 mg/dL (7-20) Creatinine 1.3 mg/dL (0.6-1.0) Estimated GFR (Cockcroft-Gault) 49.6 BUN/Creatinine Ratio 15 (6-20) Glucose Level 154 mg/dL (70-99) Calcium Level 9.1 mg/dL (8.5-10.1) Total Bilirubin 0.8 mg/dL (0.2-1.0) Aspartate Amino Transf (AST/SGOT) 20 U/L (15-37) Alanine Aminotransferase (ALT/SGPT) 24 U/L (14-59) Alkaline Phosphatase 75 U/L (46-116) Total Protein 6.1 g/dL (6.4-8.2) Albumin 3.1 g/dL (3.4-5.0) Albumin/Globulin Ratio 1.0 (1.0-1.7) Lipase 121 U/L (73-393) Glucose (Fingerstick) 180 mg/dL (70-99) 196 mg/dL (70-99) 151 mg/dL (70-99) Test 10/03/18 08:17 Glucose (Fingerstick) 164 mg/dL (70-99) Laboratory Tests Test 10/02/18 12:02 10/02/18 17:05 10/03/18 08:17 Glucose (Fingerstick) 196 mg/dL (70-99) 151 mg/dL (70-99) 164 mg/dL (70-99) Medications Current Medications Diltiazem HCl (Cardizem Iv Push) 10 mg 1X ONCE IVP Last administered on at 16:22; Start 09/30/18 at 16:30; Stop 09/30/18 at 16:31; Status DC Diltiazem HCl 125 mg/Dextrose 125 ml @ 5 mls/hr 1X ONCE IV Last administered on 09/30/18at 16:36; Start 09/30/18 at 16:30; Stop 10/01/18 at 17:29; Status DC Albuterol Sulfate (Ventolin Neb Soln) 2.5 mg 1X ONCE NEB Last administered on 09/30/18at 16:23; Start 09/30/18 at 16:30; Stop 09/30/18 at 16:31; Status DC Diltiazem HCl (Cardizem Iv Push) 25 mg STK-MED ONCE .ROUTE ; Start 09/30/18 at 16:19; Stop 09/30/18 at 16:20; Status DC Sodium Chloride 1,000 ml @ 1,000 mls/hr 1X ONCE IV Last administered on at 16:55; Start 09/30/18 at 17:00; Stop 09/30/18 at 17:00; Status DC Iohexol (Omnipaque 350 Mg/ml) 75 ml 1X ONCE IV Last administered on 09/30/18at 17:12; Start 09/30/18 at 17:00; Stop 09/30/18 at 17:01; Status DC Info (CONTRAST GIVEN -- Rx MONITORING) 1 each PRN DAILY PRN MC SEE COMMENTS; Start 09/30/18 at 17:00; Stop 10/02/18 at 16:59; Status DC Methylprednisolone Sodium Succinate (SOLU-Medrol 125MG VIAL) 125 mg 1X ONCE IV Last administered on 09/30/18at 18:41; Start 09/30/18 at 18:00; Stop 09/30/18 at 18:01; Status DC Azithromycin 250 ml @ 250 mls/hr 1X ONCE IV Last administered on 09/30/18 18 :44; Start 09/30/18 at 18:15; Stop 09/30/18 at 19:14; Status DC Ceftriaxone Sodium (Rocephin) 1 gm 1X ONCE IVP Last administered on 09/30/18at 18:39; Start 09/30/18 at 18:15; Stop 09/30/18 at 18:16; Status DC Potassium Chloride/Water 100 ml @ 100 mls/hr Q1H IV Last administered on 01:27; Start 09/30/18 at 19:30; Stop 09/30/18 at 23:29; Status DC Albuterol Sulfate (Ventolin Neb Soln) 2.5 mg PRN Q4HRS PRN NEB SHORTNESS OF BREATH Last administered on 09/30/18 20:59; Start 09/30/18 at 21:00 Atorvastatin Calcium (Lipitor) 10 mg QHS PO Last administered on 10/02/18 20: 42; Start 09/30/18 at 21:00 Ondansetron HCl (Zofran) 4 mg PRN Q6HRS PRN IV NAUSEA/VOMITING Last administered on 09/30/18 22:23; Start 09/30/18 at 22:15 Diltiazem HCl 125 mg/Dextrose 125 ml @ 5 mls/hr CONT PRN IV SEE I/O RECORD Last administered on 10/01/18 11:54; Start 10/01/18 at 01:45 Methylprednisolone Sodium Succinate (SOLU-Medrol 40MG VIAL) 40 mg Q8HRS IV Last administered on 10/03/18 05:28; Start 10/01/18 at 08:00 Pantoprazole Sodium (Protonix) 40 mg DAILYAC PO ; Start 10/01/18 at 07:30; Stop 10/01/18 at 07:30; Status DC Enoxaparin Sodium (Lovenox 40mg Syringe) 40 mg Q24H SQ Last administered on 08:51; Start 10/01/18 at 08:00; Stop 10/02/18 at 10:23; Status DC Ipratropium [place] (Atrovent) 0.5 mg RTQID NEB Last administered on 10/03/18 08:48; Start 10/01/18 at 08:00 Pantoprazole Sodium (PROTONIX VIAL for IV PUSH) 40 mg DAILYAC IVP Last administered on 10/03/18 05:27; Start 10/01/18 at 07:30 Metoprolol Tartrate (Lopressor) 50 mg BID PO Last administered on 10/01/18 08: 31; Start 10/01/18 at 09:00; Stop 10/01/18 at 09:47; Status DC Levothyroxine Sodium (Synthroid) 50 mcg DAILY06 PO Last administered on 06:39; Start 10/01/18 at 08:00 Warfarin Sodium (Coumadin) 1 mg Q48H PO Last administered on 10/01/18at 17:21; Start 10/01/18 at 16:00; Stop 10/02/18 at 08:21; Status DC Warfarin Sodium (Coumadin Per Physician) 1 each PRN DAILY PRN MC SEE COMMENTS Last administered on 10/02/18at 07:24; Start 10/01/18 at 07:45 Insulin Human Lispro (HumaLOG) 0-5 UNITS TIDWMEALS SQ Last administered on 10/02at 12:09; Start 10/01/18 at 08:00 Dextrose (Dextrose 50%-Water Syringe) 12.5 gm PRN Q15MIN PRN IV SEE COMMENTS; Start 10/01/18 at 07:45 Metoprolol Tartrate (Lopressor) 50 mg TID PO Last administered on 10/02/18at 06: 50; Start 10/01/18 at 14:00; Stop 10/02/18 at 08:39; Status DC Ceftriaxone Sodium (Rocephin) 1 gm Q24H IVP Last administered on 10/02/18at 17: 37; Start 10/01/18 at 18:00 Azithromycin (Zithromax) 250 mg DAILY PO Last administered on 10/02/18 08:48; Start 10/01/18 at 16:00; Stop 10/06/18 at 15:59 Warfarin Sodium (Coumadin) 1 mg DAILY16 PO Last administered on 10/02/18at 17:33 ; Start 10/02/18 at 16:00 Furosemide (Lasix) 40 mg DAILY PO Last administered on 10/02/18at 08:49; Start 10/02/18 at 09:00 Metoprolol Tartrate (Lopressor Vial) 5 mg 1X ONCE IVP Last administered on at 08:50; Start 10/02/18 at 08:45; Stop 10/02/18 at 08:46; Status DC Metoprolol Tartrate (Lopressor) 50 mg Q6HRS PO Last administered on 10/03/18at 05:26; Start 10/02/18 at 12:00 Enoxaparin Sodium (Lovenox 80mg Syringe) 80 mg Q12HR SQ Last administered on at 20:43; Start 10/02/18 at 10:30 Methocarbamol (Robaxin) 1,500 mg PRN Q8HRS PRN PO MUSCLE SPASMS Last administered on 10/02/18at 23:46; Start 10/02/18 at 23:30 Active Scripts Active Prednisone 20 Mg Tablet 1 Tab PO DAILY 3 tabs daily for 3 days then 2 tabs daily for 3 days then 1 tab daily for 3 days. Start on 09/17/18. Synthroid (Levothyroxine Sodium) 75 Mcg Tablet 75 Mcg PO DAILY06 30 Days Polyethylene Glycol 3350 17 Gm Powd.pack 17 Gm PO DAILY 30 Days Warfarin Sodium 1 Mg Tablet 1 Mg PO MON, WEDS, FRI ONLY 30 Days Toprol Xl (Metoprolol Succinate) 50 Mg Tab.er.24h 150 Mg PO DAILY Klor-Con M20 (Potassium Chloride) 20 Meq Tab.er.prt 20 Meq PO DAILYWBKFT 30 Days Reported Furosemide 40 Mg Tablet 1 Tab PO PRN DAILY PRN Pravastatin Sodium 40 Mg Tablet 1 Tab PO QHS Stool Softener (Docusate Sodium) 100 Mg Tablet 100 Mg PO PRN PRN Vitals/I & O Vital Sign - Last 24 Hours 10/02/18 10/02/18 10/02/18 10/02/18 10:59 12:03 14:57 17:37 Temp 98.1 97.8 98.1 97.8 Pulse 130 134 107 117 Resp 18 18 B/P (MAP) 125/76 (92) 117/74 110/64 (79) 111/70 O2 Delivery Room Air Room Air 10/02/18 10/02/18 10/02/18 10/02/18 19:00 19:17 22:47 23:46 Temp 98.5 98.6 98.5 98.6 Pulse 94 109 110 Resp 20 20 B/P (MAP) 118/69 (85) 122/85 (97) 122/85 Pulse Ox 97 O2 Delivery Room Air Room Air Room Air 10/03/18 10/03/18 10/03/18 02:55 05:26 07:00 Temp 98.6 98.5 98.6 98.5 Pulse 109 127 118 Resp 18 15 B/P (MAP) 121/84 (96) 121/92 115/70 (85) Pulse Ox 99 98 O2 Delivery Room Air Room Air Intake and Output 10/02/18 10/02/18 10/03/18 15:00 23:00 07:00 Intake Total 300 ml 150 ml 0 ml Balance 300 ml 150 ml 0 ml JOSH CANAS MD Oct 03, 2018 08:57
--- NOTE | 2018-10-03 09:20 | PDOC ---
PROGRESS NOTES Subjective Subjective HPI - f/u of stage IV non small cell lung cancer ROS - no CP Objective Objective Vital Signs Date Time Temp Pulse Resp B/P (MAP) Pulse Ox O2 Delivery O2 Flow Rate FiO2 10/03/18 08:48 100 Room Air 10/03/18 07:00 98.5 118 15 115/70 (85) 98.5 10/01/18 11:17 2.0 Intake and Output 10/03/18 07:00 Intake Total 450 ml Balance 450 ml Intake Oral 450 ml Physical Exam Heart: Normal S1, Normal S2 General: Alert, Oriented X3 Lungs: Clear to auscultation Neuro: Normal speech Psych/Mental Status: Mental status NL Assessment Assessment Problems Medical Problems: (1) Atrial fibrillation with RVR Status: Acute (2) Dyspnea Status: Acute (3) Pneumonia Status: Acute Assessment/Plan 1. Recently diagnosed stage IV non small cell lung cancer - s/p palliative radiation to left hilar area completed September 19. Plan chemo as outpt after cardiac issues stabilize. 2. Afib RVR - per icu and cardiology. Comment Review of Relevant I have reviewed the following items cinthia (where applicable) has been applied. Labs Laboratory Tests Test 10/01/18 09:25 10/01/18 11:27 10/01/18 16:51 10/01/18 21:26 Prothrombin Time 15.1 SEC (11.7-14.0) Prothromb Time International Ratio 1.2 (0.8-1.1) Iron Level 19 ug/dL (50-170) Total Iron Binding Capacity 180 ug/dL (250-450) Iron Saturation 11 % (15-34) Glucose (Fingerstick) 137 mg/dL (70-99) 144 mg/dL (70-99) 139 mg/dL (70-99) Test 10/02/18 03:45 10/02/18 08:04 10/02/18 12:02 10/02/18 17:05 Prothrombin Time 15.6 SEC (11.7-14.0) Prothromb Time International Ratio 1.3 (0.8-1.1) Sodium Level 141 mmol/L (136-145) Potassium Level 3.7 mmol/L (3.5-5.1) Chloride Level 104 mmol/L (98-107) Carbon Dioxide Level 23 mmol/L (21-32) Anion Gap 14 (6-14) Blood Urea Nitrogen 19 mg/dL (7-20) Creatinine 1.3 mg/dL (0.6-1.0) Estimated GFR (Cockcroft-Gault) 49.6 BUN/Creatinine Ratio 15 (6-20) Glucose Level 154 mg/dL (70-99) Calcium Level 9.1 mg/dL (8.5-10.1) Total Bilirubin 0.8 mg/dL (0.2-1.0) Aspartate Amino Transf (AST/SGOT) 20 U/L (15-37) Alanine Aminotransferase (ALT/SGPT) 24 U/L (14-59) Alkaline Phosphatase 75 U/L (46-116) Total Protein 6.1 g/dL (6.4-8.2) Albumin 3.1 g/dL (3.4-5.0) Albumin/Globulin Ratio 1.0 (1.0-1.7) Lipase 121 U/L (73-393) Glucose (Fingerstick) 180 mg/dL (70-99) 196 mg/dL (70-99) 151 mg/dL (70-99) Test 10/03/18 08:17 Glucose (Fingerstick) 164 mg/dL (70-99) Laboratory Tests Test 10/02/18 12:02 10/02/18 17:05 10/03/18 08:17 Glucose (Fingerstick) 196 mg/dL (70-99) 151 mg/dL (70-99) 164 mg/dL (70-99) Medications Current Medications Diltiazem HCl (Cardizem Iv Push) 10 mg 1X ONCE IVP Last administered on at 16:22; Start 09/30/18 at 16:30; Stop 09/30/18 at 16:31; Status DC Diltiazem HCl 125 mg/Dextrose 125 ml @ 5 mls/hr 1X ONCE IV Last administered on 09/30/18at 16:36; Start 09/30/18 at 16:30; Stop 10/01/18 at 17:29; Status DC Albuterol Sulfate (Ventolin Neb Soln) 2.5 mg 1X ONCE NEB Last administered on 09/30/18at 16:23; Start 09/30/18 at 16:30; Stop 09/30/18 at 16:31; Status DC Diltiazem HCl (Cardizem Iv Push) 25 mg STK-MED ONCE .ROUTE ; Start 09/30/18 at 16:19; Stop 09/30/18 at 16:20; Status DC Sodium Chloride 1,000 ml @ 1,000 mls/hr 1X ONCE IV Last administered on at 16:55; Start 09/30/18 at 17:00; Stop 09/30/18 at 17:00; Status DC Iohexol (Omnipaque 350 Mg/ml) 75 ml 1X ONCE IV Last administered on 09/30/18at 17:12; Start 09/30/18 at 17:00; Stop 09/30/18 at 17:01; Status DC Info (CONTRAST GIVEN -- Rx MONITORING) 1 each PRN DAILY PRN MC SEE COMMENTS; Start 09/30/18 at 17:00; Stop 10/02/18 at 16:59; Status DC Methylprednisolone Sodium Succinate (SOLU-Medrol 125MG VIAL) 125 mg 1X ONCE IV Last administered on 09/30/18at 18:41; Start 09/30/18 at 18:00; Stop 09/30/18 at 18:01; Status DC Azithromycin 250 ml @ 250 mls/hr 1X ONCE IV Last administered on 09/30/18at 18 :44; Start 09/30/18 at 18:15; Stop 09/30/18 at 19:14; Status DC Ceftriaxone Sodium (Rocephin) 1 gm 1X ONCE IVP Last administered on 09/30/18at 18:39; Start 09/30/18 at 18:15; Stop 09/30/18 at 18:16; Status DC Potassium Chloride/Water 100 ml @ 100 mls/hr Q1H IV Last administered on at 01:27; Start 09/30/18 at 19:30; Stop 09/30/18 at 23:29; Status DC Albuterol Sulfate (Ventolin Neb Soln) 2.5 mg PRN Q4HRS PRN NEB SHORTNESS OF BREATH Last administered on 09/30/18at 20:59; Start 09/30/18 at 21:00 Atorvastatin Calcium (Lipitor) 10 mg QHS PO Last administered on 10/02/18at 20: 42; Start 09/30/18 at 21:00 Ondansetron HCl (Zofran) 4 mg PRN Q6HRS PRN IV NAUSEA/VOMITING Last administered on 09/30/18 22:23; Start 09/30/18 at 22:15 Diltiazem HCl 125 mg/Dextrose 125 ml @ 5 mls/hr CONT PRN IV SEE I/O RECORD Last administered on 10/01/18at 11:54; Start 10/01/18 at 01:45 Methylprednisolone Sodium Succinate (SOLU-Medrol 40MG VIAL) 40 mg Q8HRS IV Last administered on 10/03/18at 05:28; Start 10/01/18 at 08:00 Pantoprazole Sodium (Protonix) 40 mg DAILYAC PO ; Start 10/01/18 at 07:30; Stop 10/01/18 at 07:30; Status DC Enoxaparin Sodium (Lovenox 40mg Syringe) 40 mg Q24H SQ Last administered on 08:51; Start 10/01/18 at 08:00; Stop 10/02/18 at 10:23; Status DC Ipratropium Brule (Atrovent) 0.5 mg RTQID NEB Last administered on 10/03/18at 08:48; Start 10/01/18 at 08:00 Pantoprazole Sodium (PROTONIX VIAL for IV PUSH) 40 mg DAILYAC IVP Last administered on 10/03/18 05:27; Start 10/01/18 at 07:30 Metoprolol Tartrate (Lopressor) 50 mg BID PO Last administered on 10/01/18 08: 31; Start 10/01/18 at 09:00; Stop 10/01/18 at 09:47; Status DC Levothyroxine Sodium (Synthroid) 50 mcg DAILY06 PO Last administered on at 06:39; Start 10/01/18 at 08:00; Stop 10/03/18 at 08:49; Status DC Warfarin Sodium (Coumadin) 1 mg Q48H PO Last administered on 10/01/18 17:21; Start 10/01/18 at 16:00; Stop 10/02/18 at 08:21; Status DC Warfarin Sodium (Coumadin Per Physician) 1 each PRN DAILY PRN MC SEE COMMENTS Last administered on 10/02/18at 07:24; Start 10/01/18 at 07:45 Insulin Human Lispro (HumaLOG) 0-5 UNITS TIDWMEALS SQ Last administered on 10/02at 12:09; Start 10/01/18 at 08:00 Dextrose (Dextrose 50%-Water Syringe) 12.5 gm PRN Q15MIN PRN IV SEE COMMENTS; Start 10/01/18 at 07:45 Metoprolol Tartrate (Lopressor) 50 mg TID PO Last administered on 10/02/18at 06: 50; Start 10/01/18 at 14:00; Stop 10/02/18 at 08:39; Status DC Ceftriaxone Sodium (Rocephin) 1 gm Q24H IVP Last administered on 10/02/18at 17: 37; Start 10/01/18 at 18:00 Azithromycin (Zithromax) 250 mg DAILY PO Last administered on 10/02/18at 08:48; Start 10/01/18 at 16:00; Stop 10/06/18 at 15:59 Warfarin Sodium (Coumadin) 1 mg DAILY16 PO Last administered on 10/02/18at 17:33 ; Start 10/02/18 at 16:00 Furosemide (Lasix) 40 mg DAILY PO Last administered on 10/02/18at 08:49; Start 10/02/18 at 09:00 Metoprolol Tartrate (Lopressor Vial) 5 mg 1X ONCE IVP Last administered on at 08:50; Start 10/02/18 at 08:45; Stop 10/02/18 at 08:46; Status DC Metoprolol Tartrate (Lopressor) 50 mg Q6HRS PO Last administered on 10/03/18at 05:26; Start 10/02/18 at 12:00 Enoxaparin Sodium (Lovenox 80mg Syringe) 80 mg Q12HR SQ Last administered on at 20:43; Start 10/02/18 at 10:30 Methocarbamol (Robaxin) 1,500 mg PRN Q8HRS PRN PO MUSCLE SPASMS Last administered on 10/02/18at 23:46; Start 10/02/18 at 23:30 Levothyroxine Sodium (Synthroid) 75 mcg DAILY06 PO ; Start 10/04/18 at 06:00 Ferrous Sulfate (Feosol) 325 mg DAILYWBKFT PO ; Start 10/03/18 at 09:30 Active Scripts Active Prednisone 20 Mg Tablet 1 Tab PO DAILY 3 tabs daily for 3 days then 2 tabs daily for 3 days then 1 tab daily for 3 days. Start on 09/17/18. Synthroid (Levothyroxine Sodium) 75 Mcg Tablet 75 Mcg PO DAILY06 30 Days Polyethylene Glycol 3350 17 Gm Powd.pack 17 Gm PO DAILY 30 Days Warfarin Sodium 1 Mg Tablet 1 Mg PO MON, WEDS, FRI ONLY 30 Days Toprol Xl (Metoprolol Succinate) 50 Mg Tab.er.24h 150 Mg PO DAILY Klor-Con M20 (Potassium Chloride) 20 Meq Tab.er.prt 20 Meq PO DAILYWBKFT 30 Days Reported Furosemide 40 Mg Tablet 1 Tab PO PRN DAILY PRN Pravastatin Sodium 40 Mg Tablet 1 Tab PO QHS Stool Softener (Docusate Sodium) 100 Mg Tablet 100 Mg PO PRN PRN Vitals/I & O Vital Sign - Last 24 Hours 10/02/18 10/02/18 10/02/18 10/02/18 10:59 12:03 14:57 17:37 Temp 98.1 97.8 98.1 97.8 Pulse 130 134 107 117 Resp 18 18 B/P (MAP) 125/76 (92) 117/74 110/64 (79) 111/70 O2 Delivery Room Air Room Air 10/02/18 10/02/18 10/02/18 10/02/18 19:00 19:17 22:47 23:46 Temp 98.5 98.6 98.5 98.6 Pulse 94 109 110 Resp 20 20 B/P (MAP) 118/69 (85) 122/85 (97) 122/85 Pulse Ox 97 O2 Delivery Room Air Room Air Room Air 10/03/18 10/03/18 10/03/18 10/03/18 02:55 05:26 07:00 08:48 Temp 98.6 98.5 98.6 98.5 Pulse 109 127 118 Resp 18 15 B/P (MAP) 121/84 (96) 121/92 115/70 (85) Pulse Ox 99 98 100 O2 Delivery Room Air Room Air Room Air Intake and Output 10/02/18 10/02/18 10/03/18 15:00 23:00 07:00 Intake Total 300 ml 150 ml 0 ml Balance 300 ml 150 ml 0 ml SADIE ZHAO MD Oct 03, 2018 09:20
[2018-10-03 10:41] LABS: PROTHROMBIN TIME PATIENT 19.5 SEC (11.7-14.0)
[2018-10-03 11:20] VITALS: BP 113/66
[2018-10-03] MEDS ORDERED: DIGOXIN IV 500 MCG/2 ML AMPUL. IV ONE (11:30)
[2018-10-03] MEDS ORDERED: BENZOCAINE ONE 20% MUCOSAL SPRAY. (13:08)
[2018-10-03] MEDS ORDERED: LIDOCAINE 2% JELLY 6ML IN APPLICATOR. MM ONE (13:15)
[2018-10-03] MEDS ORDERED: PROPOFOL 0 ML IV ONE (13:28)
--- NOTE | 2018-10-03 14:44 | NUR ---
SS following for discharge planning. SS reviewed pt chart. Pt is from home and is currently on room air. PT/OT screen indicated no therapy needs at this time. No discharge needs noted at this time. SS will continue to follow for pending discharge needs.
--- NOTE | 2018-10-03 14:56 | PDOC4 ---
PROCEDURE Procedure PROCEDURE Successful SUSI guided external cardioversion INDICATIONS Atrial fibrillation with heart rate refractory to control COMPLICATIONS None PROCEDURAL DETAILS An informed consent was obtained from patient. A SUSI probe was inserted and standard tomographic images were obtained ruling out intracardiac thrombus. After anasthesiology team gave intravenous propofol for general anasthesia, patient was administered 200 Joules synchronized biphasic DC shock with successful conversion of rhythm to sinus rhythm. She was hemodynamically stable without any neurologic deficits at end of procedure. She tolerated the procedure well. CONCLUSIONS Successful SUSI guided external cardioversion of atrial fibrillation to sinus rhythm PRINCE REYNOSO MD Oct 03, 2018 14:56
[2018-10-03 15:00] VITALS: BP 143/84
--- NOTE | 2018-10-03 15:07 | PDOC ---
PULMONARY PROGRESS NOTES Subjective not more soa Vitals Vital Signs Date Time Temp Pulse Resp B/P (MAP) Pulse Ox O2 Delivery O2 Flow Rate FiO2 10/03/18 11:31 145 113/66 10/03/18 11:20 98.1 16 97 Room Air 98.1 ROS: No Nausea General: Alert HEENT: Other (nc at perrl) Lungs: Wheezing Cardiovascular: Other (irreg irreg tachy) Abdomen: Soft, Non-tender Neuro Exam: Alert, Oriented Extremities: No Edema Skin: Warm Labs Laboratory Tests Test 10/01/18 16:51 10/01/18 21:26 10/02/18 03:45 10/02/18 08:04 Glucose (Fingerstick) 144 mg/dL (70-99) 139 mg/dL (70-99) 180 mg/dL (70-99) Prothrombin Time 15.6 SEC (11.7-14.0) Prothromb Time International Ratio 1.3 (0.8-1.1) Sodium Level 141 mmol/L (136-145) Potassium Level 3.7 mmol/L (3.5-5.1) Chloride Level 104 mmol/L (98-107) Carbon Dioxide Level 23 mmol/L (21-32) Anion Gap 14 (6-14) Blood Urea Nitrogen 19 mg/dL (7-20) Creatinine 1.3 mg/dL (0.6-1.0) Estimated GFR (Cockcroft-Gault) 49.6 BUN/Creatinine Ratio 15 (6-20) Glucose Level 154 mg/dL (70-99) Calcium Level 9.1 mg/dL (8.5-10.1) Total Bilirubin 0.8 mg/dL (0.2-1.0) Aspartate Amino Transf (AST/SGOT) 20 U/L (15-37) Alanine Aminotransferase (ALT/SGPT) 24 U/L (14-59) Alkaline Phosphatase 75 U/L (46-116) Total Protein 6.1 g/dL (6.4-8.2) Albumin 3.1 g/dL (3.4-5.0) Albumin/Globulin Ratio 1.0 (1.0-1.7) Lipase 121 U/L (73-393) Test 10/02/18 12:02 10/02/18 17:05 10/03/18 08:17 10/03/18 09:55 Glucose (Fingerstick) 196 mg/dL (70-99) 151 mg/dL (70-99) 164 mg/dL (70-99) Prothrombin Time 19.5 SEC (11.7-14.0) Prothromb Time International Ratio 1.7 (0.8-1.1) Test 10/03/18 11:41 Glucose (Fingerstick) 145 mg/dL (70-99) Laboratory Tests Test 10/02/18 17:05 10/03/18 08:17 10/03/18 09:55 10/03/18 11:41 Glucose (Fingerstick) 151 mg/dL (70-99) 164 mg/dL (70-99) 145 mg/dL (70-99) Prothrombin Time 19.5 SEC (11.7-14.0) Prothromb Time International Ratio 1.7 (0.8-1.1) Medications Active Scripts Medications Dose Route/Sig Max Daily Dose Days Date Category Dose Instructions Prednisone 20 Mg Tablet 1 Tab PO DAILY 09/16/18 Rx 3 tabs daily for 3 days then 2 tabs daily for 3 days then 1 tab daily for 3 days. Start on 09/17/18. Synthroid (Levothyroxine Sodium) 75 Mcg Tablet 75 Mcg PO DAILY06 30 09/16/18 Rx Polyethylene Glycol 3350 17 Gm Powd.pack 17 Gm PO DAILY 30 09/16/18 Rx Warfarin Sodium 1 Mg Tablet 1 Mg PO MON, WEDS, FRI ONLY 30 09/16/18 Rx Toprol Xl (Metoprolol Succinate) 50 Mg Tab.er.24h 150 Mg PO DAILY 09/13/18 Rx Klor-Con M20 (Potassium Chloride) 20 Meq Tab.er.prt 20 Meq PO DAILYWBKFT 30 08/19/18 Rx Furosemide 40 Mg Tablet 1 Tab PO PRN DAILY PRN 06/30/18 Reported Pravastatin Sodium 40 Mg Tablet 1 Tab PO QHS 06/30/18 Reported Stool Softener (Docusate Sodium) 100 Mg Tablet 100 Mg PO PRN PRN 07/21/17 Reported Impression . IMPRESSION: 1. Acute hypoxemic respiratory failure multifactorial 2. Abnormal CT of the chest. 3. Stage IV non-small cell lung cancer. 4. Acute exacerbation of chronic obstructive pulmonary disease. 5. Acute bronchitis. 6. Ex-smoker. 7. Acute kidney injury. 8. Anemia. 9. Atrial fibrillation with rapid ventricular response. 10. Hypothyroidism. 11. Status post automatic implantable cardioverter defibrillator. 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 s/p cardioversion continue the same steroids feels better SANJIV SOSA MD Oct 03, 2018 15:07
--- NOTE | 2018-10-03 15:27 | CARD ---
MR#: [id number] Date of Study: 10/03/2018 Ordering Physician: MARCELA DURAN, Referring Physician: HERIBERTO GARCIA Tech: Gema Foster LIANA APPROVED REPORT EXAM: Transesophageal echocardiogram with color flow Doppler and Synchronized Cardioversion. INDICATION Atrial Fibrillation Mitral Valve MV E Peak Gr.17mmHgMV E Mean Gr.7mmHg Tricuspid Valve TR P. [id number] Peak Gr.30mmHg Reason For Test : Rule out endocarditis. PROCEDURE After obtaining informed consent, patient underwent transesophageal echo in the PACU. Type of Sedation : General Anesthesia Sedation was administered by Anesthesia. Sedation was achieved with Propofol 120mg intravenously. Synchronized Cardioversion acheived with 200 Joules after 1 attempt(s). Throughout the procedure, the blood pressure, pulse oximetry, cardiac rhythm, and rate were monitored . LEFT VENTRICLE The left ventricle is normal size. There is normal left ventricular wall thickness. The left ventricu lar systolic function is moderately impaired. The Ejection Fraction is 30-35%. There is global hypoki nesis of the left ventricle. RIGHT VENTRICLE The right ventricle is mildly dilated. There is normal right ventricular wall thickness. Systolic fun ction is mildly reduced. Lead noted in RA/RV. ATRIA The left atrium is mildly dilated. The right atrium is mildly dilated. The interatrial septum is inta ct with no evidence for an atrial septal defect or patent foramen ovale as noted on 2-D or Doppler im aging. There is no thrombus noted in the left atrial appendage. AORTIC VALVE The aortic valve is normal in structure and function. The aortic valve is trileaflet. Doppler and Col or Flow revealed no significant aortic regurgitation. There is no significant aortic valvular stenosi s. There is no aortic valvular vegetation. MITRAL VALVE Mitral valve ring in place. There is no evidence of mitral valve prolapse. There is moderate mitral v alve stenosis with a maximum pressure gradient of 17 mmHg and mean pressure gradient of 7 mmHg. Doppl er and Color-flow revealed mild mitral regurgitation. TRICUSPID VALVE The tricuspid valve leaflets are thickened , but open well. Doppler and Color Flow revealed moderate tricuspid regurgitation. There is no tricuspid valve prolapse or vegetation. PULMONIC VALVE The pulmonary valve is normal in structure and function. Doppler and Color Flow revealed no pulmonic valvular regurgitation. There is no pulmonic valvular stenosis. GREAT VESSELS The aortic root is normal in size. The ascending aorta is normal in size. PERICARDIAL EFFUSION There is no evidence of significant pericardial effusion. Critical Notification Critical Value: No <Conclusion> The left ventricular systolic function is moderately impaired. The Ejection Fraction is 30-35%. Pacer wire noted in RA/RV. The left atrium is mildly dilated. s/p mitral valve ring annuloplasty with moderate mitral valve stenosis, mean pressure gradient of 7 m mHg. Mild mitral regurgitation. Moderate tricuspid regurgitation. There is no evidence of significant pericardial effusion. No intracardiav vegetation or thrombus. Signed by : Guilherme Rivas, Electronically Approved : 10/03/2018 15:26:23
[2018-10-03] MEDS: ACETAMINOPHEN 325 MG TABLET. PO PRN (15:42)
[2018-10-03] MEDS: AZITHROMYCIN 250 MG TABLET. PO SCH (17:50)
[2018-10-03] MEDS: FUROSEMIDE 40 MG TABLET. PO SCH (17:51)
[2018-10-03] MEDS: FERROUS SULFATE 325 MG TABLET. PO SCH (17:51)
[2018-10-03] MEDS: WARFARIN 1 MG TABLET. PO SCH (17:52)
[2018-10-03] MEDS: cefTRIAXone IV Push 1 GM VIAL. IVP SCH (17:54)
[2018-10-03 19:20] VITALS: BP 134/77
[2018-10-03] MEDS: ATORVASTATIN CALCIUM 10 MG TABLET. PO SCH (21:05)
[2018-10-03 23:10] VITALS: BP 142/78
[2018-10-04 02:45] VITALS: BP 160/80
[2018-10-04 04:01] LABS: CALCIUM 9.3 mg/dL (8.5-10.1); CREATININE 1.9 mg/dL (0.6-1.0); POTASSIUM 3.3 mmol/L (3.5-5.1)
[2018-10-04 04:04] LABS: PROTHROMBIN TIME PATIENT 20.3 SEC (11.7-14.0)
[2018-10-04] MEDS: methylPREDNISolone SOD SUCC PF 40 MG/ML VIAL. IV SCH ×3 (06:09→21:04)
[2018-10-04] MEDS: LEVOTHYROXINE 75 MCG TABLET PO SCH (06:09)
[2018-10-04] MEDS: PANTOPRAZOLE IV PUSH 40 MG VIAL. IVP SCH (06:09)
[2018-10-04] MEDS: METOPROLOL TART IMMED RELEASE 50 MG TABLET. PO SCH ×4 (06:11→23:26)
[2018-10-04 07:00] VITALS: BP 147/75
[2018-10-04] MEDS: IPRATROPIUM BROMIDE 0.5 MG/2.5 ML NEBU. NEB SCH ×4 (07:41→19:35)
[2018-10-04] MEDS: FERROUS SULFATE 325 MG TABLET. PO SCH (08:00)
--- NOTE | 2018-10-04 08:12 | PDOC ---
PROGRESS NOTES Subjective Subjective Patient feels better after cardioversion yesterday. Still some wheezing and SOA. Objective Objective Vital Signs Date Time Temp Pulse Resp B/P (MAP) Pulse Ox O2 Delivery O2 Flow Rate FiO2 10/04/18 06:11 89 129/68 10/04/18 02:45 98.0 20 95 Room Air 98.0 10/03/18 23:10 3.5 Intake and Output 10/04/18 07:00 Intake Total 400 ml Balance 400 ml Intake Oral 400 ml Physical Exam Abdomen: Normal bowel sounds, Soft, No tenderness Heart: Regular rate Extremities: No edema General: Alert, Oriented X3, No acute distress Lungs: Other (scant inspiratory and expiratory wheezes, BS mildly decreased throughout) Assessment Assessment Problems Medical Problems: (1) Atrial fibrillation with RVR Status: Acute (2) Dyspnea Status: Acute (3) Pneumonia Status: Acute Plan Plan of Care 1. Afib with RVR - maintaining sinus rhythm after cardioversion yesterday. Co ntinue anticoagulation and Metoprolol. 2. Stage IV NSC lung cancer - wheezing improving with Solumedrol. Patient is scheduled to start chemotx as an outpatient later this week, hope for discharge tomorrow if all in agreement. 3. COPD exacerbation - on abx and Solumedrol. Try to wean from O2 today if possible. 4. acute renal insufficiency - BUN and Creatinine elevated today, will give fluid bolus and encourage po fluids.Hold her usual Lasix just for today. 6. HTN - fairly well controlled, may need to resume her previous Losartan. 7. glucose intolerance - hyperglycemia due to steroids, usually diet-controlled. 8. anemia - started on Fe. Comment Review of Relevant I have reviewed the following items cinthia (where applicable) has been applied. Labs Laboratory Tests Test 10/02/18 12:02 10/02/18 17:05 10/03/18 08:17 10/03/18 09:55 Glucose (Fingerstick) 196 mg/dL (70-99) 151 mg/dL (70-99) 164 mg/dL (70-99) Prothrombin Time 19.5 SEC (11.7-14.0) Prothromb Time International Ratio 1.7 (0.8-1.1) Test 10/03/18 11:41 10/03/18 17:00 10/03/18 20:48 10/04/18 02:45 Glucose (Fingerstick) 145 mg/dL (70-99) 142 mg/dL (70-99) 207 mg/dL (70-99) Prothrombin Time 20.3 SEC (11.7-14.0) Prothromb Time International Ratio 1.8 (0.8-1.1) Sodium Level 141 mmol/L (136-145) Potassium Level 3.3 mmol/L (3.5-5.1) Chloride Level 102 mmol/L (98-107) Carbon Dioxide Level 26 mmol/L (21-32) Anion Gap 13 (6-14) Blood Urea Nitrogen 39 mg/dL (7-20) Creatinine 1.9 mg/dL (0.6-1.0) Estimated GFR (Cockcroft-Gault) 32.0 Glucose Level 181 mg/dL (70-99) Calcium Level 9.3 mg/dL (8.5-10.1) Magnesium Level 2.2 mg/dL (1.8-2.4) Test 10/04/18 07:16 Glucose (Fingerstick) 221 mg/dL (70-99) Laboratory Tests Test 10/03/18 08:17 10/03/18 09:55 10/03/18 11:41 10/03/18 17:00 Glucose (Fingerstick) 164 mg/dL (70-99) 145 mg/dL (70-99) 142 mg/dL (70-99) Prothrombin Time 19.5 SEC (11.7-14.0) Prothromb Time International Ratio 1.7 (0.8-1.1) Test 10/03/18 20:48 10/04/18 02:45 10/04/18 07:16 Glucose (Fingerstick) 207 mg/dL (70-99) 221 mg/dL (70-99) Prothrombin Time 20.3 SEC (11.7-14.0) Prothromb Time International Ratio 1.8 (0.8-1.1) Sodium Level 141 mmol/L (136-145) Potassium Level 3.3 mmol/L (3.5-5.1) Chloride Level 102 mmol/L (98-107) Carbon Dioxide Level 26 mmol/L (21-32) Anion Gap 13 (6-14) Blood Urea Nitrogen 39 mg/dL (7-20) Creatinine 1.9 mg/dL (0.6-1.0) Estimated GFR (Cockcroft-Gault) 32.0 Glucose Level 181 mg/dL (70-99) Calcium Level 9.3 mg/dL (8.5-10.1) Magnesium Level 2.2 mg/dL (1.8-2.4) Medications Current Medications Diltiazem HCl (Cardizem Iv Push) 10 mg 1X ONCE IVP Last administered on 09/30/18at 16:22; Start 09/30/18 at 16:30; Stop 09/30/18 at 16:31; Status DC Diltiazem HCl 125 mg/Dextrose 125 ml @ 5 mls/hr 1X ONCE IV Last administered on 09/30/18at 16:36; Start 09/30/18 at 16:30; Stop 10/01/18 at 17:29; Status DC Albuterol Sulfate (Ventolin Neb Soln) 2.5 mg 1X ONCE NEB Last administered on 09/30/18at 16:23; Start 09/30/18 at 16:30; Stop 09/30/18 at 16:31; Status DC Diltiazem HCl (Cardizem Iv Push) 25 mg STK-MED ONCE .ROUTE ; Start 09/30/18 at 16:19; Stop 09/30/18 at 16:20; Status DC Sodium Chloride 1,000 ml @ 1,000 mls/hr 1X ONCE IV Last administered on 09/30/18at 16:55; Start 09/30/18 at 17:00; Stop 09/30/18 at 17:00; Status DC Iohexol (Omnipaque 350 Mg/ml) 75 ml 1X ONCE IV Last administered on 09/30/18at 17:12; Start 09/30/18 at 17:00; Stop 09/30/18 at 17:01; Status DC Info (CONTRAST GIVEN -- Rx MONITORING) 1 each PRN DAILY PRN MC SEE COMMENTS; Start 09/30/18 at 17:00; Stop 10/02/18 at 16:59; Status DC Methylprednisolone Sodium Succinate (SOLU-Medrol 125MG VIAL) 125 mg 1X ONCE IV Last administered on 09/30/18at 18:41; Start 09/30/18 at 18:00; Stop 09/30/18 at 18:01; Status DC Azithromycin 250 ml @ 250 mls/hr 1X ONCE IV Last administered on 09/30/18 18:44; Start 09/30/18 at 18:15; Stop 09/30/18 at 19:14; Status DC Ceftriaxone Sodium (Rocephin) 1 gm 1X ONCE IVP Last administered on 09/30/18 18:39; Start 09/30/18 at 18:15; Stop 09/30/18 at 18:16; Status DC Potassium Chloride/Water 100 ml @ 100 mls/hr Q1H IV Last administered on 10/01/18 01:27; Start 09/30/18 at 19:30; Stop 09/30/18 at 23:29; Status DC Albuterol Sulfate (Ventolin Neb Soln) 2.5 mg PRN Q4HRS PRN NEB SHORTNESS OF BREATH Last administered on 09/30/18 20:59; Start 09/30/18 at 21:00 Atorvastatin Calcium (Lipitor) 10 mg QHS PO Last administered on 10/03/18 21:05; Start 09/30/18 at 21:00 Ondansetron HCl (Zofran) 4 mg PRN Q6HRS PRN IV NAUSEA/VOMITING Last administered on 09/30/18 22:23; Start 09/30/18 at 22:15 Diltiazem HCl 125 mg/Dextrose 125 ml @ 5 mls/hr CONT PRN IV SEE I/O RECORD Last administered on 10/01/18 11:54; Start 10/01/18 at 01:45 Methylprednisolone Sodium Succinate (SOLU-Medrol 40MG VIAL) 40 mg Q8HRS IV Last administered on 10/04/18 06:09; Start 10/01/18 at 08:00 Pantoprazole Sodium (Protonix) 40 mg DAILYAC PO ; Start 10/01/18 at 07:30; Stop 10/01/18 at 07:30; Status DC Enoxaparin Sodium (Lovenox 40mg Syringe) 40 mg Q24H SQ Last administered on 10/02/18 08:51; Start 10/01/18 at 08:00; Stop 10/02/18 at 10:23; Status DC Ipratropium [place] (Atrovent) 0.5 mg RTQID NEB Last administered on 10/04/18 07:41; Start 10/01/18 at 08:00 Pantoprazole Sodium (PROTONIX VIAL for IV PUSH) 40 mg DAILYAC IVP Last administered on 10/04/18 06:09; Start 10/01/18 at 07:30 Metoprolol Tartrate (Lopressor) 50 mg BID PO Last administered on 10/01/18 08:31; Start 10/01/18 at 09:00; Stop 10/01/18 at 09:47; Status DC Levothyroxine Sodium (Synthroid) 50 mcg DAILY06 PO Last administered on 10/02/18 06:39; Start 10/01/18 at 08:00; Stop 10/03/18 at 08:49; Status DC Warfarin Sodium (Coumadin) 1 mg Q48H PO Last administered on 10/01/18 17:21; Start 10/01/18 at 16:00; Stop 10/02/18 at 08:21; Status DC Warfarin Sodium (Coumadin Per Physician) 1 each PRN DAILY PRN MC SEE COMMENTS Last administered on 10/03/18at 16:03; Start 10/01/18 at 07:45 Insulin Human Lispro (HumaLOG) 0-5 UNITS TIDWMEALS SQ Last administered on 10/02/18 12:09; Start 10/01/18 at 08:00 Dextrose (Dextrose 50%-Water Syringe) 12.5 gm PRN Q15MIN PRN IV SEE COMMENTS; Start 10/01/18 at 07:45 Metoprolol Tartrate (Lopressor) 50 mg TID PO Last administered on 10/02/18at 06:50; Start 10/01/18 at 14:00; Stop 10/02/18 at 08:39; Status DC Ceftriaxone Sodium (Rocephin) 1 gm Q24H IVP Last administered on 10/03/18 17:54; Start 10/01/18 at 18:00 Azithromycin (Zithromax) 250 mg DAILY PO Last administered on 10/03/18 17:50; Start 10/01/18 at 16:00; Stop 10/06/18 at 15:59 Warfarin Sodium (Coumadin) 1 mg DAILY16 PO Last administered on 10/03/18 17:52; Start 10/02/18 at 16:00 Furosemide (Lasix) 40 mg DAILY PO Last administered on 10/03/18 17:51; Start 10/02/18 at 09:00 Metoprolol Tartrate (Lopressor Vial) 5 mg 1X ONCE IVP Last administered on 10/02/18at 08:50; Start 10/02/18 at 08:45; Stop 10/02/18 at 08:46; Status DC Metoprolol Tartrate (Lopressor) 50 mg Q6HRS PO Last administered on 10/04/18at 06:11; Start 10/02/18 at 12:00 Enoxaparin Sodium (Lovenox 80mg Syringe) 80 mg Q12HR SQ Last administered on 10/03/18at 21:06; Start 10/02/18 at 10:30 Methocarbamol (Robaxin) 1,500 mg PRN Q8HRS PRN PO MUSCLE SPASMS Last adm inistered on 10/02/18at 23:46; Start 10/02/18 at 23:30 Levothyroxine Sodium (Synthroid) 75 mcg DAILY06 PO Last administered on at 06:09; Start 10/04/18 at 06:00 Ferrous Sulfate (Feosol) 325 mg DAILYWBKFT PO Last administered on 10/03/18at 17:51; Start 10/03/18 at 09:30 Digoxin (Lanoxin) 250 mcg 1X ONCE IV Last administered on 10/03/18at 11:31; Start 10/03/18 at 11:30; Stop 10/03/18 at 11:31; Status DC Benzocaine (Hurricaine One) 1 spray STK-MED ONCE .ROUTE ; Start 10/03/18 at 13:08; Stop 10/03/18 at 13:09; Status DC Lidocaine HCl (Glydo (Lidocaine) Jelly) 1 tevin 1X ONCE MM ; Start 10/03/18 at 13:15; Stop 10/03/18 at 13:16; Status DC Propofol 0 ml @ As Directed STK-MED ONCE IV ; Start 10/03/18 at 13:28; Stop 10/03/18 at 13:29; Status DC Acetaminophen (Tylenol) 650 mg PRN Q6HRS PRN PO MILD PAIN / TEMP Last administered on 10/03/18at 15:42; Start 10/03/18 at 15:45 Active Scripts Active Prednisone 20 Mg Tablet 1 Tab PO DAILY 3 tabs daily for 3 days then 2 tabs daily for 3 days then 1 tab daily for 3 days. Start on 09/17/18. Synthroid (Levothyroxine Sodium) 75 Mcg Tablet 75 Mcg PO DAILY06 30 Days Polyethylene Glycol 3350 17 Gm Powd.pack 17 Gm PO DAILY 30 Days Warfarin Sodium 1 Mg Tablet 1 Mg PO MON, WEDS, FRI ONLY 30 Days Toprol Xl (Metoprolol Succinate) 50 Mg Tab.er.24h 150 Mg PO DAILY Klor-Con M20 (Potassium Chloride) 20 Meq Tab.er.prt 20 Meq PO DAILYWBKFT 30 Days Reported Furosemide 40 Mg Tablet 1 Tab PO PRN DAILY PRN Pravastatin Sodium 40 Mg Tablet 1 Tab PO QHS Stool Softener (Docusate Sodium) 100 Mg Tablet 100 Mg PO PRN PRN Vitals/I & O Vital Sign - Last 24 Hours 10/03/18 10/03/18 10/03/18 10/03/18 08:30 08:48 11:12 11:20 Temp 98.1 98.1 Pulse 145 145 Resp 16 B/P (MAP) 113/63 113/66 (82) Pulse Ox 100 97 O2 Delivery Room Air Room Air Room Air 10/03/18 10/03/18 10/03/18 10/03/18 11:31 13:54 13:54 14:09 Temp 98.6 98.6 Pulse 145 96 96 Resp 28 24 B/P (MAP) 113/66 138/65 149/87 Pulse Ox 98 100 O2 Delivery Simple Mask Mask Simple Mask O2 Flow Rate 8 8 8 10/03/18 10/03/18 10/03/18 10/03/18 14:24 14:39 14:40 15:00 Temp 98.6 97.8 98.6 97.8 Pulse 92 92 91 Resp B/P (MAP) 142/81 141/81 143/84 (103) Pulse Ox 100 100 100 O2 Delivery Simple Mask Nasal Cannula Nasal Cannula Nasal Cannula O2 Flow Rate 8 4 4 10/03/18 10/03/18 10/03/18 10/03/18 16:43 17:51 19:20 19:30 Temp 97.8 97.8 Pulse 90 91 Resp 20 B/P (MAP) 148/84 134/77 (96) Pulse Ox 100 O2 Delivery Nasal Cannula Nasal Cannula Room Air O2 Flow Rate 3.0 3.5 10/03/18 10/03/18 10/03/18 10/04/18 19:40 23:10 23:58 02:45 Temp 98.1 98.0 98.1 98.0 Pulse 92 92 88 Resp 20 20 B/P (MAP) 142/78 (99) 142/78 160/80 (106) Pulse Ox 100 96 95 O2 Delivery Nasal Cannula Nasal Cannula Room Air O2 Flow Rate 3.0 3.5 10/04/18 06:11 Pulse 89 B/P (MAP) 129/68 Intake and Output 10/03/18 10/03/18 10/04/18 15:00 23:00 07:00 Intake Total 400 ml Balance 400 ml JOSH CANAS MD Oct 04, 2018 08:12
[2018-10-04] MEDS ORDERED: IV NORMAL SALINE 1000ML BAG 1,000 ML IV SCH (08:15)
--- NOTE | 2018-10-04 08:49 | PDOC ---
PROGRESS NOTES Subjective Subjective HPI - f/u of stage IV non small cell lung cancer ROS - has wheezing Objective Objective Vital Signs Date Time Temp Pulse Resp B/P (MAP) Pulse Ox O2 Delivery O2 Flow Rate FiO2 10/04/18 07:42 97 Room Air 10/04/18 07:00 98.0 85 19 147/75 (99) 98.0 10/03/18 23:10 3.5 Intake and Output 10/04/18 07:00 Intake Total 400 ml Balance 400 ml Intake Oral 400 ml Physical Exam Heart: Regular rate, Normal S1, Normal S2 General: Alert, Oriented X3, No acute distress Lungs: Normal air movement Neuro: Normal speech Psych/Mental Status: Mental status NL Assessment Assessment Problems Medical Problems: (1) Atrial fibrillation with RVR Status: Acute (2) Dyspnea Status: Acute (3) Pneumonia Status: Acute Assessment/Plan 1. Recently diagnosed stage IV non small cell lung cancer - s/p palliative radiation to left hilar area completed September 19. Plan chemo as outpt after cardiac issues stabilize. 2. Afib RVR - per cardiology. s/p cardioversion 10/03/18, converted to sinus rhythm. Comment Review of Relevant I have reviewed the following items cinthia (where applicable) has been applied. Labs Laboratory Tests Test 10/02/18 12:02 10/02/18 17:05 10/03/18 08:17 10/03/18 09:55 Glucose (Fingerstick) 196 mg/dL (70-99) 151 mg/dL (70-99) 164 mg/dL (70-99) Prothrombin Time 19.5 SEC (11.7-14.0) Prothromb Time International Ratio 1.7 (0.8-1.1) Test 10/03/18 11:41 10/03/18 17:00 10/03/18 20:48 10/04/18 02:45 Glucose (Fingerstick) 145 mg/dL (70-99) 142 mg/dL (70-99) 207 mg/dL (70-99) Prothrombin Time 20.3 SEC (11.7-14.0) Prothromb Time International Ratio 1.8 (0.8-1.1) Sodium Level 141 mmol/L (136-145) Potassium Level 3.3 mmol/L (3.5-5.1) Chloride Level 102 mmol/L (98-107) Carbon Dioxide Level 26 mmol/L (21-32) Anion Gap 13 (6-14) Blood Urea Nitrogen 39 mg/dL (7-20) Creatinine 1.9 mg/dL (0.6-1.0) Estimated GFR (Cockcroft-Gault) 32.0 Glucose Level 181 mg/dL (70-99) Calcium Level 9.3 mg/dL (8.5-10.1) Magnesium Level 2.2 mg/dL (1.8-2.4) Test 10/04/18 07:16 Glucose (Fingerstick) 221 mg/dL (70-99) Laboratory Tests Test 10/03/18 09:55 10/03/18 11:41 10/03/18 17:00 10/03/18 20:48 Prothrombin Time 19.5 SEC (11.7-14.0) Prothromb Time International Ratio 1.7 (0.8-1.1) Glucose (Fingerstick) 145 mg/dL (70-99) 142 mg/dL (70-99) 207 mg/dL (70-99) Test 10/04/18 02:45 10/04/18 07:16 Prothrombin Time 20.3 SEC (11.7-14.0) Prothromb Time International Ratio 1.8 (0.8-1.1) Sodium Level 141 mmol/L (136-145) Potassium Level 3.3 mmol/L (3.5-5.1) Chloride Level 102 mmol/L (98-107) Carbon Dioxide Level 26 mmol/L (21-32) Anion Gap 13 (6-14) Blood Urea Nitrogen 39 mg/dL (7-20) Creatinine 1.9 mg/dL (0.6-1.0) Estimated GFR (Cockcroft-Gault) 32.0 Glucose Level 181 mg/dL (70-99) Calcium Level 9.3 mg/dL (8.5-10.1) Magnesium Level 2.2 mg/dL (1.8-2.4) Glucose (Fingerstick) 221 mg/dL (70-99) Medications Current Medications Diltiazem HCl (Cardizem Iv Push) 10 mg 1X ONCE IVP Last administered on 09/30/18at 16:22; Start 09/30/18 at 16:30; Stop 09/30/18 at 16:31; Status DC Diltiazem HCl 125 mg/Dextrose 125 ml @ 5 mls/hr 1X ONCE IV Last administered on 09/30/18at 16:36; Start 09/30/18 at 16:30; Stop 10/01/18 at 17:29; Status DC Albuterol Sulfate (Ventolin Neb Soln) 2.5 mg 1X ONCE NEB Last administered on 09/30/18at 16:23; Start 09/30/18 at 16:30; Stop 09/30/18 at 16:31; Status DC Diltiazem HCl (Cardizem Iv Push) 25 mg STK-MED ONCE .ROUTE ; Start 09/30/18 at 16:19; Stop 09/30/18 at 16:20; Status DC Sodium Chloride 1,000 ml @ 1,000 mls/hr 1X ONCE IV Last administered on 09/30/18at 16:55; Start 09/30/18 at 17:00; Stop 09/30/18 at 17:00; Status DC Iohexol (Omnipaque 350 Mg/ml) 75 ml 1X ONCE IV Last administered on 09/30/18at 17:12; Start 09/30/18 at 17:00; Stop 09/30/18 at 17:01; Status DC Info (CONTRAST GIVEN -- Rx MONITORING) 1 each PRN DAILY PRN MC SEE COMMENTS; Start 09/30/18 at 17:00; Stop 10/02/18 at 16:59; Status DC Methylprednisolone Sodium Succinate (SOLU-Medrol 125MG VIAL) 125 mg 1X ONCE IV Last administered on 09/30/18at 18:41; Start 09/30/18 at 18:00; Stop 09/30/18 at 18:01; Status DC Azithromycin 250 ml @ 250 mls/hr 1X ONCE IV Last administered on 09/30/18at 18:44; Start 09/30/18 at 18:15; Stop 09/30/18 at 19:14; Status DC Ceftriaxone Sodium (Rocephin) 1 gm 1X ONCE IVP Last administered on 09/30/18at 18:39; Start 09/30/18 at 18:15; Stop 09/30/18 at 18:16; Status DC Potassium Chloride/Water 100 ml @ 100 mls/hr Q1H IV Last administered on 10/01/18at 01:27; Start 09/30/18 at 19:30; Stop 09/30/18 at 23:29; Status DC Albuterol Sulfate (Ventolin Neb Soln) 2.5 mg PRN Q4HRS PRN NEB SHORTNESS OF BREATH Last administered on 09/30/18at 20:59; Start 09/30/18 at 21:00 Atorvastatin Calcium (Lipitor) 10 mg QHS PO Last administered on 10/03/18at 21:05; Start 09/30/18 at 21:00 Ondansetron HCl (Zofran) 4 mg PRN Q6HRS PRN IV NAUSEA/VOMITING Last administered on 09/30/18 22:23; Start 09/30/18 at 22:15 Diltiazem HCl 125 mg/Dextrose 125 ml @ 5 mls/hr CONT PRN IV SEE I/O RECORD Last administered on 10/01/18at 11:54; Start 10/01/18 at 01:45; Stop 10/04/18 at 08:14; Status DC Methylprednisolone Sodium Succinate (SOLU-Medrol 40MG VIAL) 40 mg Q8HRS IV Last administered on 10/04/18at 06:09; Start 10/01/18 at 08:00 Pantoprazole Sodium (Protonix) 40 mg DAILYAC PO ; Start 10/01/18 at 07:30; Stop 10/01/18 at 07:30; Status DC Enoxaparin Sodium (Lovenox 40mg Syringe) 40 mg Q24H SQ Last administered on 10/02/18at 08:51; Start 10/01/18 at 08:00; Stop 10/02/18 at 10:23; Status DC Ipratropium Bim (Atrovent) 0.5 mg RTQID NEB Last administered on 10/04/18at 07:41; Start 10/01/18 at 08:00 Pantoprazole Sodium (PROTONIX VIAL for IV PUSH) 40 mg DAILYAC IVP Last administered on 10/04/18at 06:09; Start 10/01/18 at 07:30 Metoprolol Tartrate (Lopressor) 50 mg BID PO Last administered on 10/01/18at 08:31; Start 10/01/18 at 09:00; Stop 10/01/18 at 09:47; Status DC Levothyroxine Sodium (Synthroid) 50 mcg DAILY06 PO Last administered on 10/02/18 06:39; Start 10/01/18 at 08:00; Stop 10/03/18 at 08:49; Status DC Warfarin Sodium (Coumadin) 1 mg Q48H PO Last administered on 10/01/18at 17:21; Start 10/01/18 at 16:00; Stop 10/02/18 at 08:21; Status DC Warfarin Sodium (Coumadin Per Physician) 1 each PRN DAILY PRN MC SEE COMMENTS Last administered on 10/03/18at 16:03; Start 10/01/18 at 07:45 Insulin Human Lispro (HumaLOG) 0-5 UNITS TIDWMEALS SQ Last administered on 10/02/18at 12:09; Start 10/01/18 at 08:00 Dextrose (Dextrose 50%-Water Syringe) 12.5 gm PRN Q15MIN PRN IV SEE COMMENTS; Start 10/01/18 at 07:45 Metoprolol Tartrate (Lopressor) 50 mg TID PO Last administered on 10/02/18at 06:50; Start 10/01/18 at 14:00; Stop 10/02/18 at 08:39; Status DC Ceftriaxone Sodium (Rocephin) 1 gm Q24H IVP Last administered on 10/03/18 17:54; Start 10/01/18 at 18:00 Azithromycin (Zithromax) 250 mg DAILY PO Last administered on 10/03/18 17:50; Start 10/01/18 at 16:00; Stop 10/06/18 at 15:59 Warfarin Sodium (Coumadin) 1 mg DAILY16 PO Last administered on 10/03/18at 17:52; Start 10/02/18 at 16:00 Furosemide (Lasix) 40 mg DAILY PO Last administered on 10/03/18 17:51; Start 10/02/18 at 09:00; Stop 10/04/18 at 08:16; Status DC Metoprolol Tartrate (Lopressor Vial) 5 mg 1X ONCE IVP Last administered on 10/02/18at 08:50; Start 10/02/18 at 08:45; Stop 10/02/18 at 08:46; Status DC Metoprolol Tartrate (Lopressor) 50 mg Q6HRS PO Last administered on 10/04/18at 06:11; Start 10/02/18 at 12:00 Enoxaparin Sodium (Lovenox 80mg Syringe) 80 mg Q12HR SQ Last administered on 10/03/18at 21:06; Start 10/02/18 at 10:30 Methocarbamol (Robaxin) 1,500 mg PRN Q8HRS PRN PO MUSCLE SPASMS Last administered on 10/02/18at 23:46; Start 10/02/18 at 23:30 Levothyroxine Sodium (Synthroid) 75 mcg DAILY06 PO Last administered on 10/04/18at 06:09; Start 10/04/18 at 06:00 Ferrous Sulfate (Feosol) 325 mg DAILYWBKFT PO Last administered on 10/03/18at 17:51; Start 10/03/18 at 09:30 Digoxin (Lanoxin) 250 mcg 1X ONCE IV Last administered on 10/03/18at 11:31; Start 10/03/18 at 11:30; Stop 10/03/18 at 11:31; Status DC Benzocaine (Hurricaine One) 1 spray STK-MED ONCE .ROUTE ; Start 10/03/18 at 13:08; Stop 10/03/18 at 13:09; Status DC Lidocaine HCl (Glydo (Lidocaine) Jelly) 1 tevin 1X ONCE MM ; Start 10/03/18 at 13:15; Stop 10/03/18 at 13:16; Status DC Propofol 0 ml @ As Directed STK-MED ONCE IV ; Start 10/03/18 at 13:28; Stop 10/03/18 at 13:29; Status DC Acetaminophen (Tylenol) 650 mg PRN Q6HRS PRN PO MILD PAIN / TEMP Last administered on 10/03/18at 15:42; Start 10/03/18 at 15:45 Sodium Chloride 1,000 ml @ 100 mls/hr Q10H IV ; Start 10/04/18 at 08:15; Stop 10/04/18 at 13:00 Furosemide (Lasix) 40 mg DAILY PO ; Start 10/05/18 at 09:00 Active Scripts Active Prednisone 20 Mg Tablet 1 Tab PO DAILY 3 tabs daily for 3 days then 2 tabs daily for 3 days then 1 tab daily for 3 days. Start on 09/17/18. Synthroid (Levothyroxine Sodium) 75 Mcg Tablet 75 Mcg PO DAILY06 30 Days Polyethylene Glycol 3350 17 Gm Powd.pack 17 Gm PO DAILY 30 Days Warfarin Sodium 1 Mg Tablet 1 Mg PO MON, WEDS, FRI ONLY 30 Days Toprol Xl (Metoprolol Succinate) 50 Mg Tab.er.24h 150 Mg PO DAILY Klor-Con M20 (Potassium Chloride) 20 Meq Tab.er.prt 20 Meq PO DAILYWBKFT 30 Days Reported Furosemide 40 Mg Tablet 1 Tab PO PRN DAILY PRN Pravastatin Sodium 40 Mg Tablet 1 Tab PO QHS Stool Softener (Docusate Sodium) 100 Mg Tablet 100 Mg PO PRN PRN Vitals/I & O Vital Sign - Last 24 Hours 10/03/18 10/03/18 10/03/18 10/03/18 08:48 11:12 11:20 11:31 Temp 98.1 98.1 Pulse 145 145 145 Resp 16 B/P (MAP) 113/63 113/66 (82) 113/66 Pulse Ox 100 97 O2 Delivery Room Air Room Air 10/03/18 10/03/18 10/03/18 10/03/18 13:54 13:54 14:09 14:24 Temp 98.6 98.6 Pulse 96 96 92 Resp 28 24 24 B/P (MAP) 138/65 149/87 142/81 Pulse Ox 98 100 100 O2 Delivery Simple Mask Mask Simple Mask Simple Mask O2 Flow Rate 8 8 8 8 10/03/18 10/03/18 10/03/18 10/03/18 14:39 14:40 15:00 16:43 Temp 98.6 97.8 98.6 97.8 Pulse 92 91 Resp 18 22 B/P (MAP) 141/81 143/84 (103) Pulse Ox 100 100 O2 Delivery Nasal Cannula Nasal Cannula Nasal Cannula Nasal Cannula O2 Flow Rate 4 4 3.0 10/03/18 10/03/18 10/03/18 10/03/18 17:51 19:20 19:30 19:40 Temp 97.8 97.8 Pulse 90 91 Resp 20 B/P (MAP) 148/84 134/77 (96) Pulse Ox 100 100 O2 Delivery Nasal Cannula Room Air Nasal Cannula O2 Flow Rate 3.5 3.0 10/03/18 10/03/18 10/04/18 10/04/18 23:10 23:58 02:45 06:11 Temp 98.1 98.0 98.1 98.0 Pulse 92 92 88 89 Resp 20 20 B/P (MAP) 142/78 (99) 142/78 160/80 (106) 129/68 Pulse Ox 96 95 O2 Delivery Nasal Cannula Room Air O2 Flow Rate 3.5 10/04/18 10/04/18 07:00 07:42 Temp 98.0 98.0 Pulse 85 Resp 19 B/P (MAP) 147/75 (99) Pulse Ox 97 97 O2 Delivery Room Air Intake and Output 10/03/18 10/03/18 10/04/18 15:00 23:00 07:00 Intake Total 400 ml Balance 400 ml SADIE ZHAO MD Oct 04, 2018 08:49
[2018-10-04] MEDS: AZITHROMYCIN 250 MG TABLET. PO SCH (09:11)
[2018-10-04] MEDS: INSULIN LISPRO 300 UNITS/3 ML INSULN.PEN. SQ SCH ×3 (09:13→17:34)
[2018-10-04 10:55] VITALS: BP 144/17
[2018-10-04] MEDS: ONDANSETRON PF 4 MG/2 ML VIAL. IV PRN (12:17)
--- NOTE | 2018-10-04 12:53 | PDOC ---
PULMONARY PROGRESS NOTES Subjective Patient is resting comfortably on room air. She reports minimal SOB with exertion. She reports a productive cough today. states she feels much better than when she came in. Vitals Laboratory Tests Test 10/03/18 17:00 10/03/18 20:48 10/04/18 02:45 10/04/18 07:16 Glucose (Fingerstick) 142 mg/dL 207 mg/dL 221 mg/dL Prothrombin Time 20.3 SEC Prothromb Time International Ratio 1.8 Sodium Level 141 mmol/L Potassium Level 3.3 mmol/L Chloride Level 102 mmol/L Carbon Dioxide Level 26 mmol/L Anion Gap 13 Blood Urea Nitrogen 39 mg/dL Creatinine 1.9 mg/dL Estimated GFR (Cockcroft-Gault) 32.0 Glucose Level 181 mg/dL Calcium Level 9.3 mg/dL Magnesium Level 2.2 mg/dL Test 10/04/18 11:26 Glucose (Fingerstick) 177 mg/dL Current Medications Medications (Trade) Dose Ordered Sig/Kimber Route PRN Reason Start Time Stop Time Status Last Admin Dose Admin Diltiazem HCl (Cardizem Iv Push) 10 mg 1X ONCE IVP 09/30/18 16:30 09/30/18 16:31 DC 09/30/18 16:22 Diltiazem HCl 125 mg/Dextrose 125 ml @ 5 mls/hr 1X ONCE IV 09/30/18 16:30 10/01/18 17:29 DC 09/30/18 16:36 Albuterol Sulfate (Ventolin Neb Soln) 2.5 mg 1X ONCE NEB 09/30/18 16:30 09/30/18 16:31 DC 09/30/18 16:23 Diltiazem HCl (Cardizem Iv Push) 25 mg STK-MED ONCE .ROUTE 09/30/18 16:19 09/30/18 16:20 DC Sodium Chloride 1,000 ml @ 1,000 mls/hr 1X ONCE IV 09/30/18 17:00 09/30/18 17:00 DC 09/30/18 16:55 Iohexol (Omnipaque 350 Mg/ml) 75 ml 1X ONCE IV 09/30/18 17:00 09/30/18 17:01 DC 09/30/18 17:12 Info (CONTRAST GIVEN -- Rx MONITORING) 1 each PRN DAILY PRN MC SEE COMMENTS 09/30/18 17:00 10/02/18 16:59 DC Methylprednisolone Sodium Succinate (SOLU-Medrol 125MG VIAL) 125 mg 1X ONCE IV 09/30/18 18:00 09/30/18 18:01 DC 09/30/18 18:41 Azithromycin 250 ml @ 250 mls/hr 1X ONCE IV 09/30/18 18:15 09/30/18 19:14 DC 09/30/18 18:44 Ceftriaxone Sodium (Rocephin) 1 gm 1X ONCE IVP 09/30/18 18:15 09/30/18 18:16 DC 09/30/18 18:39 Potassium Chloride/Water 100 ml @ 100 mls/hr Q1H IV 09/30/18 19:30 09/30/18 23:29 DC 10/01/18 01:27 Albuterol Sulfate (Ventolin Neb Soln) 2.5 mg PRN Q4HRS PRN NEB SHORTNESS OF BREATH 09/30/18 21:00 09/30/18 20:59 Atorvastatin Calcium (Lipitor) 10 mg QHS PO 09/30/18 21:00 10/03/18 21:05 Ondansetron HCl (Zofran) 4 mg PRN Q6HRS PRN IV NAUSEA/VOMITING 09/30/18 22:15 10/04/18 12:17 Diltiazem HCl 125 mg/Dextrose 125 ml @ 5 mls/hr CONT PRN IV SEE I/O RECORD 10/01/18 01:45 10/04/18 08:14 DC 10/01/18 11:54 Methylprednisolone Sodium Succinate (SOLU-Medrol 40MG VIAL) 40 mg Q8HRS IV 10/01/18 08:00 10/04/18 06:09 Pantoprazole Sodium (Protonix) 40 mg DAILYAC PO 10/01/18 07:30 10/01/18 07:30 DC Enoxaparin Sodium (Lovenox 40mg Syringe) 40 mg Q24H SQ 10/01/18 08:00 10/02/18 10:23 DC 10/02/18 08:51 Ipratropium [place] (Atrovent) 0.5 mg RTQID NEB 10/01/18 08:00 10/04/18 07:41 Pantoprazole Sodium (PROTONIX VIAL for IV PUSH) 40 mg DAILYAC IVP 10/01/18 07:30 10/04/18 06:09 Metoprolol Tartrate (Lopressor) 50 mg BID PO 10/01/18 09:00 10/01/18 09:47 DC 10/01/18 08:31 Levothyroxine Sodium (Synthroid) 50 mcg DAILY06 PO 10/01/18 08:00 10/03/18 08:49 DC 10/02/18 06:39 Warfarin Sodium (Coumadin) 1 mg Q48H PO 10/01/18 16:00 10/02/18 08:21 DC 10/01/18 17:21 Warfarin Sodium (Coumadin Per Physician) 1 each PRN DAILY PRN MC SEE COMMENTS 10/01/18 07:45 10/04/18 11:30 Insulin Human Lispro (HumaLOG) 0-5 UNITS TIDWMEALS SQ 10/01/18 08:00 10/04/18 12:25 Dextrose (Dextrose 50%-Water Syringe) 12.5 gm PRN Q15MIN PRN IV SEE COMMENTS 10/01/18 07:45 Metoprolol Tartrate (Lopressor) 50 mg TID PO 10/01/18 14:00 10/02/18 08:39 DC 10/02/18 06:50 Ceftriaxone Sodium (Rocephin) 1 gm Q24H IVP 10/01/18 18:00 10/03/18 17:54 Azithromycin (Zithromax) 250 mg DAILY PO 10/01/18 16:00 10/06/18 15:59 10/04/18 09:11 Warfarin Sodium (Coumadin) 1 mg DAILY16 PO 10/02/18 16:00 10/03/18 17:52 Furosemide (Lasix) 40 mg DAILY PO 10/02/18 09:00 10/04/18 08:16 DC 10/03/18 17:51 Metoprolol Tartrate (Lopressor Vial) 5 mg 1X ONCE IVP 10/02/18 08:45 10/02/18 08:46 DC 10/02/18 08:50 Metoprolol Tartrate (Lopressor) 50 mg Q6HRS PO 10/02/18 12:00 10/04/18 12:17 Enoxaparin Sodium (Lovenox 80mg Syringe) 80 mg Q12HR SQ 10/02/18 10:30 10/04/18 09:11 Methocarbamol (Robaxin) 1,500 mg PRN Q8HRS PRN PO MUSCLE SPASMS 10/02/18 23:30 10/02/18 23:46 Levothyroxine Sodium (Synthroid) 75 mcg DAILY06 PO 10/04/18 06:00 10/04/18 06:09 Ferrous Sulfate (Feosol) 325 mg DAILYWBKFT PO 10/03/18 09:30 10/03/18 17:51 Digoxin (Lanoxin) 250 mcg 1X ONCE IV 10/03/18 11:30 10/03/18 11:31 DC 10/03/18 11:31 Benzocaine (Hurricaine One) 1 spray STK-MED ONCE .ROUTE 10/03/18 13:08 10/03/18 13:09 DC Lidocaine HCl (Glydo (Lidocaine) Jelly) 1 tevin 1X ONCE MM 10/03/18 13:15 10/03/18 13:16 DC Propofol 0 ml @ As Directed STK-MED ONCE IV 10/03/18 13:28 10/03/18 13:29 DC Acetaminophen (Tylenol) 650 mg PRN Q6HRS PRN PO MILD PAIN / TEMP 10/03/18 15:45 10/03/18 15:42 Sodium Chloride 1,000 ml @ 100 mls/hr Q10H IV 10/04/18 08:15 10/04/18 13:00 10/04/18 09:21 Furosemide (Lasix) 40 mg DAILY PO 10/05/18 09:00 Vital Signs Date Time Temp Pulse Resp B/P (MAP) Pulse Ox O2 Delivery O2 Flow Rate FiO2 10/04/18 12:17 86 144/77 10/04/18 10:55 97.7 18 Room Air 97.7 10/04/18 08:00 4.0 10/04/18 07:42 97 ROS: No Nausea, No Chest Pain, No Increase Cough General: Alert, Oriented X4, No acute distress HEENT: Other (nc at perrl) Lungs: Wheezing Cardiovascular: S1, S2 (NSR), Other Abdomen: Soft, Non-tender Neuro Exam: Alert, Oriented, Normal Speech Extremities: No Edema Skin: Warm Labs Laboratory Tests Test 10/03/18 17:00 10/03/18 20:48 10/04/18 02:45 10/04/18 07:16 Glucose (Fingerstick) 142 mg/dL 207 mg/dL 221 mg/dL Prothrombin Time 20.3 SEC Prothromb Time International Ratio 1.8 Sodium Level 141 mmol/L Potassium Level 3.3 mmol/L Chloride Level 102 mmol/L Carbon Dioxide Level 26 mmol/L Anion Gap 13 Blood Urea Nitrogen 39 mg/dL Creatinine 1.9 mg/dL Estimated GFR (Cockcroft-Gault) 32.0 Glucose Level 181 mg/dL Calcium Level 9.3 mg/dL Magnesium Level 2.2 mg/dL Test 10/04/18 11:26 Glucose (Fingerstick) 177 mg/dL Current Medications Medications (Trade) Dose Ordered Sig/Kimber Route PRN Reason Start Time Stop Time Status Last Admin Dose Admin Diltiazem HCl (Cardizem Iv Push) 10 mg 1X ONCE IVP 09/30/18 16:30 09/30/18 16:31 DC 09/30/18 16:22 Diltiazem HCl 125 mg/Dextrose 125 ml @ 5 mls/hr 1X ONCE IV 09/30/18 16:30 10/01/18 17:29 DC 09/30/18 16:36 Albuterol Sulfate (Ventolin Neb Soln) 2.5 mg 1X ONCE NEB 09/30/18 16:30 09/30/18 16:31 DC 09/30/18 16:23 Diltiazem HCl (Cardizem Iv Push) 25 mg STK-MED ONCE .ROUTE 09/30/18 16:19 09/30/18 16:20 DC Sodium Chloride 1,000 ml @ 1,000 mls/hr 1X ONCE IV 09/30/18 17:00 09/30/18 17:00 DC 09/30/18 16:55 Iohexol (Omnipaque 350 Mg/ml) 75 ml 1X ONCE IV 09/30/18 17:00 09/30/18 17:01 DC 09/30/18 17:12 Info (CONTRAST GIVEN -- Rx MONITORING) 1 each PRN DAILY PRN MC SEE COMMENTS 09/30/18 17:00 10/02/18 16:59 DC Methylprednisolone Sodium Succinate (SOLU-Medrol 125MG VIAL) 125 mg 1X ONCE IV 09/30/18 18:00 09/30/18 18:01 DC 09/30/18 18:41 Azithromycin 250 ml @ 250 mls/hr 1X ONCE IV 09/30/18 18:15 09/30/18 19:14 DC 09/30/18 18:44 Ceftriaxone Sodium (Rocephin) 1 gm 1X ONCE IVP 09/30/18 18:15 09/30/18 18:16 DC 09/30/18 18:39 Potassium Chloride/Water 100 ml @ 100 mls/hr Q1H IV 09/30/18 19:30 09/30/18 23:29 DC 10/01/18 01:27 Albuterol Sulfate (Ventolin Neb Soln) 2.5 mg PRN Q4HRS PRN NEB SHORTNESS OF BREATH 09/30/18 21:00 09/30/18 20:59 Atorvastatin Calcium (Lipitor) 10 mg QHS PO 09/30/18 21:00 10/03/18 21:05 Ondansetron HCl (Zofran) 4 mg PRN Q6HRS PRN IV NAUSEA/VOMITING 09/30/18 22:15 10/04/18 12:17 Diltiazem HCl 125 mg/Dextrose 125 ml @ 5 mls/hr CONT PRN IV SEE I/O RECORD 10/01/18 01:45 10/04/18 08:14 DC 10/01/18 11:54 Methylprednisolone Sodium Succinate (SOLU-Medrol 40MG VIAL) 40 mg Q8HRS IV 10/01/18 08:00 10/04/18 06:09 Pantoprazole Sodium (Protonix) 40 mg DAILYAC PO 10/01/18 07:30 10/01/18 07:30 DC Enoxaparin Sodium (Lovenox 40mg Syringe) 40 mg Q24H SQ 10/01/18 08:00 10/02/18 10:23 DC 10/02/18 08:51 Ipratropium [place] (Atrovent) 0.5 mg RTQID NEB 10/01/18 08:00 10/04/18 07:41 Pantoprazole Sodium (PROTONIX VIAL for IV PUSH) 40 mg DAILYAC IVP 10/01/18 07:30 10/04/18 06:09 Metoprolol Tartrate (Lopressor) 50 mg BID PO 10/01/18 09:00 10/01/18 09:47 DC 10/01/18 08:31 Levothyroxine Sodium (Synthroid) 50 mcg DAILY06 PO 10/01/18 08:00 10/03/18 08:49 DC 10/02/18 06:39 Warfarin Sodium (Coumadin) 1 mg Q48H PO 10/01/18 16:00 10/02/18 08:21 DC 10/01/18 17:21 Warfarin Sodium (Coumadin Per Physician) 1 each PRN DAILY PRN MC SEE COMMENTS 10/01/18 07:45 10/04/18 11:30 Insulin Human Lispro (HumaLOG) 0-5 UNITS TIDWMEALS SQ 10/01/18 08:00 10/04/18 12:25 Dextrose (Dextrose 50%-Water Syringe) 12.5 gm PRN Q15MIN PRN IV SEE COMMENTS 10/01/18 07:45 Metoprolol Tartrate (Lopressor) 50 mg TID PO 10/01/18 14:00 10/02/18 08:39 DC 10/02/18 06:50 Ceftriaxone Sodium (Rocephin) 1 gm Q24H IVP 10/01/18 18:00 10/03/18 17:54 Azithromycin (Zithromax) 250 mg DAILY PO 10/01/18 16:00 10/06/18 15:59 10/04/18 09:11 Warfarin Sodium (Coumadin) 1 mg DAILY16 PO 10/02/18 16:00 10/03/18 17:52 Furosemide (Lasix) 40 mg DAILY PO 10/02/18 09:00 10/04/18 08:16 DC 10/03/18 17:51 Metoprolol Tartrate (Lopressor Vial) 5 mg 1X ONCE IVP 10/02/18 08:45 10/02/18 08:46 DC 10/02/18 08:50 Metoprolol Tartrate (Lopressor) 50 mg Q6HRS PO 10/02/18 12:00 10/04/18 12:17 Enoxaparin Sodium (Lovenox 80mg Syringe) 80 mg Q12HR SQ 10/02/18 10:30 10/04/18 09:11 Methocarbamol (Robaxin) 1,500 mg PRN Q8HRS PRN PO MUSCLE SPASMS 10/02/18 23:30 10/02/18 23:46 Levothyroxine Sodium (Synthroid) 75 mcg DAILY06 PO 10/04/18 06:00 10/04/18 06:09 Ferrous Sulfate (Feosol) 325 mg DAILYWBKFT PO 10/03/18 09:30 10/03/18 17:51 Digoxin (Lanoxin) 250 mcg 1X ONCE IV 10/03/18 11:30 10/03/18 11:31 DC 10/03/18 11:31 Benzocaine (Hurricaine One) 1 spray STK-MED ONCE .ROUTE 10/03/18 13:08 10/03/18 13:09 DC Lidocaine HCl (Glydo (Lidocaine) Jelly) 1 tevin 1X ONCE MM 10/03/18 13:15 10/03/18 13:16 DC Propofol 0 ml @ As Directed STK-MED ONCE IV 10/03/18 13:28 10/03/18 13:29 DC Acetaminophen (Tylenol) 650 mg PRN Q6HRS PRN PO MILD PAIN / TEMP 10/03/18 15:45 10/03/18 15:42 Sodium Chloride 1,000 ml @ 100 mls/hr Q10H IV 10/04/18 08:15 10/04/18 13:00 10/04/18 09:21 Furosemide (Lasix) 40 mg DAILY PO 10/05/18 09:00 Laboratory Tests Test 10/02/18 17:05 10/03/18 08:17 10/03/18 09:55 10/03/18 11:41 Glucose (Fingerstick) 151 mg/dL (70-99) 164 mg/dL (70-99) 145 mg/dL (70-99) Prothrombin Time 19.5 SEC (11.7-14.0) Prothromb Time International Ratio 1.7 (0.8-1.1) Test 10/03/18 17:00 10/03/18 20:48 10/04/18 02:45 10/04/18 07:16 Glucose (Fingerstick) 142 mg/dL (70-99) 207 mg/dL (70-99) 221 mg/dL (70-99) Prothrombin Time 20.3 SEC (11.7-14.0) Prothromb Time International Ratio 1.8 (0.8-1.1) Sodium Level 141 mmol/L (136-145) Potassium Level 3.3 mmol/L (3.5-5.1) Chloride Level 102 mmol/L (98-107) Carbon Dioxide Level 26 mmol/L (21-32) Anion Gap 13 (6-14) Blood Urea Nitrogen 39 mg/dL (7-20) Creatinine 1.9 mg/dL (0.6-1.0) Estimated GFR (Cockcroft-Gault) 32.0 Glucose Level 181 mg/dL (70-99) Calcium Level 9.3 mg/dL (8.5-10.1) Magnesium Level 2.2 mg/dL (1.8-2.4) Test 10/04/18 11:26 Glucose (Fingerstick) 177 mg/dL (70-99) Laboratory Tests Test 10/03/18 17:00 10/03/18 20:48 10/04/18 02:45 10/04/18 07:16 Glucose (Fingerstick) 142 mg/dL (70-99) 207 mg/dL (70-99) 221 mg/dL (70-99) Prothrombin Time 20.3 SEC (11.7-14.0) Prothromb Time International Ratio 1.8 (0.8-1.1) Sodium Level 141 mmol/L (136-145) Potassium Level 3.3 mmol/L (3.5-5.1) Chloride Level 102 mmol/L (98-107) Carbon Dioxide Level 26 mmol/L (21-32) Anion Gap 13 (6-14) Blood Urea Nitrogen 39 mg/dL (7-20) Creatinine 1.9 mg/dL (0.6-1.0) Estimated GFR (Cockcroft-Gault) 32.0 Glucose Level 181 mg/dL (70-99) Calcium Level 9.3 mg/dL (8.5-10.1) Magnesium Level 2.2 mg/dL (1.8-2.4) Test 10/04/18 11:26 Glucose (Fingerstick) 177 mg/dL (70-99) Medications Active Scripts Medications Dose Route/Sig Max Daily Dose Days Date Category Dose Instructions Prednisone 20 Mg Tablet 1 Tab PO DAILY 09/16/18 Rx 3 tabs daily for 3 days then 2 tabs daily for 3 days then 1 tab daily for 3 days. Start on 09/17/18. Synthroid (Levothyroxine Sodium) 75 Mcg Tablet 75 Mcg PO DAILY06 30 09/16/18 Rx Polyethylene Glycol 3350 17 Gm Powd.pack 17 Gm PO DAILY 30 09/16/18 Rx Warfarin Sodium 1 Mg Tablet 1 Mg PO WED, , WED ONLY 30 09/16/18 Rx Toprol Xl (Metoprolol Succinate) 50 Mg Tab.er.24h 150 Mg PO DAILY 09/13/18 Rx Klor-Con M20 (Potassium Chloride) 20 Meq Tab.er.prt 20 Meq PO DAILYWBKFT 30 08/19/18 Rx Furosemide 40 Mg Tablet 1 Tab PO PRN DAILY PRN 06/30/18 Reported Pravastatin Sodium 40 Mg Tablet 1 Tab PO QHS 06/30/18 Reported Stool Softener (Docusate Sodium) 100 Mg Tablet 100 Mg PO PRN PRN 07/21/17 Reported Active Scripts Medications Dose Route/Sig Max Daily Dose Days Date Category Dose Instructions Prednisone 20 Mg Tablet 1 Tab PO DAILY 09/16/18 Rx 3 tabs daily for 3 days then 2 tabs daily for 3 days then 1 tab daily for 3 days. Start on 09/17/18. Synthroid (Levothyroxine Sodium) 75 Mcg Tablet 75 Mcg PO DAILY06 30 09/16/18 Rx Polyethylene Glycol 3350 17 Gm Powd.pack 17 Gm PO DAILY 30 09/16/18 Rx Warfarin Sodium 1 Mg Tablet 1 Mg PO WED, , WED ONLY 30 09/16/18 Rx Toprol Xl (Metoprolol Succinate) 50 Mg Tab.er.24h 150 Mg PO DAILY 09/13/18 Rx Klor-Con M20 (Potassium Chloride) 20 Meq Tab.er.prt 20 Meq PO DAILYWBKFT 30 08/19/18 Rx Furosemide 40 Mg Tablet 1 Tab PO PRN DAILY PRN 06/30/18 Reported Pravastatin Sodium 40 Mg Tablet 1 Tab PO QHS 06/30/18 Reported Stool Softener (Docusate Sodium) 100 Mg Tablet 100 Mg PO PRN PRN 07/21/17 Reported Impression . 1. Acute hypoxemic respiratory failure multifactorial 2. Abnormal CT of the chest. 3. Stage IV non-small cell lung cancer. 4. Acute exacerbation of chronic obstructive pulmonary disease. 5. Acute bronchitis. 6. Ex-smoker. 7. Acute kidney injury. 8. Anemia. 9. Atrial fibrillation with rapid ventricular response. 10. Hypothyroidism. 11. Status post automatic implantable cardioverter defibrillator. 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 Acute hypoxemic respiratory failure * multifactorial * cont. bronchodilators, add Pulmicort * cont. steroids Stage IV non-small cell lung cancer. * dr. huerta following, needs outpatient chemo * There is again large left hilar mass with extent to the left mediastinum with narrowing of the adjacent bronchi and pulmonary arteries. Previously seen left pleural effusion has resolved and improved aeration of the left lower lobe. There is some persistent atelectasis/infiltrate of the right lower lobe and possible nodules. There is emphysema. * cont. supportive care Acute exacerbation of chronic obstructive pulmonary disease/Acute bronchitis. * Cont. abxs * supplemental oxygen to keep sats above 92% * cont. to monitor Acute kidney injury. * cr. is 1.9 today * avoid nephrotoxic medications * held Lasix Atrial fibrillation with rapid ventricular response:resolved * currently NSR * S/P cardioversion * Status post automatic implantable cardioverter defibrillator * currently Lovenox,Coumadin bridge * cardiology following Cardiomyopathy * SUSI on 10/03:The left ventricular systolic function is moderately impaired. The Ejection Fraction is 30-35%. There is global hypokinesis of the left ventricle. * cardiology following Hypothyroidism. * TSH * cont. home medications DVT/GI PPX: Lovenox/Coumadin SANJIV SOSA MD Oct 04, 2018 12:53
[2018-10-04] MEDS ORDERED: POTASSIUM CHLORIDE 20 MEQ TABLET.ER. PO ONE (13:45)
[2018-10-04 14:50] VITALS: BP 157/85
[2018-10-04] MEDS: WARFARIN 1 MG TABLET. PO SCH (15:05)
[2018-10-04] MEDS: ACETAMINOPHEN 325 MG TABLET. PO PRN (15:06)
[2018-10-04] MEDS: cefTRIAXone IV Push 1 GM VIAL. IVP SCH (17:25)
[2018-10-04] MEDS: BUDESONIDE 0.5 MG/2 ML NEBU. NEB SCH (19:35)
[2018-10-04 19:45] VITALS: BP 150/82
[2018-10-04] MEDS: ATORVASTATIN CALCIUM 10 MG TABLET. PO SCH (21:05)
[2018-10-04 22:45] VITALS: BP 140/77
[2018-10-05 02:55] VITALS: BP 153/80
[2018-10-05] MEDS: METOPROLOL TART IMMED RELEASE 50 MG TABLET. PO SCH (05:24)
[2018-10-05] MEDS: LEVOTHYROXINE 75 MCG TABLET PO SCH (05:24)
[2018-10-05] MEDS: methylPREDNISolone SOD SUCC PF 40 MG/ML VIAL. IV SCH ×2 (05:24→14:00)
[2018-10-05] MEDS: ONDANSETRON PF 4 MG/2 ML VIAL. IV PRN (05:25)
[2018-10-05 07:16] VITALS: BP 150/79
[2018-10-05] MEDS ORDERED: PANTOPRAZOLE 40 MG TABLET.DR. PO SCH ×2 (07:30→08:30)
[2018-10-05 07:41] LABS: CALCIUM 8.7 mg/dL (8.5-10.1); CREATININE 1.4 mg/dL (0.6-1.0); GFR 45.5; POTASSIUM 3.2 mmol/L (3.5-5.1)
[2018-10-05 07:48] LABS: PROTHROMBIN TIME PATIENT 21.8 SEC (11.7-14.0)
[2018-10-05] MEDS: FERROUS SULFATE 325 MG TABLET. PO SCH (08:00)
[2018-10-05] MEDS: IPRATROPIUM BROMIDE 0.5 MG/2.5 ML NEBU. NEB SCH ×2 (08:00→12:00)
[2018-10-05] MEDS: BUDESONIDE 0.5 MG/2 ML NEBU. NEB SCH (08:00)
[2018-10-05] MEDS ORDERED: POTASSIUM CHLORIDE 20 MEQ TABLET.ER. PO SCH (08:15)
--- NOTE | 2018-10-05 08:38 | PDOC ---
PROGRESS NOTES Subjective Subjective Patient feels better, ready to go home today. Objective Objective Vital Signs Date Time Temp Pulse Resp B/P (MAP) Pulse Ox O2 Delivery O2 Flow Rate FiO2 10/05/18 07:16 98.3 72 20 150/79 (102) 96 Room Air 98.3 10/04/18 14:50 98.0 Intake and Output 10/05/18 07:00 Intake Total 900 ml Balance 900 ml Intake Oral 400 ml IV Total 500 ml Physical Exam Abdomen: Normal bowel sounds, Soft, No tenderness Heart: Regular rate Extremities: No edema General: Alert, Oriented X3, No acute distress Lungs: Other (few inspiratory and expiratory wheezes heard) Assessment Assessment Problems Medical Problems: (1) Atrial fibrillation with RVR Status: Acute (2) Dyspnea Status: Acute (3) Pneumonia Status: Acute Plan Plan of Care 1. Afib with RVR - maintaining sinus rhythm since cardioversion. Will resume her previous Toprol XL, continue Coumadin at present dose. 2. Stage IV NSC lung cancer - start outpatient chemotx later this week per Dr Durham. 3. AE COPD - home on prednisone taper. 4. renal insufficiency - improved with fluid bolus yesterday and holding Lasix. Patient advised to increase po fluids. 5. CHF - continue Lasix and K+ daily. 6. HTN - BP mildly elevated, resume the Losartan she was on previously. 7. anemia - at least partly iron-deficiency. Patient reports allergy or intolerance to iron supplements, instructed to work on increased iron in her diet. 8. dyspepsia - patient reports symptoms much better on Protonix, continue daily. 9. hypothyroidism - continue present dose of Levothyroxine and follow as outpatient. 10. glucose intolerance - has been diet-controlled for her, continue to watch diet. Comment Review of Relevant I have reviewed the following items cinthia (where applicable) has been applied. Labs Laboratory Tests Test 10/03/18 09:55 10/03/18 11:41 10/03/18 17:00 10/03/18 20:48 Prothrombin Time 19.5 SEC (11.7-14.0) Prothromb Time International Ratio 1.7 (0.8-1.1) Glucose (Fingerstick) 145 mg/dL (70-99) 142 mg/dL (70-99) 207 mg/dL (70-99) Test 10/04/18 02:45 10/04/18 07:16 10/04/18 11:26 10/04/18 16:30 Prothrombin Time 20.3 SEC (11.7-14.0) Prothromb Time International Ratio 1.8 (0.8-1.1) Sodium Level 141 mmol/L (136-145) Potassium Level 3.3 mmol/L (3.5-5.1) Chloride Level 102 mmol/L (98-107) Carbon Dioxide Level 26 mmol/L (21-32) Anion Gap 13 (6-14) Blood Urea Nitrogen 39 mg/dL (7-20) Creatinine 1.9 mg/dL (0.6-1.0) Estimated GFR (Cockcroft-Gault) 32.0 Glucose Level 181 mg/dL (70-99) Calcium Level 9.3 mg/dL (8.5-10.1) Magnesium Level 2.2 mg/dL (1.8-2.4) Thyroid Stimulating Hormone (TSH) 3.326 uIU/mL (0.358-3.74) Glucose (Fingerstick) 221 mg/dL (70-99) 177 mg/dL (70-99) 166 mg/dL (70-99) Test 10/04/18 20:49 10/05/18 05:25 10/05/18 07:11 Glucose (Fingerstick) 189 mg/dL (70-99) 170 mg/dL (70-99) Prothrombin Time 21.8 SEC (11.7-14.0) Prothromb Time International Ratio 1.9 (0.8-1.1) Sodium Level 142 mmol/L (136-145) Potassium Level 3.2 mmol/L (3.5-5.1) Chloride Level 106 mmol/L (98-107) Carbon Dioxide Level 25 mmol/L (21-32) Anion Gap 11 (6-14) Blood Urea Nitrogen 34 mg/dL (7-20) Creatinine 1.4 mg/dL (0.6-1.0) Estimated GFR (Cockcroft-Gault) 45.5 Glucose Level 167 mg/dL (70-99) Calcium Level 8.7 mg/dL (8.5-10.1) Laboratory Tests Test 10/04/18 11:26 10/04/18 16:30 10/04/18 20:49 10/05/18 05:25 Glucose (Fingerstick) 177 mg/dL (70-99) 166 mg/dL (70-99) 189 mg/dL (70-99) Prothrombin Time 21.8 SEC (11.7-14.0) Prothromb Time International Ratio 1.9 (0.8-1.1) Sodium Level 142 mmol/L (136-145) Potassium Level 3.2 mmol/L (3.5-5.1) Chloride Level 106 mmol/L (98-107) Carbon Dioxide Level 25 mmol/L (21-32) Anion Gap 11 (6-14) Blood Urea Nitrogen 34 mg/dL (7-20) Creatinine 1.4 mg/dL (0.6-1.0) Estimated GFR (Cockcroft-Gault) 45.5 Glucose Level 167 mg/dL (70-99) Calcium Level 8.7 mg/dL (8.5-10.1) Test 10/05/18 07:11 Glucose (Fingerstick) 170 mg/dL (70-99) Medications Current Medications Diltiazem HCl (Cardizem Iv Push) 10 mg 1X ONCE IVP Last administered on 09/30/18at 16:22; Start 09/30/18 at 16:30; Stop 09/30/18 at 16:31; Status DC Diltiazem HCl 125 mg/Dextrose 125 ml @ 5 mls/hr 1X ONCE IV Last administered on 09/30/18at 16:36; Start 09/30/18 at 16:30; Stop 10/01/18 at 17:29; Status DC Albuterol Sulfate (Ventolin Neb Soln) 2.5 mg 1X ONCE NEB Last administered on 09/30/18at 16:23; Start 09/30/18 at 16:30; Stop 09/30/18 at 16:31; Status DC Diltiazem HCl (Cardizem Iv Push) 25 mg STK-MED ONCE .ROUTE ; Start 09/30/18 at 16:19; Stop 09/30/18 at 16:20; Status DC Sodium Chloride 1,000 ml @ 1,000 mls/hr 1X ONCE IV Last administered on 09/30/18at 16:55; Start 09/30/18 at 17:00; Stop 09/30/18 at 17:00; Status DC Iohexol (Omnipaque 350 Mg/ml) 75 ml 1X ONCE IV Last administered on 09/30/18at 17:12; Start 09/30/18 at 17:00; Stop 09/30/18 at 17:01; Status DC Info (CONTRAST GIVEN -- Rx MONITORING) 1 each PRN DAILY PRN MC SEE COMMENTS; Start 09/30/18 at 17:00; Stop 10/02/18 at 16:59; Status DC Methylprednisolone Sodium Succinate (SOLU-Medrol 125MG VIAL) 125 mg 1X ONCE IV Last administered on 09/30/18at 18:41; Start 09/30/18 at 18:00; Stop 09/30/18 at 18:01; Status DC Azithromycin 250 ml @ 250 mls/hr 1X ONCE IV Last administered on 09/30/18at 18:44; Start 09/30/18 at 18:15; Stop 09/30/18 at 19:14; Status DC Ceftriaxone Sodium (Rocephin) 1 gm 1X ONCE IVP Last administered on 09/30/18at 18:39; Start 09/30/18 at 18:15; Stop 09/30/18 at 18:16; Status DC Potassium Chloride/Water 100 ml @ 100 mls/hr Q1H IV Last administered on 10/01/18 01:27; Start 09/30/18 at 19:30; Stop 09/30/18 at 23:29; Status DC Albuterol Sulfate (Ventolin Neb Soln) 2.5 mg PRN Q4HRS PRN NEB SHORTNESS OF BREATH Last administered on 09/30/18at 20:59; Start 09/30/18 at 21:00 Atorvastatin Calcium (Lipitor) 10 mg QHS PO Last administered on 10/04/18at 21:05; Start 09/30/18 at 21:00 Ondansetron HCl (Zofran) 4 mg PRN Q6HRS PRN IV NAUSEA/VOMITING Last administered on 10/05/18at 05:25; Start 09/30/18 at 22:15 Diltiazem HCl 125 mg/Dextrose 125 ml @ 5 mls/hr CONT PRN IV SEE I/O RECORD Last administered on 10/01/18at 11:54; Start 10/01/18 at 01:45; Stop 10/04/18 at 08:14; Status DC Methylprednisolone Sodium Succinate (SOLU-Medrol 40MG VIAL) 40 mg Q8HRS IV Last administered on 10/05/18at 05:24; Start 10/01/18 at 08:00 Pantoprazole Sodium (Protonix) 40 mg DAILYAC PO ; Start 10/01/18 at 07:30; Stop 10/01/18 at 07:30; Status DC Enoxaparin Sodium (Lovenox 40mg Syringe) 40 mg Q24H SQ Last administered on 10/02/18at 08:51; Start 10/01/18 at 08:00; Stop 10/02/18 at 10:23; Status DC Ipratropium High View (Atrovent) 0.5 mg RTQID NEB Last administered on 10/04/18at 15:29; Start 10/01/18 at 08:00 Pantoprazole Sodium (PROTONIX VIAL for IV PUSH) 40 mg DAILYAC IVP Last administered on 10/04/18at 06:09; Start 10/01/18 at 07:30; Stop 10/04/18 at 14:21; Status DC Metoprolol Tartrate (Lopressor) 50 mg BID PO Last administered on 10/01/18at 08:31; Start 10/01/18 at 09:00; Stop 10/01/18 at 09:47; Status DC Levothyroxine Sodium (Synthroid) 50 mcg DAILY06 PO Last administered on 10/02/18at 06:39; Start 10/01/18 at 08:00; Stop 10/03/18 at 08:49; Status DC Warfarin Sodium (Coumadin) 1 mg Q48H PO Last administered on 10/01/18at 17:21; Start 10/01/18 at 16:00; Stop 10/02/18 at 08:21; Status DC Warfarin Sodium (Coumadin Per Physician) 1 each PRN DAILY PRN MC SEE COMMENTS Last administered on 10/04/18at 11:30; Start 10/01/18 at 07:45 Insulin Human Lispro (HumaLOG) 0-5 UNITS TIDWMEALS SQ Last administered on 10/04/18at 17:34; Start 10/01/18 at 08:00 Dextrose (Dextrose 50%-Water Syringe) 12.5 gm PRN Q15MIN PRN IV SEE COMMENTS; Start 10/01/18 at 07:45 Metoprolol Tartrate (Lopressor) 50 mg TID PO Last administered on 10/02/18 06:50; Start 10/01/18 at 14:00; Stop 10/02/18 at 08:39; Status DC Ceftriaxone Sodium (Rocephin) 1 gm Q24H IVP Last administered on 10/04/18 17:25; Start 10/01/18 at 18:00 Azithromycin (Zithromax) 250 mg DAILY PO Last administered on 10/04/18 09:11; Start 10/01/18 at 16:00; Stop 10/06/18 at 15:59 Warfarin Sodium (Coumadin) 1 mg DAILY16 PO Last administered on 10/04/18 15:05; Start 10/02/18 at 16:00 Furosemide (Lasix) 40 mg DAILY PO Last administered on 10/03/18 17:51; Start 10/02/18 at 09:00; Stop 10/04/18 at 08:16; Status DC Metoprolol Tartrate (Lopressor Vial) 5 mg 1X ONCE IVP Last administered on 10/02/18at 08:50; Start 10/02/18 at 08:45; Stop 10/02/18 at 08:46; Status DC Metoprolol Tartrate (Lopressor) 50 mg Q6HRS PO Last administered on 10/05/18 05:24; Start 10/02/18 at 12:00; Stop 10/05/18 at 08:17; Status DC Enoxaparin Sodium (Lovenox 80mg Syringe) 80 mg Q12HR SQ Last administered on 10/04/18 21:05; Start 10/02/18 at 10:30 Methocarbamol (Robaxin) 1,500 mg PRN Q8HRS PRN PO MUSCLE SPASMS Last administered on 10/02/18at 23:46; Start 10/02/18 at 23:30 Levothyroxine Sodium (Synthroid) 75 mcg DAILY06 PO Last administered on 10/05/18 05:24; Start 10/04/18 at 06:00 Ferrous Sulfate (Feosol) 325 mg DAILYWBKFT PO Last administered on 10/03/18at 17:51; Start 10/03/18 at 09:30 Digoxin (Lanoxin) 250 mcg 1X ONCE IV Last administered on 10/03/18at 11:31; Start 10/03/18 at 11:30; Stop 10/03/18 at 11:31; Status DC Benzocaine (Hurricaine One) 1 spray STK-MED ONCE .ROUTE ; Start 10/03/18 at 13:08; Stop 10/03/18 at 13:09; Status DC Lidocaine HCl (Glydo (Lidocaine) Jelly) 1 tevin 1X ONCE MM ; Start 10/03/18 at 13:15; Stop 10/03/18 at 13:16; Status DC Propofol 0 ml @ As Directed STK-MED ONCE IV ; Start 10/03/18 at 13:28; Stop 10/03/18 at 13:29; Status DC Acetaminophen (Tylenol) 650 mg PRN Q6HRS PRN PO MILD PAIN / TEMP Last admi nistered on 10/04/18at 15:06; Start 10/03/18 at 15:45 Sodium Chloride 1,000 ml @ 100 mls/hr Q10H IV Last administered on 10/04/18at 09:21; Start 10/04/18 at 08:15; Stop 10/04/18 at 13:00; Status DC Furosemide (Lasix) 40 mg DAILY PO ; Start 10/05/18 at 09:00 Budesonide (Pulmicort) 0.5 mg RTBID NEB ; Start 10/04/18 at 20:00 Guaifenesin (Mucinex) 600 mg BID PO ; Start 10/04/18 at 21:00 Potassium Chloride (Klor-Con) 20 meq 1X ONCE PO Last administered on 10/04/18at 15:04; Start 10/04/18 at 13:45; Stop 10/04/18 at 13:46; Status DC Pantoprazole Sodium (Protonix) 40 mg DAILYAC PO ; Start 10/05/18 at 07:30 Metoprolol Succinate (Toprol Xl) 50 mg DAILY PO ; Start 10/05/18 at 09:00 Potassium Chloride (Klor-Con) 20 meq DAILYWBKFT PO ; Start 10/05/18 at 08:15 Losartan Potassium (Cozaar) 50 mg DAILY PO ; Start 10/05/18 at 09:00 Active Scripts Active Prednisone 20 Mg Tablet 1 Tab PO DAILY 3 tabs daily for 3 days then 2 tabs daily for 3 days then 1 tab daily for 3 days. Start on 09/17/18. Synthroid (Levothyroxine Sodium) 75 Mcg Tablet 75 Mcg PO DAILY06 30 Days Polyethylene Glycol 3350 17 Gm Powd.pack 17 Gm PO DAILY 30 Days Warfarin Sodium 1 Mg Tablet 1 Mg PO MON, WEDS, FRI ONLY 30 Days Toprol Xl (Metoprolol Succinate) 50 Mg Tab.er.24h 150 Mg PO DAILY Klor-Con M20 (Potassium Chloride) 20 Meq Tab.er.prt 20 Meq PO DAILYWBKFT 30 Days Reported Furosemide 40 Mg Tablet 1 Tab PO PRN DAILY PRN Pravastatin Sodium 40 Mg Tablet 1 Tab PO QHS Stool Softener (Docusate Sodium) 100 Mg Tablet 100 Mg PO PRN PRN Vitals/I & O Vital Sign - Last 24 Hours 10/04/18 10/04/18 10/04/18 10/04/18 10:55 12:17 14:50 15:30 Temp 97.7 98.1 97.7 98.1 Pulse 86 86 83 Resp 18 16 B/P (MAP) 144/17 (59) 144/77 157/85 (109) O2 Delivery Room Air Room Air Room Air O2 Flow Rate 98.0 10/04/18 10/04/18 10/04/18 10/04/18 17:24 19:25 19:45 22:45 Temp 98.3 98.0 98.3 98.0 Pulse 75 75 68 Resp 18 20 B/P (MAP) 157/85 150/82 (104) 140/77 (98) Pulse Ox 97 98 O2 Delivery Room Air Room Air Room Air 10/04/18 10/05/18 10/05/18 10/05/18 23:26 02:55 05:24 07:16 Temp 98.2 98.3 98.2 98.3 Pulse 68 72 69 72 Resp 20 20 B/P (MAP) 14 153/80 (104) 143/76 150/79 (102) Pulse Ox 98 96 O2 Delivery Room Air Room Air Intake and Output 10/04/18 10/04/18 10/05/18 15:00 23:00 07:00 Intake Total 500 ml 0 ml 400 ml Balance 500 ml 0 ml 400 ml Nutrition Consultation Dietary Evaluation: Recommendations by RD: Increase Calorie Intake, Protein supplementation Comments: Continue ensure TID Please honor food preferences and provide snack on unit when requseted Expected Outcomes/Goals: P.O. intake to meet >75% estimated energy needs All nutrition related questions answered before d/c Interpretation of weight loss: >10% in 6 months Malnutrition Findings: Food and Nutrition Intake (Mod: <75% est energy req 7days Weight Status: Overweight JOSH CANAS MD Oct 05, 2018 08:38
[2018-10-05] MEDS ORDERED: WARF1TAB74 PO (08:46)
[2018-10-05] MEDS ORDERED: LOSA-73 PO (08:46)
[2018-10-05] MEDS ORDERED: Pantoprazole PO (08:46)
[2018-10-05] MEDS ORDERED: METO50TA4 PO (08:46)
[2018-10-05] MEDS ORDERED: PRED-220 PO (08:46)
[2018-10-05] MEDS ORDERED: FURO40TA4 PO (08:46)
[2018-10-05] MEDS: AZITHROMYCIN 250 MG TABLET. PO SCH (08:51)
[2018-10-05] MEDS: INSULIN LISPRO 300 UNITS/3 ML INSULN.PEN. SQ SCH ×2 (08:53→12:45)
[2018-10-05] MEDS ORDERED: FUROSEMIDE 40 MG TABLET. PO SCH (09:00)
[2018-10-05] MEDS ORDERED: LOSARTAN POTASSIUM 50 MG TABLET. PO SCH (09:00)
[2018-10-05] MEDS ORDERED: METOPROLOL SUCC 24HR ER 50 MG TAB.ER.24H. PO SCH (09:00)
--- NOTE | 2018-10-05 10:36 | DS ---
DATE OF DISCHARGE: 10/05/2018 CHIEF COMPLAINT: Tachycardia. HISTORY OF PRESENT ILLNESS: The patient is a 67-year-old female with a history of chronic atrial fibrillation and newly diagnosed stage 4 non-small cell lung cancer. She was at Dr. Durham's office on the day of admission to discuss starting chemotherapy. Dr. Durham found her to be tachycardic with a heart rate of about 150 and advised her to present to the Emergency Room. She was seen in the Emergency Room. Treatment was started and she was admitted for further care. HOSPITAL COURSE: The patient was admitted and placed on telemetry where she was in atrial fibrillation. Her heart rate was initially controlled with Cardizem drip. She was seen in consultation by Cardiology, Pulmonology and Oncology. She was started on Lovenox for anticoagulation as her INR was initially subtherapeutic. Her heart rate proved it difficult to control even with the Cardizem and oral metoprolol. On 10/03/2018, Dr. Rivas performed a transesophageal echocardiogram, which showed an ejection fraction of 30-35%, moderate mitral valve stenosis and moderate tricuspid regurgitation. He then performed external cardioversion and the patient returned to sinus rhythm. She has remained in sinus rhythm since then. Her INR is just below the therapeutic range at 1.9 today and she will be continued on an increased dose of Coumadin 1 mg daily and this will be followed as an outpatient. The patient was seen by Pulmonary Medicine and felt to be experiencing exacerbation of her COPD with possible pneumonia. She was treated with broad spectrum antibiotics, prednisone and nebulized breathing treatments. She was initially hypoxic, but this has resolved and her oxygen saturation is now 98% on room air. The patient reports that her breathing has improved and she will be discharged home on a prednisone taper. The patient has glucose intolerance. Her blood sugars were mildly elevated due to the prednisone, but this is expected to improve as the steroids are tapered down. She is advised to continue to follow a diabetic diet at home. She was found to be anemic with hemoglobin of 10.3. Labs showed iron deficiency. The patient reports that she is allergic or intolerant to ORAL IRON SUPPLEMENTS and is therefore advised to increase her dietary sources of iron to help with this mild anemia. Lipids were drawn with a total cholesterol of 150 and LDL of 87 and she is advised to continue her usual statin. She is advised to take her Lasix and potassium daily for control of her congestive heart failure with systolic and diastolic dysfunction. She used to take losartan along with Toprol-XL for control of hypertension. With her returned to sinus rhythm, her blood pressure has been mildly elevated and therefore losartan will be resumed. She will be discharged on a lower dose of the Toprol-XL than she used to take as she should not need the high dose for rate control since her return to sinus rhythm. The patient reported that she had been experiencing some heartburn and stomach acid problems prior to admission. The Protonix that she received daily in the hospital helped these symptoms significantly, so she will be discharged home with a prescription for this. FINAL DIAGNOSES: 1. Atrial fibrillation with rapid ventricular response. 2. Stage 4 non-small cell lung cancer. 3. Acute hypoxic respiratory failure. 4. Chronic obstructive pulmonary disease with acute exacerbation. 5. Hypertension. 6. Hypothyroidism. 7. Congestive heart failure with systolic and diastolic dysfunction, mitral stenosis and pulmonary hypertension. 8. Glucose intolerance. 9. Iron deficiency anemia. 10. Dyspepsia. DISCHARGE MEDICATIONS: Losartan 50 mg daily, Toprol-XL 50 mg 1 daily, Protonix 40 mg daily; prednisone 10 mg tablet 4 tablets daily for 2 days, then 3 tablets daily for 2 days, then 2 tablets daily for 2 days, then 1 tablet daily for 2 days, then discontinue; Coumadin 1 mg daily, Colace or MiraLax daily as needed, levothyroxine 75 mcg daily, potassium chloride 20 mEq daily, pravastatin 40 mg daily, furosemide 40 mg daily. FOLLOWUP: Follow up is with Dr. Goldman next week. Follow up with consultants as advised. JOSH GOLDMAN MD DR: ALFONSO/hector JOB#: [id number] / [id number] DILCIA
[2018-10-05 10:44] VITALS: BP 144/70
--- NOTE | 2018-10-05 10:56 | PDOC ---
PULMONARY PROGRESS NOTES Subjective NOT MORE SOA Vitals Vital Signs Date Time Temp Pulse Resp B/P (MAP) Pulse Ox O2 Delivery O2 Flow Rate FiO2 10/05/18 10:44 98.3 75 20 144/70 (94) 98 Room Air 98.3 10/05/18 08:00 4.0 ROS: No Nausea, No Chest Pain, No Increase Cough General: Alert, Oriented X4, No acute distress HEENT: Other (nc at perrl) Lungs: Wheezing Cardiovascular: S1, S2 (NSR), Other Abdomen: Soft, Non-tender Neuro Exam: Alert, Oriented, Normal Speech Extremities: No Edema Skin: Warm Labs Laboratory Tests Test 10/03/18 11:41 10/03/18 17:00 10/03/18 20:48 10/04/18 02:45 Glucose (Fingerstick) 145 mg/dL (70-99) 142 mg/dL (70-99) 207 mg/dL (70-99) Prothrombin Time 20.3 SEC (11.7-14.0) Prothromb Time International Ratio 1.8 (0.8-1.1) Sodium Level 141 mmol/L (136-145) Potassium Level 3.3 mmol/L (3.5-5.1) Chloride Level 102 mmol/L (98-107) Carbon Dioxide Level 26 mmol/L (21-32) Anion Gap 13 (6-14) Blood Urea Nitrogen 39 mg/dL (7-20) Creatinine 1.9 mg/dL (0.6-1.0) Estimated GFR (Cockcroft-Gault) 32.0 Glucose Level 181 mg/dL (70-99) Calcium Level 9.3 mg/dL (8.5-10.1) Magnesium Level 2.2 mg/dL (1.8-2.4) Thyroid Stimulating Hormone (TSH) 3.326 uIU/mL (0.358-3.74) Test 10/04/18 07:16 10/04/18 11:26 10/04/18 16:30 10/04/18 20:49 Glucose (Fingerstick) 221 mg/dL (70-99) 177 mg/dL (70-99) 166 mg/dL (70-99) 189 mg/dL (70-99) Test 10/05/18 05:25 10/05/18 07:11 Prothrombin Time 21.8 SEC (11.7-14.0) Prothromb Time International Ratio 1.9 (0.8-1.1) Sodium Level 142 mmol/L (136-145) Potassium Level 3.2 mmol/L (3.5-5.1) Chloride Level 106 mmol/L (98-107) Carbon Dioxide Level 25 mmol/L (21-32) Anion Gap 11 (6-14) Blood Urea Nitrogen 34 mg/dL (7-20) Creatinine 1.4 mg/dL (0.6-1.0) Estimated GFR (Cockcroft-Gault) 45.5 Glucose Level 167 mg/dL (70-99) Calcium Level 8.7 mg/dL (8.5-10.1) Glucose (Fingerstick) 170 mg/dL (70-99) Laboratory Tests Test 10/04/18 11:26 10/04/18 16:30 10/04/18 20:49 10/05/18 05:25 Glucose (Fingerstick) 177 mg/dL (70-99) 166 mg/dL (70-99) 189 mg/dL (70-99) Prothrombin Time 21.8 SEC (11.7-14.0) Prothromb Time International Ratio 1.9 (0.8-1.1) Sodium Level 142 mmol/L (136-145) Potassium Level 3.2 mmol/L (3.5-5.1) Chloride Level 106 mmol/L (98-107) Carbon Dioxide Level 25 mmol/L (21-32) Anion Gap 11 (6-14) Blood Urea Nitrogen 34 mg/dL (7-20) Creatinine 1.4 mg/dL (0.6-1.0) Estimated GFR (Cockcroft-Gault) 45.5 Glucose Level 167 mg/dL (70-99) Calcium Level 8.7 mg/dL (8.5-10.1) Test 10/05/18 07:11 Glucose (Fingerstick) 170 mg/dL (70-99) Medications Active Scripts Medications Dose Route/Sig Max Daily Dose Days Date Category Dose Instructions Prednisone 20 Mg Tablet 1 Tab PO DAILY 09/16/18 Rx 3 tabs daily for 3 days then 2 tabs daily for 3 days then 1 tab daily for 3 days. Start on 09/17/18. Synthroid (Levothyroxine Sodium) 75 Mcg Tablet 75 Mcg PO DAILY06 30 09/16/18 Rx Polyethylene Glycol 3350 17 Gm Powd.pack 17 Gm PO DAILY 30 09/16/18 Rx Warfarin Sodium 1 Mg Tablet 1 Mg PO WED, , WED ONLY 30 09/16/18 Rx Toprol Xl (Metoprolol Succinate) 50 Mg Tab.er.24h 150 Mg PO DAILY 09/13/18 Rx Klor-Con M20 (Potassium Chloride) 20 Meq Tab.er.prt 20 Meq PO DAILYWBKFT 30 08/19/18 Rx Furosemide 40 Mg Tablet 1 Tab PO PRN DAILY PRN 06/30/18 Reported Pravastatin Sodium 40 Mg Tablet 1 Tab PO QHS 06/30/18 Reported Stool Softener (Docusate Sodium) 100 Mg Tablet 100 Mg PO PRN PRN 07/21/17 Reported Active Scripts Medications Dose Route/Sig Max Daily Dose Days Date Category Dose Instructions Prednisone 20 Mg Tablet 1 Tab PO DAILY 09/16/18 Rx 3 tabs daily for 3 days then 2 tabs daily for 3 days then 1 tab daily for 3 days. Start on 09/17/18. Synthroid (Levothyroxine Sodium) 75 Mcg Tablet 75 Mcg PO DAILY06 30 09/16/18 Rx Polyethylene Glycol 3350 17 Gm Powd.pack 17 Gm PO DAILY 30 09/16/18 Rx Warfarin Sodium 1 Mg Tablet 1 Mg PO WED, , WED ONLY 30 09/16/18 Rx Toprol Xl (Metoprolol Succinate) 50 Mg Tab.er.24h 150 Mg PO DAILY 09/13/18 Rx Klor-Con M20 (Potassium Chloride) 20 Meq Tab.er.prt 20 Meq PO DAILYWBKFT 30 08/19/18 Rx Furosemide 40 Mg Tablet 1 Tab PO PRN DAILY PRN 06/30/18 Reported Pravastatin Sodium 40 Mg Tablet 1 Tab PO QHS 06/30/18 Reported Stool Softener (Docusate Sodium) 100 Mg Tablet 100 Mg PO PRN PRN 07/21/17 Reported Impression . 1. Acute hypoxemic respiratory failure multifactorial 2. Abnormal CT of the chest. 3. Stage IV non-small cell lung cancer. 4. Acute exacerbation of chronic obstructive pulmonary disease. 5. Acute bronchitis. 6. Ex-smoker. 7. Acute kidney injury. 8. Anemia. 9. Atrial fibrillation with rapid ventricular response. 10. Hypothyroidism. 11. Status post automatic implantable cardioverter defibrillator. 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 RESP STATUS IS COMPENSATED HOME NO ANTIBX FOLLOW UP WITH ONCO FOLLOW UP WITH ME IN JAN Acute hypoxemic respiratory failure * multifactorial * cont. bronchodilators, add Pulmicort * cont. steroids Stage IV non-small cell lung cancer. * dr. huerta following, needs outpatient chemo * There is again large left hilar mass with extent to the left mediastinum with narrowing of the adjacent bronchi and pulmonary arteries. Previously seen left pleural effusion has resolved and improved aeration of the left lower lobe. There is some persistent atelectasis/infiltrate of the right lower lobe and possible nodules. There is emphysema. * cont. supportive care Acute exacerbation of chronic obstructive pulmonary disease/Acute bronchitis. * Cont. abxs * supplemental oxygen to keep sats above 92% * cont. to monitor Acute kidney injury. * cr. is 1.9 today * avoid nephrotoxic medications * held Lasix Atrial fibrillation with rapid ventricular response:resolved * currently NSR * S/P cardioversion * Status post automatic implantable cardioverter defibrillator * currently Lovenox,Coumadin bridge * cardiology following Cardiomyopathy * SUSI on 10/03:The left ventricular systolic function is moderately impaired. The Ejection Fraction is 30-35%. There is global hypokinesis of the left ventricle. * cardiology following Hypothyroidism. * TSH * cont. home medications DVT/GI PPX: Lovenox/Coumadin SANJIV SOSA MD Oct 05, 2018 10:56
--- NOTE | 2018-10-05 10:58 | PDOC ---
ALFRED NICE CONTINUOUS DRYOUT OPERATOR HELPER 10/05/18 1058: CARDIO Progress Notes Date and Time Date of Service 10/05/18 Time of Evaluation 1010 Subjective Subjective: No Chest Pain, No Palpitations, No Dizziness, Other (mild SOA) Vitals Vitals Vital Signs Date Time Temp Pulse Resp B/P (MAP) Pulse Ox O2 Delivery O2 Flow Rate FiO2 10/05/18 10:44 98.3 75 20 144/70 (94) 98 Room Air 98.3 10/05/18 08:00 4.0 Weight Weight [ ] Input and Output Intake and Output Intake and Output 10/05/18 07:00 Intake Total 900 ml Balance 900 ml Intake Oral 400 ml IV Total 500 ml Laboratory Labs Laboratory Tests Test 10/04/18 11:26 10/04/18 16:30 10/04/18 20:49 10/05/18 05:25 Glucose (Fingerstick) 177 mg/dL (70-99) 166 mg/dL (70-99) 189 mg/dL (70-99) Prothrombin Time 21.8 SEC (11.7-14.0) Prothromb Time International Ratio 1.9 (0.8-1.1) Sodium Level 142 mmol/L (136-145) Potassium Level 3.2 mmol/L (3.5-5.1) Chloride Level 106 mmol/L (98-107) Carbon Dioxide Level 25 mmol/L (21-32) Anion Gap 11 (6-14) Blood Urea Nitrogen 34 mg/dL (7-20) Creatinine 1.4 mg/dL (0.6-1.0) Estimated GFR (Cockcroft-Gault) 45.5 Glucose Level 167 mg/dL (70-99) Calcium Level 8.7 mg/dL (8.5-10.1) Test 10/05/18 07:11 Glucose (Fingerstick) 170 mg/dL (70-99) Physical Exam HEENT: Neck Supple W Full Motion Chest: Symmetric LUNGS: Other (expiratory wheezes) Heart: S1S2, RRR Abdomen: Soft N/T Extremities: No Edema Neurology: alert, oriented, follow commands Assessment Assessment 1. AFIB with RVR; s/p CV. Maintaining SR. 2. Stage IV adenocarcinoma 3. Chronic systolic/diastolic HF; compensated 4. NICM s/p AICD (Biotronik). LVEF 30-35% 5. CAD: recent MPI with fixed defect, no ischemia. 6. Hypertension; remains mild elevated 7. Hx of mitral and tricuspid valve repair 8. Pulmonary HTN 9. Hypothyroidism:on replacement per PCP Recommendations Continue BB for rate control Agree with losartan for better BP control Chronic anticoagulation with warfarin. INR 1.9 May discharge from a CV standpoint and f/u in our office with Dr. Rivas as scheduled. PRINCE RIVAS MD 10/05/182116: CARDIO Progress Notes Assessment Assessment Patient seen and examined. Agree with SOLAR SALES REPRESENTATIVE AND ASSESSOR's assessment and plan. s/p SUSI guided cardioversion, maintaining sinus rhythm Cardiomyopathy compensated BP better controlled Continue current meds and follow up in one month ALFRED NICE APRN Oct 05, 2018 10:58 PRINCE RIVAS MD Oct 05, 2018 21:17
--- NOTE | 2018-10-05 14:57 | NUR ---
Discharge Note: CRISTIAN EVANS Discharge instructions and discharge home medications reviewed with Patient and a copy given. All questions have been answered and understanding verbalized. Prescriptions called into [facility] at [facility] per patient and spouse request. Pt verbalized all follow ups and instructions.
[2018-11-11] MEDS ORDERED: ENOX80DI3 SQ (09:14)
[2018-11-11] MEDS ORDERED: WARF10TA45 MC (09:14)
[2018-11-11] MEDS ORDERED: METO25TA4 PO (09:14)
[2018-11-11] MEDS ORDERED: MORP15TA PO (09:14)
[2018-11-11] MEDS ORDERED: POTA20LI27 PEG (09:14)
[2018-11-11] MEDS ORDERED: ALPR0.254 PO (09:14)
[2018-11-11] MEDS ORDERED: HYDR-2765 PO (09:14)
[2018-11-11] MEDS ORDERED: LANS30TA6 FT (09:15)
[2018-11-11] MEDS ORDERED: DOCU-109 PO (09:15)
== END 2018-10-05 15:00 | disposition home or self-care (01) | DRG 871 ==
LOC: ER 16:05 → 1 WEST ICU 18:13 → 2 NORTH 10-01 10:39
PROVIDERS: ADMIT Family Medicine; ATTEND Family Medicine
PROC: 5A2204Z Restoration of Cardiac Rhythm, Single (ICD-10-PCS; principal; 2018-10-03)
PROC: B246ZZ4 Ultrasonography of Right and Left Heart, Transesophageal (ICD-10-PCS; 2018-10-03)
DX: A41.9 Sepsis, unspecified organism (principal); K85.90 Acute pancreatitis without necrosis or infection, unspecified; J18.9 Pneumonia, unspecified organism; J96.01 Acute respiratory failure with hypoxia; I50.43 Acute on chronic combined systolic (congestive) and diastolic (congestive) heart failure; N17.9 Acute kidney failure, unspecified; C34.90 Malignant neoplasm of unspecified part of unspecified bronchus or lung; I13.0 Hypertensive heart and chronic kidney disease with heart failure and stage 1 through stage 4 chronic kidney disease, or unspecified chronic kidney disease; J44.0 Chronic obstructive pulmonary disease with (acute) lower respiratory infection; J44.1 Chronic obstructive pulmonary disease with (acute) exacerbation; I42.9 Cardiomyopathy, unspecified; I48.91 Unspecified atrial fibrillation; J20.9 Acute bronchitis, unspecified; D50.9 Iron deficiency anemia, unspecified; E03.9 Hypothyroidism, unspecified; E74.39 Other disorders of intestinal carbohydrate absorption; E78.00 Pure hypercholesterolemia, unspecified; E78.5 Hyperlipidemia, unspecified; E87.6 Hypokalemia; I05.0 Rheumatic mitral stenosis; I25.10 Atherosclerotic heart disease of native coronary artery without angina pectoris; I27.29 Other secondary pulmonary hypertension; M19.90 Unspecified osteoarthritis, unspecified site; I95.9 Hypotension, unspecified; I48.2 Chronic atrial fibrillation; K21.9 Gastro-esophageal reflux disease without esophagitis; M06.9 Rheumatoid arthritis, unspecified; N18.9 Chronic kidney disease, unspecified; E80.6 Other disorders of bilirubin metabolism; R73.03 Prediabetes; T38.0X5A Adverse effect of glucocorticoids and synthetic analogues, initial encounter; Y92.89 Other specified places as the place of occurrence of the external cause; Z79.01 Long term (current) use of anticoagulants; Z85.118 Personal history of other malignant neoplasm of bronchus and lung; Z87.891 Personal history of nicotine dependence; Z92.3 Personal history of irradiation; Z95.810 Presence of automatic (implantable) cardiac defibrillator
CPT/HCPCS: 36415; 71045; 71275; 80048; 80053; 80061; 80076; 82962; 83540; 83550; 83605; 83690; 83735; 83880; 84443; 84484; 85007; 85025; 85610; 85730; 87641; 93005; 93312; 93320; 93325; 93970; 94640; 94760; 96365; 96375; 96376; C9113; J0456; J0696; J1160; J1650; J1815; J2405; J2704; J2920; J2930; J3480; J3490; J7030; J7613; J7644; Q0144; Q9967; 99291-25

== ENCOUNTER 2018-10-18 08:31 | Outpatient (CLI) | payer MEDICARE ==
[2018-10-18] VITALS (8 sets, daily range): BP systolic 91–123; BP diastolic 61–67
[~2018-10-18] VITALS: Ht 157.5 cm; Wt 74.4 kg
[~2018-10-18 08:31] MED LIST changes: +Pantoprazole PO; +WARF1TAB74 PO
[2018-10-18] MEDS ORDERED: ONDA8TAB9 PO (09:20)
[2018-10-18] MEDS ORDERED: DEXA4TAB PO (09:20)
[2018-10-18 09:21] LABS: BASO % 0 % (0-3); EOS % 0 % (0-3); HEMATOCRIT 33.9 % (36.0-47.0); LYMPH # 0.8 x10^3/uL (1.0-4.8); LYMPH % 18 % (24-48); MEAN CORPUSCULAR HEMOGLOBIN 32 pg (25-35); MEAN CORPUSCULAR HGB CONC 33 g/dL (31-37); MEAN CORPUSCULAR VOLUME 99 fL (79-100); MONO # 0.3 x10^3/uL (0.0-1.1); MONO % 6 % (0-9); NEUT # 3.5 x10^3uL (1.8-7.7); NEUT % 77 % (31-73); PLATELET COUNT 81 x10^3/uL (140-400); RED BLOOD COUNT 3.43 x10^6/uL (3.50-5.40); RED CELL DISTRIBUTION WIDTH 16.6 % (11.5-14.5); WHITE BLOOD COUNT 4.6 x10^3/uL (4.0-11.0)
[2018-10-18 09:33] LABS: PROTHROMBIN TIME PATIENT 13.1 SEC (11.7-14.0)
[2018-10-18] MEDS ORDERED: fentaNYL PF VIAL 100 MCG/2 ML VIAL ONE (09:44)
[2018-10-18] MEDS ORDERED: MIDAZOLAM HCL/PF 2 MG/2 ML VIAL. ONE (09:44)
[2018-10-18] MEDS ORDERED: LIDOCAINE 1%/EPI 1:100,000 20 ML VIAL. ONE (09:44)
[2018-10-18] MEDS ORDERED: IV NORMAL SALINE 250ML 250 ML IV ONE (10:15)
[2018-10-18] MEDS ORDERED: fentaNYL PF VIAL 100 MCG/2 ML VIAL IV ONE (10:15)
[2018-10-18] MEDS ORDERED: LIDOCAINE 1%/EPI 1:100,000 20 ML VIAL. IJ ONE (10:15)
[2018-10-18] MEDS ORDERED: MIDAZOLAM HCL/PF 2 MG/2 ML VIAL. IV ONE (10:15)
--- NOTE | 2018-10-18 10:38 | PDOC ---
MODERATE SEDATION ASSESSMENT RISKS/ALTERNATIVES Risks/Alternatives Risks and alternatives of this type of sedation and procedure discussed with: RISK/ALTERNATIVES: Patient H & P ON CHART H & P H & P on chart and reviewed for co-morbid conditions and appropriate labs. H&P ON CHART: Yes STATUS PREG STATUS ASSESSED: Yes MEDS/ALLERGIES REVIEWED Meds/Allergies Reviewed Medications and Allergies including time and route of recently administered narcotics and sedatives. MEDS/ALLERGIES REVIEWED: Yes ASA RATING ASA RATING: II AIRWAY ASSESSMENT Airway Assessment Airway patency, oral function limitations, presence of caps, crowns, dentures, partials, and ability to extend neck assessed. AIRWAY ASSESSMENT: Yes MALLAMPATI SCORE MALLAMPATI SCORE: II PRE-SEDATION ASSESSMENT PRE-SEDATION ASSESSMENT: Yes SINDHU COLE MD October 18, 2018 10:38
--- NOTE | 2018-10-18 11:25 | RAD ---
Procedure: Ultrasound and fluoroscopically guided placement of right internal jugular power port.. 10/18/2018 11:22 AM Clinical Indication: LUNG CA Sedation: Conscious sedation was administered for 30 minutes. The patient was monitored by a qualified independent observer throughout the time of sedation. Please refer to the medical record for exact doses of medications utilized to achieve moderate sedation. Fluoroscopy time: 0.8 minutes Dose area product: 2 Gycm2 Consent: The procedure was explained in its entirety to the patient or the patients designated sales representative metals by a member of the treatment team, including a discussion of the risks, benefits and commonly accepted alternatives to the procedure, as well as the expected consequences of no therapy whatsoever. Discussion of the risks included, but was not limited to, those that are most frequent and those that are rare but possibly severe or life-threatening, as well as the possibility of unforeseen complications. Technique and Findings: All elements of maximal sterile barrier technique including the use of a cap, mask, sterile gown, sterile gloves, large sterile sheet, appropriate hand hygiene, and 2% chlorhexidine for cutaneous antisepsis (or acceptable alternative antiseptic per current guidelines) were followed for this procedure. Following informed consent, and a timeout procedure, the patient was prepped and draped in the usual sterile fashion. Ultrasound interrogation of the right neck revealed patency and compressibility of the right internal jugular vein. A 21-gauge micropuncture was then used to gain access to this vein under ultrasound guidance. A hard copy ultrasound image was recorded. The needle was exchanged over a wire for a sheath. A 1 inch incision was made several centimeters inferior to the venotomy site. A catheter was tunneled from this site dermatotomy site in the neck. Catheter was advanced through peel-away sheath such that its tip was in the proximal right atrium with the patient supine. The catheter was trimmed to length and connected to the port reservoir. The port was found to flush and aspirate normally. The wound was closed in layers using 4-0 Vicryl suture. Sterile dressings were applied. Impression: Successful ultrasound and fluoroscopically guided placement of a right internal jugular PowerPort
--- NOTE | 2018-10-18 12:58 | NUR ---
Discharge Note: CRISTIAN EVANS Discharge instructions and discharge home medications reviewed with Patient and a copy given. All questions have been answered and understanding verbalized. The following instructions and handouts were given: implanted port instructions and moderate sedation Discontinued lines and drains: Peripheral IV intact. Patient discharged to Home or Self Care withSpousevia Wheelchair
[2018-11-11] MEDS ORDERED: HYDR-2765 PO (09:14)
[2018-11-11] MEDS ORDERED: ALPR0.254 PO (09:14)
[2018-11-11] MEDS ORDERED: ENOX80DI3 SQ (09:14)
[2018-11-11] MEDS ORDERED: POTA20LI27 PEG (09:14)
[2018-11-11] MEDS ORDERED: MORP15TA PO (09:14)
[2018-11-11] MEDS ORDERED: WARF10TA45 MC (09:14)
[2018-11-11] MEDS ORDERED: METO25TA4 PO (09:14)
[2018-11-11] MEDS ORDERED: DOCU-109 PO (09:15)
[2018-11-11] MEDS ORDERED: LANS30TA6 FT (09:15)
== END 2018-10-18 13:02 | disposition home or self-care (01) ==
LOC: INTRAD 08:31
PROVIDERS: ATTEND Internal Medicine Hematology & Oncology
DX: C34.12 Malignant neoplasm of upper lobe, left bronchus or lung (principal); Z79.01 Long term (current) use of anticoagulants; Z79.899 Other long term (current) drug therapy; Z88.8 Allergy status to other drugs, medicaments and biological substances
CPT/HCPCS: 36415; 36561; 76937; 77001; 85025; 85610; 85730; 99152; 99153; C1788; C1892; J0690; J2250; J3010; J3490; J7050; C1751; J7030